=== PATIENT | male | born 1950 | race Caucasian/White ===

== ENCOUNTER 2022-11-10 12:48 | Emergency (ER) | payer MEDICARE, BC, SELFPAY ==
[2022-11-10 13:14] VITALS: BP 131/78; PULSE 68; RESP 18; TEMP 37.1; O2SAT 96; BMI 23.7
--- NOTE | 2022-11-10 13:33 | CRLHL7_ITS ---
For Patients: As a result of the Cures Act, medical imaging exams and procedure reports are released immediately into your electronic medical record. You may view this report before your referring provider. If you have questions, please contact your health care provider. INDICATION: Right knee pain and swelling. TECHNIQUE: Ultrasound venous duplex lower right extremity. Compression venous exam was performed using matos-scale, color Doppler, and spectral Doppler imaging. COMPARISON: Radiographs 11/10/2022. FINDINGS: Sonographic imaging demonstrates the right common femoral, deep femoral, superficial femoral, popliteal, posterior tibial and greater saphenous and the contralateral left common femoral veins to be fully compressible with normal color Doppler blood flow. 7.6 x 2.7 x 4.0 centimeter popliteal fossa region fluid collection is likely a popliteal cyst. IMPRESSION: No DVT within the right lower extremity. 7.6 x 2.7 x 4.0 centimeter popliteal fossa region fluid collection is likely a popliteal cyst. Dictated by Thom Farris MD @ 11/10/2022 2:41:57 PM Dictated by: Thom Farris MD @ 11/10/2022 14:42:08 (Electronically Signed)
--- NOTE | 2022-11-10 13:33 | CRLHL7_ITS ---
For Patients: As a result of the Century Cures Act, medical imaging exams and procedure reports are released immediately into your electronic medical record. You may view this report before your referring provider. If you have questions, please contact your health care provider. HISTORY: Pain and swelling. TECHNIQUE: Right knee 2 views. COMPARISON: None. FINDINGS: Flattening and mild irregularity of the medial femoral condyle articular cortex with suggestion of an approximately 14 mm wide underlying osteochondral lesion. Moderate medial compartment joint space narrowing marginal osteophytes. Small marginal osteophytes in the lateral and patellofemoral compartments. Atherosclerotic calcifications. Ossified joint bodies. IMPRESSION: 1. Osteochondral lesion the medial femoral condyle with flattening and mild irregularity of the overlying articular cortex. 2. 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 Dictated by Marco Garrido MD @ 11/10/2022 2:12:27 PM (Electronically Signed)
--- NOTE | 2022-11-11 00:12 | ED.GENADULT ---
HPI - General Adult General Chief complaint: Extremity Pain/Injury, Lower Stated complaint: R leg pain Time Seen by Provider: 11/10/22 13:22 History of Present Illness HPI narrative: RIGHT calf pain started overnight that woke him up from sleep. Seen at urgent care today who told him to come to ER for evaluation of possible blood clot. Pain goes from back of right calf up to lower thigh. Mild edema noted around right ankle. This is not baseline per pt 72-year-old man presenting to the emergency department complaint of right knee area pain. I was contacted initially by urgent care with description of discomfort from midthigh down to mid calf/lower leg and concern of foot blood clot?. He is not having cough or cold symptoms and no shortness of breath. No chest pain. On further questioning there has been some swelling behind the knee for some time. He also has been having some pain in the knee on off for a little while now. Does smoke. Was described to me as having had a long car ride about 6 hours. That was though 3 hours with breaks, ambulating around at cemetery to refresh a grave, and then returning home sounds like about a 3 hour day.. History of rheumatoid noted later. Related Data Home Medications Medication Instructions Recorded Confirmed blood pressure medication 20 mg PO 11/07/22 flomax PO 11/07/22 hydroxychloroquine 400 mg tablet 400 mg PO QDAY 11/07/22 11/10/22 methotrexate sodium 15 mg tablet 15 mg PO QWEEK 11/07/22 11/10/22 Previous Rx's Medication Instructions Recorded doxycycline hyclate 100 mg tablet 100 mg PO BID #14 tabs 11/07/22 Allergies Allergy/AdvReac Type Severity Reaction Status Date / Time Penicillins Allergy Verified 11/10/22 13:21 Review of Systems Status of ROS: Reports: 6 or more systems reviewed and unremarkable except as noted in History and below [facility] Medical History Finger infection ?L08.9 - Local infection of the skin and subcutaneous tissue, unspecified (ICD-10) Social History Smoking Status: Current every day smoker What tobacco products do you use: cigarettes Smoking packs per day: 0.25 Smoking cigarettes per day: 5.0 Years smoked: 55 Smoking pack-years: 13.75 Do you use any of these nicotine containing products: None Second hand tobacco smoke exposure: No How often do you have a drink containing alcohol: monthly or less How many standard drinks containing alcohol do you have on a typical day: 1 or 2 How often do you have six or more drinks on one occasion: Never AUDIT-C Alcohol total score: 1 Non-prescribed substance use: denies use service: Yes Exam Narrative: Exam Narrative: Pleasant. Initially accompanied by spouse she waits elsewhere later on the visit. Breathing easily. Heart with regular rate and rhythm. Banana room initially seated on the bed. Clearly tell that there is an effusion in the right knee. There is mild erythema. Not the degree of calor I would associate with cellulitis or joint infection itself. Number fluctuant marked fullness in the antigeniculate fossa. Some tenderness here as well. There is also what appears to be a moderate effusion about the knee. Negative Homans. Minimal edema about the ankle; seems relatively equivalent in the leg Const: Vital Signs, click to edit/add: Vital Signs - 24 hr 11/10/22 13:14 Temperature 98.7 F Pulse Rate [Pulse Oximeter] 68 Respiratory Rate 18 Blood Pressure [Ri ght Upper Arm] 131/78 Pulse Oximetry 96 Oxygen Delivery Me thod Room Air Documenting provider has reviewed patient's vital signs: yes Course Vital Signs Vital signs: Initial Vital Signs Temperature 98.7 F 11/10/22 13:14 Temperature Source Temporal Artery Scan 11/10/22 13:14 Pulse Rate 68 11/10/22 13:14 Pulse Rhythm Regular 11/10/22 13:14 Pulse Strength 3+ Normal 11/10/22 13:14 Respiratory Rate 18 11/10/22 13:14 Blood Pressure 131/78 11/10/22 13:14 Blood Pressure Mean 95 11/10/22 13:14 Blood Pressure Position Sitting 11/10/22 13:14 Pulse Oximetry 96 11/10/22 13:14 Oxygen Delivery Method Room Air 11/10/22 13:14 Vital Signs Temperature 98.7 F 11/10/22 13:14 Pulse Rate 68 11/10/22 13:14 Respiratory Rate 18 11/10/22 13:14 Blood Pressure 131/78 11/10/22 13:14 Pulse Oximetry 96 11/10/22 13:14 Oxygen Delivery Method Room Air 11/10/22 13:14 Temperature 98.7 F 11/10/22 13:14 Pulse Rate 68 11/10/22 13:14 Respiratory Rate 18 11/10/22 13:14 Blood Pressure 131/78 11/10/22 13:14 Pulse Oximetry 96 11/10/22 13:14 Oxygen Delivery Method Room Air 11/10/22 13:14 Medical Decision Making MDM Narrative Medical decision making narrative: Doubt very much that there is a deep venous thrombus present here. Seems more like Matt cyst along with otherwise knee effusion and osteoarthritic appearing knee. Furthermore there is a history of rheumatoid. This does not appear to be a flare of rheumatoid I requested ultrasound to evaluate for this suspect a Matt's cyst at the same time will check for DVT per concerns prior. Does not sound as though there has been a traumatic event to potentially injuries knees. COMPARISON: Radiographs 11/10/2022. FINDINGS: Sonographic imaging demonstrates the right common femoral, deep femoral, superficial femoral, popliteal, posterior tibial and greater saphenous and the contralateral left common femoral veins to be fully compressible with normal color Doppler blood flow. 7.6 x 2.7 x 4.0 centimeter popliteal fossa region fluid collection is likely a popliteal cyst. IMPRESSION: No DVT within the right lower extremity. 7.6 x 2.7 x 4.0 centimeter popliteal fossa region fluid collection is likely a popliteal cyst. I spoke to generation manager regarding ultrasound findings. Confirms suspicion of Matt cyst. Might benefit from therapeutic tap; I will not be doing this here in the emergency department today. I did review x-ray images confirming suspected osteoarthritic changes. Might benefit from steroid or other lubricant injection; will not be doing in emergency department today. Right knee 2 views. COMPARISON: None. FINDINGS: Flattening and mild irregularity of the medial femoral condyle articular cortex with suggestion of an approximately 14 mm wide underlying osteochondral lesion. Moderate medial compartment joint space narrowing marginal osteophytes. Small marginal osteophytes in the lateral and patellofemoral compartments. Atherosclerotic calcifications. Ossified joint bodies. IMPRESSION: 1. Osteochondral lesion the medial femoral condyle with flattening and mild irregularity of the overlying articular cortex. 2. 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 Discharge Plan Discharge Clinical Impression: Effusion of knee joint right, Matt's cyst, Knee joint pain, Arthritis Patient Disposition: Home, Self-Care Condition: Stable Additional Instructions: I think it would be good to follow up regarding this pain with your primary care provider particularly if they do orthopedic procedures or with Orthopedics themselves. Orthopedics phone number is [phone]. Can take up to 1000 mg of acetaminophen per dose. And for ibuprofen or maybe naproxen be better to take with a little bit of food. Can take up to 800 mg of ibuprofen per dose or alternatively up to 500 mg naproxen 2 times daily. Sometimes removing the fluid from a Matt's cyst or the effusion of the knee can be helpful in decreasing your pain. Prescriptions: No Action hydroxychloroquine 400 mg tablet 400 mg PO QDAY methotrexate sodium 15 mg tablet 15 mg PO QWEEK blood pressure medication 20 mg PO flomax PO doxycycline hyclate 100 mg tablet 100 mg PO BID Qty: 14 0RF Follow Up/Referrals: Marcela Mckenna DO [Primary Care Provider] - Stand Alone Forms: [employer] Info Instructions
== END 2022-11-10 14:48 | disposition home or self-care (01) ==
PROVIDERS: Emergency Provider Family Medicine; PCP Family Medicine
DX: M25.461 Effusion, right knee (principal); M71.21 Synovial cyst of popliteal space [Baker], right knee; M17.11 Unilateral primary osteoarthritis, right knee; R60.9 Edema, unspecified
CPT/HCPCS: 73560; 93971; 99284

== ENCOUNTER 2022-11-17 13:45 | Outpatient (RCR) | payer MEDICARE, BC, SELFPAY | END 2023-03-17 23:59 | disposition home or self-care (01) | PROVIDERS: PCP Family Medicine; Visit Provider Family Medicine | DX: R26.89 Other abnormalities of gait and mobility (principal); R26.81 Unsteadiness on feet; Z51.89 Encounter for other specified aftercare | CPT/HCPCS: 97110; 97112; 97162; 97164 ==

== ENCOUNTER 2023-12-31 13:06 | Outpatient (CLI) | payer MEDICARE, BC, SELFPAY ==
--- OUTSIDE RECORDS SUMMARY | 2023-12-31 13:08 | XMS_ITS | Continuity of Care Document ---
Author Organization [facility] Address [address] [place] [address] Phone Care Team Providers Care Rn Long Term Care Name Role Phone Jimbo Anna DO Unavailable Unavailable Allergies, Adverse Reactions, Alerts Substance Reaction Status Criticality Penicillins Active No Information Medications Medication Instructions Dosage Effective Dates (start - stop) Status Comments METHOTREXATE 2.5 MG TABLET TAKE 6 TABLETS BY MOUTH A SINGLE DOSE ONCE PER WEEK - Active HYDROXYCHLOROQUINE 200 MG TAB TAKE 2 TABLETS BY MOUTH EVERY DAY - Active epinephrine 0.3 mg/0.3 mL injection, auto-injector inject 0.3 milliliter by intramuscular route once as needed for anaphylaxis 0.3 MG - Active lisinopril 20 mg tablet take 1 tablet by oral route every day 20 MG - Active Aleve 220 mg capsule 2 qd - Active Flomax 0.4 mg capsule take 1 capsule by oral route every day 1/2 hour following the same meal each day 0.4 MG - Active donepezil 10 mg tablet take 1 tablet by oral route every day in the evening 10 MG - No Longer Active Procedures Procedure Date Office/Outpatient Visit, Est Drain/Inject, Joint/Bursa, Major 2023 Betamethasone Acet And Sod Phosp 2023 Office/Outpatient Visit, Est Office/Outpatient Visit, Est Routine Venipuncture Rbc Sed Rate, Automated Assay Of Serum Albumin Assay Of Creatinine Transferase (Ast) (Sgot) Alanine Amino (Alt) (Sgpt) Assay Of Blood/Uric Acid CReactive Protein Complete Cbc WAuto Diff Wbc Office/Outpatient Visit, Est Office/Outpatient Visit, Est Routine Venipuncture Assay Of Serum Albumin Assay Of Creatinine Transferase (Ast) (Sgot) Alanine Amino (Alt) (Sgpt) Complete Cbc WAuto Diff Wbc Office/Outpatient Visit, Est Office/Outpatient Visit, Est Routine Venipuncture Assay Of Serum Albumin Assay Of Creatinine Transferase (Ast) (Sgot) Alanine Amino (Alt) (Sgpt) Complete Cbc WAuto Diff Wbc Routine Venipuncture Assay Of Serum Albumin Assay Of Creatinine Transferase (Ast) (Sgot) Alanine Amino (Alt) (Sgpt) Complete Cbc WAuto Diff Wbc Office/Outpatient Visit, Est Office/Outpatient Visit, Est Office/Outpatient Visit, Est Office/Outpatient Visit, Est Office/Outpatient Visit, Est Office/Outpatient Visit, Est Office/Outpatient Visit, Est Office/Outpatient Visit, Est Routine Venipuncture Complete Cbc WAuto Diff Wbc Rbc Sed Rate, Nonautomated Assay Of Serum Albumin Assay Of Creatinine Transferase (Ast) (Sgot) Alanine Amino (Alt) (Sgpt) CReactive Protein Rheumatoid Factor, IGM Rheumatoid Factor, IGG, IGA Office/Outpatient Visit, Est Routine Venipuncture Complete Cbc WAuto Diff Wbc Rbc Sed Rate, Nonautomated CReactive Protein Assay Of Serum Albumin Assay Of Creatinine Transferase (Ast) (Sgot) Alanine Amino (Alt) (Sgpt) Office/Outpatient Visit, Est Routine Venipuncture Complete Cbc WAuto Diff Wbc Rbc Sed Rate, Nonautomated CReactive Protein Assay Of Serum Albumin Assay Of Creatinine Transferase (Ast) (Sgot) Alanine Amino (Alt) (Sgpt) Office/Outpatient Visit, Est Office/Outpatient Visit, Est Office/Outpatient Visit, Est Routine Venipuncture Complete Cbc WAuto Diff Wbc Rbc Sed Rate, Nonautomated CReactive Protein Assay Of Serum Albumin Assay Of Creatinine Transferase (Ast) (Sgot) Alanine Amino (Alt) (Sgpt) Office/Outpatient Visit, Est Routine Venipuncture Complete Cbc WAuto Diff Wbc Rbc Sed Rate, Nonautomated Specimen Handling Office/Outpatient Visit, Est Office/Outpatient Visit, Est Routine Venipuncture CReactive Protein Complete Cbc WAuto Diff Wbc Rbc Sed Rate, Nonautomated Assay Of Serum Albumin Assay Of Creatinine Transferase Ast Sgot Alanine Amino Alt Sgpt Office/Outpatient Visit, Est Routine Venipuncture CReactive Protein Complete Cbc WAuto Diff Wbc Rbc Sed Rate, Nonautomated Assay Of Serum Albumin Assay Of Creatinine Transferase Ast Sgot Alanine Amino Alt Sgpt Office/Outpatient Visit, Est Routine Venipuncture CReactive Protein Complete Cbc WAuto Diff Wbc Rbc Sed Rate, Nonautomated Assay Of Serum Albumin Assay Of Creatinine Transferase Ast Sgot Alanine Amino Alt Sgpt Advance Directives Directive Yes / No Effective Date File Name No Information Encounters Encounter Description Practice Location Reason(s) For Visit Diagnoses Date Provider Providers Copied on Encounter Office/Outpa tient Visit, Est [facility] , [address], [place], [address], [place] tel:[phone] [facility] , Rheumatoid arthritis (chief complaint) Pain in right kneeOther local company intermodal truck driver (current) drug therapyRA w/o rheumatoid factor of multiple sites 4 Wilfrido Choi. [facility] [address], [place], [address], [place]. tel:[phone] Referring Provider: Jimbo Russell, [facility] [address], [place], [address]. tel:[phone] [facility] , [address], [place], [address], [place] tel:[phone] [facility] , No Information 4 Wilfrido Choi. [facility] [address], [place], [address], [place]. tel:[phone] [facility] , [address], [place], [address], [place] tel:[phone] [facility] No Information 4 Wilfrido Choi. [facility] [address], [place], [address], [place]. tel:[phone] Office/Outpa tient Visit, Est [facility] , [address], [place], [address], [place] tel:[phone] [facility] , Rheumatoid arthritis (chief complaint) Pain in right kneeOther local company intermodal truck driver (current) drug therapyRA w/o rheumatoid factor of multiple sites 4 Wilfrido Choi. [facility] [address], [place], [address], [place]. tel:[phone] Referring Provider: Jimbo Russell, [facility] [address], [place], [address]. tel:[phone] Office/Outpa tient Visit, Est [facility] , [address], [place], [address], [place] tel:[phone] [facility] , Rheumatoid arthritis (chief complaint) Pain in right kneeOther custodial (current) drug therapyRA w/o rheumatoid factor of multiple sites 3 Wilfrido Choi. [facility] [address], [place], [address], [place]. tel:[phone] Referring Provider: Jimbo Russell, [facility] [address], [place], [address]. tel:[phone] Office/Outpa tient Visit, Est [facility] , [address], [place], [address], [place] tel:[phone] [facility] , Rheumatoid arthritis (chief complaint) RA w/o rheumatoid factor of multiple sitesPain in right kneeOther local company intermodal truck driver (current) drug therapy 2 Wilfrido Choi. [facility] [address], [place], [address], [place]. tel:[phone] Referring Provider: Jimbo Russell, [facility] [address], [place], [address]. tel:[phone] Office/Outpa tient Visit, Est [facility] , [address], [place], [address], [place] tel:[phone] [facility] , Rheumatoid arthritis (chief complaint) RA w/o rheumatoid factor of multiple sitesPain in right kneeOther local company intermodal truck driver (current) drug therapy 2 Wilfrido Choi. [facility] [address], [place], [address], [place]. tel:[phone] Referring Provider: Jimbo Russell, [facility] [address], [place], [address]. tel:[phone] Office/Outpa tient Visit, Est [facility] , [address], [place], [address], [place] tel:[phone] [facility] , Rheumatoid arthritis (chief complaint) RA w/o rheumatoid factor of multiple sitesPain in unspecified footOther custodial (current) drug therapyPain in right knee 1 Wilfrido Choi. [facility] [address], [place], [address], [place]. tel:[phone] Referring Provider: Jimbo Russell, [facility] [address], [place], [address]. tel:[phone] Office/Outpa tient Visit, Est [facility] , [address], [place], [address], [place] tel:[phone] [facility] , RA w/o rheumatoid factor of multiple sitesPain in unspecified footOther custodial (current) drug therapy 1 Wilfrido Choi. [facility] [address], [place], [address], [place]. tel:[phone] Referring Provider: Jimbo Russell, [facility] [address], [place], [address]. tel:[phone] [facility] , [address], [place], [address], [place] tel:[phone] [facility] , No Information 1 Wilfrido Choi. [facility] [address], [place], [address], [place]. tel:[phone] Referring Provider: Jimbo Russell, [facility] [address], [place], [address]. tel:[phone] Office/Outpa tient Visit, Est [facility] , [address], [place], [address], [place] tel:[phone] [facility] , RA w/o rheumatoid factor of multiple sitesPain in unspecified footOther local company intermodal truck driver (current) drug therapy 0 Wilfrido Choi. [facility] [address], [place], [address], [place]. tel:[phone] Referring Provider: Jimbo Russell, [facility] [address], [place], [address]. tel:[phone] Office/Outpa tient Visit, Est [facility] , [address], [place], [address], [place] tel:[phone] [facility] , RA w/o rheumatoid factor of multiple sitesPain in unspecified footOther custodial (current) drug therapy 6-202 0 Wilfrido Choi. [facility] [address], [place], [address], [place]. [phone] Referring Provider: Jimbo Russell, [facility] [address], [place], [address]. tel:[phone] Office/Outpa tient Visit, Est [facility] , [address], [place], [address], [place] tel:[phone] [facility] , RA w/o rheumatoid factor of multiple sitesPain in unspecified footOther local company intermodal truck driver (current) drug therapy 201 9 Wilfrido Choi. [facility] [address], [place], [address], [place]. [phone] Referring Provider: Jimbo Russell, [facility] [address], [place], [address]. tel:[phone] Office/Outpa tient Visit, Est [facility] , [address], [place], [address], [place] tel:[phone] [facility] , Follow Up of Rheumatoid arthritis (chief complaint)Mo nitor Chronic High Risk Meds (chief complaint) RA w/o rheumatoid factor of multiple sitesOther custodial (current) drug therapyPain in unspecified foot Mar-0 9 Wilfrido Choi. [facility] [address], [place], [address], [place]. tel:[phone] Referring Provider: Jimbo Russell, [facility] [address], [place], [address]. tel:[phone] Office/Outpa tient Visit, Est [facility] , [address], [place], [address], [place] tel:[phone] [facility] , Follow Up of Rheumatoid arthritis (chief complaint)Mo nitor Chronic High Risk Meds (chief complaint) RA w/o rheumatoid factor of multiple sitesOther local company intermodal truck driver (current) drug therapy Sep- 8 Wilfrido Choi. [facility] [address], [place], [address], [place]. tel:[phone] Referring Provider: Jimbo Russell, [facility] [address], [place], [address]. tel:[phone] Office/Outpa tient Visit, Est [facility] , [address], [place], [address], [place] tel:[phone] [facility] , Follow Up of Rheumatoid arthritis (chief complaint)Mo nitor Chronic High Risk Meds (chief complaint) RA w/o rheumatoid factor of multiple sitesOther local company intermodal truck driver (current) drug therapy Apr-2 8 Wilfrido Choi. [facility] [address], [place], [address], [place]. tel:[phone] Referring Provider: Jimbo Russell, [facility] [address], [place], [address]. tel:[phone] Office/Outpa tient Visit, Est [facility] , [address], [place], [address], [place] tel:[phone] [facility] , Follow Up of Rheumatoid arthritis (chief complaint)Mo nitor Chronic High Risk Meds (chief complaint) RA w/o rheumatoid factor of multiple sitesPain in right footOther custodial (current) drug therapy Wilfrido Choi. [facility] [address], [place], [address], [place]. tel:[phone] Referring Provider: Jimbo Russell, [facility] [address], [place], [address]. tel:[phone] Office/Outpa tient Visit, Est [facility] , [address], [place], [address], [place] tel:[phone] [facility] , Follow Up of Rheumatoid arthritis (chief complaint)Mo nitor Chronic High Risk Meds (chief complaint) RA w/o rheumatoid factor of multiple sitesPain in right footOther local company intermodal truck driver (current) drug therapy Wilfrido Choi. [facility] [address], [place], [address], [place]. tel:[phone] Referring Provider: Jimbo Russell, [facility] [address], [place], [address]. tel:[phone] Office/Outpa tient Visit, Est [facility] , [address], [place], [address], [place] tel:[phone] [facility] , Follow Up of Rheumatoid arthritis (chief complaint)Mo nitor Chronic High Risk Meds (chief complaint) RA w/o rheumatoid factor of multiple sitesOther custodial (current) drug therapyPain in right foot Feb-0 6 Wilfrido Choi. [facility] [address], [place], [address], [place]. tel:[phone] Referring Provider: Jimbo Russell, [facility] [address], [place], [address]. tel:[phone] Office/Outpa tient Visit, Est [facility] , [address], [place], [address], [place] tel:[phone] [facility] , Follow Up of Rheumatoid arthritis (chief complaint)Mo nitor Chronic High Risk Meds (chief complaint) RA w/o rheumatoid factor of multiple sitesOther custodial (current) drug therapy Aug- 6 Wilfrido Choi. [facility] [address], [place], [address], [place]. tel:[phone] Referring Provider: Jimbo Russell, [facility] [address], [place], [address]. tel:[phone] Office/Outpa tient Visit, Est [facility] , [address], [place], [address], [place] tel:[phone] [facility] , Follow Up of Rheumatoid arthritis (chief complaint)Mo nitor Chronic High Risk Meds (chief complaint) Rheumatoid arthritisThe rapeutic Drug Monitoring Feb- 5 Wilfrido Choi. [facility] [address], [place], [address], [place]. tel:[phone] Referring Provider: Jimbo Russell, [facility] [address], [place], [address]. tel:[phone] Office/Outpa tient Visit, Est [facility] , [address], [place], [address], [place] tel:[phone] [facility] , Rheumatoid Arthritis (chief complaint)Mo nitor chronic high risk medications (chief complaint) Hypertension , UnspecifiedR heumatoid ArthritisThe rapeutic Drug Monitoring 4 Wilfrido Choi. [facility] [address], [place], [address], [place]. tel:[phone] Referring Provider: Jimbo Russell, [facility] [address], [place], [address]. tel:[phone] Office/Outpa tient Visit, Est [facility] , [address], [place], [address], [place] tel:[phone] [facility] , Rheumatoid Arthritis (chief complaint)Mo nitor chronic high risk medications (chief complaint) Rheumatoid ArthritisThe rape[facility] Drug MonitoringPa in in joint involving multiple sites 4 Wilfrido Choi. [facility] [address], [place], [address], [place]. tel:[phone] Referring Provider: Jimbo Russell, [facility] [address], [place], [address]. tel:[phone] Office/Outpa tient Visit, Est [facility] , [address], [place], [address], [place] tel:[phone] [facility] , Rheumatoid Arthritis (chief complaint)Mo nitor chronic high risk medications (chief complaint) Rheumatoid ArthritisThe [facility] Drug Monitoring 0 4 Wilfrido Choi. [facility] [address], [place], [address], [place]. tel:[phone] Referring Provider: Jimbo Russell, [facility] [address], [place], [address]. tel:[phone] Office/Outpa tient Visit, Est [facility] , [address], [place], [address], [place] tel:[phone] [facility] , Rheumatoid Arthritis (chief complaint) Rheumatoid ArthritisThe [facility] Drug Monitoring 3 Wilfrido Choi. [facility] [address], [place], [address], [place]. tel:[phone] Referring Provider: Jimbo Russell, [facility] [address], [place], [address]. tel:[phone] Office/Outpa tient Visit, Est [facility] , [address], [place], [address], [place] tel:[phone] [facility] , Rheumatoid Arthritis (chief complaint)Mo nitor chronic high risk medications (chief complaint) Rheumatoid ArthritisThe [facility] Drug Monitoring 3 Wilfrido Choi. [facility] [address], [place], [address], [place]. tel:[phone] Referring Provider: Jimbo Russell, [facility] [address], [place], [address]. tel:[phone] Office/Outpa tient Visit, Est [facility] , [address], [place], [address], [place] tel:[phone] [facility] , Rheumatoid Arthritis (chief complaint) Rheumatoid ArthritisThe rape[facility] Drug MonitoringPa in in joint involving hand 2 Wilfrido Choi. [facility] [address], [place], [address], [place]. tel:[phone] Referring Provider: Jimbo Russell, [facility] [address], [place], [address]. tel:[phone] Office/Outpa tient Visit, Est [facility] , [address], [place], [address], [place] tel:[phone] [facility] , Rheumatoid Arthritis (chief complaint) Rheumatoid ArthritisThe [facility] Drug Monitoring 2 Wilfrido Choi. [facility] [address], [place], [address], [place]. tel:[phone] Referring Provider: Jimbo Russell, [facility] [address], [place], [address]. tel:[phone] Family History Family Member Type Diagnosis Age At Onset Mother Problem (finding) Arthritis Immunizations Vaccine Date Status Comments COVID-19 Pfizer administered Source: Sour ce Unspecified COVID-19 Pfizer administered Source: Sour ce Unspecified COVID-19 Pfizer administered Source: Sour ce Unspecified Payers Payer name Insurance type Covered democrat ID Authorlidaa tibrock(s) Medicare MB [id number] [facility] [id number] Social History Type Description Quantity Date Captured Comments Alcohol Use Details No Caffeine Use Details soda 2 cans daily per day Tobacco Use Status Ex-cigarette smoker 024 Smoking Status Former smoker Smoking Tobacco Use Details Cigarette: Age Stopped: 73 Cigarette: No Details Available Sex Male Vital Signs Date / Time: Height Weight BMI Pulse Rate Blood Pressure Temperature Respiratory Rate Body Surface Area Head Circumference Head Circ. Percentile Wt./Jorge. Percentile BMI percentile Pulse Ox Inhaled Ox 11:03 AM 71.00 in 84.368 kg (186.00 lbs) 25.9 4 kg/m eter (2) 124/80 mm[Hg] 97.60 F Chief Complaint And Reason For Visit From encounter dated '11/25/2023 11:00'. Rheumatoid arthritis (chief complaint) Reason For Referral Reason For Referral No Information Plan Of Treatment Date Type Action Status Goal Tobacco cessation counseling completed Goal Tobacco cessation counseling completed Goal Tobacco cessation counseling completed Goal Tobacco cessation counseling completed Goal Tobacco cessation counseling completed Goal Tobacco cessation counseling completed Goal Tobacco cessation counseling completed Goal Tobacco cessation counseling completed Referral Ordered: [facility] (related to Pain in right foot) ordered Referral Referred To: [facility] [address] [place] [address] [id number] Ordered: Referrals: [facility]. Evaluate and treat ordered Appointment David Tapia BOOKED History Of Present Illness Encounter Date Complaint History Of Prese nt Illness Rheumatoid arthritis Rheumatoid arthritis Rheumatoid arthritis Rheumatoid arthritis Rheumatoid arthritis Rheumatoid arthritis Follow Up of Rheumat oid arthritis (comments) Seropositive rheumatoid arthritis. He continues to do well with the lower dose of methotrexate. He currently is at 6 tablets weekly along with Plaquenil 2 tablets daily.No newly inflamed or swollen joints to report. No ocular complaints. No intestinal complaints.His morning stiffness duration is less than 30 minutes.He has had some activity induced joint pain in the feet with prolonged walking. He has been golfing regularly over the summer.Otherwise, minimal complaints to report today. Monitor Chronic High Risk Meds (comments) His surveillance labs were done on January 11, 2015. They were acceptable for continuation of medication.This patient continues to tolerate the methotrexate without difficulty. Normal surveillance labs. Their surveillance labs are up-to-date and have been acceptable for continuation of medication. No recent infections or medication complications. Functional Status Date Functional Assessmen t Pain Score 2/10 Instructions Date Instruction Additional Infor zully The patient will con tact our office if they develop any unusual symptoms or a potential flare. The plan has been explained in detail to the patient and written instructions were provided when applicable. The patient left with a good understanding of the plan. Related to Rheumatoid arthritis Assessments Type Assessment Date assessment Pain in right knee assessment Other custodial (current) drug t herapy assessment RA w/o rheumatoid factor of [facility] [place] Mental Status Date Cognitive Assessment Orientation - [place] ed to time, place, person, situation. Patient Care Teams Name Effective Dates (start - stop) Status Members No Information
--- OUTSIDE RECORDS SUMMARY | 2023-12-31 13:08 | XMS_ITS | Clinical Summary ---
Author Organization [employer] [facility] Address [place], [place] [address] Care Team Providers Care Veterinary Livestock Inspector Name Role Phone Marcela Mckenna Verito JAQUEZ Primary Care Provider [phone] Allergies Active Allergy Reactions Criticality Noted Date Comments Venom-Honey Bee Rash High 06/23/2011 Mirtazapine *Unknown 04/16/2021 Had wild dreams Penicillins Medications Medication Sig Dispensed Refills Start Date End Date Status hydroxychloroquine (PLAQUENIL) 200 mg tablet Take 2 tablets by mouth once daily. 0 10/01/2010 Active methotrexate (RHEUMATREX) 2.5 mg tabletIndications: Rheumatoid arthritis(714.0) Take 6 tablets by mouth once weekly. Managed by Dr Anna 15 tablet 0 03/14/2015 Active medication order composerIndication s:Obstructive sleep apnea 12/31/2016 AHI-16; supine is 22; diagnosis obstructive sleep apnea MRD #1 1 unit 04/16/2021 Active EPINEPHrine (EpiPen) 0.3 mg/0.3 mL auto-injectorIndic ations:Bee sting allergy Inject 0.3 mg intramuscular one time if needed for Allergic Reaction. 2 Each 1 03/05/2022 Active naproxen (Aleve) 220 mg tabletIndications: Rheumatoid arthritis, involving unspecified site, unspecified whether rheumatoid factor present (HC) Take one daily 0 03/05/2022 Active lisinopriL (PRINIVIL; ZESTRIL) 20 mg tabletIndications: Essential hypertension Take 1 Tablet (20 mg) by mouth once daily. 90 Tablet 2 04/18/2023 Active tamsulosin (FLOMAX) 0.4 mg capsuleIndications :Benign prostatic hyperplasia with urinary retention Take 2 Capsules (0.8 mg) by mouth once daily after a meal. 180 Capsule 2 04/27/2023 Active aspirin chewable 81 mg chewable tabletIndications: Coronary artery disease involving coyote valley coronary artery of coyote valley heart without angina pectoris Chew 1 Tablet (81 mg) by mouth once daily with a meal. 12/08/2023 Active Active Problems Problem Noted Date Diagnosed Date Coronary artery disease invo lving coyote valley coronary artery of coyote valley heart without angina pectoris 12/08/2023 Left bundle branch block 09/09/2023 Depression, recurrent 03/09/2023 Bee sting allergy 03/05/2022 Sensorineural hearing loss (SNHL) of both ears 0 11/23/2018 AGUSTÍN, 12/31/2016, 15.8 01/13/2017 Hypersomnolence 12/23/2016 Benign prostatic hyperplasia with lower urinary tract symptoms 11/22/2014 DJD (degenerative joint disease) of hip 12/02/19 13 Dyslipidemia 08/20/2011 Elevated prostate specific antigen (PSA) 011 History of rheumatoid arthritis 11/06/2009 DJD (degenerative joint disease) of knee 010 Personal history of colonic polyps 06/29/2009 Overview: Last colonoscopy 09/2010 Colonoscopy 06/2019 polyps, repeat in 5 years Essential hypertension 08/06/2007 Tobacco use disorder 08/06/2007 Resolved Problems Problem Noted Date Diagnosed Date Resolved Date Poor sleep hygiene 05/12/2017 05 8 History of bee sting allergy 06/23/2011 03/05/2022 Encounters Date Type Department Care Team Description 12/10/2023 7:00 AM CDT Orders Only [facility] Onesimo Mccallum [facility] [address] [place] [place] [address] Lab 12/08/2023 1:45 PM CDT Office Visit [facility] [address] [place] [address] Marcela Mckenna, DO Toe Pain/problem (L 2nd toe wound) 12/08/2023 Travel 12/08/[address] [place] [address] Tai Cash MD Results 11/26/2023 8:20 AM CDT Office Visit [facility] [address] [place] [address] Smiley Guerra, Toe Pain/problem (Had toenail removed in April by Dr. Lopez. L 3rd toe. Now is painful again. ) 11/26/2023 Travel 11/23/2023 8:30 AM CDT Ancillary Procedure [place] [id number] [place] [address] 11/23/2023 Travel 11/18/2023 10:00 AM CDT Office Visit [facility] [address] [place] [address] Tai Cash MD Consult (Abnormal Stress Echo; Left bundle branch blcok) 11/18/2023 Travel 11/15/2023 Travel 11/11/2023 11:30 AM CDT Orders Only [facility] [address] [place] [address] Lab, [facility] (Mari and Push[facility]); Outside Order ... 11/11/2023 11:00 AM CDT Office Visit [facility] [address] [place] [address] Jarvis Barrow MD Follow Up (FOLLOW UP FROM 06-02-23) 11/11/2023 Travel 11/10/2023 Telephone [facility] [address] [address] Jarvis Barrow MD Refill Request 11/07/2023 Refill [facility] [address] [place] [address] Jarvis Barrow MD Refill Request (Donepezil) from Last 3 Months Immunizations Name Administration Dates Next Due COVID-19 vaccine (Essential Viewing 30mcg/0.3mL) AMIE Cervantes 08/28/2020,08/07/2020 Influenza Virus, Unspecified 03/05/2022,04/16/20 20 Influenza, Inactivated AIIV4 (Age 65+ Years) Preserv Free 03/05/2022,04/16/2020 Pneumococcal Poly,23-Valent (Pneumovax) 12/20/19 21 Pneumococcal conj 13-Valent (Prevnar 13) 020 Td (Age >=7 Years) 08/14/2003 Tdap 12/04/2010 Zoster (Shingrix-RZV, recombinant) 05/22/2020, Zoster (Zostavax-ZVL, live) 05/14/2012 Family History Medical History Relation Name Comments Cancer-prostate Brother 1 Stroke Brother 1 No Known Problems Brother 2 Cancer-prostate Father Seizures Father Sleep apnea Father Arthritis Mother Heart failure Mother Hypertension Mother Relation Name Status Comments Brother 1 Brother 2 Father Mother Social History Tobacco Use Types Packs/Day Years Used Date Smoking Tobacco: Former Cigarettes 0.5 53.5 S tarted: 1971 Smokeless Tobacco: Never Tobacco Cessation:Counseling Given: Not Answered Comments:Quit smoking 09/2023 Alcohol Use Standard Drinks/Week Comments Yes 0 (1 standard drink = 0.6 oz pur e alcohol) occ PHQ-2 Answer Date Recorded PHQ-2 TOTAL SCORE 1 07/16/2022 Social Connections Answer Date Recorded Frequency of Communication with Friends and Fami ly 0 09/09/2023 Financial Resource Strain Answer Date R ecorded Difficulty of Paying Living Expenses 3 09/09/2023 Difficulty of Paying Living Expenses Not on file 09/09/2023 Food Insecurity Answer Date Recorded Worried About Running Out of Food in the Last Ye ar 1 09/09/2023 Transportation Needs Answer Date Record ed Lack of Transportation (Medical) 1 09/09/2023 Housing Stability Answer Date Recorded Unable to Pay for Housing in the Last Year 1 09/09/2023 Sex and Gender Information Value Date Recorded Sex Assigned at Not on file Gender Identity Not on file Sexual Orientation Not on file Obstetrics History Last Filed Vital Signs Vital Sign Reading Time Taken Comments Blood Pressure 110/83 12/08/2023 1:58 PM CDT Pulse 71 12/08/2023 1:58 PM CDT Temperature 36.7 ??C (98 ??F) 07/02/2021 12:23 PM TRANSPORT PILOT Respiratory Rate 18 11/18/2023 9:59 AM CDT Oxygen Saturation 96% 12/08/2023 1:58 PM CDT Inhaled Oxygen Concentration - - Weight 83.5 kg (184 lb 1.6 oz) 12/08/2023 1:58 P M CDT Height 178.8 cm (5' 10.39) 09/09/2023 7:33 AM C DT Body Mass Index 26.12 09/09/2023 7:33 AM CDT Plan of Treatment Upcoming Encounters Date Type Department Care Team (Late st Contact Info) Description 02/10/2024 9:40 AM CDT Office Visit [facility] [address] [place] [address] Jarvis Barrow MD [address] [place] [address] Health Maintenance Due Date Last Done Comments Low Dose CT (for lung CA) ag e 50-80 1999 AAA screening age 65-74 2014 Tetanus booster 12/04/2020 12/04/2010, 08/14/2003 Medicare Wellness for age 65+ 12/20/2021 12/19/2020 COVID-19 vaccine series (2022- season) 2023 03/06/2022, 10/09/2021, 03/17/2021, Additional history exists Depression screening for age 12+ 07/16/2023 07/16/2022, 09/12/2020, 06/13/2019, Additional history exists Influenza for age 65+ 02/14/2024 03/05/2022 , 03/05/2022, 04/16/2020, Additional history exists Colonoscopy through age 75 07/12/202407/12, 07/12/2019, 07/12/2019, Additional history exists BMI (ht and wt on same day) for age 18+ 09/08/2024 09/09/2023, 03/05/2022, 07/09/2021, Additional history exists Lipids for age 45-75 12/07/2028 12/08/2023, 03/05/2022, 03/21/2021, Additional history exists Tdap Completed 12/04/2010 Hepatitis C screening for ag e 18-79 Completed 06/13/2019 Zoster (shingles) series for age 50+ Completed 05/22/2020, 03/07/2020, 05/14/2012 Pneumococcal series for age 65+ Completed 1, 01/16/2020 Procedures Procedure Name Priority Date/Time Associated Diagnosis Comments OCCULT BLOOD IFOBT STOOL Routine 12/10/2023 7:46 AM CDT Black stool HEMOGLOBIN Routine 12/08/2023 2:56 PM CDT Pre-op evaluation POTASSIUM Routine 12/08/2023 2:56 PM CDT Pre-op evaluation LIPID PANEL W REFLEX MEASURED LDL Routine 12/08/2023 2:56 PM CDT Coronary artery disease involving coyote valley coronary artery of coyote valley heart without angina pectoris CT CARDIAC CORONARY ARTERIES DUAL READ Routine 11/23/2023 8:37 AM CDT Abnormal result of other cardiovascular function study Preop cardiovascular exam RED CELL MORPHOLOGY Routine 11/11/2023 1 1:56 AM CDT Rheumatoid arthritis of multiple sites without rheumatoid factor (HC) PLATELET ESTIMATE Routine 11/11/2023 11: 56 AM CDT Rheumatoid arthritis of multiple sites without rheumatoid factor (HC) MANUAL DIFFERENTIAL Routine 11/11/2023 1 1:56 AM CDT Rheumatoid arthritis of multiple sites without rheumatoid factor (HC) CBC WITH AUTO DIFFERENTIAL Routine 11/11/2023 11:56 AM CDT Rheumatoid arthritis of multiple sites without rheumatoid factor (HC) VITAMIN B12 Routine 11/11/2023 11:56 AM CDT Lewy body dementia with behavioral disturbance (HC) POTASSIUM Routine 11/11/2023 11:56 AM CDT Pre-op exam CREATININE Routine 11/11/2023 11:56 AM CDT Rheumatoid arthritis of multiple sites without rheumatoid factor (HC) ALT (SGPT) Routine 11/11/2023 11:56 AM CDT Rheumatoid arthritis of multiple sites without rheumatoid factor (HC) AST (SGOT) Routine 11/11/2023 11:56 AM CDT Rheumatoid arthritis of multiple sites without rheumatoid factor (HC) ALBUMIN Routine 11/11/2023 11:56 AM CDT Rheumatoid arthritis of multiple sites without rheumatoid factor (HC) CBC WITH AUTO DIFFERENTIAL Routine 11/11/2023 11:56 AM CDT Rheumatoid arthritis of multiple sites without rheumatoid factor (HC) COLONOSCOPY SCREENING Routine 07/12/2019 9:44 AM TRANSPORT PILOT Personal history of colonic polyps ANTI HCV Routine 06/13/2019 3:06 PM TRANSPORT PILOT Need for hepatitis C screening test from Last 3 Months or Most Recently Relevant to Health Maintenance Results * OCCULT BLOOD IFOBT STOOL (12/10/2023 7:46 AM CDT) STOOL BLOOD ,IFOBT Negative Negative 12/16/2023 8:42 AM CDT [facility] Stool STOOL SPECIMEN / Unknown Non-Blood / Unknown 12/10/2023 7:46 AM CDT 12/15/2023 7:47 AM CDT Marcela Mckenna DO LABORATORY [facility] [address] [place] [address], * LIPID PANEL W REFLEX MEASURED LDL (12/08/2023 2:56 PM CDT) CHOLESTEROL,TOTAL 147 100 - 199 mg/dL 12/09/2023 1:42 AM CDT [facility] Comment: Cholesterol, Total Reference Ranges Desirable <200 mg/dL Borderline 200-239 mg/dL High >=240 mg/dL TRIGLYCERIDES 111 <150 mg/dL 12/09/2023 1:42 AM CDT [facility] HDL CHOLESTEROL 41 >40 mg/dL 1:42 AM CDT [facility] NON-HDL CHOLESTEROL 106 <145 mg/dl 12/09/2023 1:42 AM CDT [facility] CHOL/HDL RATIO 3.59 <4.50 12/09/2023 1:42 AM CDT [facility] LDL CHOLESTEROL 84 <=130 mg/dL 12/09/2023 1:42 AM CDT [facility] VLDL CHOLESTEROL 22 <=30 mg/dL 12/09/2023 1:42 AM CDT [facility] PROVIDER ORDERED STATUS RANDOM 12/09/2023 1:42 AM CDT [facility] Blood BLOOD SPECIMEN / Unknown Venipuncture / Unknown 12/08/2023 2:56 PM CDT 12/08/2023 2:59 PM CDT Marcela [employer] CHEMISTRY [facility] [address] [address], [place] * (ABNORMAL) HEMOGLOBIN (12/08/2023 2:56 PM CDT) HEMOGLOBIN 13.7 13.5 - 17.5 g/dL 12/08/2023 3:05 PM CDT [facility] MCV 101(H) 80 - 100 fL 12/08/2023 3:05 PM CDT [facility] Blood BLOOD SPECIMEN / Unknown Venipuncture / Unknown 12/08/2023 2:56 PM CDT 12/08/2023 2:59 PM CDT [employer] JAQUEZ HEMATOLOGY [facility] [address] [place] [address], * POTASSIUM (12/08/2023 2:56 PM CDT) Only the most recent of2 resultswithin the time period is included. POTASSIUM 4.3 3.5 - 5.1 mmol/L 12/09/2023 1:42 AM CDT [facility] Blood BLOOD SPECIMEN / Unknown Venipuncture / Unknown 12/08/2023 2:56 PM CDT 12/08/2023 2:59 PM CDT Marcela Mckenna DO CHEMISTRY [facility] [address] [place] [address], * CT CARDIAC CORONARY ARTERIES [14496.0] (11/23/2023 8:37 AM CDT) Anatomical Region Laterality Modality HEART Computed Tomogra phy 11/23/2023 8:22 AM CDT Impressions 11/24/2023 7:16 AM CDT 1. Please see dedicated cardiac imaging report. 2. No (additional) acute or suspicious extra cardiac imaging abnormality. Please note that all CT scans at this facility use dose modulation, iterative reconstruction, and/or weight-based dosing when appropriate to reduce radiation dose to as low as reasonably achievable. Dictated by Humberto Paulino MD @ 11/23/2023 10:02:49 AM (Electronic Signature) Narrative 11/24/2023 7:16 AM CDT ?[facility] ? Cardiac CT Report ??MRN: ?[id number] ?Name: ? KEISHA ROMO ?: ?Scan Date: ?Accession Number: ?[id number] ?Status: ?Final ? Electronically signed by Chet Galindo 09:44:09 VITALS HEIGHT: 70 in ?(178 cm) WEIGHT: 186 lbs ?(84 kgs) BSA: 2.02 m^2 BMI: 27 kg/m^2 BP: 144 / 87 mmHg BASELINE HR: 61 BPM HEART RHYTHM: Normal Sinus Rhythm FINAL IMPRESSION 1. Prominent nonobstructive coronary artery atherosclerosis. 2. Total coronary artery calcium score 446. ELLIOTT percentile based on age, gender, and race is 64. 3. No evidence of obstructive epicardial coronary artery disease to explain patient's symptoms. 4. Ascending aorta measures 44 x 44 mm (area index 8.3 cm2/m). 5. Mildly dilated aortic root, maximum cusp-cusp 41 mm. Please see radiology section at end of report for noncardiac findings. RECOMMENDATIONS: Recommend aggressive risk factor modification. STUDY QUALITY: Study quality is good. CAD-RADS: CAD-RADS Classification 2 (25-49% stenosis). CALCIUM SCORING: Total coronary artery calcium score 446. ELLIOTT percentile based on age, gender, and race is 64. DOMINANCE: Right dominant coronary artery system. LM: The LM is normal. LAD: The proximal LAD has calcified atherosclerosis. There is a 25-49% proximal LAD stenosis. The mid LAD has calcified atherosclerosis. There is a <25% mid LAD stenosis. There is no plaque in the distal LAD. There is a <25% distal LAD stenosis. D1: The first diagonal is normal. D2: The second diagonal is normal. D3: The third diagonal is normal. RAMUS: The ramus has calcified atherosclerosis. There is a <25% ramus stenosis. LCX: The LCx is normal. OM1: The first obtuse marginal has partially calcified atherosclerosis. There is a <25% first obtuse marginal stenosis. RCA: The proximal RCA has calcified atherosclerosis. There is a <25% proximal RCA stenosis. There is no plaque in the mid RCA. There is no mid RCA stenosis. There is no plaque in the distal RCA. There is no distal RCA stenosis. RIGHT PDA: The right PDA is normal. RIGHT PLB: The right posterolateral branch is normal. OTHER FINDINGS: Thoracic aorta: ??Aortic sinus maximum cusp-cusp: ??41 mm ??Ascending aorta maximum diameters: 44 x 44 mm (area index 8.3 cm2/m). ??Descending thoracic aorta maximum diameters: 30x30 mm. Pericardium: No effusion. Left atrium: Normal contrast opacification. Atrial septum: No evidence of shunt. Pulmonary veins: Normal anatomy. Pulmonary trunk: ??27x26 mm. CALCIUM SCORING TABLE . . ? Number of Lesions Pattern of Calcium Volume Total Score +-------+ + +--------+ + LM ? 0 LAD ? 292 LCx ?31 RCA ? 123 Ramus ? '-------+ + +--------+ ' SCAN INFO TEST TYPE: ??Calcium score, Coronary CT Angiography SCANNER PARA PROFESSIONAL: ??SIEMENS SCANNER MODEL: ??ScoreStream Force DOSE REDUCTION ALGORITHM: ??Helical with dose modulation PHASE UNITS: ??% START PHASE: ??67 % END PHASE: ??72 % EKG GATED: ??Yes PRE-CONTRAST: ??Yes POST-CONTRAST: ??Yes 3D RECONSTRUCTION: ??Yes GENERAL ?CONTRAST AGENT ?CONTRAST AGENT USED?: ??Yes ?TYPE: ??Omnipaque 350 ?DOSE: ??100 ml ?RATE: ??6.5 ml/s ?ROUTE: ??IV ?ARM: ??Right ?BOLUS TECHNIQUE: ??Biphasic ?SERUM CREATININE: ??1.33 mg/dL ?GFR: ??55.86 ml/min/1.73m^2 ?CREATININE DATE: ??2023- ?CT CONTRAST REACTION: ??None ?MEDICATION ADMINISTERED DURING SCAN ?TYPE: ??Nitroglycerin, sublingual ?NITROGLYCERIN, TOTAL DOSE: ??0.8 mg ?SETUP ?PATIENT TYPE: ??Outpatient ?REASON(S) FOR SCAN: ??Other... ?OTHER, SPECIFY:: ??pre op , ??LBBB ?REFERRING PHYSICIAN: ??TAI CASH ?TECHNOLOGIST: ??Claudia Pascual BILLING Patient Account ?[id number] ICD10 Codes ?R94.39, Z01.810 Report generated by [employer], a product of [employer] For Patients: As a result of the Century Cures Act, medical imaging exams and procedure reports are released immediately into your electronic medical record. ??You may view this report before your referring provider. ?? If you have questions, please contact your health care provider. OVER-READ ??OVER-READ ??OVER-READ OVER-READ: DETAILED RADIOLOGY EXTRACARDIAC OVER-READ OF CARDIAC CT 11/23/2023 TECHNIQUE: ??Please see cardiology report for technical information. ??100 cc Omnipaque 350 intravenous contrast. This exam is being performed in conjunction with the services provided by the [facility] ([facility]). CLINICAL HISTORY: ??Cardiac CTA over-read. ? FINDINGS: Aorta: Normal caliber with no signs of dissection. Pulmonary arteries: No filling defects, bolus timing may somewhat limit evaluation. Mediastinum: No suspicious adenopathy. Lungs and pleural structures: Clear, no effusions. Minimal pulmonary scarring. Tai Cash MD CT * (ABNORMAL) CBC WITH AUTO DIFFERENTIAL (11/11/2023 11:56 AM CDT) WHITE BLOOD COUNT 5.4 4.5 - 11.0 thou/cu mm 11/11/2023 12:35 PM CDT [facility] RED BLOOD COUNT 4.10(L) 4.30 - 5.90 mil/cu mm 11/11/2023 12:35 PM CDT [facility] HEMOGLOBIN 13.8 13.5 - 17.5 g/dL 11/11/2023 12:35 PM CDT [facility] HEMATOCRIT 41.9 37.0 - 53.0 % 11/11/2023 12:35 PM CDT [facility] MCV 102(H) 80 - 100 fL 11/11/2023 12:35 PM CDT [facility] MCH 33.7 26.0 - 34.0 pg 11/11/2023 12:35 PM CDT [facility] MCHC 32.9 32.0 - 36.0 g/dL 11/11/2023 12:35 PM CDT [facility] RDW 14.5 11.5 - 15.5 % 11/11/2023 12:35 PM CDT [facility] PLATELET COUNT 148 140 - 440 thou/cu mm 11/11/2023 12:35 PM CDT [facility] MPV 10.1 6.5 - 11.0 fL 11/11/2023 12:35 PM CDT [facility] Blood BLOOD SPECIMEN / Unknown Venipuncture / Unknown 11/11/2023 11:56 AM CDT 11/11/2023 11:56 AM CDT [facility] - 11/11/2023 12:35 PM CDT Notice: This testing was ordered by an outside provider. The provider who placed this order has reviewed and approved it for completion by the lab, but is not involved in this patient's care related to the ordering of this lab. The lab will provide the testing results for CBC and Diff, Albumin, Creatinine, AST, and ALT, to the outside provider, ??Dr. Jimbo Anna at fax number [phone], for that provider to inform and arrange appropriate follow up with the patient. Marcela Mckenna DO HEMATOLOGY [facility] [address] [place] [address], * RED CELL MORPHOLOGY (11/11/2023 11:56 AM CDT) RBC COMMENT RBC morphology appears normal RBC morphology appears normal, RBC morphology within normal limits for newborns. 11/11/2023 12:35 PM CDT [facility] Blood BLOOD SPECIMEN / Unknown Venipuncture / Unknown 11/11/2023 11:56 AM CDT 11/11/2023 11:56 AM CDT [facility] - 11/11/2023 12:35 PM CDT Notice: This testing was ordered by an outside provider. The provider who placed this order has reviewed and approved it for completion by the lab, but is not involved in this patient's care related to the ordering of this lab. The lab will provide the testing results for CBC and Diff, Albumin, Creatinine, AST, and ALT, to the outside provider, ??Dr. Jimbo Anna at fax number [phone], for that provider to inform and arrange appropriate follow up with the patient. Marcela Mckenna DO HEMATOLOGY Performing Organization Address [facility] Co de Phone Number [facility] [address] [place] [address], * PLATELET ESTIMATE (11/11/2023 11:56 AM CDT) PLATELET ESTIMATE Adequate Adequate, No estimate 11/11/2023 12:35 PM CDT [facility] Blood BLOOD SPECIMEN / Unknown Venipuncture / Unknown 11/11/2023 11:56 AM CDT 11/11/2023 11:56 AM CDT [facility] - 11/11/2023 12:35 PM CDT Notice: This testing was ordered by an outside provider. The provider who placed this order has reviewed and approved it for completion by the lab, but is not involved in this patient's care related to the ordering of this lab. The lab will provide the testing results for CBC and Diff, Albumin, Creatinine, AST, and ALT, to the outside provider, ??Dr. Jimbo Anna at fax number [phone], for that provider to inform and arrange appropriate follow up with the patient. Marcela Mckenna DO HEMATOLOGY Performing Organization Address [facility] Co de Phone Number [facility] [address] [place] [address], [place] [phone] * MANUAL DIFFERENTIAL (11/11/2023 11:56 AM CDT) % NEUTROPHILS 67.0 % 11/11/2023 12:35 PM CDT [facility] % LYMPHOCYTES 23.0 % 11/11/2023 12:35 PM CDT [facility] % MONOCYTES 10.0 % 11/11/2023 12:35 PM CDT [facility] % EOSINOPHILS 0.0 % 11/11/2023 12:35 PM CDT [facility] % BASOPHILS 0.0 % 11/11/2023 12:35 PM CDT [facility] NEUTROPHILS ABSOLUTE 3.6 1.7 - 7.0 thou/cu mm 11/11/2023 12:35 PM CDT [facility] LYMPHOCYTES ABSOLUTE 1.2 0.9 - 2.9 thou/cu mm 11/11/2023 12:35 PM CDT [facility] MONOCYTES ABSOLUTE 0.5 <0.9 thou/cu mm 11/11/2023 12:35 PM CDT [facility] EOSINOPHILS ABSOLUTE 0.0 <0.5 thou/cu mm 11/11/2023 12:35 PM CDT [facility] BASOPHILS ABSOLUTE 0.0 <0.3 thou/cu mm 11/11/2023 12:35 PM CDT [facility] Blood BLOOD SPECIMEN / Unknown Venipuncture / Unknown 11/11/2023 11:56 AM CDT 11/11/2023 11:56 AM CDT Narrative [facility] - 11/11/2023 12:35 PM CDT Notice: This testing was ordered by an outside provider. The provider who placed this order has reviewed and approved it for completion by the lab, but is not involved in this patient's care related to the ordering of this lab. The lab will provide the testing results for CBC and Diff, Albumin, Creatinine, AST, and ALT, to the outside provider, ??Dr. Jimbo Anna at fax number [phone], for that provider to inform and arrange appropriate follow up with the patient. Marcela Mckenna DO HEMATOLOGY [facility] [address] [place] [address], * (ABNORMAL) CREATININE (11/11/2023 11:56 AM CDT) eGFR 56(L) >90 mL/min/1.7 3m2 11/11/2023 10:51 PM CDT [facility] Comment:As of 2021, eG FR is calculated by the CKD-EPI creatinine equation without race adjustment. ??eGFR can be influenced by muscle mass, exercise, and diet. ??The reported eGFR is an estimation only and is only applicable if the renal function is stable. CREATININE 1.33(H) 0.70 - 1.20 mg/dL 11/11/2023 10:51 PM CDT [facility] Blood BLOOD SPECIMEN / Unknown Venipuncture / Unknown 11/11/2023 11:56 AM CDT 11/11/2023 11:56 AM CDT [employer] CHEMISTRY [facility] [address] [place] [address], [place] * ALT (SGPT) (11/11/2023 11:56 AM CDT) Pathologist [facility] ALT (SGPT) 25 10 - 50 IU/L 11/11/2023 10:51 PM CDT [facility] Blood BLOOD SPECIMEN / Unknown Venipuncture / Unknown 11/11/2023 11:56 AM CDT 11/11/2023 11:56 AM CDT [employer] CHEMISTRY [facility] [address] [place] [address], [place] * AST (SGOT) (11/11/2023 11:56 AM CDT) AST (SGOT) 34 10 - 50 IU/L 11/11/2023 10:51 PM CDT [facility] Blood BLOOD SPECIMEN / Unknown Venipuncture / Unknown 11/11/2023 11:56 AM CDT 11/11/2023 11:56 AM CDT Marcela De La Rosachadwick JAQUEZ CHEMISTRY Performing Organization Address [facility] Co de Phone Number [facility] [address] [place] [address], [place] * VITAMIN B12 (11/11/2023 11:56 AM CDT) VITAMIN B12 324 232 - 1,245 pg/mL 11/11/2023 10:51 PM CDT [facility] Blood BLOOD SPECIMEN / Unknown Venipuncture / Unknown 11/11/2023 11:56 AM CDT 11/11/2023 11:56 AM CDT Narrative [facility] - 11/11/2023 10:51 PM CDT Biotin supplements may cause clinically significant interference for this test assay. ??If interference is suspected, it is strongly recommended that biotin is discontinued for at least one week prior to retesting. Jarvis Barrow MD CHEMISTRY Performing Organization Address [facility] Co de Phone Number [facility] [address] [place] [address], * ALBUMIN (11/11/2023 11:56 AM CDT) ALBUMIN 4.1 4.0 - 4.9 g/dL 11/11/2023 10:51 PM CDT [facility] Blood BLOOD SPECIMEN / Unknown Venipuncture / Unknown 11/11/2023 11:56 AM CDT 11/11/2023 11:56 AM CDT Marcela Verito Mckenna DO CHEMISTRY Performing Organization Address City/[facility]/ZIP Co de Phone Number [facility] [address] [place] [address], * COLONOSCOPY SCREENING (07/12/2019 9:44 AM TRANSPORT PILOT) Juanpablo Pettit MD GI PROCEDURE ORD * ANTI HCV (06/13/2019 3:06 PM TRANSPORT PILOT) HEPATITIS C ANTIBODY Non-React irma Non-React irma 06/13/2019 7:47 PM TRANSPORT PILOT [employer] [facility] Comment:Antibodies to HCV no t detected; does not exclude the possibility of exposure to HCV. Blood BLOOD SPECIMEN / Unknown Venipuncture / Unknown 06/13/2019 3:06 PM TRANSPORT PILOT 06/13/2019 3:07 PM TRANSPORT PILOT Juanpablo Pettit MD SEND OUTS [employer] [facility] [address] [place] [address], from Last 3 Months or Most Recently Relevant to Health Maintenance Advance Directives Documents on File Type Date Recorded Patient Center Director Expl anation Healthcare Directive 11/05/2022 023 Care Teams Veterinary Livestock Inspector Relationship Specialty Start Date End Date Marcela Mckenna DO Honey Jacobsen [place], [place] [phone] PCP - General Family Practice 08/11/22
--- OUTSIDE RECORDS SUMMARY | 2023-12-31 13:09 | XMS_ITS | Data Portability ---
Author Organization [facility] Joelo gy, [facility] Address [address] [place] [address] Care Team Providers Care Director Appointment Name Role Phone SILVA TEIXEIRA Primary Care Provider [phone] Assessment No assessment recorded. Plan of Treatment Reminders Order Date Submit Date Provider Last Modified By Organization Details Last Modified Time Details Appointments LAB BLOOD DRAW 2023 10:20A M [facility] Not available Not available Not available ESTABLISH ED 10 2023 10:40A M Yasir Elkins MD Not available Not available Not available Lab PSA, serum or plasma 2022 023 [facility], [address], [place], [address], 06/24/2022 12:13:06 PSA, total, serum or plasma 2022 023 [email or web address] [facility], [address], [place], [address], 06/24/2022 13:54:25 PSA, serum or plasma 2022 023 [facility], [address], [place], [address], 03/04/2023 15:00:18 PSA, total, serum or plasma 2022 023 [email or web address] [facility], [address], [place], [address], 03/19/2023 10:57:08 PSA, serum or plasma 2023 024 [email or web address] 0 [facility], [address], [place], [address], 07/08/2023 14:09:05 PSA, serum or plasma 2023 024 [facility], [address], [place], [address], 09/30/2023 16:44:06 PSA, total, serum or plasma 2023 024 [email or web address] [facility], [address], [place], [address], 10/30/2023 11:27:56 Referral None recorded. Procedures None recorded. Surgeries None recorded. Imaging MRI, prostate, w/wo contrast 2023 024 [email or web address] 0 [facility], [address], [facility] [address], [place], [address], 07/15/2023 13:13:45 Medication Orders None recorded. Patient TargetsNo targets recorded. Patient InstructionsNo instructions recorded. Reason for Referral None Reported. Results Created Date Observation Date Name Description Value Unit Range Abnormal Flag LastModifiedBy Organization Detail LastModifiedTime 06/24/1906/24/2022 PSA, serum or plasm a PSA 3.5 ng/mL 0-4.0 Not Available [facility] [address], [place], [address], 06/24/2022 12:12:56 03/04/2003/04/2023 PSA, serum or plasm a PSA 5.7 ng/mL 0-4.0 Not Available [facility] [address], [place], [address], 03/04/2023 14:59:55 07/08/19 24 07/08/2023 PSA, serum or plasm a PSA 6.4ng/ mL 0-4.0 Not Available [facility] [address], [place], [address], 07/08/2023 14:03:08 09/30/19 24 09/30/2023 PSA, serum or plasm a PSA 5.2 ng/mL 0-4.0 NG/mL Not Available [facility] [address], [place], [address], 09/30/2023 16:43:44 06/26/19 23 06/24/2022 bladd er scan (PROC ) No observ ation record ed. BARCODE Not Available 06/26/2022 13:54:32 07/22/19 24 07/22/2023 MRI, prost ate, w/wo contr ast No observ ation record ed. [facility] [address], [place], [address], 08/06/2023 20:39:23 Result Notes None recorded. Procedures Surgical History Date Name Laterality Status Provider Name and Address Organization Details Recorded Time 4 CEMETERY KEEPER/blood draw completed Yasir Elkins MD [address] [place] [address],[address], [place], [address], [facility] 09/30/2023 16:43:38 4 Bladder Scan completed Yasir Elkins MD [address] [place] [address],[address], [place], [address], [facility] 09/30/2023 16:43:32 4 CEMETERY KEEPER/blood draw completed Yasir Elkins MD [address] [place] [address],[address], [place], [address], [facility] 07/08/2023 14:03:03 4 Bladder Scan completed Yasir Elkins MD [address] [place] [address],[address], [place], [address], [facility] 07/08/2023 14:02:57 3 Bladder Scan completed Yasir Elkins MD [address] [facility],[address], [place], [address], [facility] 03/04/2023 14:59:43 3 Blood Draw/CEMETERY KEEPER/PSA RESULTS completed Yasir Elkins MD [address] [facility],[address], [place], [address], [facility] 03/04/2023 14:59:51 3 Bladder Scan completed Yasir Elkins MD [address] [facility],[address], [place], [address], [facility] 06/24/2022 12:12:52 Hernia Repair completed Yasir Elkins MD [address] [facility],[address], [place], [address], [facility] 06/24/2022 12:12:02 Imaging Results Imaging Date Name Status LastModified by Organiz ation Details LastModified Time 06/24/2022 bladder scan (PROC) completed BARCODE Information not available 06/26/2022 13:54:32 07/22/2023 MRI, prostate, w/wo contrast completed [facility]le [address], [place], [address], 08/06/2023 20:39:23 Procedure Notes None recorded. Medical Equipment None Reported. Allergies Allergen ID Allergen Name Allergen Category Reaction Reaction Severity Criticality Documentation Date Start Date Code Code System Note Provider Name and Address Organization Details Recorded Time 725716 Medicinal product containin g penicilli n and acting as antibacte rial agent (product) medicatio n Not available Not available Not available 03/25/20202019 17958 05 SNOMED Not Available [facility] 0 13:32:55 Medications Name Sig Start Date Stop Date Status Note LastModified by Organization Details LastModified Time donepezil 5 mg tablet TAKE 1 TABLET BY MOUTH AT BEDTIME 07/08 completed Not Available Not Available Not Available donepezil 10 mg tablet TAKE 1 TABLET BY MOUTH EVERYDAY AT BEDTIME active Not Available Not Available No t Available lisinopril 20 mg tablet TAKE 1 TABLET BY MOUTH EVERY DAY active Not Available Not Available No t Available fluorouraci l 5 % topical cream WAIT ABOUT ONE MONTH UNTIL FREEZINGS HEAL. APPLY TWICE A DAY FOR ONE WEEK, TAKE BREAK FOR 2 TO 3 WEEKS. RESUME TWICE A DAY FOR TWO WEEKS THE 03/04 completed Not Available Not Available Not Available methotrexat e sodium 2.5 mg tablet TAKE 6 TABLETS BY MOUTH A SINGLE DOSE ONCE PER WEEK active Not Available Not Available No t Available tamsulosin 0.4 mg capsule TAKE 2 CAPSULES BY MOUTH ONCE DAILY AFTER A MEAL active Not Available Not Available No t Available cephalexin 500 mg capsule TAKE 1 CAPSULE BY MOUTH 4 TIMES DAILY FOR 7 DAYS. 06/24 completed Not Available Not Available Not Available metronidazo le 0.75 % topical cream APPLY A THIN LAYER TO THE FACE TWICE A DAY , ONGOING 03/04 completed Not Available Not Available Not Available hydroxychlo roquine 200 mg tablet TAKE 2 TABLETS BY MOUTH EVERY DAY active Not Available Not Available No t Available doxycycline hyclate 100 mg tablet 100 MG ORALLY TWICE A DAY 03/04 completed Not Available Not Available Not Available Vitals Date Recorded Body height Body mass index (BMI) Body weight Provider Name and Address Organization Details Last Updated DateTime 06/24/2022 180.34 cm 25.1 kg/m2 91218.63 g Yasir Elkins MD [address] [place] [address], [address], [facility] 06/24/2022 12:11:09 Date Recorded Body height Body mass index (BMI) Body weight Provider Name and Address Organization Details Last Updated DateTime 03/04/2023 180.34 cm 24.4 kg/m2 17372.66 g Yasir Elkins MD [address] [place] [address], [address], [facility] 03/04/2023 14:58:06 Date Recorded Body height Body mass index (BMI) Body weight Provider Name and Address Organization Details Last Updated DateTime 07/08/2023 180.34 cm 25.1 kg/m2 43900.63 g Yasir Elkins MD [address] [place] [address],[address], [address], [facility] 07/08/2023 14:02:18 Date Recorded Body height Body mass index (BMI) Body weight Provider Name and Address Organization Details Last Updated DateTime 09/30/2023 180.34 cm 25.1 kg/m2 28141.63 g Yasir Elkins MD [address] [place] [address],[address], [address] [place] [address] 09/30/2023 16:42:29 Social History Question Answer Notes LastModified by Organizat ion Details LastModified Time Tobacco Smoking Status Former Smoker Yasir Elkins MD [address] [place] [address],[address], [address] [place] [address], [facility] 09/30/2023 16:43:00 What Is Your Level Of Alcohol Consumption? None Information not available 06/24/2022 What Is Your Level Of Caffeine Consumption? Moderate Information not available 06/24/2022 What Was The Date Of Your Most Recent Tobacco Screening? 09/30/2023 Information not available 09/30/2023 How Much Tobacco Do You Smoke? 0.5 PPD Information not available 06/24/2022 Do You Use Any Illicit Or Recreational Drugs? No Information not available 06/24/2022 Sex: Unknown Functional Status None recorded. Mental Status None recorded. Family History Nothing Reported. Medical History Condition Response Other Y High Blood Pressure Y Immunizations Vaccine Type Date Status Provider Name and Address Organization Details Recorded Time pneumococcal polysaccharide PPV23 12/19/2020 completed Yasir Elkins MD [address] [place] [address],[address], [address] [place] [address], [facility] 06/24/2022 12:11:17 Pneumococcal conjugate PCV 13 01/16/2020 completed Yasir Elkins MD [address] [place] [address],[address], [address] [place] [address], [facility] 06/24/2022 12:11:17 zoster recombinant 03/07/2020 completed Yasir lucas MD [address] [place] [address],[address], [address], [facility] 03/04/2023 14:58:11 zoster recombinant 05/22/2020 ronal lucas MD [address] [place] [address],[address], [address], [facility] 03/04/2023 14:58:11 Influenza, adjuvanted, quadrivalent, PF 03/05/2022 ronal Elkins, MD [address] [place] [address],[address], [place], [address], [facility] 03/04/2023 14:58:11 Influenza, adjuvanted, quadrivalent, PF 04/16/2020 completed Yasir Elkins MD [address] [place] [address],[address], [place], [address], [facility] 03/04/2023 14:58:11 COVID-19, mRNA, LNP-S, PF, 30 mcg/0.3 mL dose 08/07/2020 completed Yasir Elkins MD [address] [place] [address],[address], [place], [address], [facility] 03/04/2023 14:58:11 COVID-19, mRNA, LNP-S, PF, 30 mcg/0.3 mL dose 08/28/2020 completed Yasir Elkins MD [address] [place] [address],[address], [place], [address], [facility] 03/04/2023 14:58:11 COVID-19, mRNA, LNP-S, PF, 30 mcg/0.3 mL dose 03/17/2021 completed Yasir Elkins MD [address] [place] [address],[address], [place], [address], [facility] 03/04/2023 14:58:11 COVID-19, mRNA, LNP-S, PF, 30 mcg/0.3 mL dose, alban-sucrose 10/09/2021 completed Yasir Elkins MD [address] [place] [address],[address], [place], [address], [facility] 03/04/2023 14:58:11 COVID-19, mRNA, LNP-S, bivalent, PF, 30 mcg/0.3 mL dose 03/06/2022 completed Yasir Elkins MD [address] [place] [address],[address], [place], [address], [facility] 03/04/2023 14:58:11 Tdap 12/04/2010 completed Yasir Elkins MD [address] [place] [address],[address], [place], [address], [facility] 03/04/2023 14:58:11 zoster live 05/14/2012 completed Yasir Elkins MD [address] [facility] [address], [place], [address], [facility] 03/04/2023 14:58:11 Td (adult), 2 Lf tetanus toxoid, preservative free, adsorbed 08/14/2003 completed Yasir Elkins MD [address] [facility] [address], [place], [address], [facility] 03/04/2023 14:58:11 Past Encounters Encounter ID Performer Location Encounter Start Date Encounter Closed Date Diagnosis/Indication Diagnosis SNOMED-CT Code [id number] Yasir Elkins MD [facility] [address] [place] [address] 06/24/2022 11:44:24 06/27/2022 16:42:13 Prostate specific antigen above reference range 139902313 Lower urin brandi tract symptoms due to benign prostatic hypertrophy 41746120122059 Phimosis [id number] Yasir Elkins MD [facility] [address] [place] [address] 03/04/2023 14:44:14 03/14/2023 15:26:03 Prostate specific antigen above reference range 315709003 Lower urin brandi tract symptoms due to benign prostatic hypertrophy 90176792447982 Phimosis 516403217 [id number] Yasir Elkins MD [facility] [address] [place] [address] 07/08/2023 13:42:33 07/08/2023 15:14:01 Prostate specific antigen above reference range 363471027 Lower urin brandi tract symptoms due to benign prostatic hypertrophy 41989204991400 Phimosis 762098613 [id number] Yasir Elkins MD [facility] [address] [place] [address] 09/30/2023 15:43:56 10/05/2023 14:18:04 Prostate specific antigen above reference range 766434602 Lower urin brandi tract symptoms due to benign prostatic hypertrophy 95798620643080 Phimosis 631475184 Health Concerns Section Related Observation LastModified by Organization Detai ls LastModified Time None Recorded Concern Status LastModified by Organization Details LastModified Time None Recorded Advance Directives Directive None Recorded Payers Encounter Date Sequence Insurance Name Policy Number Policy Burns Covered Member ID Burns Member ID Guarantor Name 06/24/2022 1 [place] [employer] [place] [id number] [place] 06/24/2022 2 [place] [id number] E [place] [id number] E [place] 03/04/2023 1 [place] [employer] [place] [id number] [place] 03/04/2023 2 [place] [id number] E [place] [id number] [place] 07/08/2023 1 [place] [employer] [place] [id number] [place] 07/08/2023 2 [place] [id number] E [place] [id number] E [place] 09/30/2023 1 [place] [employer] [place] [id number] [place] 09/30/2023 2 [place] [id number] [place] [id number] David Roche [place] Notes Date Note Type Note Provider Name and Address Organization Details Recorded Time 06/24/2022 text/html HPI Notes: 72 yo male with H/O BPH and elevate PSA - s/p TRUS bx (12/05/13) - 42.8 mg - benign (Dr. Alejo) and Prostate MRI (02/07/15) - 48 gm - no suspicious lesions. + Family H/O of prostate cancer - (brother). He is on Flomax 0.8 mg daily. 01/07/21 - He presents for follow-up on elevated PSA. He has hesitancy and slow stream - denies urgency and dysuria. He voids every 1-3 hours during the day and 1x/night. 1/10/23 - He presents for follow-up on elevate PSA. He voids every 1-3 hours during the day and 1x/night. He still hesitancy and slow stream - denies urgency and dysuria. - PVR - 158mL - PSA - 3.5 __ PSA - 3.73 (05/07/11) - 5.07 (06/13/19) - 4.05 (12/05/11) - 4.71 (10/05/19) - 4.47 (04/08/12) - 3.39 (05/04/20) - 4.25 (10/14/12) - 8.18 (11/28/20) - 4.06 (04/15/13) - 3.68 (02/05/21) - 4.67 (10/12/13) - 4.53 (03/05/22) - 4.89 (03/27/14) - 3.5 (06/24/22) - 5.10 (11/22/14) - 5.62 (04/25/15) - 3.89 (06/18/16) - 5.27 (10/14/17) - 5.32 (09/28/18) Prostate MRI (02/07/15) - 48 gm - no suspicious lesions Yasir Elkins MD [address] [place] [address],[facility] [address], [place], [address], [facility] [place] [facility] 06/24/2022 13:22:14 03/04/2023 text/html HPI Notes: 72 yo male with H/O BPH and elevate PSA - s/p TRUS bx (12/05/13) - 42.8 mg - benign (Dr. Alejo) and Prostate MRI (02/07/15) - 48 gm - no suspicious lesions. + Family H/O of prostate cancer - (brother). He is on Flomax 0.8 mg daily. 01/07/21 - He presents for follow-up on elevated PSA. He has hesitancy and slow stream - denies urgency and dysuria. He voids every 1-3 hours during the day and 1x/night. 06/24/22 - He presents for follow-up on elevate PSA. He voids every 1-3 hours during the day and 1x/night. He still hesitancy and slow stream - denies urgency and dysuria. 03/04/23 - He presents for follow-up on Elevated PSA. He voids every 1-3 hours during the day and 1x/night. He reports slow stream - no dysuria - PVR - 74mL - PSA - 5.7 __ PSA - 4.67 (10/12/13) - 4.89 (03/27/14) - 5.10 (11/22/14) - 5.62 (04/25/15) - 3.89 (06/18/16) - 5.27 (10/14/17) - 5.32 (09/28/18) - 5.07 (06/13/19) - 4.71 (10/05/19) - 3.39 (05/04/20) - 8.18 (11/28/20) - 3.68 (02/05/21) - 4.53 (03/05/22) - 3.5 (06/24/22) - 5.7 (03/04/23) Prostate MRI (02/07/15) - 48 gm - no suspicious lesions Yasir Elkins MD [address] [facility],[address], [place], [address], [facility] [place] [facility] 03/04/2023 18:49:57 07/08/2023 text/html HPI Notes: 73 yo male with H/O BPH and elevate PSA - s/p TRUS bx (12/05/13) - 42.8 mg - benign (Dr. Alejo) and Prostate MRI (02/07/15) - 48 gm - no suspicious lesions. + Family H/O of prostate cancer - (brother). He is on Flomax 0.8 mg daily. 01/07/21 - He presents for follow-up on elevated PSA. He has hesitancy and slow stream - denies urgency and dysuria. He voids every 1-3 hours during the day and 1x/night. 06/24/22 - He presents for follow-up on elevate PSA. He voids every 1-3 hours during the day and 1x/night. He still hesitancy and slow stream - denies urgency and dysuria. 03/04/23 - He presents for follow-up on Elevated PSA. He voids every 1-3 hours during the day and 1x/night. He reports slow stream - no dysuria 07/08/23 - He presents for follow-up on Elevated PSA. He voids every 2-3 hours during the day and 1x/night. No dysuria. - PVR - 0mL - PSA - 6.4 __ PSA - 4.67 (10/12/13) - 4.89 (03/27/14) - 5.10 (11/22/14) - 5.62 (04/25/15) - 3.89 (06/18/16) - 5.27 (10/14/17) - 5.32 (09/28/18) - 5.07 (06/13/19) - 4.71 (10/05/19) - 3.39 (05/04/20) - 8.18 (11/28/20) - 3.68 (02/05/21) - 4.53 (03/05/22) - 3.5 (06/24/22) - 5.7 (03/04/23) - 6.4 (07/08/23) Prostate MRI (02/07/15) - 48 gm - no suspicious lesions Yasir Elkins MD [address] [facility],[address], [place], [address], [facility] [place] [facility] 07/08/2023 14:53:40 09/30/2023 text/html HPI Notes: 73 yo male with H/O BPH and elevate PSA - s/p TRUS bx (12/05/13) - 42.8 mg - benign (Dr. Alejo) and Prostate MRI (02/07/15) - 48 gm - no suspicious lesions. + Family H/O of prostate cancer - (brother). He is on Flomax 0.8 mg daily. 03/04/23 - He presents for follow-up on Elevated PSA. He voids every 1-3 hours during the day and 1x/night. He reports slow stream - no dysuria 07/08/23 - He presents for follow-up on Elevated PSA. He voids every 2-3 hours during the day and 1x/night. No dysuria. 09/30/23 - He presents for follow-up on Elevated PSA. He voids every 2-3 hours during the day and 1x/night. - PVR - 0mL - PSA - 5.2 __ PSA - 4.67 (10/12/13) - 4.89 (03/27/14) - 5.10 (11/22/14) - 5.62 (04/25/15) - 3.89 (06/18/16) - 5.27 (10/14/17) - 5.32 (09/28/18) - 5.07 (06/13/19) - 4.71 (10/05/19) - 3.39 (05/04/20) - 8.18 (11/28/20) - 3.68 (02/05/21) - 4.53 (03/05/22) - 3.5 (06/24/22) - 5.7 (03/04/23) - 6.4 (07/08/23) - 5.2 (09/30/23) Prostate MRI (02/07/15) - 48 gm - no suspicious lesions Prostate MRI (07/22/23) - 52 mL - no suspicious lesions - no enlarged lymph nodes Yasir Elkins MD [address] [facility],[address], [place], [address], [place] [facility] 10/04/2023 11:42:34
== END 2023-12-31 13:07 | disposition home or self-care (01) ==
LOC: WOUND 13:07
PROVIDERS: PCP Family Medicine; Visit Provider Nurse Practitioner Family
DX: M06.9 Rheumatoid arthritis, unspecified (principal); L97.521 Non-pressure chronic ulcer of other part of left foot limited to breakdown of skin; I25.10 Atherosclerotic heart disease of native coronary artery without angina pectoris; I10 Essential (primary) hypertension
CPT/HCPCS: 97597; G0463

== ENCOUNTER 2024-01-04 09:34 | Day surgery (SDC) | payer MEDICARE, BC, SELFPAY ==
[2024-01-04] VITALS (21 sets, daily range): BP systolic 90–127; BP diastolic 60–94; PULSE 57–97; RESP 16–20; TEMP 36–36.8; O2SAT 91–97
--- OUTSIDE RECORDS SUMMARY | 2024-01-04 09:37 | XMS_ITS | Clinical Summary ---
Author Organization [facility] Address [place], [place] [address] Care Team Providers Care Media Supervisor Name Role Phone Marcela Mckenna Verito JAQUEZ Primary Care Provider Allergies Active Allergy Reactions Criticality Noted Date [...] mg chewable tabletIndications: Coronary artery disease involving [place] coronary artery of [place] heart without angina pectoris Chew 1 Tablet (81 mg) by mouth once daily with a meal. 12/08/2023 Active Active Problems Problem Noted Date Diagnosed Date Coronary artery disease invo lving [place] coronary artery of [place] heart without angina pectoris 12/08/2023 Left bundle [...] Description 12/10/2023 7:00 AM CDT Orders Only [facility] [address] [place] [address] Lab 12/08/2023 1:45 PM CDT Office Visit [facility] [address] [place] [address] Marcela Mckenna, DO Toe Pain/problem (L 2nd toe wound) 12/08/2023 Travel 12/08/[address] [place] [address] Tai Cash MD Results 11/26/2023 8:20 AM CDT Office Visit [facility] [address] [place] [address] Smiley Guerra, Toe Pain/problem (Had toenail removed in April by Dr. Lopez. L 3rd toe. Now is painful again. ) 11/26/2023 Travel 11/23/2023 8:30 AM CDT Ancillary Procedure [place] [id number] [place] [address] 11/23/2023 Travel 11/18/2023 10:00 AM CDT Office Visit [facility] [address] [place] [address] Tai Cash MD Consult (Abnormal Stress Echo; Left bundle branch blcok) 11/18/2023 Travel 11/15/2023 Travel 11/11/2023 11:30 AM CDT Orders Only [facility] [address] [place] [address] Lab, [place] [facility] (Mari and Pushpa); Outside Order ... 11/11/2023 11:00 AM CDT Office Visit [facility] [address] [place] [address] Jarvis Barrow MD Follow Up (FOLLOW UP FROM 06-02-23) 11/11/2023 Travel 11/10/[address] [facility] [address] [address] Jarvis Barrow MD Refill Request 11/07/2023 Refill [facility] [address] [place] [address] Jarvis Barrow MD Refill Request (Donepezil) from Last 3 Months Immunizations Name Administration Dates Next Due COVID-19 vaccine (VaporWire 30mcg/0.3mL) AMIE Cervantes 08/28/2020,08/07/2020 Influenza Virus, Unspecified [...] Used Date Smoking Tobacco: Former Cigarettes 0.5 53.6 S tarted: 1971 Smokeless Tobacco: Never Tobacco [...] 36.7 ??C (98 ??F) 07/02/2021 12:23 PM HYDRAMATIC SPECIALIST Respiratory Rate 18 11/18/2023 9:59 AM CDT [...] Description 02/10/2024 9:40 AM CDT Office Visit [facility] [address] [place] [address] Jarvis Barrow MD [address] [place] [address] Health Maintenance Due Date Last Done Comments [...] 2:56 PM CDT Coronary artery disease involving [place] coronary artery of [place] heart without angina pectoris CT CARDIAC CORONARY [...] (HC) COLONOSCOPY SCREENING Routine 07/12/2019 9:44 AM HYDRAMATIC SPECIALIST Personal history of colonic polyps ANTI HCV Routine 06/13/2019 3:06 PM HYDRAMATIC SPECIALIST Need for hepatitis C screening test from Last 3 Months or Most Recently Relevant to Health Maintenance Results * OCCULT BLOOD IFOBT STOOL (12/10/2023 7:46 AM CDT) STOOL BLOOD ,IFOBT Negative Negative 12/16/2023 8:42 AM CDT [facility] Stool STOOL SPECIMEN / Unknown Non-Blood / Unknown 12/10/2023 7:46 AM CDT 12/15/2023 7:47 AM CDT Marcela Mckenna DO LABORATORY [facility] [address] [place] [address], * LIPID PANEL W REFLEX MEASURED LDL (12/08/2023 2:56 PM CDT) CHOLESTEROL,TOTAL 147 100 - 199 mg/dL 12/09/2023 1:42 AM CDT [facility] Comment: Cholesterol, Total Reference Ranges Desirable <200 mg/dL Borderline 200-239 mg/dL High >=240 mg/dL TRIGLYCERIDES 111 <150 mg/dL 12/09/2023 1:42 AM CDT [facility] LAB[facility]AT[facility] HDL CHOLESTEROL 41 >40 mg/dL 1:42 AM CDT [facility] NON-HDL CHOLESTEROL 106 <145 mg/dl 12/09/2023 1:42 AM CDT [facility] CHOL/HDL RATIO 3.59 <4.50 12/09/2023 1:42 AM CDT [facility] LDL CHOLESTEROL 84 <=130 mg/dL 12/09/2023 1:42 AM CDT [facility] VLDL CHOLESTEROL 22 <=30 mg/dL 12/09/2023 1:42 AM CDT [facility] PROVIDER ORDERED STATUS RANDOM 12/09/2023 1:42 AM CDT [facility] Blood BLOOD SPECIMEN / Unknown Venipuncture / Unknown 12/08/2023 2:56 PM CDT 12/08/2023 2:59 PM CDT Marcela Vertive ([email or web address]) [place] CHEMISTRY [facility] [address] [address], [place] * (ABNORMAL) HEMOGLOBIN (12/08/2023 2:56 PM CDT) HEMOGLOBIN 13.7 13.5 - 17.5 g/dL 12/08/2023 3:05 PM CDT [facility] MCV 101(H) 80 - 100 fL 12/08/2023 3:05 PM CDT [facility] Blood BLOOD SPECIMEN / Unknown Venipuncture / Unknown 12/08/2023 2:56 PM CDT 12/08/2023 2:59 PM CDT Enablonra JAQUEZ HEMATOLOGY [facility] [address] [place] [address], * POTASSIUM (12/08/2023 2:56 PM CDT) Only the most recent of2 resultswithin the time period is included. POTASSIUM 4.3 3.5 - 5.1 mmol/L 12/09/2023 1:42 AM CDT [facility] Blood BLOOD SPECIMEN / Unknown Venipuncture / Unknown 12/08/2023 2:56 PM CDT 12/08/2023 2:59 PM CDT Marcela Mckenna DO CHEMISTRY [facility] LAB[facility]ATORY-[facility] LABORATORY [address] [place] [address], * CT CARDIAC CORONARY ARTERIES [11263.0] (11/23/2023 8:37 AM CDT) Anatomical Region Laterality [...] (Electronic Signature) Narrative 11/24/2023 7:16 AM CDT ?[facility] ? Cardiac CT Report ??MRN: ?[id number] ?Name: ? KEISHA ROMO ?: ?Scan Date: ?Accession Number: ?[id number] ?Status: ?Final ? Electronically signed by Chet [...] TYPE: ??Calcium score, Coronary CT Angiography SCANNER DOVETAIL MACHINE OPERATOR: ??SIEMENS SCANNER MODEL: ??Secret Escapes Force DOSE REDUCTION ALGORITHM: ??Helical with dose [...] CASH ?TECHNOLOGIST: ??Claudia Pascual BILLING Patient Account ?[id number] ICD10 Codes ?R94.39, Z01.810 Report generated by [employer], a product of [employer] For [...] conjunction with the services provided by the [facility] ([facility]). CLINICAL HISTORY: ??Cardiac CTA over-read. ? FINDINGS: [...] 11.0 thou/cu mm 11/11/2023 12:35 PM CDT [facility] RED BLOOD COUNT 4.10(L) 4.30 - 5.90 mil/cu mm 11/11/2023 12:35 PM CDT [facility] HEMOGLOBIN 13.8 13.5 - 17.5 g/dL 11/11/2023 12:35 PM CDT [facility] HEMATOCRIT 41.9 37.0 - 53.0 % 11/11/2023 12:35 PM CDT [facility] MCV 102(H) 80 - 100 fL 11/11/2023 12:35 PM CDT [facility] MCH 33.7 26.0 - 34.0 pg 11/11/2023 12:35 PM CDT [facility] MCHC 32.9 32.0 - 36.0 g/dL 11/11/2023 12:35 PM CDT [facility] RDW 14.5 11.5 - 15.5 % 11/11/2023 12:35 PM CDT [facility] PLATELET COUNT 148 140 - 440 thou/cu mm 11/11/2023 12:35 PM CDT [facility] MPV 10.1 6.5 - 11.0 fL 11/11/2023 12:35 PM CDT [facility] Blood BLOOD SPECIMEN / Unknown Venipuncture / Unknown 11/11/2023 11:56 AM CDT 11/11/2023 11:56 AM CDT [facility] - 11/11/2023 12:35 PM CDT Notice: This [...] provider, ??Dr. Jimbo Anna at fax number [phone], for that provider to inform and arrange appropriate follow up with the patient. Marcela Mckenna DO HEMATOLOGY [facility] [address] [place] [address], * RED CELL MORPHOLOGY (11/11/2023 11:56 AM CDT) RBC COMMENT RBC morphology appears normal RBC morphology appears normal, RBC morphology within normal limits for newborns. 11/11/2023 12:35 PM CDT [facility] Blood BLOOD SPECIMEN / Unknown Venipuncture / Unknown 11/11/2023 11:56 AM CDT 11/11/2023 11:56 AM CDT [facility] - 11/11/2023 12:35 PM CDT Notice: This [...] provider, ??Dr. Jimbo Anna at fax number [phone], for that provider to inform and arrange appropriate follow up with the patient. Marcela Mckenna DO HEMATOLOGY Performing Organization Address [facility] Co de Phone Number [facility] [address] [place] [address], * PLATELET ESTIMATE (11/11/2023 11:56 AM CDT) PLATELET ESTIMATE Adequate Adequate, No estimate 11/11/2023 12:35 PM CDT [facility] Blood BLOOD SPECIMEN / Unknown Venipuncture / Unknown 11/11/2023 11:56 AM CDT 11/11/2023 11:56 AM CDT [facility] - 11/11/2023 12:35 PM CDT Notice: This [...] provider, ??Dr. Jimbo Anna at fax number [phone], for that provider to inform and arrange appropriate follow up with the patient. Marcela Mckenna DO HEMATOLOGY Performing Organization Address [facility] Co de Phone Number [facility] [address] [place] [address], [place] [phone] * MANUAL DIFFERENTIAL (11/11/2023 11:56 AM CDT) % NEUTROPHILS 67.0 % 11/11/2023 12:35 PM CDT [facility] % LYMPHOCYTES 23.0 % 11/11/2023 12:35 PM CDT [facility] % MONOCYTES 10.0 % 11/11/2023 12:35 PM CDT [facility] % EOSINOPHILS 0.0 % 11/11/2023 12:35 PM CDT [facility] % BASOPHILS 0.0 % 11/11/2023 12:35 PM CDT [facility] NEUTROPHILS ABSOLUTE 3.6 1.7 - 7.0 thou/cu mm 11/11/2023 12:35 PM CDT [facility] LYMPHOCYTES ABSOLUTE 1.2 0.9 - 2.9 thou/cu mm 11/11/2023 12:35 PM CDT [facility] MONOCYTES ABSOLUTE 0.5 <0.9 thou/cu mm 11/11/2023 12:35 PM CDT [facility] EOSINOPHILS ABSOLUTE 0.0 <0.5 thou/cu mm 11/11/2023 12:35 PM CDT [facility] BASOPHILS ABSOLUTE 0.0 <0.3 thou/cu mm 11/11/2023 12:35 PM CDT [facility] Blood BLOOD SPECIMEN / Unknown Venipuncture / Unknown 11/11/2023 11:56 AM CDT 11/11/2023 11:56 AM CDT Narrative [facility] - 11/11/2023 12:35 PM CDT Notice: This [...] provider, ??Dr. Jimbo Anna at fax number [phone], for that provider to inform and arrange appropriate follow up with the patient. Marcela Mckenna DO HEMATOLOGY [facility] [address] [place] [address], * (ABNORMAL) CREATININE (11/11/2023 11:56 AM CDT) eGFR 56(L) >90 mL/min/1.7 3m2 11/11/2023 10:51 PM CDT [facility] Comment:As of 2021, eG FR is calculated by the CKD-EPI creatinine equation without race adjustment. ??eGFR can be influenced by muscle mass, exercise, and diet. ??The reported eGFR is an estimation only and is only applicable if the renal function is stable. CREATININE 1.33(H) 0.70 - 1.20 mg/dL 11/11/2023 10:51 PM CDT [facility] Blood BLOOD SPECIMEN / Unknown Venipuncture / Unknown 11/11/2023 11:56 AM CDT 11/11/2023 11:56 AM CDT [facility] [place] CHEMISTRY [facility] [address] [place] [address], [place] * ALT (SGPT) (11/11/2023 11:56 AM CDT) Pathologist [facility] ALT (SGPT) 25 10 - 50 IU/L 11/11/2023 10:51 PM CDT [facility] Blood BLOOD SPECIMEN / Unknown Venipuncture / Unknown 11/11/2023 11:56 AM CDT 11/11/2023 11:56 AM CDT [employer] [place] CHEMISTRY [facility] [address] [place] [address], [place] * AST (SGOT) (11/11/2023 11:56 AM CDT) AST (SGOT) 34 10 - 50 IU/L 11/11/2023 10:51 PM CDT [facility] Blood BLOOD SPECIMEN / Unknown Venipuncture / Unknown 11/11/2023 11:56 AM CDT 11/11/2023 11:56 AM CDT Marcela De La Rosachadwick JAQUEZ CHEMISTRY Performing Organization Address [facility] Co de Phone Number [facility] [address] [place] [address], [place] * VITAMIN B12 (11/11/2023 11:56 AM CDT) VITAMIN B12 324 232 - 1,245 pg/mL 11/11/2023 10:51 PM CDT [facility] Blood BLOOD SPECIMEN / Unknown Venipuncture / Unknown 11/11/2023 11:56 AM CDT 11/11/2023 11:56 AM CDT Narrative [facility] - 11/11/2023 10:51 PM CDT Biotin supplements may cause clinically significant interference for this test assay. ??If interference is suspected, it is strongly recommended that biotin is discontinued for at least one week prior to retesting. Jarvis Barrow MD CHEMISTRY Performing Organization Address [facility] Co de Phone Number [facility] [address] [place] [address], * ALBUMIN (11/11/2023 11:56 AM CDT) ALBUMIN 4.1 4.0 - 4.9 g/dL 11/11/2023 10:51 PM CDT [facility] Blood BLOOD SPECIMEN / Unknown Venipuncture / Unknown 11/11/2023 11:56 AM CDT 11/11/2023 11:56 AM CDT Marcela Verito Mckenna DO CHEMISTRY Performing Organization Address City/[facility]/ZIP Co de Phone Number [facility] [address] [place] [address], * COLONOSCOPY SCREENING (07/12/2019 9:44 AM HYDRAMATIC SPECIALIST) Junapablo Pettit MD GI PROCEDURE ORD * ANTI HCV (06/13/2019 3:06 PM HYDRAMATIC SPECIALIST) HEPATITIS C ANTIBODY Non-React irma Non-React irma 06/13/2019 7:47 PM HYDRAMATIC SPECIALIST [employer] LAB[facility]ATORY[facility] Comment:Antibodies to HCV no t detected; does not exclude the possibility of exposure to HCV. Blood BLOOD SPECIMEN / Unknown Venipuncture / Unknown 06/13/2019 3:06 PM HYDRAMATIC SPECIALIST 06/13/2019 3:07 PM HYDRAMATIC SPECIALIST Juanpablo Pettit MD SEND OUTS [employer] LABORATORY-[facility] [address] [place] [address], from Last 3 Months or Most Recently Relevant to Health Maintenance Advance Directives Documents on File Type Date Recorded Patient Nurse Intern Expl anation Healthcare Directive 11/05/2022 023 Care Teams Media Supervisor Relationship Specialty Start Date End Date Marcela Mckenna DO Honey Jacobsen [place], [place] [id number] PCP - General Family Practice 08/11/22
--- OUTSIDE RECORDS SUMMARY | 2024-01-04 09:37 | XMS_ITS | Data Portability ---
Author Organization [facility] Joelo gy, [facility] Address [address] [place] [address] Care Team Providers Care Boiler Operators Supervisor Name Role Phone SILVA TEIXEIRA Primary Care Provider Assessment No assessment recorded. Plan of Treatment Reminders Order Date Submit Date Provider Last Modified By Organization Details Last Modified Time Details Appointments LAB BLOOD DRAW 2023 10:20A M [facility] Not available Not available Not available ESTABLISH ED 10 2023 10:40A M Yasir Elkins MD Not available Not available Not available Lab PSA, serum or plasma 2022 023 [facility], [address], [place], [address], 06/24/2022 12:13:06 PSA, total, serum or plasma 2022 023 [email or web address] [facility], [address], [place], [address], 06/24/2022 13:54:25 PSA, serum or plasma 2022 023 [facility], [address], [place], [address], 03/04/2023 15:00:18 PSA, total, serum or plasma 2022 023 [email or web address] [facility], [address], [place], [address], 03/19/2023 10:57:08 PSA, serum or plasma 2023 024 [email or web address] 0 [facility], [address], [place], [address], 07/08/2023 14:09:05 PSA, serum or plasma 2023 024 [facility], [address], [place], [address], 09/30/2023 16:44:06 PSA, total, serum or plasma 2023 024 [email or web address] [facility], [address], [place], [address], 10/30/2023 11:27:56 Referral None recorded. Procedures None recorded. Surgeries None recorded. Imaging MRI, prostate, w/wo contrast 2023 024 [email or web address] 0 [facility], [address], [facility] [address], [place], [address], 07/15/2023 13:13:45 Medication Orders None recorded. Patient TargetsNo targets recorded. Patient InstructionsNo instructions recorded. Reason for Referral None Reported. Results Created Date Observation Date Name Description Value Unit Range Abnormal Flag LastModifiedBy Organization Detail LastModifiedTime 06/24/1906/24/2022 PSA, serum or plasm a PSA 3.5 ng/mL 0-4.0 Not Available [facility] [address], [place], [address], 06/24/2022 12:12:56 03/04/2003/04/2023 PSA, serum or plasm a PSA 5.7 ng/mL 0-4.0 Not Available [facility] [address], [place], [address], 03/04/2023 14:59:55 07/08/19 24 07/08/2023 PSA, serum or plasm a PSA 6.4ng/ mL 0-4.0 Not Available [facility] [address], [place], [address], 07/08/2023 14:03:08 09/30/19 24 09/30/2023 PSA, serum or plasm a PSA 5.2 ng/mL 0-4.0 NG/mL Not Available [facility] [address], [place], [address], 09/30/2023 16:43:44 06/26/19 23 06/24/2022 bladd er scan (PROC ) No observ ation record ed. BARCODE Not Available 06/26/2022 13:54:32 07/22/19 24 07/22/2023 MRI, prost ate, w/wo contr ast No observ ation record ed. [facility] [address], [place], [address], 08/06/2023 20:39:23 Result Notes None recorded. Procedures Surgical History Date Name Laterality Status Provider Name and Address Organization Details Recorded Time 4 SPORTS TEACHER/blood draw completed Yasir Elkins MD [address] [place] [address],[address], [place], [address], [facility] 09/30/2023 16:43:38 4 Bladder Scan completed Yasir Elkins MD [address] [place] [address],[address], [place], [address], [facility] 09/30/2023 16:43:32 4 SPORTS TEACHER/blood draw completed Yasir Elkins MD [address] [place] [address],[address], [place], [address], [facility] 07/08/2023 14:03:03 4 Bladder Scan completed Yasir Elkins MD [address] [place] [address],[address], [place], [address], [facility] 07/08/2023 14:02:57 3 Bladder Scan completed Yasir Elkins MD [address], [place], [address], [facility] 03/04/2023 14:59:43 3 Blood Draw/SPORTS TEACHER/PSA RESULTS completed Yasir Elkins MD [address], [place], [address], [facility] 03/04/2023 14:59:51 3 Bladder Scan completed Yasir Elkins MD [address], [place], [address], [facility] 06/24/2022 12:12:52 Hernia Repair completed Yasir Elkins MD [address], [place], [address], [facility] 06/24/2022 12:12:02 Imaging Results Imaging Date Name Status LastModified by Organiz ation Details LastModified Time 06/24/2022 bladder scan (PROC) completed BARCODE Information not available 06/26/2022 13:54:32 07/22/2023 MRI, prostate, w/wo contrast completed [facility], [place], [address], 08/06/2023 20:39:23 Procedure Notes None recorded. Medical Equipment None Reported. Allergies Allergen ID Allergen Name Allergen Category Reaction Reaction Severity Criticality Documentation Date Start Date Code Code System Note Provider Name and Address Organization Details Recorded Time 569682 Medicinal product containin g penicilli n and acting as antibacte rial agent (product) medicatio n Not available Not available Not available 03/25/20202019 13334 05 SNOMED Not Available [facility] 0 13:32:55 Medications Name Sig Start Date [...] Updated DateTime 06/24/2022 180.34 cm 25.1 kg/m2 52721.63 g Yasir Elkins MD [address] [place] [address], [address], [facility] 06/24/2022 12:11:09 Date Recorded Body height Body mass index (BMI) Body weight Provider Name and Address Organization Details Last Updated DateTime 03/04/2023 180.34 cm 24.4 kg/m2 49351.66 g Yasir Elkins MD [address] [place] [address], [address], [facility] 03/04/2023 14:58:06 Date Recorded Body height Body mass index (BMI) Body weight Provider Name and Address Organization Details Last Updated DateTime 07/08/2023 180.34 cm 25.1 kg/m2 17193.63 g Yasir Elkins MD [address] [place] [address],[address], [address], [facility] 07/08/2023 14:02:18 Date Recorded Body height Body mass index (BMI) Body weight Provider Name and Address Organization Details Last Updated DateTime 09/30/2023 180.34 cm 25.1 kg/m2 82667.63 g Yasir Elkins MD [address] [place] [address],[address], [address] [place] [address] 09/30/2023 16:42:29 Social History Question Answer Notes LastModified by Organizat ion Details LastModified Time Tobacco Smoking Status Former Smoker Yasir Elkins MD [address] [place] [address],[address], [address] [place] [address], [facility] 09/30/2023 16:43:00 What Is Your Level [...] polysaccharide PPV23 12/19/2020 completed Yasir Elkins MD [address] [place] [address],[address], [address] [place] [address], [facility] 06/24/2022 12:11:17 Pneumococcal conjugate PCV 13 01/16/2020 completed Yasir Elkins MD [address] [place] [address],[address], [address] [place] [address], [facility] 06/24/2022 12:11:17 zoster recombinant 03/07/2020 completed Yasir lucas MD [address] [place] [address],[address], [address], [facility] 03/04/2023 14:58:11 zoster recombinant 05/22/2020 ronal lucas MD [address] [place] [address],[address], [address], [facility] 03/04/2023 14:58:11 Influenza, adjuvanted, quadrivalent, PF 03/05/2022 ronal Elkins, MD [address] [place] [address],[address], [place], [address], [facility] 03/04/2023 14:58:11 Influenza, adjuvanted, quadrivalent, PF 04/16/2020 completed Yasir Elkins MD [address] [place] [address],[address], [place], [address], [facility] 03/04/2023 14:58:11 COVID-19, mRNA, LNP-S, PF, 30 mcg/0.3 mL dose 08/07/2020 completed Yasir Elkins MD [address] [place] [address],[address], [place], [address], [facility] 03/04/2023 14:58:11 COVID-19, mRNA, LNP-S, PF, 30 mcg/0.3 mL dose 08/28/2020 completed Yasir Elkins MD [address] [place] [address],[address], [place], [address], [facility] 03/04/2023 14:58:11 COVID-19, mRNA, LNP-S, PF, 30 mcg/0.3 mL dose 03/17/2021 completed Yasir Elkins MD [address] [place] [address],[address], [place], [address], [facility] 03/04/2023 14:58:11 COVID-19, mRNA, LNP-S, PF, 30 mcg/0.3 mL dose, alban-sucrose 10/09/2021 completed Yasir Elkins MD [address] [place] [address],[address], [place], [address], [facility] 03/04/2023 14:58:11 COVID-19, mRNA, LNP-S, bivalent, PF, 30 mcg/0.3 mL dose 03/06/2022 completed Yasir Elkins MD [address] [place] [address],[address], [place], [address], [facility] 03/04/2023 14:58:11 Tdap 12/04/2010 completed Yasir Elkins MD [address] [place] [address],[address], [place], [address], [facility] 03/04/2023 14:58:11 zoster live 05/14/2012 completed Yasir Elkins MD [address] [facility] [address],[facility] [address], [place], [address], [facility] 03/04/2023 14:58:11 Td (adult), 2 Lf tetanus toxoid, preservative free, adsorbed 08/14/2003 completed Yasir Elkins MD [address] [facility] [address],[facility] [address], [place], [address], [facility] 03/04/2023 14:58:11 Past Encounters Encounter ID Performer Location Encounter Start Date Encounter Closed Date Diagnosis/Indication Diagnosis SNOMED-CT Code [id number] Yasir Elkins MD [facility] [address] [place] [address] 06/24/2022 11:44:24 06/27/2022 16:42:13 Prostate specific antigen above reference range 944948706 Lower urin brandi tract symptoms due to benign prostatic hypertrophy 70855203804744 Phimosis 998041266 [id number] Yasir Elkins MD [facility] [address] [place] [address] 03/04/2023 14:44:14 03/14/2023 15:26:03 Prostate specific antigen above reference range 152684514 Lower urin brandi tract symptoms due to benign prostatic hypertrophy 55281440767062 Phimosis 781499907 [id number] Yasir Elkins MD [facility] [address] [place] [address] 07/08/2023 13:42:33 07/08/2023 15:14:01 Prostate specific antigen above reference range 263359612 Lower urin brandi tract symptoms due to benign prostatic hypertrophy 82753433987536 Phimosis 030371107 [id number] Yasir Elkins MD [facility] [address] [place] [address] 09/30/2023 15:43:56 10/05/2023 14:18:04 Prostate specific antigen above reference range 772682282 Lower urin brandi tract symptoms due to benign prostatic hypertrophy 46033701935653 Phimosis 596567364 Health Concerns Section Related Observation LastModified by Organization Detai ls LastModified Time None Recorded Concern Status LastModified by Organization Details LastModified Time None Recorded Advance Directives Directive None Recorded Payers Encounter Date Sequence Insurance Name Policy Number Policy Burns Covered Member ID Burns Member ID Guarantor Name 06/24/2022 1 [place] [employer] [place] [id number] [place] 06/24/2022 2 [place] [id number] E [place] [id number] E [place] 03/04/2023 1 [place] [employer] [place] [id number] [place] 03/04/2023 2 [place] [id number] [place] [id number] [place] 07/08/2023 1 [place] [employer] [place] [id number] [place] 07/08/2023 2 [place] [id number] E [place] [id number] [place] 09/30/2023 1 [place] [employer] [place] [id number] [place] 09/30/2023 2 [place] [id number] Melchor [place] [id number] David Roche [place] Notes Date Note Type Note Provider Name [...] - no suspicious lesions Yasir Elkins MD [address] [place] [address],[facility] [address], [place], [address], [facility] 06/24/2022 13:22:14 03/04/2023 text/html HPI Notes: [...] no suspicious lesions Yasir Elkins MD [address], [place], [address], [facility] 03/04/2023 18:49:57 07/08/2023 text/html HPI Notes: [...] - no suspicious lesions Yasir Elkins MD [address], [place], [address], [facility] 07/08/2023 14:53:40 09/30/2023 text/html HPI Notes: [...] no enlarged lymph nodes Yasir Elkins MD [address], [place], [address], [place] [facility] 10/04/2023 11:42:34
--- OUTSIDE RECORDS SUMMARY | 2024-01-04 09:37 | XMS_ITS | Continuity of Care Document ---
Author Organization [facility] Address [address] [place] [address] Phone Care Team Providers Care Wharfinger Chief Name Role Phone Jimbo Anna DO Unavailable [...] [facility] , [address], [place], [address], [place] tel:[phone] [facility] , Rheumatoid arthritis (chief complaint) Pain in right kneeOther terminal make up operator (current) drug therapyRA w/o rheumatoid factor of multiple sites 4 Wilfrido Choi. [facility] [address], [place], [address], [place]. tel:[phone] Referring Provider: Jimbo Russell, [facility] [address], [place], [address]. tel:[phone] [facility] , [address], [place], [address], [place] tel:[phone] [facility] , No Information 4 Wilfrido Choi. [facility] [address], [place], [address], [place]. tel:[phone] [facility] , [address], [place], [address], [place] tel:[phone] [facility] [place] No Information 4 Wilfrido Choi. [facility] [address], [place], [address], [place]. tel:[phone] Office/Outpa tient Visit, Est [facility] , [address], [place], [address], [place] tel:[phone] [facility] , Rheumatoid arthritis (chief complaint) Pain in right kneeOther terminal make up operator (current) drug therapyRA w/o rheumatoid factor of multiple sites 4 Wilfrido Choi. [facility] [address], [place], [address], [place]. tel:[phone] Referring Provider: Jimbo Russell, [facility] [address], [place], [address]. tel:[phone] Office/Outpa tient Visit, Est [facility] , [address], [place], [address], [place] tel:[phone] [facility] , Rheumatoid arthritis (chief complaint) Pain in right kneeOther senior living (current) drug therapyRA w/o rheumatoid factor of multiple sites 3 Wilfrido Choi. [facility] [address], [place], [address], [place]. tel:[phone] Referring Provider: Jimbo Russell, [facility] [address], [place], [address]. tel:[phone] Office/Outpa tient Visit, Est [facility] , [address], [place], [address], [place] tel:[phone] [facility] , Rheumatoid arthritis (chief complaint) RA w/o rheumatoid factor of multiple sitesPain in right kneeOther terminal make up operator (current) drug therapy 2 Wilfrido Choi. [facility] [address], [place], [address], [place]. tel:[phone] Referring Provider: Jimbo Russell, [facility] [address], [place], [address]. tel:[phone] Office/Outpa tient Visit, Est [facility] , [address], [place], [address], [place] tel:[phone] [facility] , Rheumatoid arthritis (chief complaint) RA w/o rheumatoid factor of multiple sitesPain in right kneeOther terminal make up operator (current) drug therapy 2 Wilfrido Choi. [facility] [address], [place], [address], [place]. tel:[phone] Referring Provider: Jimbo Russell, [facility] [address], [place], [address]. tel:[phone] Office/Outpa tient Visit, Est [facility] , [address], [place], [address], [place] tel:[phone] [facility] , Rheumatoid arthritis (chief complaint) RA w/o rheumatoid factor of multiple sitesPain in unspecified footOther senior living (current) drug therapyPain in right knee 1 Wilfrido Choi. [facility] [address], [place], [address], [place]. tel:[phone] Referring Provider: Jimbo Russell, [facility] [address], [place], [address]. tel:[phone] Office/Outpa tient Visit, Est [facility] , [address], [place], [address], [place] tel:[phone] [facility] , RA w/o rheumatoid factor of multiple sitesPain in unspecified footOther senior living (current) drug therapy 1 Wilfrido Choi. [facility] [address], [place], [address], [place]. tel:[phone] Referring Provider: Jimbo Russell, [facility] [address], [place], [address]. tel:[phone] [facility] , [address], [place], [address], [place] tel:[phone] [facility] , No Information 1 Wilfrido Choi. [facility] [address], [place], [address], [place]. tel:[phone] Referring Provider: Jimbo Russell, [facility] [address], [place], [address]. tel:[phone] Office/Outpa tient Visit, Est [facility] , [address], [place], [address], [place] tel:[phone] [facility] , RA w/o rheumatoid factor of multiple sitesPain in unspecified footOther terminal make up operator (current) drug therapy 0 Wilfrido Choi. [facility] [address], [place], [address], [place]. tel:[phone] Referring Provider: Jimbo Russell, [facility] [address], [place], [address]. tel:[phone] Office/Outpa tient Visit, Est [facility] , [address], [place], [address], [place] tel:[phone] [facility] , RA w/o rheumatoid factor of multiple sitesPain in unspecified footOther senior living (current) drug therapy 6-202 0 Wilfrido Choi. [facility] [address], [place], [address], [place]. [phone] Referring Provider: Jimbo Russell, [facility] [address], [place], [address]. tel:[phone] Office/Outpa tient Visit, Est [facility] , [address], [place], [address], [place] tel:[phone] [facility] , RA w/o rheumatoid factor of multiple sitesPain in unspecified footOther terminal make up operator (current) drug therapy 201 9 Wiflrido Choi. [facility] [address], [place], [address], [place]. [phone] Referring Provider: Jimbo Russell, [facility] [address], [place], [address]. tel:[phone] Office/Outpa tient Visit, Est [facility] , [address], [place], [address], [place] tel:[phone] [facility] , Follow Up of Rheumatoid arthritis (chief complaint)Mo nitor Chronic High Risk Meds (chief complaint) RA w/o rheumatoid factor of multiple sitesOther senior living (current) drug therapyPain in unspecified foot Mar-0 9 Wilfrido Choi. [facility] [address], [place], [address], [place]. tel:[phone] Referring Provider: Jimbo Russell, [facility] [address], [place], [address]. tel:[phone] Office/Outpa tient Visit, Est [facility] , [address], [place], [address], [place] tel:[phone] [facility] , Follow Up of Rheumatoid arthritis (chief complaint)Mo nitor Chronic High Risk Meds (chief complaint) RA w/o rheumatoid factor of multiple sitesOther terminal make up operator (current) drug therapy Sep- 8 Wilfrido Choi. [facility] [address], [place], [address], [place]. tel:[phone] Referring Provider: Jimbo Russell, [facility] [address], [place], [address]. tel:[phone] Office/Outpa tient Visit, Est [facility] , [address], [place], [address], [place] tel:[phone] [facility] , Follow Up of Rheumatoid arthritis (chief complaint)Mo nitor Chronic High Risk Meds (chief complaint) RA w/o rheumatoid factor of multiple sitesOther terminal make up operator (current) drug therapy Apr-2 8 Wilfrido Choi. [facility] [address], [place], [address], [place]. tel:[phone] Referring Provider: Jimbo Russell, [facility] [address], [place], [address]. tel:[phone] Office/Outpa tient Visit, Est [facility] , [address], [place], [address], [place] tel:[phone] [facility] , Follow Up of Rheumatoid arthritis (chief complaint)Mo nitor Chronic High Risk Meds (chief complaint) RA w/o rheumatoid factor of multiple sitesPain in right footOther senior living (current) drug therapy Wilfrido Choi. [facility] [address], [place], [address], [place]. tel:[phone] Referring Provider: Jimbo Russell, [facility] [address], [place], [address]. tel:[phone] Office/Outpa tient Visit, Est [facility] , [address], [place], [address], [place] tel:[phone] [facility] , Follow Up of Rheumatoid arthritis (chief complaint)Mo nitor Chronic High Risk Meds (chief complaint) RA w/o rheumatoid factor of multiple sitesPain in right footOther terminal make up operator (current) drug therapy Wilfrido Choi. [facility] [address], [place], [address], [place]. tel:[phone] Referring Provider: Jimbo Russell, [facility] [address], [place], [address]. tel:[phone] Office/Outpa tient Visit, Est [facility] , [address], [place], [address], [place] tel:[phone] [facility] , Follow Up of Rheumatoid arthritis (chief complaint)Mo nitor Chronic High Risk Meds (chief complaint) RA w/o rheumatoid factor of multiple sitesOther senior living (current) drug therapyPain in right foot Feb-0 6 Wilfrido Choi. [facility] [address], [place], [address], [place]. tel:[phone] Referring Provider: Jimbo Russell, [facility] [address], [place], [address]. tel:[phone] Office/Outpa tient Visit, Est [facility] , [address], [place], [address], [place] tel:[phone] [facility] , Follow Up of Rheumatoid arthritis (chief complaint)Mo nitor Chronic High Risk Meds (chief complaint) RA w/o rheumatoid factor of multiple sitesOther senior living (current) drug therapy Aug- 6 Wilfrido Choi. [facility] [address], [place], [address], [place]. tel:[phone] Referring Provider: Jimbo Russell, [facility] [address], [place], [address]. tel:[phone] Office/Outpa tient Visit, Est [facility] , [address], [place], [address], [place] tel:[phone] [facility] , Follow Up of Rheumatoid arthritis (chief complaint)Mo nitor Chronic High Risk Meds (chief complaint) Rheumatoid arthritisThe rapeutic Drug Monitoring Feb- 5 Wilfrido Choi. [facility] [address], [place], [address], [place]. tel:[phone] Referring Provider: Jimbo Russell, [facility] [address], [place], [address]. tel:[phone] Office/Outpa tient Visit, Est [facility] , [address], [place], [address], [place] tel:[phone] [facility] , Rheumatoid Arthritis (chief complaint)Mo nitor chronic high risk medications (chief complaint) Hypertension , UnspecifiedR heumatoid ArthritisThe [facility]utic Drug Monitoring 4 Wilfrido Choi. [facility] [address], [place], [address], [place]. tel:[phone] Referring Provider: Jimbo Russell, [facility] [address], [place], [address]. tel:[phone] Office/Outpa tient Visit, Est [facility] , [address], [place], [address], [place] tel:[phone] [facility] , Rheumatoid Arthritis (chief complaint)Mo nitor chronic high risk medications (chief complaint) Rheumatoid ArthritisThe rapeutic Drug MonitoringPa in in joint involving multiple sites 4 Wilfrido Choi. [facility] [address], [place], [address], [place]. tel:[phone] Referring Provider: Jimbo Russell, [facility] [address], [place], [address]. tel:[phone] Office/Outpa tient Visit, Est [facility] , [address], [place], [address], [place] tel:[phone] [facility] , Rheumatoid Arthritis (chief complaint)Mo nitor chronic high risk medications (chief complaint) Rheumatoid ArthritisThe [facility] Drug Monitoring 0 4 Wilfrido Choi. [facility] [address], [place], [address], [place]. tel:[phone] Referring Provider: Jimbo Russell, [facility] [address], [place], [address]. tel:[phone] Office/Outpa tient Visit, Est [facility] , [address], [place], [address], [place] tel:[phone] [facility] , Rheumatoid Arthritis (chief complaint) Rheumatoid ArthritisThe rapeutic Drug Monitoring 3 Wilfrido Choi. [facility] [address], [place], [address], [place]. tel:[phone] Referring Provider: Jimbo Russell, [facility] [address], [place], [address]. tel:[phone] Office/Outpa tient Visit, Est [facility] , [address], [place], [address], [place] tel:[phone] [facility] , Rheumatoid Arthritis (chief complaint)Mo nitor chronic high risk medications (chief complaint) Rheumatoid ArthritisThe [facility] Drug Monitoring 3 Wilfrido Choi. [facility] [address], [place], [address], [place]. tel:[phone] Referring Provider: Jimbo Russell, [facility] [address], [place], [address]. tel:[phone] Office/Outpa tient Visit, Est [facility] , [address], [place], [address], [place] tel:[phone] [facility] , Rheumatoid Arthritis (chief complaint) Rheumatoid ArthritisThe rapeutic Drug MonitoringPa in in joint involving hand 2 Wilfrido Choi. [facility] [address], [place], [address], [place]. tel:[phone] Referring Provider: Jimbo Russell, [facility] [address], [place], [address]. tel:[phone] Office/Outpa tient Visit, Est [facility] , [address], [place], [address], [place] tel:[phone] [facility] , Rheumatoid Arthritis (chief complaint) Rheumatoid ArthritisThe [facility] Drug Monitoring 2 Wilfrido Choi. [facility] [address], [place], [address], [place]. tel:[phone] Referring Provider: Jimbo Russell, [facility] [address], [place], [address]. tel:[phone] Family History Family Member Type Diagnosis Age At Onset Mother Problem (finding) Arthritis Immunizations Vaccine Date Status Comments COVID-19 Pfizer administered Source: Sour ce Unspecified COVID-19 Pfizer administered Source: [facility]our [facility] Unspecified COVID-19 Pfizer administered Source: Sour ce Unspecified Payers Payer name Insurance type Covered green party ID Authorlidaa tibrock(s) Medicare MB [id number] [facility] [id number] Social History Type Description Quantity Date Captured [...] Goal Tobacco cessation counseling completed Referral Ordered: [facility] (related to Pain in right foot) ordered Referral Referred To: [facility] [address] [place] [address] [phone] Ordered: Referrals: [facility]. Evaluate and treat ordered Appointment [...] assessment Pain in right knee assessment Other senior living (current) drug t herapy assessment RA w/o rheumatoid factor of [facility] Mental Status Date Cognitive Assessment Orientation - [place] ed to time, place, person, situation. Patient Care Teams Name Effective Dates (start - stop) Status Members No Information
--- NOTE | 2024-01-04 09:49 | W.PM.H&PU ---
History & Physical Update History & Physical Update H&P Reviewed and patient assessed: No changes noted
--- NOTE | 2024-01-04 09:59 | CRLHL7_ITS ---
For Patients: As a result of the Cures Act, medical imaging exams and procedure reports are released immediately into your electronic medical record. You may view this report before your referring provider. If you have questions, please contact your health care provider. Indication: Postop Technique: Two views right knee Findings/Impression: Hardware from a right total knee arthroplasty is in satisfactory position. Bone alignment is normal. No sign of acute fracture. Postop changes are within normal limits. Dictated by David Brantley MD @ 01/04/2024 1:54:01 PM (Electronically Signed)
[2024-01-04] MEDS: LACTATED RINGERS 1000 ML 1,000 ML 100 ML IV ×2 (10:20→13:49)
[2024-01-04] MEDS: ACETAMINOPHEN 500 MG TABLET 1000 MG PO ×2 (10:36→22:53)
[2024-01-04] MEDS: OXYCODONE (CR) 10 MG TAB.ER.12H PO (10:36)
--- NOTE | 2024-01-04 10:37 | SUR.PREOP ---
TIME?OUT:? PT/RN/MDA?VERIFICATION?OF?SURGICAL?SITE,?PROCEDURE,?AND?CONSENT OBTAINED?PRIOR?TO?INVASIVE?PROCEDURE.
[2024-01-04] MEDS: fentaNYL 100 MCG/2 ML inj IVP (10:38)
[2024-01-04] MEDS: MIDAZOLAM HCL 1 MG/ML inj IVP (10:38)
[2024-01-04] MEDS: TRANEXAMIC ACID 100 MG/ML INJ 1000 MG IV (10:55)
--- NOTE | 2024-01-04 11:04 | W.ANESCHARGE ---
Anesthesia Charges Start Date/Time Anesthesia Start Date: 01/04/24 Anesthesia Start Time: 10:46 Stop Date/Time Anesthesia Stop Date: 01/04/24 Anesthesia Stop Time: 13:19 Summary Extremes of Age - Over 70 or under 1: MDA
--- NOTE | 2024-01-04 11:04 | W.PM.NB ---
Nerve Block Nerve Block Time Seen by Provider: 10:40 Date Seen: 01/04/24 Type of block requested by surgeon for post-operative analgesia: adductor canal Side: right Time out performed: Yes Verification of patient name: Yes Verification of date of : Yes Site marking: site marked Name of person performing procedure: Gary Continuous monitoring Was continuous monitoring of O2 sat, B/P, monitoring engineer, recorded every 15 minutes?: Yes Procedure Checklist: sterile prep, needles and gloves Ultrasound guided. Images saved: Yes Medications given in 5ml increments after negative aspiration: Ropivicaine %: 0.5 mL: 20 Needle gauge: 20 Decadron (mg): 10 Precedex (mcg): 25 Patient tolerated procedure well: Yes Additional comments: Needle noted adjacent to nerve Block Charges Block Charge (with Pro Fee): Femoral Nerve Use of Ultrasound Machine for Block: Yes- US Guidance/pain block
--- NOTE | 2024-01-04 11:05 | P.NB_ITS ---
Nerve Block Nerve Block Time Seen by Provider: 10:40 Date Seen: 01/04/24 Type of block requested by surgeon for post-operative analgesia: geniculars Side: right Time out performed: Yes Verification of patient name: Yes Verification of date of : Yes Site marking: site marked Name of person performing procedure: Gary Continuous monitoring Was continuous monitoring of O2 sat, B/P, traffic monitor specialist, recorded every 15 minutes?: Yes Procedure Checklist: sterile prep, needles and gloves Medications given in 5ml increments after negative aspiration: Ropivicaine %: 0.5 mL: 9 Needle gauge: 25 Patient tolerated procedure well: Yes Block Charges Block Charge (with Pro Fee): Genicular Nerve Block Use of Ultrasound Machine for Block: No
--- NOTE | 2024-01-04 11:25 | W.ANESCHARGE ---
Anesthesia Charges Start Date/Time Anesthesia Start Date: 01/04/24 Anesthesia Start Time: 10:46 Stop Date/Time Anesthesia Stop Date: 01/04/24 Anesthesia Stop Time: 13:19 Summary Extremes of Age - Over 70 or under 1: [facility] OPERATOR
--- NOTE | 2024-01-04 12:24 | P.ORPRC_ITS ---
Procedure Note Date of procedure: 01/04/24 Procedure: PREOPERATIVE DIAGNOSIS: 1. Right knee osteoarthritis, primary, severe POSTOPERATIVE DIAGNOSIS: 1. Right knee osteoarthritis, primary, severe PROCEDURE: 1. Right total knee arthroplasty - subvastus SURGEON: Joseph Amezquita MD. ENVIRONMENTAL PROTECTION GEOLOGIST: Sina Ramos PA-C - Of note, a skilled patient services assistant was critical for this case to aid in patient positioning, tissue retraction, limb manipulation/positioning, and closure. ANESTHESIA: Spinal anesthetic IMPLANTS: DePuy J&J all cemented TKA - Attune PS femur size 8, size 7 tibia, 8 mm poly spacer, 41mm patella TOURNIQUET: 90 min at 300 torr EBL: 50 ml COMPLICATIONS: None evident INDICATIONS: The patient is a pleasant 73-year-old male who has experienced severe right knee pain and difficulty bearing weight. Workup included x-rays w [facility] revealed severe osteoarthrosis in the knee. Given the deformity, the dysfunction, and the pain, as well as the failure of nonoperative management, recommendation was made for surgery. FINDINGS: Somewhat soft, less than ideal bone quality. Full-thickness chondral loss diffusely throughout the medial and patellofemoral compartments and to a lesser degree lateral compartment. Degenerative meniscus pathology both compartments. Moderate effusion upon entering the joint. DESCRIPTION OF PROCEDURE: Following a thorough discussion of risks, benefits, and alternatives consent was obtained and the right knee was marked. The patient was brought to the operating room and placed supine on the operating table. Induction of anesthesia was undertaken. 2 g IV Ancef and 1 g tranexamic acid was administered within 1 hr of incision preoperatively. Proper time-out was performed identifying proper patient, site, procedure. The operative extremity was prepped and draped in the appropriate sterile fashion using ChloraPrep after the patient was positioned supine with all bony prominences well padded. A longitudinal, anterior, midline skin incision was made starting approximately 3cm proximal to the superior pole of the patella and advanced distal to the tibial tubercle. A subvastus approach was utilized. A medial subperiosteal sleeve was created with knife, carmen elevator and curved osteotome. The retropatellar fatpad was resected and the synovium in the suprapatellar pouch excised to visualize the anterior femoral cortex. Femoral preparation was performed via an intramedullary guide. Step drill allowed access into the femoral canal. The distal cutting guide was placed with 5? of valgus and 11 mm cut on the distal femur due to mild flexion contracture. Femur was sized using a anterior referencing guide in 3? of external rotation. This found have a best fit with the sizing noted above. The 4 in 1 cutting block was then placed, and the distal femur shaped accordingly. The box cut was then created and the trial implant inserted to confirm appropriate fit. We turned our attention to the proximal tibia. Extramedullary guide was utilized for cutting with the goal of being 90 degree cut from the mechanical axis of the tibia in the varus/valgus plane utilizing tibial crest as the primary alignment. Initially a 0 mm resection was performed from the medial tibial plateau. Ultimately, balancing was achieved in both flexion and extension in both varus and valgus. The knee was able to achieve full extension as well comfortably. The patella was initially measured and found have a thickness of 24 mm. It was resected back to approximately 14 mm. It was sized to be a best fit with as noted above. This was drilled, trial placed. All trials were placed and found to have an excellent stability and balance. At this stage, trial implants were removed, the knee was thoroughly irrigated with normal saline, and the cement was mixed. After irrigation, the knee was thoroughly dried, and cement placed, with the real tibial and femoral implants placed along with the patella. Trial poly spacer was placed and confirmed to have excellent range of motion and full extension, and the real poly spacer opened and inserted. All extra cement was removed, and a 3 min Betadine soak performed. Finally, a final irrigation round with normal saline was performed. Closure performed with 0 Vicryl and #0 Stratafix for the quad tendon/retinaculum. 2-0 Vicryl for the subcutaneous and 4-0 Stratafix for subcuticular closure. Dressings were applied and the patient was awoken from anesthesia after the tourniquet deflated and transferred the PACU in stable condition. A skilled patient services assistant was critical for this case to aid in patient positioning, tissue retraction, bone exposure, limb manipulation/positioning, patient safety, and closure. PLAN: 1. Weight bear as tolerated operative extremity. 2. 23 hr perioperative antibiotics. 3. Ice. 4. PT/OT consults for ambulation assistance/mobility education. 5. Social work consult for discharge planning. 6. DVT prophylaxis with at SCDs and aspirin twice daily.
--- NOTE | 2024-01-04 15:17 | PC.NURSE ---
End of shift Note: Patient arrived from PACU around 1400. He was a little confused when he first arrived. But since then has cleared and he did tolerate clears and now is advancing to regular. is at bedside. PT is now working with him and getting him up to the chair. Denies pain. Has ice pack in place. Will continue to monitor until next shift arrives.
--- NOTE | 2024-01-04 16:44 | PM.IMCN1 ---
Date of Consult Patient: Joan Patient Consult date: 01/04/24 Requesting Physician: Orthopedics Primary Care Provider: Marcela Mckenna, DO Consult Narrative Reason for consult: Cognitive impairement, CAD Narrative: David Tapia is a 73 year old male with cognitive impairment, coronary artery disease, a bundle-branch block, rheumatoid arthritis, hypertension, obstructive sleep apnea, and dyslipidemia who underwent an elective right total knee arthroplasty today by Dr. Amezquita. He is doing well postoperatively. He denies any chest pain or shortness of breath. He denies any pain in his knee. He has an ulcer on the 3rd toe of his left foot for which he has been following [facility]. He recently started Medihoney and has been changing the bandage in Medihoney daily after shower. He has noticed quite a bit of improvement. Has another appointment with wound care either this or next. Review of Systems Status of ROS: Reports: 6 or more systems reviewed and unremarkable except as noted in History and below [facility] Medical History (Updated 01/04/24 @ 17:03 by Maddi Shankar MD) Cognitive impairment ?R41.89 - Other symptoms and signs involving cognitive functions and awareness (ICD-10) Bee sting allergy ?Z91.030 - Bee allergy status (ICD-10) Personal history of colonic polyps ?Z86.010 - Personal history of colonic polyps (ICD-10) Depression ?F32.A - Depression, unspecified (ICD-10) Bilateral sensorineural hearing loss ?H90.3 - Sensorineural hearing loss, bilateral (ICD-10) Hypersomnolence ?G47.10 - Hypersomnia, unspecified (ICD-10) Benign localized prostatic hyperplasia with lower urinary tract symptoms (LUTS) ?N40.1 - Benign prostatic hyperplasia with lower urinary tract symptoms (ICD-10) Dyslipidemia ?E78.5 - Hyperlipidemia, unspecified (ICD-10) DJD (degenerative joint disease) ?M19.90 - Unspecified osteoarthritis, unspecified site (ICD-10) AGUSTÍN (obstructive sleep apnea) ?G47.33 - Obstructive sleep apnea (adult) (pediatric) (ICD-10) Benign prostatic hyperplasia ?N40.0 - Benign prostatic hyperplasia without lower urinary tract symptoms (ICD-10) Coronary artery disease involving [place] coronary artery without angina pectoris ?I25.10 - Atherosclerotic heart disease of [place] coronary artery without angina pectoris (ICD-10) Left bundle branch block ?I44.7 - Left bundle-branch block, unspecified (ICD-10) Essential hypertension ?I10 - Essential (primary) hypertension (ICD-10) Rheumatoid arthritis ?M06.9 - Rheumatoid arthritis, unspecified (ICD-10) Finger infection ?L08.9 - Local infection of the skin and subcutaneous tissue, unspecified (ICD-10) Surgical History (Updated 01/04/24 @ 16:59 by Maddi Shankar MD) Status post total knee replacement, right ?Z96.651 - Presence of right artificial knee joint (ICD-10) Hx of colonoscopy ?Z98.890 - Other specified postprocedural states (ICD-10) H/O inguinal hernia repair (05/04/15) ?Z98.890 - Other specified postprocedural states (ICD-10) ?Z87.19 - Personal history of other diseases of the digestive system (ICD-10) Social History (Updated 01/04/24 @ 16:56 by Maddi Shankar MD) Narrative: . Living independently with his . He is managing his own medications. Quit smoking in September of this year. Denies any other tobacco use. He drinks once a month, 2 beers at that setting. No other alcohol use. Denies recreational drug use. What is your current living situation?: I presently have a place to live Problems where you live: no known problems In the past 12 months, utilities in danger of being shut off: no In past 12 months, lack of transportation kept you from medical appts, meetings, work, or getting things needed for daily living: no In the past 12 mos, have been you worried that your food would run out before you had money to buy more?: never true In the past 12 mos, the food you bought just didn't last and you didn't have money to buy more?: never true Highest level of school completed/degree received: some college, no degree Smoking Status: Former smoker What tobacco products do you use: cigarettes Smoking packs per day: 0.25 Smoking cigarettes per day: 5.0 Years smoked: 50 Smoking pack-years: 12.50 Smoking quit date/years: <= 15 years ago Do you use any of these nicotine containing products: None Nicotine containing products detail: Quit smoking September 21, 2023 Second hand tobacco smoke exposure: No How often do you have a drink containing alcohol: monthly or less Alcohol type: beer How many standard drinks containing alcohol do you have on a typical day: 1 or 2 How often do you have six or more drinks on one occasion: Never AUDIT-C Alcohol total score: 1 Non-prescribed substance use: denies use Caffeine: Yes How often does anyone, including family, friends and others, physically hurt you: never How often does anyone, including family, friends and others, insult or talk down to you: never How often does anyone, including family, friends and others, threaten you with harm: never How often does anyone, including family, friends and others, scream or curse at you: never service: Yes Meds Home Medications and Allergies Home Medications ?Medication ?Instructions ?Recorded ?Confirmed ?Type hydroxychloroquine 200 mg tablet 400 mg PO DAILY 09/01/23 01/04/24 History lisinopril 20 mg tablet 20 mg PO DAILY 09/01/23 01/04/24 History naproxen sodium 220 mg tablet 220 mg PO DAILY 09/01/23 01/04/24 History (Aleve) tamsulosin 0.4 mg capsule 0.8 mg PO DAILY 09/01/23 01/04/24 History aspirin 81 mg tablet,delayed 81 mg PO DAILY 12/22/23 01/04/24 History release (Adult Aspirin Regimen) epinephrine 0.3 mg/0.3 mL 0.3 mg IM ONCE PRN 01/04/24 01/04/24 History injection, auto-injector (EpiPen) methotrexate sodium 2.5 mg tablet 15 mg PO Q7D 01/04/24 01/04/24 History Allergies Allergy/AdvReac Type Severity Reaction Status Date / Time Penicillins Allergy Verified 12/22/23 09:03 venom-honey bee Allergy Verified 12/22/23 09:03 mirtazapine AdvReac Nightmare Verified 01/01/24 09:00 Exam Narrative: Exam Narrative: General: No acute distress. Awake alert oriented x3. HEENT: Normocephalic atraumatic, pupils equally round and reactive to light and accommodation. Oropharynx clear. Mucous membranes are moist. No cervical lymphadenopathy, thyromegaly or carotid bruits. No JVD. Cardiovascular: Regular rate and rhythm. No murmurs, gallops, or rubs. Chest: No increased work of breathing. Clear to auscultation bilaterally. No crackles or wheezes. Abdomen: Bowel sounds present. Soft, nondistended, nontender. No hepatosplenomegaly or masses. Extremities: Right knee bandage is clean, dry, and intact. No edema, no cyanosis or clubbing. Left 3rd toe has several clean Band-Aids wrapped around it. I moved these aside and saw that this toe does have calluses, but appears less [facility]mat[facility]. There is no drainage or weeping, no induration or tenderness. Const: Vital Signs, click to edit/add: Vital Signs - 24 hr 01/04/24 09:50 01/04/24 13:16 01/04/24 13:20 Temperature 98.2 F 98.2 F Pulse Rate 77 69 74 Respiratory Rate 16 16 16 Blood Pressure 111/94 H 103/63 98/64 Pulse Oximetry 97 92 94 Oxygen Delivery Me thod Room Air Room Air Room Air 01/04/24 13:25 01/04/24 13:30 01/04/24 13:35 Temperature Pulse Rate 73 60 70 Respiratory Rate 16 16 16 Blood Pressure 95/60 90/60 90/60 Pulse Oximetry 94 92 92 Oxygen Delivery Me thod Room Air Room Air Room Air 01/04/24 13:40 01/04/24 13:45 01/04/24 13:50 Temperature 97.4 F L Pulse Rate 58 L 57 L 64 Respiratory Rate 16 16 16 Blood Pressure 98/64 93/74 98/66 Pulse Oximetry 94 91 92 Oxygen Delivery Id thod Room Air Room Air Room Air 01/04/24 14:00 01/04/24 14:30 01/04/24 14:45 Temperature 96.8 F L 96.8 F L 96.8 F L Pulse Rate 59 L 62 60 Respiratory Rate 18 18 20 Blood Pressure 108/68 122/80 114/79 Pulse Oximetry 96 96 97 Oxygen Delivery Id thod Room Air Room Air Room Air 01/04/24 15:00 01/04/24 15:00 Temperature Pulse Rate Respiratory Rate Blood Pressure Pulse Oximetry 94 94 Oxygen Delivery Me thod Room Air Assessment and Plan Assessment and plan (1) Status post total knee replacement, right: Problem comment: - 01/04/24 Dr. Amezquita - routine postop cares. VTE prophylaxis with twice a day baby aspirin. Status: Acute (2) Osteoarthritis of right knee: Problem comment: Severe, [id number] Status: Chronic (3) Cognitive impairment: Problem comment: - Atypical, slow onset with some parkinsonian features. Sees Dr. Barrow from [facility] - at risk for sundowning. I spoke with his nurse about monitoring for this, frequent orientation and allowing for good sleep tonight. Status: Chronic (4) Essential hypertension: Problem comment: Blood pressure borderline normal low. Hold lisinopril, suspect he will be able to resume this upon discharge. Status: Chronic (5) Rheumatoid arthritis: Problem comment: Chronically on methotrexate. Was due for a dose today. Will hold for now and he can take it when he gets home Status: Chronic (6) Coronary artery disease involving [place] coronary artery without angina pectoris: Problem comment: - Asymptomatic. Continue daily aspirin. Holding lisinopril due to low normal blood pressure, likely secondary to medications used during anesthesia and surgery. Monitor on telemetry overnight. Status: Chronic (7) Open wound of lesser toe of left foot: Problem comment: Follows and wound care clinic. Using Medihoney several times a week. No change in current regimen. Status: Chronic
[2024-01-04] MEDS: CEFAZOLIN 2 GM in 0.9 % SODIUM CHLORIDE Mini-bag 100 ML IVPB (16:45)
[2024-01-04] MEDS: TAMSULOSIN HCL 0.4 MG CAPSULE 0.8 MG PO (21:02)
[2024-01-04] MEDS: HYDROXYCHLOROQUINE 200 MG TABLET 400 MG PO (21:02)
[2024-01-04] MEDS: SENNOSIDES 1 TAB TABLET 2 TAB PO (21:03)
[2024-01-04] MEDS: ASPIRIN 81 MG TABLET EC PO (21:03)
--- NOTE | 2024-01-05 00:39 | PC.NURSE ---
End of Shift: Patient pleasant and cooperative. Afebrile. Dressing to right knee C/D/I. CMS intact. Rating pain in right knee 0-3/10 and declined need for PRN pain medication. Up to chair and bathroom with 1 assist, walker and gait belt. Tolerating regular diet with no nausea. Tele showing NSR with BBB, updated MD. Denies and chest pain or SOB.
[2024-01-05] MEDS: CEFAZOLIN 2 GM in 0.9 % SODIUM CHLORIDE Mini-bag 100 ML IVPB (00:42)
[2024-01-05] MEDS: OXYCODONE 5 MG TABLET PO ×3 (02:52→11:00)
[2024-01-05 03:00] VITALS: BP 136/81; PULSE 84; RESP 16; TEMP 36.2; O2SAT 95
[2024-01-05] MEDS: ACETAMINOPHEN 500 MG TABLET 1000 MG PO ×2 (04:09→10:15)
[2024-01-05 06:30] LABS: Hematocrit 36.8 % (37.0-53.0); Hemoglobin* 11.8 gm/dL (13.5-17.5); Immature Granulocytes Abs Auto 0.06 K/uL (0.00-0.30); Immature Granulocytes Pct Auto 0.6 %; Lymphocytes Percent Auto 4.9 % (20-44); Mean Corpuscular HGB Conc 32 gm/dL (32-36); Mean Corpuscular Hemoglobin 32 pg (26-34); Mean Corpuscular Volume 101 fL (80-100); Monocytes Percent Auto 10.4 % (0.0-11.0); Neutrophils Percent Auto 84.1 % (42.0-72.0); Platelet Count* 147 K/uL (140-440); RDW Coefficient of Variation % 14.2 % (11.5-15.5); Red Blood Count 3.64 m/uL (4.30-5.90); White Blood Count* 10.82 K/uL (4.50-11.00)
[2024-01-05 06:34] LABS: Slide Review Reflex No
[2024-01-05 06:41] LABS: Sodium* 137 mmol/L (135-149)
[2024-01-05 06:43] LABS: Creatinine* 1.1 mg/dL (0.5-1.5); Estimated Glomerular Filt Rate 70 ml/min
--- NOTE | 2024-01-05 06:43 | PC.NURSE ---
End of shift note [id number]: Pt alert & oriented x 4 and able to make needs known. Pt has been denying nausea with no vomiting noted. IV to L hand patent and SL. Pt has been denying pain when asked with scheduled Tylenol given and ice provided. He transfers with SBA using FWW and gait belt. Pt does have baseline tremor noted. CMS to R leg intact and dressing to R anterior knee noted to be C/D/I. PRN Oxycodone given for report of 5/10 R knee/leg pain. Pt did wear plexi pulses for approximately half of shift then refused to wear stating pumps were uncomfortable. Pt noted to have poor sleep though requests [employer] to drink. Pt urinates frequently due to report of prostate issues. He has been using call light appropriately and transfers/ambulates with assist of 1 using FWW and gait belt.
[2024-01-05 06:44] LABS: Blood Urea Nitrogen* 23 mg/dL (7-30)
[2024-01-05 07:00] VITALS: PULSE 75; RESP 16; O2SAT 95
[2024-01-05 07:46] VITALS: PULSE 73
[2024-01-05] MEDS: SENNOSIDES 1 TAB TABLET 2 TAB PO (08:03)
[2024-01-05] MEDS: ASPIRIN 81 MG TABLET EC PO (08:04)
[2024-01-05 08:07] VITALS: BP 118/70; PULSE 75; TEMP 36.5; O2SAT 95
--- NOTE | 2024-01-05 09:55 | PM.ORPN ---
Subjective Subjective Date Seen: 01/05/24 Principal diagnosis: Status postop day 1 right total knee arthroplasty Interval history: Patient reports doing well. No acute events over night. Pain slightly increased this morning with some swelling. He has not yet started physical therapy. Pain managed with scheduled and PRN medications, ice. DVT prophylaxis: 81 mg aspirin by mouth twice daily, SCDs, walking. Denies fevers, chills, aches, N/V, CP, SOB/SMITH, or lightheadedness. Ortho Exam Narrative Exam Narrative: -Patient appears comfortable; no apparent acute distress -Alert and oriented times 3 -Moderate discomfort posterior knee -Operative knee mildly swollen; soft tissues supple; no ecchymosis; no erythematous streaking Warmth appropriate -Surgical dressing clean, dry, intact; no drainage -Bilateral calfs soft; no significant swelling, edema, tenderness, erythema, discoloration, warmth, or palpable cords -2+ DP/PT pulses, intact dermatomes and myotomes distally (5/5 strength) Const Vital Signs, click to edit/add: Vital Signs - 24 hr 01/04/24 13:16 01/04/24 13:20 01/04/24 13:25 Temperature 98.2 F Pulse Rate 69 74 73 Pulse Rate [Right Pulse Oximeter] Respiratory Rate 16 16 16 Blood Pressure 103/63 98/64 95/60 Blood Pressure [Left Arm] Pulse Oximetry 92 94 94 Oxygen Delivery Method Room Air Room Air Room Air 01/04/24 13:30 01/04/24 13:35 01/04/24 13:40 Temperature Pulse Rate 60 70 58 L Pulse Rate [Right Pulse Oximeter] Respiratory Rate 16 16 16 Blood Pressure 90/60 90/60 98/64 Blood Pressure [Left Arm] Pulse Oximetry 92 92 94 Oxygen Delivery Method Room Air Room Air Room Air 01/04/24 13:45 01/04/24 13:50 01/04/24 14:00 Temperature 97.4 F L 96.8 F L Pulse Rate 57 L 64 59 L Pulse Rate [Right Pulse Oximeter] Respiratory Rate 16 16 18 Blood Pressure 93/74 98/66 108/68 Blood Pressure [Left Arm] Pulse Oximetry 91 92 96 Oxygen Delivery Method Room Air Room Air Room Air 01/04/24 14:30 01/04/24 14:45 01/04/24 15:00 Temperature 96.8 F L 96.8 F L Pulse Rate 62 60 Pulse Rate [Right Pulse Oximeter] Respiratory Rate 18 20 Blood Pressure 122/80 114/79 Blood Pressure [Left Arm] Pulse Oximetry 96 97 94 Oxygen Delivery Method Room Air Room Air 01/04/24 15:00 01/04/24 15:00 01/04/24 15:30 Temperature 97.0 F L Pulse Rate 70 82 Pulse Rate [Right Pulse Oximeter] Respiratory Rate 18 18 Blood Pressure 126/85 127/68 Blood Pressure [Left Arm] Pulse Oximetry 94 95 94 Oxygen Delivery Method Room Air Room Air Room Air 01/04/24 16:00 01/04/24 17:00 01/04/24 18:00 Temperature Pulse Rate 78 82 86 Pulse Rate [Right Pulse Oximeter] Respiratory Rate 18 18 18 Blood Pressure 123/87 117/74 113/78 Blood Pressure [Left Arm] Pulse Oximetry 92 93 93 Oxygen Delivery Method Room Air Room Air Room Air 01/04/24 19:00 01/04/24 19:00 01/04/24 20:00 Temperature 97.1 F L 97.7 F Pulse Rate 88 82 82 Pulse Rate [Right Pulse Oximeter] Respiratory Rate 18 16 Blood Pressure 114/71 126/85 Blood Pressure [Left Arm] Pulse Oximetry 92 96 Oxygen Delivery Method Room Air Room Air 01/04/24 23:00 01/04/24 23:00 01/04/24 23:00 Temperature 97.4 F L Pulse Rate Pulse Rate [Right Pulse Oximeter] 82 Respiratory Rate 18 18 Blood Pressure Blood Pressure [Left Arm] 122/77 Pulse Oximetry 94 94 94 Oxygen Delivery Method Room Air Room Air 01/04/24 23:00 01/04/24 23:13 01/05/24 03:00 Temperature 97.1 F L Pulse Rate 97 Pulse Rate [Right Pulse Oximeter] 82 84 Respiratory Rate 18 16 Blood Pressure Blood Pressure [Left Arm] 136/81 Pulse Oximetry 95 Oxygen Delivery Method Room Air 01/05/24 07:00 01/05/24 07:00 01/05/24 07:00 Temperature Pulse Rate Pulse Rate [Right Pulse Oximeter] 75 Respiratory Rate 16 16 Blood Pressure Blood Pressure [Left Arm] Pulse Oximetry 95 95 Oxygen Delivery Method Room Air 01/05/24 07:46 01/05/24 08:07 Temperature 97.7 F Pulse Rate 73 Pulse Rate [Right Pulse Oximeter] 75 Respiratory Rate Blood Pressure Blood Pressure [Left Arm] 118/70 Pulse Oximetry 95 Oxygen Delivery Method Room Air Assessment and Plan Assessment and plan (1) Status post total knee replacement, right: Problem details: - 01/04/24 Dr. Amezquita - routine postop cares. VTE prophylaxis with twice a day baby aspirin. Status: Acute (2) Osteoarthritis of right knee: Problem details: Severe, [id number] Status: Chronic (3) Cognitive impairment: Problem details: - Atypical, slow onset with some parkinsonian features. Sees Dr. Barrow from [facility] - at risk for sundowning. I spoke with his nurse about monitoring for this, frequent orientation and allowing for good sleep tonight. Status: Chronic (4) Essential hypertension: Problem details: Blood pressure borderline normal low. Hold lisinopril, suspect he will be able to resume this upon discharge. Status: Chronic (5) Rheumatoid arthritis: Problem details: Chronically on methotrexate. Was due for a dose today. Will hold for now and he can take it when he gets home Status: Chronic (6) Coronary artery disease involving [place] coronary artery without angina pectoris: Problem details: - Asymptomatic. Continue daily aspirin. Holding lisinopril due to low normal blood pressure, likely secondary to medications used during anesthesia and surgery. Monitor on telemetry overnight. Status: Chronic (7) Open wound of lesser toe of left foot: Problem details: Follows and wound care clinic. Using Medihoney several times a week. No change in current regimen. Status: Chronic Plan - Complete 23 hour perioperative antibiotics. - PT/OT consult for education and assistance. - Social work consult for discharge planning - Prescribed analgesics as needed - DVT prophylaxis: 81 mg aspirin by mouth twice daily and SCDs - Anticipation is for discharge to home with spouse 01/05/2024 if the patient remains medically stable, pain is controlled, and they are safe with mobilization. - We discussed holding methotrexate for 1 week; but after further discussion with Dr. Amezquita, he may continue his methotrexate as prescribed. - Continue to monitor the left foot wound as monitored by wound care, report to us sooner if there are issues with this
--- NOTE | 2024-01-05 11:30 | PC.NURSE ---
Discharge-- Very pleasant and cooperative, alert and oriented patient was discharged to home via wheelchair with at approximately 11:00. VSS and pt is afebrile. SPO2 maintained >90% on RA. Pain appears well managed with scheduled Tylenol and Oxycodone. Dressing to right knee is C/D/I and CMS is WNL. Right leg does appear edematous and skin surrounding dressing appears tight. LS CTA. Telemetry showed NSR with 1st degree AV block and BBB. He denied nausea and tolerated a regular diet without difficulty. He was up to the chair and BR with assist of 1, belt and walker and tolerated it well. Discharge education was provided including diagnosis info, symptoms to report, medications and follow up plan. No further questions asked and SL was removed with tip intact.
== END 2024-01-05 11:02 | disposition home or self-care (01) ==
LOC: OR 09:35 → MEDSURG 09:37
PROVIDERS: PCP Family Medicine; Visit Provider Orthopaedic Surgery Sports Medicine
PROC: (CPT 27447; principal; 2024-01-04 11:00)
DX: M17.11 Unilateral primary osteoarthritis, right knee (principal); G89.18 Other acute postprocedural pain; G31.84 Mild cognitive impairment of uncertain or unknown etiology; G47.33 Obstructive sleep apnea (adult) (pediatric); L97.529 Non-pressure chronic ulcer of other part of left foot with unspecified severity; I25.10 Atherosclerotic heart disease of native coronary artery without angina pectoris; I10 Essential (primary) hypertension; M06.9 Rheumatoid arthritis, unspecified; Z79.631 Long term (current) use of antimetabolite agent
CPT/HCPCS: 27447; 01402; 36415; 64447; 64454; 73560; 76942; 82565; 84132; 84295; 84520; 85025; 97110; 97116; 97161; 97166; 97530; 99100; A9270; C1776; J0690; J1100; J2250; J2405; J2704; J2795; J3010; J7120

== ENCOUNTER 2024-01-07 12:38 | Outpatient (CLI) | payer MEDICARE, BC, SELFPAY ==
--- OUTSIDE RECORDS SUMMARY | 2024-01-07 12:41 | XMS_ITS | Continuity of Care Document ---
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 [facility] [address], [place], [address], [place]. tel:[phone] Referring Provider: Jimbo Russell, [facility] [address], [place], [address]. tel:[phone] [facility] , [address], [place], [address], [place] tel:[phone] [facility] , No Information 4 Wilfrido Choi. [facility] [address], [place], [address], [place]. tel:[phone] [facility] , [address], [place], [address], [place] tel:[phone] [facility] [place] No Information 4 Wilfrido Choi. [facility] [address], [place], [address], [place]. tel:[phone] Office/Outpa tient Visit, Est [facility] , [address], [place], [address], [place] tel:[phone] [facility] , Rheumatoid arthritis (chief complaint) Pain in right kneeOther director of corporate sponsorships (current) drug therapyRA w/o rheumatoid factor of multiple sites 4 Wilfrido Choi. [facility] [address], [place], [address], [place]. tel:[phone] Referring Provider: Jimbo Russell, [facility] [address], [place], [address]. tel:[phone] Office/Outpa tient Visit, Est [facility] , [address], [place], [address], [place] tel:[phone] [facility] , Rheumatoid arthritis (chief complaint) Pain in right kneeOther care home (current) drug therapyRA w/o rheumatoid factor of multiple sites 3 Wilfrido Choi. [facility] [address], [place], [address], [place]. tel:[phone] Referring Provider: Jimbo Russell, [facility] [address], [place], [address]. tel:[phone] Office/Outpa tient Visit, Est [facility] , [address], [place], [address], [place] tel:[phone] [facility] , Rheumatoid arthritis (chief complaint) RA w/o rheumatoid factor of multiple sitesPain in right kneeOther director of corporate sponsorships (current) drug therapy 2 Wilfrido Choi. [facility] [address], [place], [address], [place]. tel:[phone] Referring Provider: Jimbo Russell, [facility] [address], [place], [address]. tel:[phone] Office/Outpa tient Visit, Est [facility] , [address], [place], [address], [place] tel:[phone] [facility] , Rheumatoid arthritis (chief complaint) RA w/o rheumatoid factor of multiple sitesPain in right kneeOther director of corporate sponsorships (current) drug therapy 2 Wilfrido Choi. [facility] [address], [place], [address], [place]. tel:[phone] Referring Provider: Jimbo Russell, [facility] [address], [place], [address]. tel:[phone] Office/Outpa tient Visit, Est [facility] , [address], [place], [address], [place] tel:[phone] [facility] , Rheumatoid arthritis (chief complaint) RA w/o rheumatoid factor of multiple sitesPain in unspecified footOther care home (current) drug therapyPain in right knee 1 Wilfrido Choi. [facility] [address], [place], [address], [place]. tel:[phone] Referring Provider: Jimbo Russell, [facility] [address], [place], [address]. tel:[phone] Office/Outpa tient Visit, Est [facility] , [address], [place], [address], [place] tel:[phone] [facility] , RA w/o rheumatoid factor of multiple sitesPain in unspecified footOther care home (current) drug therapy 1 Wilfrido Choi. [facility] [address], [place], [address], [place]. tel:[phone] Referring Provider: Jimbo Russell, [facility] [address], [place], [address]. tel:[phone] [facility] , [address], [place], [address], [place] tel:[phone] [facility] , No Information 1 Wilfrido Choi. [facility] [address], [place], [address], [place]. tel:[phone] Referring Provider: Jimbo Russell, [facility] [address], [place], [address]. tel:[phone] Office/Outpa tient Visit, Est [facility] , [address], [place], [address], [place] tel:[phone] [facility] , RA w/o rheumatoid factor of multiple sitesPain in unspecified footOther director of corporate sponsorships (current) drug therapy 0 Wilfrido Choi. [facility] [address], [place], [address], [place]. tel:[phone] Referring Provider: Jimbo Russell, [facility] [address], [place], [address]. tel:[phone] Office/Outpa tient Visit, Est [facility] , [address], [place], [address], [place] tel:[phone] [facility] , RA w/o rheumatoid factor of multiple sitesPain in unspecified footOther care home (current) drug therapy 6-202 0 Wilfrido Choi. [facility] [address], [place], [address], [place]. [phone] Referring Provider: Jimbo Russell, [facility] [address], [place], [address]. tel:[phone] Office/Outpa tient Visit, Est [facility] , [address], [place], [address], [place] tel:[phone] [facility] , RA w/o rheumatoid factor of multiple sitesPain in unspecified footOther director of corporate sponsorships (current) drug therapy 201 9 Wilfrido Choi. [facility] [address], [place], [address], [place]. [phone] Referring Provider: Jimbo Russell, [facility] [address], [place], [address]. tel:[phone] Office/Outpa tient Visit, Est [facility] , [address], [place], [address], [place] tel:[phone] [facility] , Follow Up of Rheumatoid arthritis (chief complaint)Mo nitor Chronic High Risk Meds (chief complaint) RA w/o rheumatoid factor of multiple sitesOther care home (current) drug therapyPain in unspecified foot Mar-0 9 Wilfrido Choi. [facility] [address], [place], [address], [place]. tel:[phone] Referring Provider: Jimbo Russell, [facility] [address], [place], [address]. tel:[phone] Office/Outpa tient Visit, Est [facility] , [address], [place], [address], [place] tel:[phone] [facility] , Follow Up of Rheumatoid arthritis (chief complaint)Mo nitor Chronic High Risk Meds (chief complaint) RA w/o rheumatoid factor of multiple sitesOther director of corporate sponsorships (current) drug therapy Sep- 8 Wilfrido Choi. [facility] [address], [place], [address], [place]. tel:[phone] Referring Provider: Jimbo Russell, [facility] [address], [place], [address]. tel:[phone] Office/Outpa tient Visit, Est [facility] , [address], [place], [address], [place] tel:[phone] [facility] , Follow Up of Rheumatoid arthritis (chief complaint)Mo nitor Chronic High Risk Meds (chief complaint) RA w/o rheumatoid factor of multiple sitesOther director of corporate sponsorships (current) drug therapy Apr-2 8 Wilfrido Choi. [facility] [address], [place], [address], [place]. tel:[phone] Referring Provider: Jimbo Russell, [facility] [address], [place], [address]. tel:[phone] Office/Outpa tient Visit, Est [facility] , [address], [place], [address], [place] tel:[phone] [facility] , Follow Up of Rheumatoid arthritis (chief complaint)Mo nitor Chronic High Risk Meds (chief complaint) RA w/o rheumatoid factor of multiple sitesPain in right footOther care home (current) drug therapy Wilfrido Choi. [facility] [address], [place], [address], [place]. tel:[phone] Referring Provider: Jimbo Russell, [facility] [address], [place], [address]. tel:[phone] Office/Outpa tient Visit, Est [facility] , [address], [place], [address], [place] tel:[phone] [facility] , Follow Up of Rheumatoid arthritis (chief complaint)Mo nitor Chronic High Risk Meds (chief complaint) RA w/o rheumatoid factor of multiple sitesPain in right footOther director of corporate sponsorships (current) drug therapy Wilfrido Choi. [facility] [address], [place], [address], [place]. tel:[phone] Referring Provider: Jimbo Russell, [facility] [address], [place], [address]. tel:[phone] Office/Outpa tient Visit, Est [facility] , [address], [place], [address], [place] tel:[phone] [facility] , Follow Up of Rheumatoid arthritis (chief complaint)Mo nitor Chronic High Risk Meds (chief complaint) RA w/o rheumatoid factor of multiple sitesOther care home (current) drug therapyPain in right foot Feb-0 6 Wilfrido Choi. [facility] [address], [place], [address], [place]. tel:[phone] Referring Provider: Jimbo Russell, [facility] [address], [place], [address]. tel:[phone] Office/Outpa tient Visit, Est [facility] , [address], [place], [address], [place] tel:[phone] [facility] , Follow Up of Rheumatoid arthritis (chief complaint)Mo nitor Chronic High Risk Meds (chief complaint) RA w/o rheumatoid factor of multiple sitesOther care home (current) drug therapy Aug- 6 Wilfrido Choi. [facility] [address], [place], [address], [place]. tel:[phone] Referring Provider: Jimbo Russell, [facility] [address], [place], [address]. tel:[phone] Office/Outpa tient Visit, Est [facility] , [address], [place], [address], [place] tel:[phone] [facility] , Follow Up of Rheumatoid arthritis (chief complaint)Mo nitor Chronic High Risk Meds (chief complaint) Rheumatoid arthritisThe rapeutic Drug Monitoring Feb- 5 Wilfrido Choi. [facility] [address], [place], [address], [place]. tel:[phone] Referring Provider: Jimbo Russell, [facility] [address], [place], [address]. tel:[phone] Office/Outpa tient Visit, Est [facility] , [address], [place], [address], [place] tel:[phone] [facility] , Rheumatoid Arthritis (chief complaint)Mo nitor chronic high risk medications (chief complaint) Hypertension , UnspecifiedR heumatoid ArthritisThe [facility]ut[facility] Drug Monitoring 4 Wilfrido Choi. [facility] [address], [place], [address], [place]. tel:[phone] Referring Provider: Jimbo Russell, [facility] [address], [place], [address]. tel:[phone] Office/Outpa tient Visit, Est [facility] , [address], [place], [address], [place] tel:[phone] [facility] , Rheumatoid Arthritis (chief complaint)Mo nitor chronic high risk medications (chief complaint) Rheumatoid ArthritisThe rapeutic Drug MonitoringPa in in joint involving multiple sites 4 Wilfrido Choi. [facility] [address], [place], [address], [place]. tel:[phone] Referring Provider: Jimbo Russell, [facility] [address], [place], [address]. tel:[phone] Office/Outpa tient Visit, Est [facility] , [address], [place], [address], [place] tel:[phone] [facility] , Rheumatoid Arthritis (chief complaint)Mo nitor chronic high risk medications (chief complaint) Rheumatoid ArthritisThe [facility] Drug Monitoring 0 4 Wilfrido Choi. [facility] [address], [place], [address], [place]. tel:[phone] Referring Provider: Jimbo Russell, [facility] [address], [place], [address]. tel:[phone] Office/Outpa tient Visit, Est [facility] , [address], [place], [address], [place] tel:[phone] [facility] , Rheumatoid Arthritis (chief complaint) Rheumatoid ArthritisThe rapeutic Drug Monitoring 3 Wilfrido Choi. [facility] [address], [place], [address], [place]. tel:[phone] Referring Provider: Jimbo Russell, [facility] [address], [place], [address]. tel:[phone] Office/Outpa tient Visit, Est [facility] , [address], [place], [address], [place] tel:[phone] [facility] , Rheumatoid Arthritis (chief complaint)Mo nitor chronic high risk medications (chief complaint) Rheumatoid ArthritisThe [facility] Drug Monitoring 3 Wilfrido Choi. [facility] [address], [place], [address], [place]. tel:[phone] Referring Provider: Jimbo Russell, [facility] [address], [place], [address]. tel:[phone] Office/Outpa tient Visit, Est [facility] , [address], [place], [address], [place] tel:[phone] [facility] , Rheumatoid Arthritis (chief complaint) Rheumatoid ArthritisThe rapeutic Drug MonitoringPa in in joint involving hand 2 Wilfrido Choi. [facility] [address], [place], [address], [place]. tel:[phone] Referring Provider: Jimbo Russell, [facility] [address], [place], [address]. tel:[phone] Office/Outpa tient Visit, Est [facility] , [address], [place], [address], [place] tel:[phone] [facility] , Rheumatoid Arthritis (chief complaint) Rheumatoid ArthritisThe [facility]ic Drug Monitoring 2 Wilfrido Choi. [facility] [address], [place], [address], [place]. tel:[phone] Referring Provider: Jimbo Russell, [facility] [address], [place], [address]. tel:[phone] Family History Family Member Type Diagnosis Age At Onset Mother Problem (finding) Arthritis Immunizations Vaccine Date Status Comments COVID-19 Pfizer administered Source: [facility]our [facility] Unspecified COVID-19 Pfizer administered Source: [facility] Unspecified COVID-19 Pfizer administered Source: [facility]our [facility] Unspecified Payers Payer name Insurance type Covered constitution party ID Authorlidaa tibrock(s) Medicare MB [id number] [facility] [id number] Social History Type Description Quantity Date Captured [...] Goal Tobacco cessation counseling completed Referral Ordered: [facility] (related to Pain in right foot) ordered Referral Referred To: [facility] [address] [place] [address] [phone] Ordered: Referrals: [facility]. Evaluate and treat ordered Appointment [...] assessment Pain in right knee assessment Other care home (current) drug t herapy assessment RA w/o [facility] factor [facility] Mental Status Date Cognitive Assessment Orientation - [place] ed to time, place, person, situation. Patient Care Teams Name Effective Dates (start - stop) Status Members No Information
--- OUTSIDE RECORDS SUMMARY | 2024-01-07 12:41 | XMS_ITS | Clinical Summary ---
Author Organization [facility] Address [place], [place] [address] Care Team Providers Care Planograph Operator Name Role Phone Marcela Mckenna Verito JAQUEZ Primary Care Provider [phone] Allergies Active Allergy Reactions Criticality Noted Date [...] mg chewable tabletIndications: Coronary artery disease involving kootenai coronary artery of kootenai heart without angina pectoris Chew 1 Tablet (81 mg) by mouth once daily with a meal. 12/08/2023 Active Active Problems Problem Noted Date Diagnosed Date Coronary artery disease invo lving kootenai coronary artery of [place] heart without angina pectoris 12/08/2023 Left bundle [...] Description 12/10/2023 7:00 AM CDT Orders Only [facility] Onesimo Mccallum [facility] [address] [place] [place] [address] Lab 12/08/2023 1:45 PM CDT Office Visit [facility] [address] [facility] [address] Marcela Mckenna, DO Toe Pain/problem (L 2nd toe wound) 12/08/2023 Travel 12/08/[address] [place] [address] Tai Cash MD Results 11/26/2023 8:20 AM CDT Office Visit [facility] [address] [place] [address] Smiley Guerra, Toe Pain/problem (Had toenail removed in April by Dr. Lopez. L 3rd toe. Now is painful again. ) 11/26/2023 Travel 11/23/2023 8:30 AM CDT Ancillary Procedure [place] [id number] [place] [address] 11/23/2023 Travel 11/18/2023 10:00 AM CDT Office Visit [facility] [address] [place] [address] Tai Cash MD Consult (Abnormal Stress Echo; Left bundle branch blcok) 11/18/2023 Travel 11/15/2023 Travel 11/11/2023 11:30 AM CDT Orders Only [facility] [address] [place] [address] Lab, [place] [facility] (Mari and Pushpa); Outside Order ... 11/11/2023 11:00 AM CDT Office Visit [facility] [address] [place] [address] Jarvis Barrow MD Follow Up (FOLLOW UP FROM 06-02-23) 11/11/2023 Travel 11/10/2023 Telephone [facility] [place] [address] [address] Jarvis Barrow MD Refill Request 11/07/2023 Refill [facility] [address] [place] [address] Jarvis Barrow MD Refill Request (Donepezil) from Last 3 Months Immunizations Name Administration Dates Next Due COVID-19 vaccine (Lancope 30mcg/0.3mL) AMIE Cervantes 08/28/2020,08/07/2020 Influenza Virus, Unspecified [...] 36.7 ??C (98 ??F) 07/02/2021 12:23 PM GENERAL EDUCATION PROFESSOR Respiratory Rate 18 11/18/2023 9:59 AM CDT [...] Description 02/10/2024 9:40 AM CDT Office Visit [facility] [place] [facility] [address] [place] [address] Jarvis Barrow MD [address] [place] [address] Health Maintenance Due Date Last Done Comments [...] 2:56 PM CDT Coronary artery disease involving k[place]ai coronary artery of [place] heart without angina pectoris CT CARDIAC CORONARY [...] (HC) COLONOSCOPY SCREENING Routine 07/12/2019 9:44 AM GENERAL EDUCATION PROFESSOR Personal history of colonic polyps ANTI HCV Routine 06/13/2019 3:06 PM GENERAL EDUCATION PROFESSOR Need for hepatitis C screening test from Last 3 Months or Most Recently Relevant to Health Maintenance Results * OCCULT BLOOD IFOBT STOOL (12/10/2023 7:46 AM CDT) STOOL BLOOD ,IFOBT Negative Negative 12/16/2023 8:42 AM CDT [facility] Stool STOOL SPECIMEN / Unknown Non-Blood / Unknown 12/10/2023 7:46 AM CDT 12/15/2023 7:47 AM CDT Marcela Mckenna DO LABORATORY [facility] [address] [place] [address], * LIPID PANEL W REFLEX MEASURED LDL (12/08/2023 2:56 PM CDT) CHOLESTEROL,TOTAL 147 100 - 199 mg/dL 12/09/2023 1:42 AM CDT [facility] Comment: Cholesterol, Total Reference Ranges Desirable <200 mg/dL Borderline 200-239 mg/dL High >=240 mg/dL TRIGLYCERIDES 111 <150 mg/dL 12/09/2023 1:42 AM CDT [facility] HDL CHOLESTEROL 41 >40 mg/dL 1:42 AM CDT [facility] NON-HDL CHOLESTEROL 106 <145 mg/dl 12/09/2023 1:42 AM CDT [facility] CHOL/HDL RATIO 3.59 <4.50 12/09/2023 1:42 AM CDT [facility] LDL CHOLESTEROL 84 <=130 mg/dL 12/09/2023 1:42 AM CDT [facility] VLDL CHOLESTEROL 22 <=30 mg/dL 12/09/2023 1:42 AM CDT [facility] PROVIDER ORDERED STATUS RANDOM 12/09/2023 1:42 AM CDT [facility] Blood BLOOD SPECIMEN / Unknown Venipuncture / Unknown 12/08/2023 2:56 PM CDT 12/08/2023 2:59 PM CDT Marcela Yapert [employer] CHEMISTRY [facility] LABORATORY [address] [address], [place] * (ABNORMAL) HEMOGLOBIN (12/08/2023 2:56 PM CDT) HEMOGLOBIN 13.7 13.5 - 17.5 g/dL 12/08/2023 3:05 PM CDT [facility] MCV 101(H) 80 - 100 fL 12/08/2023 3:05 PM CDT [facility] Blood BLOOD SPECIMEN / Unknown Venipuncture / Unknown 12/08/2023 2:56 PM CDT 12/08/2023 2:59 PM CDT [employer] JAQUEZ HEMATOLOGY [facility] [address] [place] [address], * POTASSIUM (12/08/2023 2:56 PM CDT) Only the most recent of2 resultswithin the time period is included. POTASSIUM 4.3 3.5 - 5.1 mmol/L 12/09/2023 1:42 AM CDT [facility] Blood BLOOD SPECIMEN / Unknown Venipuncture / Unknown 12/08/2023 2:56 PM CDT 12/08/2023 2:59 PM CDT Marcela Mckenna DO CHEMISTRY [facility] LABORATORY-CEN[facility]AL LABORATORY [address] [place] [address], * CT CARDIAC CORONARY ARTERIES [08614.0] (11/23/2023 8:37 AM CDT) Anatomical Region Laterality [...] (Electronic Signature) Narrative 11/24/2023 7:16 AM CDT ?[facility] ? Cardiac CT Report ??MRN: ?[id number] ?Name: ? KEISHA ROMO ?: ?Scan Date: ?Accession Number: ?[id number] ?Status: ?Final ? Electronically signed by Chet [...] TYPE: ??Calcium score, Coronary CT Angiography SCANNER METALLOGRAPHY TEACHER: ??SIEMENS SCANNER MODEL: ??Qriket Force DOSE REDUCTION ALGORITHM: ??Helical with dose [...] CASH ?TECHNOLOGIST: ??Claudia Pascual BILLING Patient Account ?[id number] ICD10 Codes ?R94.39, Z01.810 Report generated by [employer], a product of [employer] For [...] conjunction with the services provided by the [facility] ([facility]). CLINICAL HISTORY: ??Cardiac CTA over-read. ? FINDINGS: [...] 11:56 AM CDT 11/11/2023 11:56 AM CDT [facility] - 11/11/2023 12:35 PM CDT Notice: [...] provider, ??Dr. Jimbo Anna at fax number [phone], for that provider to inform and arrange appropriate follow up with the patient. Marcela Mckenna DO HEMATOLOGY [facility] [address] [place] [address], * RED CELL MORPHOLOGY (11/11/2023 11:56 AM CDT) RBC COMMENT RBC morphology appears normal RBC morphology appears normal, RBC morphology within normal limits for newborns. 11/11/2023 12:35 PM CDT [facility] Blood BLOOD SPECIMEN / Unknown Venipuncture / Unknown 11/11/2023 11:56 AM CDT 11/11/2023 11:56 AM CDT [facility] - 11/11/2023 12:35 PM CDT Notice: [...] provider, ??Dr. Jimbo Anna at fax number [phone], for that provider to inform and arrange appropriate follow up with the patient. Marcela Mckenna DO HEMATOLOGY Performing Organization Address [facility] Co de Phone Number [facility] [address] [place] [address], * PLATELET ESTIMATE (11/11/2023 11:56 AM CDT) PLATELET ESTIMATE Adequate Adequate, No estimate 11/11/2023 12:35 PM CDT [facility] Blood BLOOD SPECIMEN / Unknown Venipuncture / Unknown 11/11/2023 11:56 AM CDT 11/11/2023 11:56 AM CDT [facility] - 11/11/2023 12:35 PM CDT Notice: [...] provider, ??Dr. Jimbo Anna at fax number [phone], for that provider to inform and arrange appropriate follow up with the patient. Marcela Mckenna DO HEMATOLOGY Performing Organization Address [facility] Co de Phone Number [facility] [address] [place] [address], [place] [phone] * MANUAL DIFFERENTIAL (11/11/2023 11:56 AM CDT) [...] provider, ??Dr. Jimbo Anna at fax number [phone], for that provider to inform and arrange appropriate follow up with the patient. Marcela Mckenna DO HEMATOLOGY [facility] [address] [place] [address], * (ABNORMAL) CREATININE (11/11/2023 11:56 AM CDT) eGFR 56(L) >90 mL/min/1.7 3m2 11/11/2023 10:51 PM CDT [facility] Comment:As of 2021, eG FR is calculated by the CKD-EPI creatinine equation without race adjustment. ??eGFR can be influenced by muscle mass, exercise, and diet. ??The reported eGFR is an estimation only and is only applicable if the renal function is stable. CREATININE 1.33(H) 0.70 - 1.20 mg/dL 11/11/2023 10:51 PM CDT [facility] Blood BLOOD SPECIMEN / Unknown Venipuncture / Unknown 11/11/2023 11:56 AM CDT 11/11/2023 11:56 AM CDT [employer] CHEMISTRY [facility] [address] [place] [address], [place] * ALT (SGPT) (11/11/2023 11:56 AM CDT) Pathologist [facility] ALT (SGPT) 25 10 - 50 IU/L 11/11/2023 10:51 PM CDT [facility] Blood BLOOD SPECIMEN / Unknown Venipuncture / Unknown 11/11/2023 11:56 AM CDT 11/11/2023 11:56 AM CDT [employer] CHEMISTRY [facility] [address] [place] [address], [place] * AST (SGOT) (11/11/2023 11:56 AM CDT) AST (SGOT) 34 10 - 50 IU/L 11/11/2023 10:51 PM CDT [facility] Blood BLOOD SPECIMEN / Unknown Venipuncture / Unknown 11/11/2023 11:56 AM CDT 11/11/2023 11:56 AM CDT Marcela De La [employer]ach[employer]wick JAQUEZ CHEMISTRY Performing Organization Address [facility] Co de Phone Number [facility] [address] [place] [address], [place] * VITAMIN B12 (11/11/2023 11:56 AM CDT) VITAMIN B12 324 232 - 1,245 pg/mL 11/11/2023 10:51 PM CDT [facility] Blood BLOOD SPECIMEN / Unknown Venipuncture / Unknown 11/11/2023 11:56 AM CDT 11/11/2023 11:56 AM CDT Narrative [facility] - 11/11/2023 10:51 PM CDT Biotin supplements may cause clinically significant interference for this test assay. ??If interference is suspected, it is strongly recommended that biotin is discontinued for at least one week prior to retesting. Jarvis Barrow MD CHEMISTRY Performing Organization Address [facility] Co de Phone Number [facility] [address] [place] [address], * ALBUMIN (11/11/2023 11:56 AM CDT) ALBUMIN 4.1 4.0 - 4.9 g/dL 11/11/2023 10:51 PM CDT [facility] Blood BLOOD SPECIMEN / Unknown Venipuncture / Unknown 11/11/2023 11:56 AM CDT 11/11/2023 11:56 AM CDT Marcela Verito Mckenna DO CHEMISTRY Performing Organization Address City/[facility]/ZIP Co de Phone Number [facility] [address] [place] [address], * COLONOSCOPY SCREENING (07/12/2019 9:44 AM GENERAL EDUCATION PROFESSOR) Juanpablo Pettit MD GI PROCEDURE ORD * ANTI HCV (06/13/2019 3:06 PM GENERAL EDUCATION PROFESSOR) HEPATITIS C ANTIBODY Non-React irma Non-React irma 06/13/2019 7:47 PM GENERAL EDUCATION PROFESSOR [employer] LABORATORY[facility] Comment:Antibodies to HCV no t detected; does not exclude the possibility of exposure to HCV. Blood BLOOD SPECIMEN / Unknown Venipuncture / Unknown 06/13/2019 3:06 PM GENERAL EDUCATION PROFESSOR 06/13/2019 3:07 PM GENERAL EDUCATION PROFESSOR Juanpablo Pettit MD SEND OUTS [employer] [facility] LAB[facility]ATORY-[facility] 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
== END 2024-01-07 12:39 | disposition home or self-care (01) ==
LOC: WOUND 12:38
PROVIDERS: PCP Family Medicine; Visit Provider Nurse Practitioner Family
DX: M06.9 Rheumatoid arthritis, unspecified (principal); L97.528 Non-pressure chronic ulcer of other part of left foot with other specified severity; I25.10 Atherosclerotic heart disease of native coronary artery without angina pectoris; I10 Essential (primary) hypertension
CPT/HCPCS: G0463

== ENCOUNTER 2024-03-21 11:15 | Outpatient (RCR) | payer MEDICARE, BC, SELFPAY ==
--- NOTE | 2023-12-23 11:29 | PT.OPEX ---
[facility] Eval PT [facility] Outpatient Eval Start: 12/23/23 07:37 Freq: Status: Active Protocol: Document 12/23/23 07:39 LEOPOLDO (Rec: 12/23/23 11:27 LEOPOLDO [id number]) E-signed By Blake Dawson DPT Physical Therapy Outpatient Evaluation Insurance Information Recert Due Date 03/22/24 Insurance Name Medicare B Medical Diagnosis R TKA DOS 01/04/24 Treating Diagnosis R knee pain muscle weakness Referring MD nicholas Dumont Subjective Subjective comes into clinic today for his pre op visit prior to R TKA , DOS 01/04/24. States he has more pain of late with walking and golfing, states he has also had recent fall due to the knee giving out on him. Was originally suppose to have his R TKA done in September but was not approved by his day care worker at the time. Feels like he has pushed off the surgery for several years but does not feel like he can any longer. Also mentions R sided mid thoracic pain. Pain Comments 01/22 Date of Last Physician Visit 12/22/23 Current Work Status Retired Precautions Treatment Precautions/Contraindications wound on the left ( contralateral) 3rd toe Objective Other/Pertinent Objective GAIT/FUNCTIONAL MOBILITY increased knee varus , decreased pace , decreased stride length KNEE ROM R 0-110 LLE MMT: Hip flexion: R 4+/5 Hip abduction: R 4/5 knee extension: R 4/5 Knee Flexion: R 4+/5 Assessment Assessment/Impression Pt is a 73 yr old male who presents with concerns of R knee OA. Patient also has notable objective findings including limited ROM, impaired balance, decreased strength also likely contributing to the problem. Patient is a good candidate for skilled therapy to target deficits described above. Skilled PT intervention is necessary for use of therapeutic exercise manual therapy, neuromuscular re- education, gait training, and therapeutic activity. Functional impairments include difficulty with: walking, standing, golfing. See appropriate sections of PT eval for complete list of goals and POC. D/C plan and criteria is for pt to achieve the goals as listed below or until max rehab potential is met. Pt was agreeable with plan of care and goals established. Plan of Care Rehabilitation Potential Good Physical Therapy Goals TKA GOALS STG (within 6-8 weeks ) 1) Pt will improve knee AROM at least 0 to 100 for improved sit to stand transfers 2) Pt will demonstrate negative extensor lag during straight leg raise exercise with ability to complete at least 15 reps with 5 sec hold to improve strength for ambulation 3) Patient will demonstrate/ report ability to walk for 30 minutes w/SPC with pain level <1/10, to allow for community and household ambulation. 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 Coordination/Communication With Referral Source Treatment Plan/Direct Interventions Gait Training,Joint Mobilization,Manual Therapy, Neuromuscular Re-ed,Orthotics/ Braces,Self-Care/Home Management,Therapeutic Activities,Therapeutic Exercises Frequency/Duration 1-2 visits a week for 12-16 weeks Patient Will Be Discharged From Therapy Completion of LTG(s), Independent w/HEP, Independently Progressing Evaluation Billing Untimed Code Treatment Minutes 25 Complexity Low Certification Information Initial Certification Date 12/23/23 Ending Certification Date 03/22/24 Provider Signature Required Yes Provider Signature Shows Agreement With POC & Medical Necessity Physician NPI Number Write NPI# Here Physician Comment/Change : Physician Signature & Date Requested Please Sign/Date Here
== END 2024-05-31 13:00 | disposition home or self-care (01) ==
PROVIDERS: PCP Family Medicine; Visit Provider Orthopaedic Surgery Sports Medicine
DX: M17.11 Unilateral primary osteoarthritis, right knee (principal); Z51.89 Encounter for other specified aftercare
CPT/HCPCS: 97110; 97161; 97164; G0463

== ENCOUNTER 2024-06-02 13:59 | Outpatient (CLI) | payer MEDICARE, BC, SELFPAY | END 2024-06-02 14:00 | disposition home or self-care (01) | LOC: AMB 06-03 12:10 | PROVIDERS: PCP Family Medicine; Visit Provider Family Medicine | DX: S79.911A Unspecified injury of right hip, initial encounter (principal); W01.0XXA Fall on same level from slipping, tripping and stumbling without subsequent striking against object, initial encounter; Y92.480 Sidewalk as the place of occurrence of the external cause | CPT/HCPCS: A0425; A0427 ==

== ENCOUNTER 2024-06-02 14:26 | Inpatient (IN) | payer MEDICARE, BC, SELFPAY ==
[2024-06-02] VITALS (10 sets, daily range): BP systolic 127–147; BP diastolic 83–93; PULSE 66–78; RESP 16–20; TEMP 36.3–36.8; O2SAT 92–97; BMI 25.8
--- OUTSIDE RECORDS SUMMARY | 2024-06-02 14:30 | XMS_ITS | Continuity of Care Document ---
Author Organization [facility] Joelo gy, [facility] Address [address] [place] [address] Care Team Providers Care Disc Inspector Name Role Phone SILVA TEIXEIRA Primary Care Provider [phone] Assessment No assessment recorded. Plan of Treatment Reminders Order Date Submit Date Provider Last Modified By Organization Details Last Modified Time Details Appointments LAB BLOOD DRAW 2024 10:30A M [facility] Not available Not available Not available ESTABL ISHED 10 2024 10:50A M Yasir Elkins MD Not available Not available Not available Lab PSA, serum or plasma 2023 024 [email or web address] ro [facility], [address], [place], [address], 04/06/2024 11:34:49 PSA, total, serum or plasma 2023 024 [facility], [address], [place], [address], 04/07/2024 13:05:40 Referral None record ed. Procedures None record ed. Surgeries None record ed. Imaging None record ed. Medication Orders None record ed. Patient TargetsNo targets recorded. Patient InstructionsNo instructions recorded. Reason for Referral None Reported. Results Created Date Observation Date Name Description Value Unit Range Abnormal Flag Note LastModifiedBy Organization Detail LastModifiedTime 04/06/2004/06/2024 PSA, serum or plasm a PSA 6.0 ng/mL 0-4.0 NG/mL Not Available [facility] [address], [place], [address], 04/04/2024 15:36:49 Result Notes None recorded. Procedures Surgical History Date Name Laterality Status Provider Name and Address Organization Details Recorded Time 4 Bladder Scan completed Ana Maria armenta [facility] 04/06/2024 11:34:38 4 Blood Draw/BRAKE REPAIRER BUS/PSA RESULTS completed Ana Maria armenta [facility] 04/06/2024 11:12:20 4 BRAKE REPAIRER BUS/blood draw completed Yasir Elkins MD [address] [place] [address],[address], [place], [address], [facility] 09/30/2023 16:43:38 4 Bladder Scan completed Yasir Elkins MD [address] [place] [address],[address], [place], [address], [facility] 09/30/2023 16:43:32 4 BRAKE REPAIRER BUS/blood draw completed Yasir Elkins MD [address] [place] [address],[address], [place], [address], [facility] 07/08/2023 14:03:03 4 Bladder Scan completed Yasir Elkins MD [address] [place] [address],[address], [place], [address], [facility] 07/08/2023 14:02:57 3 Bladder Scan completed Yasir Elkins MD [address] [place] [address],[address], [place], [address], [facility] 03/04/2023 14:59:43 3 Blood Draw/BRAKE REPAIRER BUS/PSA RESULTS completed Yasir Elkins MD [address] [place] [address],[address], [place], [address], [facility] 03/04/2023 14:59:51 3 Bladder Scan completed Yasir Elkins MD [address] [place] [address],[address], [place], [address], [facility] 06/24/2022 12:12:52 Hernia Repair completed Yasir Elkins MD [address] [place] [address],[address], [place], [address], [facility] 06/24/2022 12:12:02 Imaging Results None recorded. Procedure Notes None recorded. Medical Equipment None Reported. Allergies Allergen ID Allergen Name Allergen Category Reaction Reaction Severity Criticality Documentation Date Start Date Code Code System Note Provider Name and Address Organization Details Recorded Time [id number] Medicinal product containin g penicilli n and acting as antibacte rial agent (product) medicatio n Not available Not available Not available 03/25/20202019 31741 05 SNOMED Not Available Not Available Not Available Medications Name Sig Start Date Stop Date Status Note LastModified by Organization Details LastModified Time quetiapine 25 mg tablet TAKE 0.5 TABLETS (12.5 MG) BY MOUTH AT BEDTIME. active Not Available Not Available No t Available donepezil 5 mg tablet TAKE 1 TABLET BY MOUTH AT BEDTIME 07/08 completed Not Available Not Available Not Available donepezil 10 mg tablet TAKE 1 TABLET BY MOUTH EVERYDAY AT BEDTIME 04/06 completed Not Available Not Available Not Available lisinopril 20 mg tablet TAKE 1 TABLET BY MOUTH EVERY DAY active Not Available Not Available No t Available fluorouraci l 5 % topical cream WAIT ABOUT ONE MONTH UNTIL FREEZINGS HEAL. APPLY TWICE A DAY FOR ONE WEEK, TAKE BREAK FOR 2 TO 3 WEEKS. RESUME TWICE A DAY FOR TWO WEEKS THE 03/04 completed Not Available Not Available Not Available aspirin 81 mg tablet,skyla yed release TAKE 1 TABLET BY MOUTH TWICE DAILY, HELPS PREVENT BLOOD CLOTS POST OP active Not Available Not Available No t Available acetaminoph en 500 mg tablet TAKE 1-2 TABLETS BY MOUTH EVERY 6 HRS NEEDED, MAX DAILY DOSE IS 4000MG active Not Available Not Available No t Available methotrexat e sodium 2.5 mg tablet [...] completed Not Available Not Available Not Available oxycodone 5 mg tablet PLEASE SEE ATTACHED FOR DETAILED DIRECTION S 04/06 completed Not Available Not Available Not Available Senexon-S 8.6 mg-50 mg tablet TAKE 1-4 TABLETS BY MOUTH TWICE DAILY NEEDED FOR CONSIPATI ON, HOLD IF EXPERIENC ING LOOSE STOOLS 04/06 completed Not Available Not Available Not Available Vitals Date Recorded Body height Provider Name an d Address Organization Details Last Updated DateTime 04/06/2024 180.34 cm Ana Maria Barnhart [facility] 04/06/2024 11:11:37 Date Recorded Body mass index (BMI) Body weight Provider Name and Address Organization Details Last Updated DateTime 04/06/2024 23.7 kg/m2 72688.7 g Yasir Elkins MD [address] [place], [place] [id number] [place] [address] [facility] 04/06/2024 11:17:05 Social History Question Answer Notes LastModified by Organizat ion Details LastModified Time Tobacco Smoking Status Former Smoker Yasir Elkins MD [address] [place] [address] [facility] 09/30/2023 16:43:00 What Is Your Level Of Alcohol Consumption? None Information not available 06/24/2022 What Is Your Level Of Caffeine Consumption? Moderate Information not available 06/24/2022 What Was The Date Of Your Most Recent Tobacco Screening? 04/06/2024 [email or web address] Information not available 04/06/2024 How Much Tobacco Do You Smoke? 0.5 PPD Information not available 06/24/2022 Do You Use Any Illicit Or Recreational Drugs? No Information not available 06/24/2022 Sex: Unknown Functional Status None recorded. Mental Status None recorded. Family History Nothing Reported. Medical History Condition Response Other Y High Blood Pressure Y Kidney Stones N Immunizations Vaccine Type Date Status Note Provider Nam e and Address Organization Details Recorded Time pneumococcal polysaccharide PPV23 07/07/202 1 completed Yasir Elkins MD [address] [place] [address],[address], [place], [address], [facility] 06/24/2022 12:11:17 Pneumococcal conjugate PCV 13 0 completed Yasir Elkins MD [address] [place] [address],[address], [place], [address], [facility] 06/24/2022 12:11:17 zoster recombinant 0 completed Yasir Elkins MD [address] [place] [address],[address], [place], [address], [facility] 03/04/2023 14:58:11 zoster recombinant 0 completed Yasir Elkins MD [address] [place] [address],[address], [place], [address], [facility] 03/04/2023 14:58:11 Influenza, adjuvanted, quadrivalent, PF 2 completed Yasir Elkins MD [address] [place] [address],[address] [place] [address], [address], [facility] 03/04/2023 14:58:11 Influenza, adjuvanted, quadrivalent, PF 0 completed Yasir Elkins MD [address] [place] [address],[address] [place] [address], [address], [facility] 03/04/2023 14:58:11 COVID-19, mRNA, LNP-S, PF, 30 mcg/0.3 mL dose 1 completed Yasir Elkins MD [address] [place] [address],[address], [place], [address], [facility] 03/04/2023 14:58:11 COVID-19, mRNA, LNP-S, PF, 30 mcg/0.3 mL dose 1 completed Yasir Elkins MD [address] [place] [address],[address], [place], [address], [facility] 03/04/2023 14:58:11 COVID-19, mRNA, LNP-S, PF, 30 mcg/0.3 mL dose 1 completed Yasir Elkins MD [address] [place] [address],[address], [place], [address], [facility] 03/04/2023 14:58:11 COVID-19, mRNA, LNP-S, PF, 30 mcg/0.3 mL dose, alban-sucrose 2 completed Yasir Elkins MD [address] [place] [address],[address], [place], [place], [address] [place] [address], [facility] 03/04/2023 14:58:11 COVID-19, mRNA, LNP-S, bivalent, PF, 30 mcg/0.3 mL dose 2 completed Yasir Elkins MD [address] [place] [address],[address] [place] [address], [address] [place] [address], [facility] 03/04/2023 14:58:11 Tdap 1 completed Yasir Elkins MD [address] [place] [address],[address], [address] [place] [address], [facility] 03/04/2023 14:58:11 zoster live 2 completed Yasir Elkins MD [address] [place] [address],[address], [address] [place] [address], [facility] 03/04/2023 14:58:11 Td (adult), 2 Lf tetanus toxoid, preservative free, adsorbed 4 completed Yasir Elkins MD [address] [place] [address],[address], [address] [place] [address], [facility] 03/04/2023 14:58:11 Past Encounters Encounter ID Performer Location Encounter Start Date Encounter Closed Date Diagnosis/Indication Diagnosis SNOMED-CT Code Diagnosis ICD10 Code [id number] Yasir Elkins MD [facility] [address] [place] [address] 04/06/2024 11:04:36 04/12/2024 12:00:49 Prostate specific antigen above reference range 165007298 R97.20 Lower urin brandi tract symptoms due to benign prostatic hypertrophy 9689108755 9101 N40.1 Phimosis 603881600 N47.1 Health Concerns Section Related Observation LastModified by Organization Detai ls LastModified Time None Recorded Concern Status LastModified by Organization Details LastModified Time None Recorded Payers Encounter Date Sequence Insurance Name Policy Number Policy Burns Covered Member ID Burns Member ID Guarantor Name 04/06/2024 1 [place] [employer] David Tapia [id number] David Roche [place] 04/06/2024 2 [place] [id number] David Roche Regina [id number] David Tapia Notes Date Note Type Note Provider Name and Address Organization Details Recorded Time 04/06/2024 text/html 73 yo male with H/O BPH and [...] 2-3 hours during the day and 1x/night. 04/06/24 - He presents for follow-up on Elevated PSA. He voids every 2-3 hours during the day and 1x/night. He denies dysuria. + constipation- PVR - 19 mL- PSA - 6.0 PSA - 4.67 (10/12/13)- 4.89 (03/27/14)- 5.10 (11/22/14)- 5.62 (04/25/15)- 3.89 (06/18/16)- 5.27 (10/14/17)- 5.32 (09/28/18)- 5.07 (06/13/19)- 4.71 (10/05/19)- 3.39 (05/04/20)- 8.18 (11/28/20)- 3.68 (02/05/21)- 4.53 (03/05/22)- 3.5 (06/24/22)- 5.7 (03/04/23)- 6.4 (07/08/23)- 5.2 (09/30/23)- 6.0 (04/06/24) Prostate MRI (02/07/15) - 48 gm - no suspicious lesionsProstate MRI (07/22/23) - 52 mL - no suspicious lesions - no enlarged lymph nodes Yasir Elkins MD [address] [facility],[address], [place], [address], [facility] 04/06/2024 11:56:02
--- NOTE | 2024-06-02 14:50 | ED.FALL ---
HPI - Fall General Time Seen by Provider: 14:50 Date Seen: 06/02/24 Chief Complaint: Fall/Minor Trauma Stated Complaint: fall Time Seen by Provider: 06/02/24 14:50 Source: patient, EMS and RN notes reviewed Mode of arrival: EMS Limitations: no limitations History of Present Illness HPI Narrative: This 74-year-old male is brought in by EMS after a fall. He was reportedly outside around 1:20 p.m. walking, he slipped and fell in the snow. He was laying in the snow on the ground with right hip pain, unable to get up, took about 30-45 minutes for EMS to arrive. Complaining of severe right hip pain. He did get 50 mcg of intranasal fentanyl. His clothes were wet, EMS did provide chemical heat blankets once they were there. Nursing staff on arrival here removed his wet clothing, applied the Paula Hugger. He states he is actually warm now, actually feels hot, asked staff to turn down the heat on the [place] Hugger. He denies hitting his head, no loss of consciousness, no neck pain, no back pain. No difficulty breathing, no chest pain, no abdominal pain. Denies any numbness or tingling in any of his extremities. His right hip hurts to move at all. He is up on his left side on the bed with the Paula Hugger on. Related Data Home Medications ?Medication ?Instructions ?Recorded ?Confirmed hydroxychloroquine 200 mg tablet 400 mg PO HS 09/01/23 06/02/24 lisinopril 20 mg tablet 20 mg PO DAILY 09/01/23 06/02/24 naproxen sodium 220 mg tablet 220 mg PO DAILY 09/01/23 06/02/24 (Aleve) tamsulosin 0.4 mg capsule 0.8 mg PO HS 09/01/23 06/02/24 aspirin 81 mg tablet,delayed 81 mg PO DAILY 12/22/23 06/02/24 release (Adult Aspirin Regimen) epinephrine 0.3 mg/0.3 mL 0.3 mg IM ONCE PRN 01/04/24 06/02/24 injection, auto-injector (EpiPen) methotrexate sodium 2.5 mg tablet 15 mg PO Q7D 01/04/24 06/02/24 quetiapine 25 mg tablet 12.5 mg PO HS 02/16/24 06/02/24 Allergies Allergy/AdvReac Type Severity Reaction Status Date / Time Penicillins Allergy Verified 02/16/24 08:23 venom-honey bee Allergy Verified 02/16/24 08:23 mirtazapine AdvReac Nightmare Verified 02/16/24 08:23 Review of Systems Status of ROS: Reports: 6 or more systems reviewed and unremarkable except as noted in History and below [facility] Medical History (Updated 06/02/24 @ 18:50 by Maxine Escobar MD) Cognitive impairment ?R41.89 - Other symptoms and signs involving cognitive functions and awareness (ICD-10) Bee sting allergy ?Z91.030 - Bee allergy status (ICD-10) Personal history of colonic polyps ?Z86.010 - Personal history of colonic polyps (ICD-10) Depression ?F32.A - Depression, unspecified (ICD-10) Bilateral sensorineural hearing loss ?H90.3 - Sensorineural hearing loss, bilateral (ICD-10) Hypersomnolence ?G47.10 - Hypersomnia, unspecified (ICD-10) Benign localized prostatic hyperplasia with lower urinary tract symptoms (LUTS) ?N40.1 - Benign prostatic hyperplasia with lower urinary tract symptoms (ICD-10) Dyslipidemia ?E78.5 - Hyperlipidemia, unspecified (ICD-10) DJD (degenerative joint disease) ?M19.90 - Unspecified osteoarthritis, unspecified site (ICD-10) AGUSTÍN (obstructive sleep apnea) ?G47.33 - Obstructive sleep apnea (adult) (pediatric) (ICD-10) Benign prostatic hyperplasia ?N40.0 - Benign prostatic hyperplasia without lower urinary tract symptoms (ICD-10) Coronary artery disease involving [place] coronary artery without angina pectoris ?I25.10 - Atherosclerotic heart disease of [place] coronary artery without angina pectoris (ICD-10) Left bundle branch block ?I44.7 - Left bundle-branch block, unspecified (ICD-10) Essential hypertension ?I10 - Essential (primary) hypertension (ICD-10) Rheumatoid arthritis ?M06.9 - Rheumatoid arthritis, unspecified (ICD-10) Finger infection ?L08.9 - Local infection of the skin and subcutaneous tissue, unspecified (ICD-10) Surgical History Status post total knee replacement, right (01/04/24) ?Z96.651 - Presence of right artificial knee joint (ICD-10) Hx of colonoscopy ?Z98.890 - Other specified postprocedural states (ICD-10) H/O inguinal hernia repair (05/04/15) ?Z98.890 - Other specified postprocedural states (ICD-10) ?Z87.19 - Personal history of other diseases of the digestive system (ICD-10) Social History (Updated 06/02/24 @ 18:51 by Maxine Escobar MD) Narrative: -Nan. Living independently with his . He is managing his own medications. Quit smoking in September 2023. Denies any other tobacco use. He drinks once a month, 2 beers at that setting. No other alcohol use. Denies recreational drug use. What is your current living situation?: I presently have a place to live Problems where you live: no known problems In the past 12 months, utilities in danger of being shut off: no In past 12 months, lack of transportation kept you from medical appts, meetings, work, or getting things needed for daily living: no In the past 12 mos, have been you worried that your food would run out before you had money to buy more?: never true In the past 12 mos, the food you bought just didn't last and you didn't have money to buy more?: never true Highest level of school completed/degree received: some college, no degree Smoking Status: Former smoker What tobacco products do you use: cigarettes Smoking packs per day: 0.25 Smoking cigarettes per day: 5.0 Years smoked: 50 Smoking pack-years: 12.50 Smoking quit date/years: <= 15 years ago Do you use any of these nicotine containing products: None Nicotine containing products detail: Quit smoking September 21, 2023 Second hand tobacco smoke exposure: No How often do you have a drink containing alcohol: monthly or less Alcohol type: beer How many standard drinks containing alcohol do you have on a typical day: 1 or 2 How often do you have six or more drinks on one occasion: Never AUDIT-C Alcohol total score: 1 Non-prescribed substance use: denies use Caffeine: Yes How often does anyone, including family, friends and others, physically hurt you: never How often does anyone, including family, friends and others, insult or talk down to you: never How often does anyone, including family, friends and others, threaten you with harm: never How often does anyone, including family, friends and others, scream or curse at you: never service: Yes Exam Const: Vital Signs, click to edit/add: Vital Signs - 24 hr 06/02/24 14:40 06/02/24 14:56 06/02/24 15:21 Temperature 98.2 F Pulse Rate 68 Pulse Rate [Pulse Oximeter] 66 Respiratory Rate 16 Blood Pressure [Ri ght Upper Arm] 127/86 Pulse Oximetry 96 93 92 Oxygen Delivery Me thod Room Air 06/02/24 15:30 06/02/24 15:45 06/02/24 16:00 Temperature Pulse Rate 70 77 67 Pulse Rate [Pulse Oximeter] Respiratory Rate 18 Blood Pressure [Ri ght Upper Arm] Pulse Oximetry 92 94 94 Oxygen Delivery Me thod 06/02/24 16:15 Temperature Pulse Rate 67 Pulse Rate [Pulse Oximeter] Respiratory Rate Blood Pressure [Ri ght Upper Arm] Pulse Oximetry 93 Oxygen Delivery Me thod This 74-year-old male is alert, interactive, cheeks are flushed, sclera clear, speech normal. No midline tenderness of his neck or back. Back inspected, no traumatic change. Lungs are clear, good air entry, no wheezing crackles, no tachypnea. CV regular rate and rhythm, no murmur, normal S1-S2, no S3-S4. Abdomen is soft, nontender, does not have any palpable masses. Can move his upper extremities, neuro grossly intact. He has pain when I palpate over the external right hip area, pain localizes to his hip if I a mobilize his right lower extremity. Cannot really move his leg much without any pain. I was able to assist him to roll back onto his back from his left side. Neurovascular is intact in his lower extremities, sensation preserved. There are no open wounds on his skin visualized. Normal male genitalia, see no or urethral bleeding. Documenting provider has reviewed patient's vital signs: yes Course Course ED Course: This patient is complaining of right hip pain, will get images of his hip and pelvis to rule out fracture of his hip or pelvis. Given his pain complaints, do suspect some type of underlying fracture. He denies any blood thinners. He is not hypothermic by temperature but was outside in the snow with wet clothing, will continue to follow him closely. EKG does show left bundle branch block which she is known to have. Will get baseline labs. Reevaluation(s) Time of Reevaluation #1: 15:32 Reevaluation #1: Nursing reports increased pain with patient. Will order fentanyl. Did just review his imaging, he has a hip fracture. Time of Reevaluation #2: 15:40 Reevaluation #2: Have reviewed with patient and his that he has a hip fracture. The hospitalist has accepted, waiting to talk to Orthopedics. He is receive fentanyl, is feeling better. Consultations Consultation #1: Spoke with Berenice COOPER from Orthopedics. Patient will be admitted to the hospitalist, NPO after midnight, she will speak with Dr. Israel for plans on surgical repair of this hip fracture tomorrow. Time: 15:49 Vital Signs Vital signs: Initial Vital Signs Temperature 98.2 F 06/02/24 14:40 Temperature Source Temporal Artery Scan 06/02/24 14:40 Pulse Rate 66 06/02/24 14:40 Respiratory Rate 16 06/02/24 14:40 Blood Pressure 127/86 06/02/24 14:40 Blood Pressure Mean 99 06/02/24 14:40 Blood Pressure Position Left Lateral 06/02/24 14:40 Pulse Oximetry 96 06/02/24 14:40 Oxygen Delivery Method Room Air 06/02/24 14:40 Vital Signs Temperature 98.2 F 06/02/24 14:40 Pulse Rate 66 06/02/24 14:40 Respiratory Rate 16 06/02/24 14:40 Blood Pressure 127/86 06/02/24 14:40 Pulse Oximetry 96 06/02/24 14:40 Oxygen Delivery Method Room Air 06/02/24 14:40 Temperature 98.2 F 06/02/24 14:40 Pulse Rate 67 06/02/24 16:15 Respiratory Rate 18 06/02/24 15:45 Blood Pressure 127/86 06/02/24 14:40 Pulse Oximetry 93 06/02/24 16:15 Oxygen Delivery Method Room Air 06/02/24 14:40 Medications Administered Medications: Discontinued Medications Generic Name Dose Route Start Last Admin Trade Name Freq PRN Reason Stop Dose Admin Fentanyl 50 mcg 06/02/24 15:34 06/02/24 15:48 Fentanyl 100 Mcg/2 Ml Inj IVP 06/02/24 15:35 50 mcg ONCE ONE Administration - Fall Lab Data Attestation: I reviewed the patient's lab results. Labs: Lab Results 06/02/24 Range/Units 15:40 WBC 8.05 (4.50-11.00) K/uL RBC 3.87 L (4.30-5.90) m/uL Hgb 12.6 L (13.5-17.5) gm/dL Hct 38.8 (37.0-53.0) % MCV 100 (80-100) fL MCH 33 (26-34) pg MCHC 33 (32-36) gm/dL RDW Coeff of Raj 14.2 (11.5-15.5) % Plt Count 151 (140-440) K/uL Neut % (Auto) 83.6 H (42.0-72.0) % Lymph % (Auto) 7.6 L (20-44) % [place] % (Auto) 7.1 (0.0-11.0) % Eos % (Auto) 0.9 (0.0-7.0) % Baso % (Auto) 0.2 (0.0-3.0) % Neut # (Auto) 6.70 (1.7-7.0) K/uL Lymph # (Auto) 0.60 L (0.90-2.90) K/uL [place] # (Auto) 0.60 (0.00-0.90) K/UL Eos # (Auto) 0.07 (0.00-0.50) K/uL Baso # (Auto) 0.02 (0.00-0.30) K/uL Abs Immat Gran (auto) 0.05 (0.00-0.30) K/uL Imm/Tot Granulo (auto) 0.6 % INR 1.08 (0.91-1.10) APTT 28 (23-33) Seconds Sodium 138 (135-149) mmol/L Potassium 3.7 (3.6-5.1) mmol/L Chloride 109 (96-114) mmol/L Carbon Dioxide 23 (20-32) mmol/L Anion Gap 6 L (7-15) mEq/L BUN 29 (7-30) mg/dL Creatinine 1.1 (0.5-1.5) mg/dL Estimated GFR 70 ml/min Glucose 126 H (60-115) mg/dL Calcium 8.8 (8.4-10.6) mg/dL Total Bilirubin 1.6 H (0.1-1.5) mg/dL AST 34 (12-35) U/L ALT 36 (4-50) U/L Alkaline Phosphatase 106 (40-150) U/L Troponin I < 0.01 L (0.01-0.04) ng/mL Total Protein 5.8 L (6.0-8.3) g/dL Albumin 3.6 (3.3-5.0) g/dL Imaging Data XR hip right: Attestation: I have reviewed the pertinent imaging results. My impression: Did visualize hip fracture on my review films. Radiologist's impression: Patient: [facility] Facility:?[facility] Patient ID:?[id number] Site Patient [id number]:?[id number]. Site :?[id number] Study:?XRay-Hip Right -06/02/2024 3:18:41 PM Ordering Physician:Lulú Egan Final Report: INDICATION: Fall. TECHNIQUE: Pelvis one view. Right hip two views. COMPARISON: None. FINDINGS: Impacted obliquely oriented intertrochanteric right femur fracture with ventral apex angulation of fracture fragments and associated varus deformity. No additional evidence of fracture. Bone demineralization. Degenerative changes of the bilateral hips and visualized lumbar spine. Postoperative changes in the midline pelvis. Vascular calcifications. IMPRESSION: Intertrochanteric right femur fracture. Dictated by Christopher Rocha MD @ 06/02/2024 3:44:44 PM (Electronic Signature) Chest x-ray: Attestation: I have reviewed the pertinent imaging results. Radiologist's impression: Patient: [facility] Facility:?[facility] Patient ID:?[id number] Site Patient ID:?[id number]. Site :?[id number] Study:?XRay-Chest Portable-06/02/2024 4:26:54 PM Ordering Physician:Lulú Egan Final Report: INDICATION: Chest injury from Fall TECHNIQUE: Chest radiograph 1 view COMPARISON: None FINDINGS: The sensitivity and specificity of the exam are moderately limited by the patient`s body habitus. Mediastinum: The mediastinum is normal in appearance. The heart silhouette is normal in size and morphology. Lung: Both lungs are unremarkable in appearance. Both lateral costophrenic sulci are excluded. No sign of pleural effusion seen. No pneumothorax is identified. Bone and Soft tissue: Unremarkable for age. IMPRESSION: 1. No acute cardiopulmonary disease is seen. Dictated by: Willis Collier MD @ 06/02/2024 16:45:40 (Electronic Signature) ECG Data Attestation: I personally reviewed and interpreted this ECG as follows: (Normal sinus rhythm, 63 beats per minute, left bundle branch block.) ECG interpretation date: 06/02/24 ECG interpretation time: 15:05 Prior ECG tracings: not available for review (But prior history documents known left bundle branch block.) Discharge Plan Discharge Clinical Impression: Fall Qualifiers: Encounter type: initial encounter Qualified Code(s): W19.XXXA - Unspecified fall, initial encounter Closed fracture of right hip Qualifiers: Encounter type: initial encounter Qualified Code(s): S72.001A - Fracture of unspecified part of neck of right femur, initial encounter for closed fracture Patient Disposition: Admitted As Inpatient
--- NOTE | 2024-06-02 14:55 | CRLHL7_ITS ---
For Patients: As a result of the Cures Act, medical imaging exams and procedure reports are released immediately into your electronic medical record. You may view this report before your referring provider. If you have questions, please contact your health care provider. INDICATION: Fall. TECHNIQUE: Pelvis one view. Right hip two views. COMPARISON: None. FINDINGS: Impacted obliquely oriented intertrochanteric right femur fracture with ventral apex angulation of fracture fragments and associated varus deformity. No additional evidence of fracture. Bone demineralization. Degenerative changes of the bilateral hips and visualized lumbar spine. Postoperative changes in the midline pelvis. Vascular calcifications. IMPRESSION: Intertrochanteric right femur fracture. Dictated by Christopher Rocha MD @ 06/02/2024 3:44:44 PM (Electronically Signed)
--- NOTE | 2024-06-02 15:35 | CRLHL7_ITS ---
For Patients: As a result of the Cures Act, medical imaging exams and procedure reports are released immediately into your electronic medical record. You may view this report before your referring provider. If you have questions, please contact your health care provider. INDICATION: Chest injury from Fall TECHNIQUE: Chest radiograph 1 view COMPARISON: None FINDINGS: The sensitivity and specificity of the exam are moderately limited by the patient`s body habitus. Mediastinum: The mediastinum is normal in appearance. The heart silhouette is normal in size and morphology. Lung: Both lungs are unremarkable in appearance. Both lateral costophrenic sulci are excluded. No sign of pleural effusion seen. No pneumothorax is identified. Bone and Soft tissue: Unremarkable for age. IMPRESSION: 1. No acute cardiopulmonary disease is seen. Dictated by: Willis Collier MD @ 06/02/2024 16:45:40 (Electronically Signed)
--- OUTSIDE RECORDS SUMMARY | 2024-06-02 15:39 | XMS_ITS | Data Portability ---
Author Organization [facility] Joelo gy, [facility] Address [address] [place] [address] Care Team Providers Care Quencher Operator Name Role Phone SILVA TEIXEIRA Primary Care Provider [phone] Assessment No assessment recorded. Plan of Treatment Reminders Order Date Submit Date Provider Last Modified By Organization Details Last Modified Time Details Appointments LAB BLOOD DRAW 2024 10:30A M [facility] Not available Not available Not available ESTABL ISHED 10 2024 10:50A M Yasir Elkins MD Not available Not available Not available Lab PSA, serum or plasma 2022 023 [facility], [address], [place], [address], 06/24/2022 12:13:06 PSA, total, serum or plasma 2022 023 [email or web address] [facility], [address], [place], [address], 06/24/2022 13:54:25 PSA, serum or plasma 2022 023 [facility], [address], [place], [address], 03/04/2023 15:00:18 PSA, total, serum or plasma 2022 023 [email or web address] [facility], [address], [place], [address], 03/19/2023 10:57:08 PSA, serum or plasma 2023 024 [facility], [address], [place], [address], 07/08/2023 14:09:05 PSA, serum or plasma 2023 024 [facility], [address], [place], [address], 09/30/2023 16:44:06 PSA, total, serum or plasma 2023 024 [email or web address] [facility], [address], [place], [address], 10/30/2023 11:27:56 PSA, serum or plasma 2023 024 [email or web address] [facility], [address], [place], [address], 04/06/2024 11:34:49 PSA, total, serum or plasma 2023 024 [email or web address] [facility], [address], [place], [address], 04/07/2024 13:05:40 Referral None record ed. Procedures None record ed. Surgeries None record ed. Imaging MRI, prosta te, w/wo contra st 2023 024 [email or web address] [facility], [address], [facility] [address], [place], [address], 07/15/2023 13:13:45 Medication Orders None record ed. Patient TargetsNo targets recorded. Patient InstructionsNo instructions recorded. Reason for Referral None Reported. Results Created Date Observation Date Name Description Value Unit Range Abnormal Flag Note LastModifiedBy Organization Detail LastModifiedTime 06/24/1906/24/2022 PSA, serum or plasm a PSA 3.5 ng/mL 0-4.0 Not Available [facility] [address], [place], [address], 06/24/2022 12:12:56 03/04/20 23 03/04/2023 PSA, serum or plasm a PSA 5.7 ng/mL 0-4.0 Not Available [facility] [address], [place], [address], 03/04/2023 14:59:55 07/08/19 24 07/08/2023 PSA, serum or plasm a PSA 6.4ng/ mL 0-4.0 Not Available [facility] [address], [place], [address], 07/08/2023 14:03:08 09/30/19 24 09/30/2023 PSA, serum or plasm a PSA 5.2 ng/mL 0-4.0 NG/mL Not Available [facility] [address], [place], [address], 09/30/2023 16:43:44 04/06/20 24 04/06/2024 PSA, serum or plasm a PSA 6.0 ng/mL 0-4.0 NG/mL Not Available [facility] [address], [place], [address], 04/04/2024 15:36:49 06/26/19 23 06/24/2022 bladd er scan (PROC ) No observ ation record ed. BARCODE Not Available 2022 13:54:32 07/22/19 24 07/22/2023 MRI, prost ate, w/wo contr ast No observ ation record ed. [facility] [address], [place], [address], 08/06/2023 20:39:23 Result Notes None recorded. Procedures Surgical History Date Name Laterality Status Provider Name and Address Organization Details Recorded Time 4 Bladder Scan completed Ana Maria armenta [facility] 04/06/2024 11:34:38 4 Blood Draw/STARS COORDINATOR/PSA RESULTS completed Ana Maria armenta [facility] 04/06/2024 11:12:20 4 STARS COORDINATOR/blood draw completed Yasir Elkins MD [address] [place] [address],[address], [place], [address], [facility] 09/30/2023 16:43:38 4 Bladder Scan completed Yasir Elkins MD [address] [place] [address],[address], [place], [address], [facility] 09/30/2023 16:43:32 4 STARS COORDINATOR/blood draw completed Yasir Elkins MD [address] [place] [address],[address], [place], [address], [facility] 07/08/2023 14:03:03 4 Bladder Scan completed Yasir Elkins MD [address] [place] [address],[address], [place], [address], [facility] 07/08/2023 14:02:57 3 Bladder Scan completed Yasir Elkins MD [address] [place] [address],[address], [place], [address], [facility] 03/04/2023 14:59:43 3 Blood Draw/STARS COORDINATOR/PSA RESULTS completed Yasir Elkins MD [address] [place] [address],[address], [place], [address], [facility] 03/04/2023 14:59:51 3 Bladder Scan completed Yasir Elkins MD [address] [place] [address],[address], [place], [address], [facility] 06/24/2022 12:12:52 Hernia Repair completed Yasir Elkins MD [address] [place] [address],[address], [place], [address], [facility] 06/24/2022 12:12:02 Imaging Results Imaging Date Name Status LastModified by Organiz ation Details LastModified Time 06/24/2022 bladder scan (PROC) completed BARCODE Information not available 06/26/2022 13:54:32 07/22/2023 MRI, prostate, w/wo contrast completed [facility] [address], [place], [address], 08/06/2023 20:39:23 Procedure Notes None recorded. Medical Equipment None Reported. Allergies Allergen ID Allergen Name Allergen Category Reaction Reaction Severity Criticality Documentation Date Start Date Code Code System Note Provider Name and Address Organization Details Recorded Time [id number] 2824e Medicinal product containin g penicilli n and acting as antibacte rial agent (product) medicatio n Not available Not available Not available 03/25/20202019 68233 05 SNOMED Not Available Not Available Not [...] Updated DateTime 06/24/2022 180.34 cm 25.1 kg/m2 83525.63 g Yasir Elkins MD [address] [place] [address], [address], [facility] 06/24/2022 12:11:09 Date Recorded Body height Body mass index (BMI) Body weight Provider Name and Address Organization Details Last Updated DateTime 03/04/2023 180.34 cm 24.4 kg/m2 55858.66 g Yasir Elkins MD [address] [place] [address], [address], [facility] 03/04/2023 14:58:06 Date Recorded Body height Body mass index (BMI) Body weight Provider Name and Address Organization Details Last Updated DateTime 07/08/2023 180.34 cm 25.1 kg/m2 42206.63 g Yasir Elkins MD [address] [place] [address], [address], [facility] 07/08/2023 14:02:18 Date Recorded Body height Body mass index (BMI) Body weight Provider Name and Address Organization Details Last Updated DateTime 09/30/2023 180.34 cm 25.1 kg/m2 56338.63 maude Elkins MD [address] [place] [address],[address] 09/30/2023 16:42:29 Date Recorded Body height Provider Name an d Address Organization Details Last Updated DateTime 04/06/2024 180.34 cm Ana Maria Barnhart [facility] 04/06/2024 11:11:37 Date Recorded Body mass index (BMI) Body weight Provider Name and Address Organization Details Last Updated DateTime 04/06/2024 23.7 kg/m2 56575.7 g Yasir Elkins MD [address] [place] [address],[address] 04/06/2024 11:17:05 Social History Question Answer Notes LastModified by Organizat ion Details LastModified Time Tobacco Smoking Status Former Smoker Yasir Elkins MD [address] [place] [address],[address] 09/30/2023 16:43:00 What Is Your Level Of [...] Organization Details Recorded Time pneumococcal polysaccharide PPV23 1 completed Yasir Elkins MD [address] [place] [address],[place] [address], [facility] 06/24/2022 12:11:17 Pneumococcal conjugate PCV 13 0 completed Yasir Elkins MD [address] [place] [address],[place] [phone] [place] [address] 06/24/2022 12:11:17 zoster recombinant 0 completed Yasir Elkins MD [address] [place] [address],[address], [place], [address], [facility] 03/04/2023 14:58:11 zoster recombinant 0 completed Yasir Elkins MD [address] [place] [address],[address], [place], [address], [facility] 03/04/2023 14:58:11 Influenza, adjuvanted, quadrivalent, PF 2 completed Yasir Elkins MD [address] [place] [address],[address], [place], [address], [facility] 03/04/2023 14:58:11 Influenza, adjuvanted, quadrivalent, PF 0 completed Yasir Elkins MD [address] [place] [address],[address], [place], [address], [facility] 03/04/2023 14:58:11 COVID-19, mRNA, LNP-S, PF, 30 mcg/0.3 mL dose 1 completed Yasir Elkins MD [address] [place] [address],[address], [place], [address], [facility] 03/04/2023 14:58:11 COVID-19, mRNA, LNP-S, PF, 30 mcg/0.3 mL dose 1 completed Yasir Elkins MD [address] [place] [address],[address], [place], [address], [facility] 03/04/2023 14:58:11 COVID-19, mRNA, LNP-S, PF, 30 mcg/0.3 mL dose 1 completed Yasir Elkins MD [address] [place] [address],[address], [place], [address], [facility] 03/04/2023 14:58:11 COVID-19, mRNA, LNP-S, PF, 30 mcg/0.3 mL dose, alban-sucrose 2 completed Yasir Elkins MD [address] [place] [address],[address], [place], [address], [facility] 03/04/2023 14:58:11 COVID-19, mRNA, LNP-S, bivalent, PF, 30 mcg/0.3 mL dose 2 completed Yasir Elkins MD [address] [place] [address],[address], [place], [address], [facility] 03/04/2023 14:58:11 Tdap 1 completed Yasir Elkins MD [address] [place] [address],[address], [place], [address], [facility] 03/04/2023 14:58:11 zoster live 2 completed Yasir Elkins MD [address] [place] [address],[address], [place], [address], [facility] 03/04/2023 14:58:11 Td (adult), 2 Lf tetanus toxoid, preservative free, adsorbed 4 completed Yasir Elkins MD [address] [place] [address],[facility] [address], [address], [facility] 03/04/2023 14:58:11 Past Encounters Encounter ID Performer Location Encounter Start Date Encounter Closed Date Diagnosis/Indication Diagnosis SNOMED-CT Code Diagnosis ICD10 Code [id number] MD AIDAN [facility] [address] [place] [address] 06/24/2022 11:44:24 06/27/2022 16:42:13 Prostate specific antigen above reference range 724260701 R97.20 Lower urin brandi tract symptoms due to benign prostatic hypertrophy 8919624508 9101 N40.1 Phimosis 014603230 N47.1 [id number] MD [facility] [address] [place] [address] 03/04/2023 14:44:14 03/14/2023 15:26:03 Prostate specific antigen above reference range 459765821 R97.20 Lower urin brandi tract symptoms due to benign prostatic hypertrophy 1556589695 9101 N40.1 Phimosis 356263539 N47.1 [id number] MD [facility] [address] [place] [address] 07/08/2023 13:42:33 07/08/2023 15:14:01 Prostate specific antigen above reference range 706541175 R97.20 Lower urin brandi tract symptoms due to benign prostatic hypertrophy 3486002254 9101 N40.1 Phimosis 821139616 N47.1 [id number] Yasir Elkins MD [facility] [address] [place] [address] 09/30/2023 15:43:56 10/05/2023 14:18:04 Prostate specific antigen above reference range 146280104 R97.20 Lower urin brandi tract symptoms due to benign prostatic hypertrophy 5544407923 9101 N40.1 Phimosis 506417808 N47.1 [id number] Yasir Elkins MD [facility] [address] [place] [address] 04/06/2024 11:04:36 04/12/2024 12:00:49 Prostate specific antigen above reference range 430636171 R97.20 Lower urin brandi tract symptoms due to benign prostatic hypertrophy 2916469802 9101 N40.1 Phimosis 524553634 N47.1 Health Concerns Section Related Observation LastModified by Organization Detai ls LastModified Time None Recorded Concern Status LastModified by Organization Details LastModified Time None Recorded Advance Directives Directive None Recorded Payers Encounter Date Sequence Insurance Name Policy Number Policy Burns Covered Member ID Burns Member ID Guarantor Name 06/24/2022 1 [place] [employer] David Cavazosway [id number] David Roche [place] 06/24/2022 2 [place] [id number] David Cavazosway [id number] David Roche [place] 03/04/2023 1 [place] [employer] David Roche Linch [id number] David Roche [place] 03/04/2023 2 [place] [id number] David Hazelumway [id number] David Roche [place] 07/08/2023 1 [place] [employer] David Hazelumway [id number] David Roche Linch 07/08/2023 2 [place] [id number] David Hazelumway [id number] David Hazelumway 09/30/2023 1 [place] [employer] David Roche Linch [id number] David Roche Linch 09/30/2023 2 [place] [id number] David Hazelumway [id number] David Roche Linch 04/06/2024 1 [place] [employer] [facility] David Roche [place] [id number] David Roche [place] 04/06/2024 2 [place] [id number] David Hazelumway [id number] David Tapia Notes Date Note Type Note Provider Name and Address Organization Details Recorded Time 06/24/2022 text/html 72 yo male with H/O BPH and [...] denies urgency and dysuria. - PVR - 158mL- PSA - 3.5 PSA - 3.73 (05/07/11) - 5.07 (06/13/19)- 4.05 (12/05/11) - 4.71 (10/05/19)- 4.47 (04/08/12) - 3.39 (05/04/20)- 4.25 (10/14/12) - 8.18 (11/28/20)- 4.06 (04/15/13) - 3.68 (02/05/21)- 4.67 (10/12/13) - 4.53 (03/05/22)- 4.89 (03/27/14) - 3.5 (06/24/22)- 5.10 (11/22/14)- 5.62 (04/25/15)- 3.89 (06/18/16)- 5.27 (10/14/17)- 5.32 (09/28/18) Prostate MRI (02/07/15) - 48 gm - no suspicious lesions Yasir Elkins MD [address], [place], [address], [facility] 06/24/2022 13:22:14 03/04/2023 text/html 72 yo male with H/O BPH and [...] 1x/night. He reports slow stream - no dysuria- PVR - 74mL- PSA - 5.7 PSA - 4.67 (10/12/13)- 4.89 (03/27/14)- 5.10 (11/22/14)- 5.62 (04/25/15)- 3.89 (06/18/16)- 5.27 (10/14/17)- 5.32 (09/28/18)- 5.07 (06/13/19)- 4.71 (10/05/19)- 3.39 (05/04/20)- 8.18 (11/28/20)- 3.68 (02/05/21)- 4.53 (03/05/22)- 3.5 (06/24/22)- 5.7 (03/04/23) Prostate MRI (02/07/15) - 48 gm - no suspicious lesions Yasir Elkins MD [address] [place] [address],[address], [place], [address], [facility] 03/04/2023 18:49:57 07/08/2023 text/html 73 yo male with H/O BPH [...] hours during the day and 1x/night. No dysuria.- PVR - 0mL- PSA - 6.4 PSA - 4.67 (10/12/13)- 4.89 (03/27/14)- 5.10 (11/22/14)- 5.62 (04/25/15)- 3.89 (06/18/16)- 5.27 (10/14/17)- 5.32 (09/28/18)- 5.07 (06/13/19)- 4.71 (10/05/19)- 3.39 (05/04/20)- 8.18 (11/28/20)- 3.68 (02/05/21)- 4.53 (03/05/22)- 3.5 (06/24/22)- 5.7 (03/04/23)- 6.4 (07/08/23) Prostate MRI (02/07/15) - 48 gm - no suspicious lesions Yasir Elkins MD [address] [facility], [place], [address], [facility] 07/08/2023 14:53:40 09/30/2023 text/html 73 yo male with H/O BPH [...] every 2-3 hours during the day and 1x/night.- PVR - 0mL- PSA - 5.2 PSA - 4.67 (10/12/13)- 4.89 (03/27/14)- 5.10 (11/22/14)- 5.62 (04/25/15)- 3.89 (06/18/16)- 5.27 (10/14/17)- 5.32 (09/28/18)- 5.07 (06/13/19)- 4.71 (10/05/19)- 3.39 (05/04/20)- 8.18 (11/28/20)- 3.68 (02/05/21)- 4.53 (03/05/22)- 3.5 (06/24/22)- 5.7 (03/04/23)- 6.4 (07/08/23)- 5.2 (09/30/23) Prostate MRI (02/07/15) - 48 gm - no suspicious lesionsProstate MRI (07/22/23) - 52 mL - no suspicious lesions - no enlarged lymph nodes Yasir Elkins MD [address] [place] [address],[address], [place], [address], [facility] 10/04/2023 11:42:34 04/06/2024 text/html 73 yo male with H/O [...] lesions - no enlarged lymph nodes Yasir Elkisn MD [address] [facility],[address], [place], [address], [place] [facility] 04/06/2024 11:56:02
[2024-06-02] MEDS: fentaNYL 100 MCG/2 ML inj 50 MCG IVP (15:48)
[2024-06-02 15:58] LABS: Basophils Absolute Auto 0.02 K/uL (0.00-0.30); Basophils Percent Auto 0.2 % (0.0-3.0); Eosinophils Absolute Auto 0.07 K/uL (0.00-0.50); Eosinophils Percent Auto 0.9 % (0.0-7.0); Hematocrit 38.8 % (37.0-53.0); Hemoglobin* 12.6 gm/dL (13.5-17.5); Immature Granulocytes Abs Auto 0.05 K/uL (0.00-0.30); Immature Granulocytes Pct Auto 0.6 %; Lymphocytes Percent Auto 7.6 % (20-44); Mean Corpuscular HGB Conc 33 gm/dL (32-36); Mean Corpuscular Hemoglobin 33 pg (26-34); Mean Corpuscular Volume 100 fL (80-100); Monocytes Percent Auto 7.1 % (0.0-11.0); Neutrophils Percent Auto 83.6 % (42.0-72.0); Platelet Count* 151 K/uL (140-440); RDW Coefficient of Variation % 14.2 % (11.5-15.5); Red Blood Count 3.87 m/uL (4.30-5.90); White Blood Count* 8.05 K/uL (4.50-11.00)
[2024-06-02 16:06] LABS: Slide Review Reflex No
[2024-06-02 16:09] LABS: Albumin* 3.6 g/dL (3.3-5.0); Chloride* 109 mmol/L (96-114); Sodium* 138 mmol/L (135-149)
[2024-06-02 16:10] LABS: Potassium* 3.7 mmol/L (3.6-5.1)
[2024-06-02 16:12] LABS: Alanine Aminotransferase* 36 U/L (4-50); Alkaline Phosphatase* 106 U/L (40-150); Anion Gap 6 mEq/L (7-15); Aspartate Amino Transferase* 34 U/L (12-35); Bilirubin Total* 1.6 mg/dL (0.1-1.5); Blood Urea Nitrogen* 29 mg/dL (7-30); Carbon Dioxide* 23 mmol/L (20-32); Creatinine* 1.1 mg/dL (0.5-1.5); Estimated Glomerular Filt Rate 70 ml/min; Total Protein* 5.8 g/dL (6.0-8.3)
[2024-06-02 16:13] LABS: Calcium* 8.8 mg/dL (8.4-10.6); Glucose* 126 mg/dL (60-115)
[2024-06-02 16:27] LABS: Troponin I* < 0.01 ng/mL (0.01-0.04)
[2024-06-02 16:29] LABS: INR 1.08 (0.91-1.10); Prothrombin Time 14.7 Seconds
[2024-06-02 17:17] LABS: Partial Thromboplastin Time* 28 Seconds (23-33)
--- NOTE | 2024-06-02 17:55 | PM.IMHP1 ---
Hospitalist- H&P: HPI History of Present Illness Date Seen: 06/02/24 Chief complaint: fall Narrative: David Tapia is a 74 year old male who presented to the emergency room by EMS this afternoon after a mechanical fall while walking outside with his . No preceding dizziness or lightheadedness, did not hit head. Per is acting normally. In the emergency room, imaging revealed an intertrochanteric right femur fracture. CBC wnl, bilirubin 1.6 (was 1.5 in 2021, no abdominal pain). EKG revealed known LBBB without acute abnormalities. Reassuring CXR. Orthopedic Surgery consulted, plans surgical intervention tomorrow. Had a knee replacement here in December without operative or anesthetic complications. Just saw PCP (Marcela Mckenna MD) 2 days ago for AWV, no concerns noted at that time. Review of Systems Status of ROS: Reports: 10 or more systems reviewed and unremarkable except as noted in History and below [facility] Medical History (Updated 06/02/24 @ 18:50 by Maxine Escobar MD) Cognitive impairment ?R41.89 - Other symptoms and signs involving cognitive functions and awareness (ICD-10) Bee sting allergy ?Z91.030 - Bee allergy status (ICD-10) Personal history of colonic polyps ?Z86.010 - Personal history of colonic polyps (ICD-10) Depression ?F32.A - Depression, unspecified (ICD-10) Bilateral sensorineural hearing loss ?H90.3 - Sensorineural hearing loss, bilateral (ICD-10) Hypersomnolence ?G47.10 - Hypersomnia, unspecified (ICD-10) Benign localized prostatic hyperplasia with lower urinary tract symptoms (LUTS) ?N40.1 - Benign prostatic hyperplasia with lower urinary tract symptoms (ICD-10) Dyslipidemia ?E78.5 - Hyperlipidemia, unspecified (ICD-10) DJD (degenerative joint disease) ?M19.90 - Unspecified osteoarthritis, unspecified site (ICD-10) AGUSTÍN (obstructive sleep apnea) ?G47.33 - Obstructive sleep apnea (adult) (pediatric) (ICD-10) Benign prostatic hyperplasia ?N40.0 - Benign prostatic hyperplasia without lower urinary tract symptoms (ICD-10) Coronary artery disease involving [place] coronary artery without angina pectoris ?I25.10 - Atherosclerotic heart disease of [place] coronary artery without angina pectoris (ICD-10) Left bundle branch block ?I44.7 - Left bundle-branch block, unspecified (ICD-10) Essential hypertension ?I10 - Essential (primary) hypertension (ICD-10) Rheumatoid arthritis ?M06.9 - Rheumatoid arthritis, unspecified (ICD-10) Finger infection ?L08.9 - Local infection of the skin and subcutaneous tissue, unspecified (ICD-10) Surgical History Status post total knee replacement, right (01/04/24) ?Z96.651 - Presence of right artificial knee joint (ICD-10) Hx of colonoscopy ?Z98.890 - Other specified postprocedural states (ICD-10) H/O inguinal hernia repair (05/04/15) ?Z98.890 - Other specified postprocedural states (ICD-10) ?Z87.19 - Personal history of other diseases of the digestive system (ICD-10) Social History (Updated 06/02/24 @ 18:51 by Maxine Escobar MD) Narrative: -Nan. Living independently with his . He is managing his own medications. Quit smoking in September 2023. Denies any other tobacco use. He drinks once a month, 2 beers at that setting. No other alcohol use. Denies recreational drug use. What is your current living situation?: I presently have a place to live Problems where you live: no known problems In the past 12 months, utilities in danger of being shut off: no In past 12 months, lack of transportation kept you from medical appts, meetings, work, or getting things needed for daily living: no In the past 12 mos, have been you worried that your food would run out before you had money to buy more?: never true In the past 12 mos, the food you bought just didn't last and you didn't have money to buy more?: never true Highest level of school completed/degree received: some college, no degree Smoking Status: Former smoker What tobacco products do you use: cigarettes Smoking packs per day: 0.25 Smoking cigarettes per day: 5.0 Years smoked: 50 Smoking pack-years: 12.50 Smoking quit date/years: <= 15 years ago Do you use any of these nicotine containing products: None Nicotine containing products detail: Quit smoking September 21, 2023 Second hand tobacco smoke exposure: No How often do you have a drink containing alcohol: monthly or less Alcohol type: beer How many standard drinks containing alcohol do you have on a typical day: 1 or 2 How often do you have six or more drinks on one occasion: Never AUDIT-C Alcohol total score: 1 Non-prescribed substance use: denies use Caffeine: Yes How often does anyone, including family, friends and others, physically hurt you: never How often does anyone, including family, friends and others, insult or talk down to you: never How often does anyone, including family, friends and others, threaten you with harm: never How often does anyone, including family, friends and others, scream or curse at you: never service: Yes Meds Home Medications and Allergies Home Medications ?Medication ?Instructions ?Recorded ?Confirmed ?Type hydroxychloroquine 200 mg tablet 400 mg PO HS 09/01/23 06/02/24 History lisinopril 20 mg tablet 20 mg PO DAILY 09/01/23 06/02/24 History naproxen sodium 220 mg tablet 220 mg PO DAILY 09/01/23 06/02/24 History (Aleve) tamsulosin 0.4 mg capsule 0.8 mg PO HS 09/01/23 06/02/24 History aspirin 81 mg tablet,delayed 81 mg PO DAILY 12/22/23 06/02/24 History release (Adult Aspirin Regimen) epinephrine 0.3 mg/0.3 mL 0.3 mg IM ONCE PRN 01/04/24 06/02/24 History injection, auto-injector (EpiPen) methotrexate sodium 2.5 mg tablet 15 mg PO Q7D 01/04/24 06/02/24 History quetiapine 25 mg tablet 12.5 mg PO HS 02/16/24 06/02/24 History Allergies Allergy/AdvReac Type Severity Reaction Status Date / Time Penicillins Allergy Verified 02/16/24 08:23 venom-honey bee Allergy Verified 02/16/24 08:23 mirtazapine AdvReac Nightmare Verified 02/16/24 08:23 Exam Narrative: Exam Narrative: GEN: Alert and answering questions appropriately HEENT: Normal external ears, EOMIs bilaterally, no scleral icterus CV: RRR, No concerning murmurs, rubs, or gallops R: LCTA bilaterally without concerning wheezing Ext: No concerning edema Skin: No concerning skin lesions or rashes on exposed skin Neuro: + resting tremor, baseline. Palpable pulses at bilateral dorsalis pedis sites, normal range of motion and sensation of bilateral feet/toes Psych: Appropriate, no evidence of agitation or significant cognitive impairment during my interview Const: Vital Signs, click to edit/add: Vital Signs - 24 hr 06/02/24 14:40 06/02/24 14:56 06/02/24 15:21 Temperature 98.2 F Pulse Rate 68 Pulse Rate [Pulse Oximeter] 66 Respiratory Rate 16 Blood Pressure [Ri ght Upper Arm] 127/86 Pulse Oximetry 96 93 92 [facility] 06/02/24 15:30 06/02/24 15:45 06/02/24 16:00 Temperature Pulse Rate 70 77 67 Pulse Rate [Pulse Oximeter] Respiratory Rate 18 Blood Pressure [Ri ght Upper Arm] Pulse Oximetry 92 94 94 Oxygen Delivery Me thod 06/02/24 16:15 Temperature Pulse Rate 67 Pulse Rate [Pulse Oximeter] Respiratory Rate Blood Pressure [Ri ght Upper Arm] Pulse Oximetry 93 [facility] - H&P: Result Labs Labs: Short CBC 06/02/24 Range/Units 15:40 WBC 8.05 (4.50-11.00) K/uL Hgb 12.6 L (13.5-17.5) gm/dL Hct 38.8 (37.0-53.0) % Plt Count 151 (140-440) K/uL BMP 06/02/24 15:40 Sodium 138 Potassium 3.7 Chloride 109 Carbon Dioxide 23 BUN 29 Creatinine 1.1 Glucose 126 H Calcium 8.8 Cardiac Enzymes 06/02/24 Range/Units 15:40 Troponin I < 0.01 L (0.01-0.04) ng/mL Liver Function 06/02/24 Range/Units 15:40 Total Bilirubin 1.6 H (0.1-1.5) mg/dL AST 34 (12-35) U/L ALT 36 (4-50) U/L Alkaline Phosphatase 106 (40-150) U/L Albumin 3.6 (3.3-5.0) g/dL Assessment and Plan Assessment and plan (1) Closed fracture of right hip: Problem comment: - plan for surgical repair with Orthopedic surgery team on 06/03/2024 - reassuring EKG and chest x-ray, recently had knee replacement without difficulty - chronic conditions appear optimized at this time for urgent intervention Status: Acute (2) Cognitive impairment: Problem comment: - Atypical, slow onset with some parkinsonian features, able to make own decisions at this time - follows with Dr. Barrow from [facility] - history of visual hallucinations, improved on HS Seroquel - monitor closely for Status: Chronic (3) Rheumatoid arthritis: Problem comment: - On methotrexate (takes Mondays) and hydroxychloroquine - will hold both at this time Status: Chronic (4) Essential hypertension: Problem comment: - current blood pressure 120s/80s - hold home medications, restart postoperatively when blood pressure is appropriate Status: Chronic Plan - per above - updated at bedside, questions answered
[2024-06-02] MEDS: OXYCODONE 5 MG TABLET PO (19:51)
--- NOTE | 2024-06-02 20:00 | PC.NURSE ---
End of shift - Pt arrived from ED at approximately 1635. Pt alert, oriented, cooperative. Reported pain with movement in R hip, no pain at rest. Tolerating RA and regular diet/fluids. Doe inserted, noted to be patent and draining. Pedal pulse present on R foot. Family at bedside, pt appears to be resting comfortably at end of shift.
[2024-06-02] MEDS: QUETIAPINE 25 MG TABLET 12.5 MG PO (20:36)
[2024-06-02] MEDS: TAMSULOSIN HCL 0.4 MG CAPSULE 0.8 MG PO (20:37)
[2024-06-02] MEDS: SODIUM CHLORIDE 0.9 % (FLUSH) 10 ML SYRINGE 5 ML IVF (20:37)
[2024-06-03] VITALS (22 sets, daily range): BP systolic 91–157; BP diastolic 61–123; PULSE 56–153; RESP 13–22; TEMP 35.8–37.5; O2SAT 93–97
[2024-06-03] MEDS: OXYCODONE 5 MG TABLET PO ×3 (04:51→21:39)
--- NOTE | 2024-06-03 06:48 | PC.NURSE ---
Pt alert, oriented and vitally stable. Tele read first degree AV block. Pain rated 6-8/10 with movement, prn oxy given, pt stated improvement. Doe cath patent and draining appropriately. Pt NPO at midnight, tolerating well. Pt bed fast, appears to be resting, call light within reach.
[2024-06-03 07:00] LABS: Basophils Absolute Auto 0.01 K/uL (0.00-0.30); Basophils Percent Auto 0.1 % (0.0-3.0); Eosinophils Absolute Auto 0.02 K/uL (0.00-0.50); Eosinophils Percent Auto 0.2 % (0.0-7.0); Hematocrit 37.3 % (37.0-53.0); Hemoglobin* 12.2 gm/dL (13.5-17.5); Immature Granulocytes Abs Auto 0.04 K/uL (0.00-0.30); Immature Granulocytes Pct Auto 0.5 %; Lymphocytes Percent Auto 8.1 % (20-44); Mean Corpuscular HGB Conc 33 gm/dL (32-36); Mean Corpuscular Hemoglobin 33 pg (26-34); Mean Corpuscular Volume 100 fL (80-100); Monocytes Percent Auto 10.4 % (0.0-11.0); Neutrophils Percent Auto 80.7 % (42.0-72.0); Platelet Count* 145 K/uL (140-440); RDW Coefficient of Variation % 14.4 % (11.5-15.5); Red Blood Count 3.74 m/uL (4.30-5.90); White Blood Count* 8.72 K/uL (4.50-11.00)
[2024-06-03 07:02] LABS: Slide Review Reflex No
[2024-06-03 07:18] LABS: Albumin* 3.6 g/dL (3.3-5.0); Chloride* 108 mmol/L (96-114)
[2024-06-03 07:19] LABS: Potassium* 3.9 mmol/L (3.6-5.1); Sodium* 135 mmol/L (135-149)
[2024-06-03 07:21] LABS: Anion Gap 5 mEq/L (7-15); Aspartate Amino Transferase* 30 U/L (12-35); Bilirubin Total* 2.8 mg/dL (0.1-1.5); Carbon Dioxide* 22 mmol/L (20-32); Creatinine* 1.1 mg/dL (0.5-1.5); Est. Creatinine Clearance* 59.91; Estimated Glomerular Filt Rate 70 ml/min; Total Protein* 5.9 g/dL (6.0-8.3)
[2024-06-03 07:22] LABS: Alanine Aminotransferase* 32 U/L (4-50); Alkaline Phosphatase* 88 U/L (40-150); Blood Urea Nitrogen* 25 mg/dL (7-30); Calcium* 8.6 mg/dL (8.4-10.6); Glucose* 116 mg/dL (60-115)
[2024-06-03] MEDS: SODIUM CHLORIDE 0.9 % (FLUSH) 10 ML SYRINGE 5 ML IVF ×2 (10:27→19:40)
--- NOTE | 2024-06-03 10:31 | P.IMPN_ITS ---
Progress Note: A&P Assessment and plan (1) Closed fracture of right hip: Problem details: - plan for surgical repair with Orthopedic surgery team on 06/03/2024 around 1pm - reassuring EKG and chest x-ray, recently had knee replacement without difficulty, asymptomatic CAD, METs > 4, h/o AGUSTÍN noted - chronic conditions appear optimized at this time for urgent intervention - Start IVF for hypovolemia secondary to probable blood loss from traumatic hip fracture and NPO in anticipation of surgery - Start bowel regimen in setting of narcotic pain medications Status: Acute (2) Fall: Problem details: - PT/OT to assess after ORIF right hip Status: Acute (3) Cognitive impairment: Problem details: - Atypical, slow onset with some parkinsonian features, able to make own decisions at this time - follows with Dr. Barrow from [facility] - history of visual hallucinations, improved on HS Seroquel - monitor closely for Status: Chronic (4) Rheumatoid arthritis: Problem details: - On methotrexate (takes Mondays) and hydroxychloroquine - will hold both at this time Status: Chronic (5) Essential hypertension: Problem details: - current blood pressure 120s/80s - hold home medications, restart postoperatively when blood pressure is appropriate Status: Chronic (6) AGUSTÍN (obstructive sleep apnea): Problem details: 12/31/2016, 15.8 Status: Chronic (7) Coronary artery disease involving [place] coronary artery without angina pectoris: Problem details: - Asymptomatic. Hold daily aspirin today, restart after surgery. Holding lisinopril for today and restart after surgery as BP allows. Monitor on telemetry overnight. Status: Chronic Time Spent With Patient Total time spent: Today I spent 35 minutes seeing the patient, reviewing [facility] notes/diagnostics, discussing the care plan with social work, PT/OT, pharmacy, [facility], and documenting my impressions and plan in the medical record. Subjective Time Seen by Provider: 09:00 Date Seen: 06/03/24 Interval history: notes some pain in his right hip, but is otherwise doing well. Denies chest pain or shortness of breath. He notes that he has not eaten since last night and he is concerned about that. He understands that he is NPO for surgery and is anticipated to happen around 1 or 130 p.m. today. He endorses lower urinary tract symptoms at baseline. He currently has a Doe catheter in place. His , Licha, was in the room with him. Their questions were answered. Exam Narrative: Exam Narrative: General: No acute distress. Awake, alert, oriented x3. No pallor. No jaundice. Oropharynx: Clear. Mucous membranes dry. Cardiovascular: Regular rate and rhythm. No murmurs, gallops, or rubs. Respiratory: Clear to auscultation bilaterally. No wheezes or crackles. Abdomen: Bowel sounds present. Soft, nondistended, nontender. Extremities: Right lower extremity is shortened and externally rotated. No ecchymosis noted on the thighs, hips or buttocks. 1+ edema of the right upper thigh. No erythema. Const: Vital Signs, click to edit/add: Vital Signs - 24 hr 06/02/24 14:40 06/02/24 14:56 06/02/24 15:21 Temperature 98.2 F Pulse Rate 68 Pulse Rate [Pulse Oximeter] 66 Respiratory Rate 16 Blood Pressure [Ri ght Arm] Blood Pressure [Ri ght Upper Arm] 127/86 Pulse Oximetry 96 93 92 Oxygen Delivery Me thod Room Air 06/02/24 15:30 06/02/24 15:45 06/02/24 16:00 Temperature Pulse Rate 70 77 67 Pulse Rate [Pulse Oximeter] Respiratory Rate 18 Blood Pressure [Ri ght Arm] Blood Pressure [Ri ght Upper Arm] Pulse Oximetry 92 94 94 Oxygen Delivery Me thod 06/02/24 16:15 06/02/24 17:54 06/02/24 17:54 Temperature 97.8 F Pulse Rate 67 Pulse Rate [Pulse Oximeter] 68 Respiratory Rate 20 20 Blood Pressure [Ri ght Arm] 147/93 H Blood Pressure [Ri ght Upper Arm] Pulse Oximetry 93 94 94 Oxygen Delivery Me thod Room Air Room Air 06/02/24 19:00 06/02/24 23:00 06/02/24 23:00 Temperature 97.4 F L 98.3 F Pulse Rate Pulse Rate [Pulse Oximeter] 75 75 73 Respiratory Rate 18 18 16 Blood Pressure [Ri ght Arm] 146/90 H 140/83 H Blood Pressure [Ri ght Upper Arm] Pulse Oximetry 97 92 Oxygen Delivery Me thod Room Air Room Air 06/02/24 23:00 06/03/24 03:00 06/03/24 07:49 Temperature 98.3 F 97.9 F Pulse Rate 78 Pulse Rate [Pulse Oximeter] 79 75 Respiratory Rate 18 18 Blood Pressure [Ri ght Arm] 153/89 H 141/85 H Blood Pressure [Ri ght Upper Arm] Pulse Oximetry 95 96 Oxygen Delivery Me thod Room Air Room Air Labs Labs: Laboratory Results - last 24 hr 06/02/24 06/03/24 15:40 06:12 WBC 8.05 8.72 RBC 3.87 L 3.74 L Hgb 12.6 L 12.2 L Hct 38.8 37.3 MCV 100 100 MCH 33 33 MCHC 33 33 RDW Coeff of Raj 14.2 14.4 Plt Count 151 145 Neut % (Auto) 83.6 H 80.7 H Lymph % (Auto) 7.6 L 8.1 L [place] % (Auto) 7.1 10.4 Eos % (Auto) 0.9 0.2 Baso % (Auto) 0.2 0.1 Neut # (Auto) 6.70 7.00 Lymph # (Auto) 0.60 L 0.70 L [place] # (Auto) 0.60 0.90 Eos # (Auto) 0.07 0.02 Baso # (Auto) 0.02 0.01 Abs Immat Gran (auto) 0.05 0.04 Imm/Tot Granulo (auto) 0.6 0.5 INR 1.08 APTT 28 Sodium 138 135 Potassium 3.7 3.9 Chloride 109 108 Carbon Dioxide 23 22 Anion Gap 6 L 5 L BUN 29 25 Creatinine 1.1 1.1 Estimated Creat Clear 59.91 Estimated GFR 70 70 Glucose 126 H 116 H Calcium 8.8 8.6 Total Bilirubin 1.6 H 2.8 H AST 34 30 ALT 36 32 Alkaline Phosphatase 106 88 Troponin I < 0.01 L Total Protein 5.8 L 5.9 L Albumin 3.6 3.6
[2024-06-03] MEDS: LACTATED RINGERS 1000 ML 1,000 ML 75 ML IV (11:33)
--- NOTE | 2024-06-03 13:27 | P.ORCN_ITS ---
History of Present Illness HPI Date Seen: 06/03/24 Chief complaint: fall Narrative: Jamal is a 74-year-old gentleman who sustained a ground level fall while walking outside with his yesterday, landing on his right hip. He developed severe right hip pain and was unable to bear weight after the injury. He was subsequent brought to the emergency department by EMS where x-rays revealed a displaced intertrochanteric hip fracture. He subsequent to the hospitalist service for pain control and further management. Patient states that prior to the injury, he was experiencing no hip or groin pain. He was a community ambulator who walked without the use of any assistive devices. This morning, he states that pain is adequately controlled. He denies any other injuries with sites his hip. [facility] Medical History (Updated 06/03/24 @ 10:46 by Maddi Shankar MD) Cognitive impairment ?R41.89 - Other symptoms and signs involving cognitive functions and awareness (ICD-10) Bee sting allergy ?Z91.030 - Bee allergy status (ICD-10) Personal history of colonic polyps ?Z86.010 - Personal history of colonic polyps (ICD-10) Depression ?F32.A - Depression, unspecified (ICD-10) Bilateral sensorineural hearing loss ?H90.3 - Sensorineural hearing loss, bilateral (ICD-10) Hypersomnolence ?G47.10 - Hypersomnia, unspecified (ICD-10) Benign localized prostatic hyperplasia with lower urinary tract symptoms (LUTS) ?N40.1 - Benign prostatic hyperplasia with lower urinary tract symptoms (ICD- 10) Dyslipidemia ?E78.5 - Hyperlipidemia, unspecified (ICD-10) DJD (degenerative joint disease) ?M19.90 - Unspecified osteoarthritis, unspecified site (ICD-10) AGUSTÍN (obstructive sleep apnea) ?G47.33 - Obstructive sleep apnea (adult) (pediatric) (ICD-10) Benign prostatic hyperplasia ?N40.0 - Benign prostatic hyperplasia without lower urinary tract symptoms (ICD-10) Coronary artery disease involving [place] coronary artery without angina pectoris ?I25.10 - Atherosclerotic heart disease of [place] coronary artery without angina pectoris (ICD-10) Left bundle branch block ?I44.7 - Left bundle-branch block, unspecified (ICD-10) Essential hypertension ?I10 - Essential (primary) hypertension (ICD-10) Rheumatoid arthritis ?M06.9 - Rheumatoid arthritis, unspecified (ICD-10) Finger infection ?L08.9 - Local infection of the skin and subcutaneous tissue, unspecified (ICD-10) Surgical History (Updated 06/03/24 @ 10:42 by Maddi Shankar MD) Status post total knee replacement, right (01/04/24) ?Z96.651 - Presence of right artificial knee joint (ICD-10) Hx of colonoscopy ?Z98.890 - Other specified postprocedural states (ICD-10) H/O inguinal hernia repair (05/04/15) ?Z98.890 - Other specified postprocedural states (ICD-10) ?Z87.19 - Personal history of other diseases of the digestive system (ICD-10) Social History (Updated 06/02/24 @ 18:51 by Maxine Escobar MD) Narrative: -Nan. Living independently with his . He is managing his own medications. Quit smoking in September 2023. Denies any other tobacco use. He drinks once a month, 2 beers at that setting. No other alcohol use. Denies recreational drug use. What is your current living situation?: I presently have a place to live Problems where you live: no known problems Problems where you live details: n/a In the past 12 months, utilities in danger of being shut off: no In past 12 months, lack of transportation kept you from medical appts, meetings, work, or getting things needed for daily living: no In the past 12 mos, have been you worried that your food would run out before you had money to buy more?: never true In the past 12 mos, the food you bought just didn't last and you didn't have money to buy more?: never true Highest level of school completed/degree received: some college, no degree Smoking Status: Former smoker What tobacco products do you use: cigarettes Smoking packs per day: 0.25 Smoking cigarettes per day: 5.0 Years smoked: 50 Smoking pack-years: 12.50 Smoking quit date/years: <= 15 years ago Do you use any of these nicotine containing products: None Nicotine containing products detail: Quit smoking September 21, 2023 Second hand tobacco smoke exposure: No How often do you have a drink containing alcohol: monthly or less Alcohol type: beer How many standard drinks containing alcohol do you have on a typical day: 1 or 2 How often do you have six or more drinks on one occasion: Never AUDIT-C Alcohol total score: 1 Non-prescribed substance use: denies use Caffeine: Yes How often does anyone, including family, friends and others, physically hurt you : never How often does anyone, including family, friends and others, insult or talk down to you: never How often does anyone, including family, friends and others, threaten you with harm: never How often does anyone, including family, friends and others, scream or curse at you: never service: Yes Meds Home Medications and Allergies Home Medications ?Medication ?Instructions ?Recorded ?Confirmed ?Type hydroxychloroquine 200 mg tablet 400 mg PO HS 09/01/23 06/02/24 History lisinopril 20 mg tablet 20 mg PO DAILY 09/01/23 06/02/24 History naproxen sodium 220 mg tablet 220 mg PO DAILY 09/01/23 06/02/24 History (Aleve) tamsulosin 0.4 mg capsule 0.8 mg PO HS 09/01/23 06/02/24 History aspirin 81 mg tablet,delayed 81 mg PO DAILY 12/22/23 06/02/24 History release (Adult Aspirin Regimen) epinephrine 0.3 mg/0.3 mL 0.3 mg IM ONCE PRN 01/04/24 06/02/24 History injection, auto-injector (EpiPen) methotrexate sodium 2.5 mg tablet 15 mg PO Q7D 01/04/24 06/02/24 History quetiapine 25 mg tablet 12.5 mg PO HS 02/16/24 06/02/24 History Allergies Allergy/AdvReac Type Severity Reaction Status Date / Time Penicillins Allergy Verified 02/16/24 08:23 venom-honey bee Allergy Verified 02/16/24 08:23 mirtazapine AdvReac Nightmare Verified 02/16/24 08:23 Ortho Exam Narrative Exam Narrative: General: Alert and oriented no apparent distress. Musculoskeletal: Lower extremity was examined. Extremity was resting and externally rotated position. Skin overlying the right hip was intact. Sensation was intact to light touch all dermatomes distally. EHL, tibialis anterior, gastrocnemius/soleus are intact. Foot was warm and well perfused with 2+ DP and PT pulses. Const Vital Signs, click to edit/add: Vital Signs - 24 hr 06/02/24 14:40 06/02/24 14:56 06/02/24 15:21 Temperature 98.2 F Pulse Rate 68 Pulse Rate [Pulse Oximeter] 66 Respiratory Rate 16 Blood Pressure [Left Arm] Blood Pressure [Right Arm] Blood Pressure [Right Upper Arm] 127/86 Pulse Oximetry 96 93 92 Oxygen Delivery Method Room Air 06/02/24 15:30 06/02/24 15:45 06/02/24 16:00 Temperature Pulse Rate 70 77 67 Pulse Rate [Pulse Oximeter] Respiratory Rate 18 Blood Pressure [Left Arm] Blood Pressure [Right Arm] Blood Pressure [Right Upper Arm] Pulse Oximetry 92 94 94 Oxygen Delivery Method 06/02/24 16:15 06/02/24 17:54 06/02/24 17:54 Temperature 97.8 F Pulse Rate 67 Pulse Rate [Pulse Oximeter] 68 Respiratory Rate 20 20 Blood Pressure [Left Arm] Blood Pressure [Right Arm] 147/93 H Blood Pressure [Right Upper Arm] Pulse Oximetry 93 94 94 Oxygen Delivery Method Room Air Room Air 06/02/24 19:00 06/02/24 23:00 06/02/24 23:00 Temperature 97.4 F L 98.3 F Pulse Rate Pulse Rate [Pulse Oximeter] 75 75 73 Respiratory Rate 18 18 16 Blood Pressure [Left Arm] Blood Pressure [Right Arm] 146/90 H 140/83 H Blood Pressure [Right Upper Arm] Pulse Oximetry 97 92 Oxygen Delivery Method Room Air Room Air 06/02/24 23:00 06/03/24 03:00 06/03/24 07:49 Temperature 98.3 F 97.9 F Pulse Rate 78 Pulse Rate [Pulse Oximeter] 79 75 Respiratory Rate 18 18 Blood Pressure [Left Arm] Blood Pressure [Right Arm] 153/89 H 141/85 H Blood Pressure [Right Upper Arm] Pulse Oximetry 95 96 Oxygen Delivery Method Room Air Room Air 06/03/24 11:35 Temperature 98.2 F Pulse Rate Pulse Rate [Pulse Oximeter] 76 Respiratory Rate 18 Blood Pressure [Left Arm] 136/99 H Blood Pressure [Right Arm] Blood Pressure [Right Upper Arm] Pulse Oximetry 96 Oxygen Delivery Method Room Air Results Labs Labs: Laboratory Results - last 48 hr 06/02/24 06/03/24 15:40 06:12 WBC 8.05 8.72 RBC 3.87 L 3.74 L Hgb 12.6 L 12.2 L Hct 38.8 37.3 MCV 100 100 MCH 33 33 MCHC 33 33 RDW Coeff of Raj 14.2 14.4 Plt Count 151 145 Neut % (Auto) 83.6 H 80.7 H Lymph % (Auto) 7.6 L 8.1 L [place] % (Auto) 7.1 10.4 Eos % (Auto) 0.9 0.2 Baso % (Auto) 0.2 0.1 Neut # (Auto) 6.70 7.00 Lymph # (Auto) 0.60 L 0.70 L [place] # (Auto) 0.60 0.90 Eos # (Auto) 0.07 0.02 Baso # (Auto) 0.02 0.01 Abs Immat Gran (auto) 0.05 0.04 Imm/Tot Granulo (auto) 0.6 0.5 INR 1.08 APTT 28 Sodium 138 135 Potassium 3.7 3.9 Chloride 109 108 Carbon Dioxide 23 22 Anion Gap 6 L 5 L BUN 29 25 Creatinine 1.1 1.1 Estimated Creat Clear 59.91 Estimated GFR 70 70 Glucose 126 H 116 H Calcium 8.8 8.6 Total Bilirubin 1.6 H 2.8 H AST 34 30 ALT 36 32 Alkaline Phosphatase 106 88 Troponin I < 0.01 L Total Protein 5.8 L 5.9 L Albumin 3.6 3.6 Assessment and Plan Assessment and plan (1) Closed fracture of right hip: Problem comment: - plan for surgical repair with Orthopedic surgery team on 06/03/2024 around 1pm - reassuring EKG and chest x-ray, recently had knee replacement without difficulty, asymptomatic CAD, METs > 4, h/o AGUSTÍN noted - chronic conditions appear optimized at this time for urgent intervention - Start IVF for hypovolemia secondary to probable blood loss from traumatic hip fracture and NPO in anticipation of surgery - Start bowel regimen in setting of narcotic pain medications Status: Acute Assessment and Plan: Patient has a displaced intratrochanteric fracture of the right hip. Risks and benefits of operative treatment and alternatives to surgery were discussed with the patient. Recommendation was subsequently made for surgical intervention consisting of right hip closed reduction internal fixation with a cephalomedullary hip screw to allow for early mobilization and advancement of weight-bearing, decreased pain, and healing of the fracture. Risks of surgery to include, but not limited to, infection, neurovascular injury, malunion, nonunion, hip avascular necrosis, deep vein thrombosis, pulmonary embolism, heart attack, stroke, and even were discussed with the patient. All of their questions were answered. After discussion, they were in agreement with plan to proceed with surgery. Patient has been admitted to the hospitalist service for perioperative medical management. He has been medically optimized and cleared for the planned surgical procedure . He is to remain on bedrest with plan for surgery later today. He has been NPO since midnight for anticipated surgery. Total time spent: Total time spent is greater than 50% in coordination of care (as documented) at patient's floor/unit and/or counseling patient: (2) Fall: Problem comment: - PT/OT to assess after ORIF right hip Status: Acute Total time spent: Total time spent is greater than 50% in coordination of care (as documented) at patient's floor/unit and/or counseling patient: (3) Cognitive impairment: Problem comment: - Atypical, slow onset with some parkinsonian features, able to make own decisions at this time - follows with Dr. Barrow from [facility] - history of visual hallucinations, improved on HS Seroquel - monitor closely for Status: Chronic Total time spent: Total time spent is greater than 50% in coordination of care (as documented) at patient's floor/unit and/or counseling patient: (4) Rheumatoid arthritis: Problem comment: - On methotrexate (takes Mondays) and hydroxychloroquine - will hold both at this time Status: Chronic Total time spent: Total time spent is greater than 50% in coordination of care (as documented) at patient's floor/unit and/or counseling patient: (5) Essential hypertension: Problem comment: - current blood pressure 120s/80s - hold home medications, restart postoperatively when blood pressure is appropriate Status: Chronic Total time spent: Total time spent is greater than 50% in coordination of care (as documented) at patient's floor/unit and/or counseling patient: (6) AGUSTÍN (obstructive sleep apnea): Problem comment: 12/31/2016, 15.8 Status: Chronic Total time spent: Total time spent is greater than 50% in coordination of care (as documented) at patient's floor/unit and/or counseling patient: (7) Coronary artery disease involving [place] coronary artery without angina pectoris: Problem comment: - Asymptomatic. Hold daily aspirin today, restart after surgery. Holding lisinopril for today and restart after surgery as BP allows. Monitor on telemetry overnight. Status: Chronic Total time spent: Total time spent is greater than 50% in coordination of care (as documented) at patient's floor/unit and/or counseling patient:
--- NOTE | 2024-06-03 13:30 | CRLHL7_ITS ---
For Patients: As a result of the Cures Act, medical imaging exams and procedure reports are released immediately into your electronic medical record. You may view this report before your referring provider. If you have questions, please contact your health care provider. Indication: FEMUR RODDING Technique: Four fluoroscopic images of the right hip. Fluoroscopic time 132.1 seconds. IMPRESSION: Fluoroscopic guidance for open reduction internal fixation right proximal femoral fracture. Dictated by David Brantley MD @ 06/06/2024 8:30:48 AM (Electronically Signed)
--- NOTE | 2024-06-03 13:32 | PM.ORPRC ---
Procedure Note Date of procedure: 06/03/24 Procedure: PREOPERATIVE DIAGNOSIS: 1. Right intertrochanteric hip fracture, closed, displaced POSTOPERATIVE DIAGNOSES: 1. Right femur intertrochanteric femur fracture, closed PROCEDURE: 1. Right intertrochanteric hip fracture fixation with cephalomedullary hip screw 2. 62364 - Intraoperative fluoroscopy up to 1 hour SURGEON: Jonathan Israel MD CNC MILLING MACHINE OPERATOR: Sina Ramos P.A.-C. An assistant front office manager was critical for this case to aide in patient positioning, suture manipulation, arm positioning, instrument positioning, and closure. ANESTHESIA: Spinal anesthetic IMPLANTS: Synthes short TFNA nail: 12 mm X 170 mm x 130 degrees. One hundred five mm leg screw. Single 5.0 mm distal interlocking screw EBL: 150 ml COMPLICATIONS: None evident INDICATIONS: Jamal is a 74-year-old male who sustained a ground level fall yesterday, which resulted in development of right hip pain and inability to bear weight. He was subsequently brought to the emergency department, where radiographic imaging revealed a displaced right intertrochanteric hip fracture. Surgical stabilization of this fracture was recommended to allow for early mobilization and advancement of weight-bearing, decreased pain, and healing of the fracture. Prior to procedure, risks and benefits of the operative and non operative treatment were discussed with the patient. After discussion of risks, benefits, and alternatives of surgery, informed consent was obtained and the operative hip was marked. FINDINGS: Displaced right intertrochanteric hip fracture. PROCEDURE: After obtaining proper medical evaluation determining the patient was medically optimized for surgery, he was brought to the operating room and placed supine on the operating table. Induction of spinal anesthesia undertaken. 2 g IV Ancef was administered within 1 hr incision preoperatively. The patient was then positioned on the [place] table, and all bony prominences were well padded. Closed reduction was performed. Fluoroscopic imaging was utilized to obtain AP and lateral views of the hip and to confirm reduction of the fracture. The operative extremity was then prepped and draped in usual sterile fashion using ChloraPrep. A surgical time-out was performed confirming patient identity, surgical site, and surgical procedure. A longitudinal incision was made in line with the femur proximal to the greater trochanter. Incision was carried through subcutaneous tissues. Gluteal fascia was split in line with surgical incision. The tip of the greater trochanter was palpated and the guide pin was then placed into the medial tip of the greater trochanter and advanced into the proximal femur. Correct position of the guide pin was confirmed with fluoroscopy in both the AP and lateral planes. This was then overdrilled with the starting Reamer. The guide pin was then removed. A short TFNA nail was then placed into the intramedullary canal of the femur and seated to the correct depth using fluoroscopic guidance. The triple trocar was then applied to the lateral femur, 10 blade incision through the skin and ITB band along the trocars to be opposed against the lateral cortex. This was confirmed fluoroscopically to be in appropriate position. The 3.2 mm guide pin was then placed and position confirmed on AP and lateral views with the goal of center center position. The initial guide pin measured for a 105 mm lag screw. Guide pin was then overdrilled and a 105 mm screw was secured into position. Screw was then compressed further reducing the fracture. The proximal nail locking screw was tightened down to lock the nail in a static position.. We then turned our attention to placement of the the distal interlocking screw. The guide for the distal interlock screw was placed on the lateral cortex of the femur after making a small stab incision. The distal interlock hole was drilled with the 4.2 mm drill bit and filled with a distal interlock screw, which measured 40 mm. Final fluoroscopic images of the proximal femur were obtained in AP and lateral planes confirming near anatomic reduction of the fracture and satisfactory placement of the nail and screws. At this stage, the wounds were thoroughly irrigated normal saline. Wound closure was performed with 0 Vicryl for the deep gluteal fascia, and IT band. 2-0 Vicryl, 2-0 Stratafix, and 4-0 Monocryl was utilized for subcutaneous and subcuticular closure, respectively. Sterile dressings were applied. The patient was awoken from anesthesia and transferred to the PACU in stable condition. POSTOPERATIVE PLAN: 1. Patient will be readmitted to the hospitalist service for perioperative medical management. 2. Mobilize with physical therapy and occupational therapy. - Weight bear as tolerated right lower extremity. 3. Pain control: - Acetaminophen and Oxycodone for pain as needed. -IV pain medications for breakthrough pain -Ice for pain and swelling 4. Postoperative prophylactic antibiotics x2 doses 5. DVT prophylaxis: - aspirin 81 mg b.i.d.. for 35 days - SCDs bilateral lower extremities 6. Follow-up in Orthopedic Clinic in 2 weeks.
[2024-06-03] MEDS: fentaNYL 100 MCG/2 ML inj IVP (13:33)
[2024-06-03] MEDS: MIDAZOLAM HCL 1 MG/ML inj IVP (13:33)
--- NOTE | 2024-06-03 13:45 | P.NB_ITS ---
Nerve Block Nerve Block Time Seen by Provider: :34 Date Seen: 06/03/24 Type of block requested by surgeon for post-operative analgesia: ERIBERTO/LFCN Side: right Time out performed: Yes Verification of patient name: Yes Verification of date of : Yes Site marking: site marked Name of person performing procedure: Gary Continuous monitoring Was continuous monitoring of O2 sat, B/P, cancer genetics assistant, recorded every 15 minutes?: Yes Procedure Checklist: sterile prep, needles and gloves Ultrasound guided. Images saved: Yes Medications given in 5ml increments after negative aspiration: Ropivicaine %: 0.5 mL: 30 Needle gauge: 20 Precedex (mcg): 25 Patient tolerated procedure well: Yes Additional comments: Needle noted below psoas tendon needle noted adjacent to LFCN Block Charges Block Charge (with Pro Fee): Other Periph Nerve Block Use of Ultrasound Machine for Block: Yes- US Guidance/pain block
--- NOTE | 2024-06-03 13:50 | SUR.PREOP ---
TIME?OUT:?1333 PT/RN/MDA?VERIFICATION?OF?SURGICAL?SITE,?PROCEDURE,?AND?CONSENT OBTAINED?PRIOR?TO?INVASIVE?PROCEDURE.
[2024-06-03] MEDS: CEFAZOLIN 2 GM INJ IVP (14:31)
--- NOTE | 2024-06-03 16:24 | P.ANES_ITS ---
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
--- NOTE | 2024-06-03 16:24 | W.ANESCHARGE ---
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
[2024-06-03] MEDS: OLANZapine 5 MG/ML inj IVP (16:55)
--- NOTE | 2024-06-03 16:59 | SUR.PHASEI ---
patient got agitated upon wakeup and was pulling at IV and renee and was attempting to get out of bed, patient confused and not oriented to person, place, or situation. RN called DIRECTOR EXECUTIVE COMMUNICATIONS to assist with patient but patient continued with agitation. Called [facility] to update that patient was stable with vital signs but needed more staff assist upon arrival. Patient met pacu d/c criteria
[2024-06-03] MEDS: MORPHINE 4 MG/ML INJ IVP ×2 (17:45→19:43)
--- NOTE | 2024-06-03 18:59 | PC.NURSE ---
shift note: pt returned from PACU @ 1700 via bed and was disoriented/agitated pulling at IV and renee. Dr. Jin and charge nurse at bedside reorienting pt and assisting with safety. Pt states I'm going home Let me go Don't poke me with needles. Pt's at bedside. Pt received Zyprexa IV and became slightly less restless but continued to be disoriented. Pt received 4 mg Morphine IV and within 1 hour after admin he was sleeping. Security at bedside 1:1 for pt safety. IV patent x2. renee patent. Rt thigh drsg c/d/i with +PP and warm digits.
--- NOTE | 2024-06-03 19:38 | W.PM.CROSSCO ---
Subjective Subjective Date Seen: 06/03/24 Principal diagnosis: Delirium Interval history: 74-year-old male admitted to the hospital with right hip fracture. Taken to the OR today for he underwent ORIF of an inter trochanteric femur fracture by Dr. Israel. No operative complications. Following the surgery he became agitated in the recovery area. He was brought to the floor where he continued to be confused and agitated. He was attempting to remove his Doe catheter, IV catheters and to get out of bed. Verbalizing paranoid thoughts. Requiring restraint by staff holding him to prevent self-harm. Preop evaluation did not show any other acute illness. Vital sign monitoring was unremarkable. Reviewing his past history I note that he has been followed by Dr. Barrow of Neurology for dementia. Because the patient has some parkinsonian symptoms he is suspected to have Lewy body dementia. He was started on Seroquel 12.5 mg at bedtime which according to his seemed to help somewhat. Prior to that he was treated with Aricept which caused worsening hallucinations. He continues to have some hallucinations at home. His reports he has never been severely delirious and agitated at home like he is in the hospital today. Objective Objective Data Details: He is agitated. He is not oriented to his circumstances and refuses to engage in conversation. He is telling staff that he wants to get up out of bed and go home. Not responding to any verbal interventions by staff including re orientation and reassurance. He is accusing staff of trying to hurt him. His is also present for much of this agitation and he is not responding well to her requests and reassurance. He moves all 4 extremities well. Breathing is unlabored. Vital signs are normal. Assessment and Plan Assessment and plan (1) Delirium: Problem comment: Patient appears to have hospital-acquired delirium in the context of hip fracture and surgery today. Underlying susceptibility delirium from dementia, possibly Lewy body dementia. Status: Acute (2) Closed fracture of right hip: Problem comment: - plan for surgical repair with Orthopedic surgery team on 06/03/2024 around 1pm - reassuring EKG and chest x-ray, recently had knee replacement without difficulty, asymptomatic CAD, METs > 4, h/o AGUSTÍN noted - chronic conditions appear optimized at this time for urgent intervention - Start IVF for hypovolemia secondary to probable blood loss from traumatic hip fracture and NPO in anticipation of surgery - Start bowel regimen in setting of narcotic pain medications Status: Acute (3) Dementia: Problem comment: Possibly Lewy body dementia Status: Acute Plan For safety patient is initially given Zyprexa. With this he much improves and staff for known longer needing to restrain him from pulling out catheters and getting out of bed. Eventually falls asleep and is resting comfortably. Continue in hospital until delirium clears and he is able to cooperate with cares, participate in therapy and deemed safe to go home with his . Total Time Spent Total Time Spent: Total time spent today is 50 minutes in evaluation, assisting staff with restraining the patient for safety, evaluation, discussing with past history and current delirium.
[2024-06-03] MEDS: CEFAZOLIN 2 GM in 0.9 % SODIUM CHLORIDE Mini-bag 100 ML IVPB (21:13)
[2024-06-03] MEDS: ASPIRIN 81 MG TABLET EC PO (21:16)
[2024-06-03] MEDS: QUETIAPINE 25 MG TABLET PO (21:17)
[2024-06-03] MEDS: SENNOSIDES/DOCUSATE TABLET 2 TAB PO (21:17)
[2024-06-03] MEDS: ACETAMINOPHEN 325 MG TABLET 975 MG PO (21:38)
[2024-06-04] VITALS (11 sets, daily range): BP systolic 115–146; BP diastolic 69–91; PULSE 73–95; RESP 18–20; TEMP 37.5–38.6; O2SAT 92–94
[2024-06-04] MEDS: MORPHINE 4 MG/ML INJ IVP (00:43)
[2024-06-04] MEDS: CEFAZOLIN 2 GM in 0.9 % SODIUM CHLORIDE Mini-bag 100 ML IVPB ×2 (04:43→12:59)
[2024-06-04 05:55] LABS: Hematocrit 33.6 % (37.0-53.0); Hemoglobin* 10.9 gm/dL (13.5-17.5); Mean Corpuscular HGB Conc 32 gm/dL (32-36); Mean Corpuscular Hemoglobin 33 pg (26-34); Mean Corpuscular Volume 100 fL (80-100); Platelet Count* 116 K/uL (140-440); Red Blood Count 3.35 m/uL (4.30-5.90); White Blood Count* 10.92 K/uL (4.50-11.00)
[2024-06-04 06:01] LABS: Slide Review Reflex No
--- NOTE | 2024-06-04 06:41 | PC.NURSE ---
Shift note: Patient has been confused when awake. He will respond my leg hurt when asked about pain. PRN Morphine and oxycodone were effective. No aggression noted. However, pt had restless arm movement and pick on everything including the Doe and the tele wires. Bp was high at the start of the shift but gradually returned to normal. He has been most of the shift. Pt has been in bed throughout the shift. BRAN 1 on 1 from 1930 to 0. Pt was able to swallow pills whole with water.
[2024-06-04 07:56] LABS: Chloride* 108 mmol/L (96-114); Potassium* 3.8 mmol/L (3.6-5.1); Sodium* 137 mmol/L (135-149)
[2024-06-04 07:59] LABS: Anion Gap 5 mEq/L (7-15); Blood Urea Nitrogen* 29 mg/dL (7-30); Calcium* 8.1 mg/dL (8.4-10.6); Carbon Dioxide* 24 mmol/L (20-32); Creatinine* 1.3 mg/dL (0.5-1.5); Est. Creatinine Clearance* 50.69; Estimated Glomerular Filt Rate 57 ml/min; Glucose* 104 mg/dL (60-115)
[2024-06-04] MEDS: ASPIRIN 81 MG TABLET EC PO ×2 (09:02→20:49)
[2024-06-04] MEDS: SODIUM CHLORIDE 0.9 % (FLUSH) 10 ML SYRINGE 5 ML IVF ×3 (09:02→20:50)
[2024-06-04 09:17] LABS: Bilirubin Direct* 0.6 mg/dL (0.0-0.5); Total Protein* 5.3 g/dL (6.0-8.3)
[2024-06-04 09:18] LABS: Alanine Aminotransferase* 23 U/L (4-50); Alkaline Phosphatase* 71 U/L (40-150); Aspartate Amino Transferase* 32 U/L (12-35)
[2024-06-04 09:23] LABS: Bilirubin Total* 3.2 mg/dL (0.1-1.5)
--- NOTE | 2024-06-04 09:30 | PM.ORPN ---
Subjective Subjective Time Seen by Provider: 09:30 Date Seen: 06/04/24 Principal diagnosis: Day 1 s/p right intertrochanteric hip fracture fixation Interval history: Jamal is resting comfortably in his bed. , Licha, is present during our visit. Jamal's pain is well managed with rest, ice, acetaminophen and morphine. Most recent narcotic dose was 9 hours ago and he is doing well. C/o moderate right hip pain, 4 out of 10, that worsens with shifting in bed. He has not yet ambulated since his surgery. Patient is alert to place and somewhat to time as well. When asked what day it is, Jamal responded with Thursday the which was yesterday. Jamal denies postop chest pain, SOB and numbness distally. Admits to intermittent tingling and decreased sensation in his right foot, but explains this is not new and improves with position changes. Denies postop bowel movement, but admits to gas. Overnight, patient was delirious and required 2 person restraints. This morning, he is doing better. Ortho Exam Narrative Exam Narrative: Incision/Dressing: Dressings x 2 appear clean and dry. No drainage present. Mepilex intact. Right hip appears moderately swollen but supple with no obvious erythema, fluctuance or excessive warmth. No ecchymosis or erythematous streaking. Warmth around the wound is appropriate. Ice is being utilized as needed. CMS: Intact distally with 2+ Dorsalis pedis and Posterior Tibial pulses. Confirmed sensation distally. Calf: Bilateral calves are supple, with no swelling, pain, tenderness, erythema, discoloration or coolness to the touch. Constitutional: Patient is alert and oriented to person and place. Not oriented to time. Patient is in no acute distress and converses without labored breathing. Patient is pleasant and cooperative. Affect is full range and appropriate for the circumstances. Const Vital Signs, click to edit/add: Vital Signs - 24 hr 06/03/24 11:35 06/03/24 13:33 06/03/24 16:06 Temperature 98.2 F 98.4 F Pulse Rate 79 66 Pulse Rate [Pulse Oximeter] 76 Respiratory Rate 18 18 13 Blood Pressure 157/100 H 91/61 Blood Pressure [Left Arm] 136/99 H Blood Pressure [Right Arm] Pulse Oximetry 96 96 93 Oxygen Delivery Method Room Air Nasal Cannula Room Air 06/03/24 16:10 06/03/24 16:15 06/03/24 16:20 Temperature Pulse Rate 62 61 56 L Pulse Rate [Pulse Oximeter] Respiratory Rate 14 16 17 Blood Pressure 91/65 95/64 110/72 Blood Pressure [Left Arm] Blood Pressure [Right Arm] Pulse Oximetry 93 94 94 Oxygen Delivery Method 06/03/24 16:25 06/03/24 16:30 06/03/24 17:00 Temperature 96.4 F L Pulse Rate 70 71 Pulse Rate [Pulse Oximeter] Respiratory Rate 16 16 22 Blood Pressure 119/85 126/116 H Blood Pressure [Left Arm] 144/123 H Blood Pressure [Right Arm] Pulse Oximetry 95 96 Oxygen Delivery Method 06/03/24 17:00 06/03/24 17:00 06/03/24 17:15 Temperature 96.4 F L 96.4 F L 96.4 F L Pulse Rate 153 H 153 H 97 Pulse Rate [Pulse Oximeter] Respiratory Rate 22 22 20 Blood Pressure 126/116 H 144/123 H Blood Pressure [Left Arm] Blood Pressure [Right Arm] Pulse Oximetry 96 Oxygen Delivery Method Room Air Room Air Room Air 06/03/24 17:30 06/03/24 17:45 06/03/24 19:00 Temperature 96.4 F L 96.4 F L 99.5 F Pulse Rate 73 71 86 Pulse Rate [Pulse Oximeter] Respiratory Rate 22 20 20 Blood Pressure 140/97 H 142/88 H 155/89 H Blood Pressure [Left Arm] Blood Pressure [Right Arm] Pulse Oximetry 97 94 Oxygen Delivery Method Room Air Room Air Room Air 06/03/24 19:00 06/03/24 19:30 06/03/24 20:00 Temperature 99.5 F 99 F 99 F Pulse Rate 86 86 Pulse Rate [Pulse Oximeter] 84 Respiratory Rate 20 20 20 Blood Pressure 152/91 H 146/89 H Blood Pressure [Left Arm] Blood Pressure [Right Arm] 155/91 H Pulse Oximetry 94 95 95 Oxygen Delivery Method Room Air Room Air Room Air 06/03/24 21:00 06/03/24 22:00 06/03/24 22:31 Temperature 98.9 F 99 F Pulse Rate 83 97 Pulse Rate [Pulse Oximeter] Respiratory Rate 20 20 20 Blood Pressure 137/88 149/85 H Blood Pressure [Left Arm] Blood Pressure [Right Arm] Pulse Oximetry 95 95 Oxygen Delivery Method Room Air Room Air 06/03/24 22:31 06/03/24 22:31 06/03/24 23:00 Temperature 99 F 98.4 F Pulse Rate 102 H Pulse Rate [Pulse Oximeter] 97 Respiratory Rate 20 20 20 Blood Pressure 130/84 Blood Pressure [Left Arm] Blood Pressure [Right Arm] 149/85 H Pulse Oximetry 95 95 94 Oxygen Delivery Method Room Air Room Air Room Air 06/03/24 23:00 06/04/24 03:00 06/04/24 07:52 Temperature 99.7 F H 99.5 F Pulse Rate 101 H Pulse Rate [Pulse Oximeter] 87 74 Respiratory Rate 20 20 Blood Pressure Blood Pressure [Left Arm] 122/74 Blood Pressure [Right Arm] 115/69 Pulse Oximetry 94 93 Oxygen Delivery Method Room Air Room Air Assessment and Plan Assessment and plan (1) Closed fracture of right hip: Problem details: Day 1 s/p right intertrochanteric hip fracture fixation. DOS: 06/03/24; Dr. Israel. Status: Acute Assessment and Plan: - I anticipate Jamal will require SNF placement upon discharge. Jamal's also explains she is leaving the [facility] for 1 week and will be returning early June. - Mepilex dressings will remain in place x 1 week and will be removed by nursing staff at SNF. Dressing is waterproof. May shower. Surgical glue covers the wound. - Weight bear as tolerated with walker for assistance. - For pain management, recommend ice, elevation, Tylenol and Oxycodone PRN. ? - For DVT prophylaxis: aspirin 81 mg BID x 35 days. Also recommend ankle pumps when sedentary and frequent ambulation. - Notify Orthopedics with any questions or concerns. ([phone])
[2024-06-04] MEDS: OXYCODONE 5 MG TABLET PO (10:00)
[2024-06-04 11:47] LABS: Lactate* 1.7 mmol/L (0.5-1.9)
[2024-06-04 13:24] LABS: Appearance Urine Cloudy (Clear); Bilirubin Urine Negative (Negative); Blood Urine 3+ (Negative); Color Urine Orange (Yellow); Glucose Urine Negative (Negative); Ketones Urine Negative (Negative); Leukocyte Esterase Urine 3+ (Negative); Nitrite Urine Negative (Negative); Protein Urine 2+ (Negative); Specific Gravity Urine 1.025 (1.000-1.030); Urobilinogen Urine 0.2 (0.2-1.0); pH Urine 5.5 (5.0-8.5)
[2024-06-04 13:57] LABS: Bacteria Urine Many; RBC Urine >100 (0-2); Squamous Epithelial Cell Urine Few (None-Few); WBC Urine >100 (0-5)
--- NOTE | 2024-06-04 14:33 | PM.IMPN1 ---
Progress Note: A&P Assessment and plan (1) Delirium: Problem details: Patient appears to have hospital-acquired delirium in the context of hip fracture and surgery today. Underlying susceptibility delirium from dementia, possibly Lewy body dementia. Status: Acute (2) Closed fracture of right hip: Problem details: Day 1 s/p right intertrochanteric hip fracture fixation. DOS: 06/03/24; Dr. Israel. Status: Acute (3) Dementia: Problem details: Possibly Lewy body dementia Status: Acute (4) Rheumatoid arthritis: Problem details: - On methotrexate (takes Mondays) and hydroxychloroquine - will hold both at this time Status: Chronic (5) Indirect hyperbilirubinemia: Problem details: Continue to follow. Suspect hemolysis? Status: Acute (6) Fever: Problem details: Postop hip fracture. Culture urine and blood and monitor. Initiate antibiotics for evidence of infection. Status: Acute Plan 74-year-old male admitted to the hospital with hip fracture now status post hip fracture surgery. Tears complicated by delirium and underlying dementia, the development of fever and hyperbilirubinemia. Background medical problems of heart disease and sleep apnea inflammatory arthritis. Plan of care is discussed with patient his and other providers. Total time spent today is 55 minutes in evaluation and management, review of records and discussing with patient and . Subjective Date Seen: 06/04/24 Interval history: David Tapia is a 74 year old male who presented to the emergency room by EMS this afternoon after a mechanical fall while walking outside with his . No preceding dizziness or lightheadedness, did not hit head. Per is acting normally. 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 Has been on Seroquel 12.5 mg at bedtime which the thinks has been helpful for hallucinations. After surgery and recovery and on arrival to the floor he was having hyperactive delirium with a lot of agitation. Required 2 staff people to restrain his arm so that he did not hurt them or himself, pull lines or catheters or get out of bed to fall. This morning he is pleasant and cooperative, not delirious but still confused/forgetful about his current circumstances. He did poorly getting up to walk with therapy today. Today he had a fever. Also noted to have elevated bilirubin. He is not having abdominal pain. Suspect these are from hip fracture/hemolysis. Continue to monitor and evaluate. Exam Narrative: Exam Narrative: Is pleasant cooperative and confused. Respirations are clear to auscultation. Cardiovascular: S1, S2, regular rate and rhythm. Abdomen is soft without tenderness. Moderate swelling around his hip. No erythema. Moves all 4 extremities fairly well. No edema Const: Vital Signs, click to edit/add: Vital Signs - 24 hr 06/03/24 16:06 06/03/24 16:10 06/03/24 16:15 Temperature 98.4 F Pulse Rate 66 62 61 Pulse Rate [Pulse Oximeter] Respiratory Rate 13 14 16 Blood Pressure 91/61 91/65 95/64 Blood Pressure [Le ft Arm] Blood Pressure [Ri ght Arm] Pulse Oximetry 93 93 94 Oxygen Delivery Me thod Room Air 06/03/24 16:20 06/03/24 16:25 06/03/24 16:30 Temperature Pulse Rate 56 L 70 71 Pulse Rate [Pulse Oximeter] Respiratory Rate 17 16 16 Blood Pressure 110/72 119/85 126/116 H Blood Pressure [Le ft Arm] Blood Pressure [Ri ght Arm] Pulse Oximetry 94 95 96 Oxygen Delivery Me thod 06/03/24 17:00 06/03/24 17:00 06/03/24 17:00 Temperature 96.4 F L 96.4 F L 96.4 F L Pulse Rate 153 H 153 H Pulse Rate [Pulse Oximeter] Respiratory Rate 22 22 22 Blood Pressure 126/116 H Blood Pressure [Le ft Arm] 144/123 H Blood Pressure [Ri ght Arm] Pulse Oximetry 96 Oxygen Delivery Me thod Room Air Room Air 06/03/24 17:15 06/03/24 17:30 06/03/24 17:45 Temperature 96.4 F L 96.4 F L 96.4 F L Pulse Rate 97 73 71 Pulse Rate [Pulse Oximeter] Respiratory Rate 20 22 20 Blood Pressure 144/123 H 140/97 H 142/88 H Blood Pressure [Le ft Arm] Blood Pressure [Ri ght Arm] Pulse Oximetry 97 Oxygen Delivery Me thod Room Air Room Air Room Air 06/03/24 19:00 06/03/24 19:00 06/03/24 19:30 Temperature 99.5 F 99.5 F 99 F Pulse Rate 86 86 Pulse Rate [Pulse Oximeter] 84 Respiratory Rate 20 20 20 Blood Pressure 155/89 H 152/91 H Blood Pressure [Le ft Arm] Blood Pressure [Ri ght Arm] 155/91 H Pulse Oximetry 94 94 95 Oxygen Delivery Me thod Room Air Room Air Room Air 06/03/24 20:00 06/03/24 21:00 06/03/24 22:00 Temperature 99 F 98.9 F 99 F Pulse Rate 86 83 97 Pulse Rate [Pulse Oximeter] Respiratory Rate 20 20 20 Blood Pressure 146/89 H 137/88 149/85 H Blood Pressure [Le ft Arm] Blood Pressure [Ri ght Arm] Pulse Oximetry 95 95 95 Oxygen Delivery Me thod Room Air Room Air Room Air 06/03/24 22:31 06/03/24 22:31 06/03/24 22:31 Temperature 99 F Pulse Rate Pulse Rate [Pulse Oximeter] 97 Respiratory Rate 20 20 20 Blood Pressure Blood Pressure [Le ft Arm] Blood Pressure [Ri ght Arm] 149/85 H Pulse Oximetry 95 95 Oxygen Delivery Me thod Room Air Room Air 06/03/24 23:00 06/03/24 23:00 06/04/24 03:00 Temperature 98.4 F 99.7 F H Pulse Rate 102 H 101 H Pulse Rate [Pulse Oximeter] 87 Respiratory Rate 20 20 Blood Pressure 130/84 Blood Pressure [Le ft Arm] Blood Pressure [Ri ght Arm] 115/69 Pulse Oximetry 94 94 Oxygen Delivery Me thod Room Air Room Air 06/04/24 07:26 06/04/24 07:42 06/04/24 07:52 Temperature 99.5 F Pulse Rate 73 Pulse Rate [Pulse Oximeter] 74 Respiratory Rate 20 20 Blood Pressure Blood Pressure [Le ft Arm] 122/74 Blood Pressure [Ri ght Arm] Pulse Oximetry 92 93 Oxygen Delivery Me thod Room Air Room Air 06/04/24 11:00 Temperature 101.5 F H Pulse Rate Pulse Rate [Pulse Oximeter] 93 Respiratory Rate 20 Blood Pressure Blood Pressure [Le ft Arm] 142/85 H Blood Pressure [Ri ght Arm] Pulse Oximetry 92 Oxygen Delivery Me thod Room Air Documenting provider has reviewed patient's vital signs: yes Labs Labs: Laboratory Results - last 24 hr 06/04/24 06/04/24 06/04/24 05:30 07:42 09:05 WBC 10.92 RBC 3.35 L Hgb 10.9 L Hct 33.6 L MCV 100 MCH 33 MCHC 32 Plt Count 116 L Sodium 137 Potassium 3.8 Chloride 108 Carbon Dioxide 24 Anion Gap 5 L BUN 29 Creatinine 1.3 Estimated Creat Clear 50.69 Estimated GFR 57 Glucose 104 Lactate Calcium 8.1 L Total Bilirubin 3.2 H Direct Bilirubin 0.6 H AST 32 ALT 23 Alkaline Phosphatase 71 Total Protein 5.3 L Albumin 3.0 L Urine Color Urine Appearance Urine pH Ur Specific [place] Urine Protein Urine Glucose (UA) Urine Ketones Urine Blood Urine Nitrite Urine Bilirubin Urine Urobilinogen Ur Leukocyte Esterase Urine RBC Urine WBC Ur Squamous Epith Cells Urine Bacteria Lab Acknowledgement Test Added Test Added 06/04/24 06/04/24 11:10 13:18 WBC RBC Hgb Hct MCV MCH MCHC Plt Count Sodium Potassium Chloride Carbon Dioxide Anion Gap BUN Creatinine Estimated Creat Clear Estimated GFR Glucose Lactate 1.7 Calcium Total Bilirubin Direct Bilirubin AST ALT Alkaline Phosphatase Total Protein Albumin Urine Color [place] A Urine Appearance Cloudy A Urine pH 5.5 Ur Specific [place] 1.025 Urine Protein 2+ A Urine Glucose (UA) Negative Urine Ketones Negative Urine Blood 3+ A Urine Nitrite Negative Urine Bilirubin Negative Urine Urobilinogen 0.2 Ur Leukocyte Esterase 3+ A Urine RBC >100 A Urine WBC >100 A Ur Squamous Epith Cells Few Urine Bacteria Many A Lab Acknowledgement
--- NOTE | 2024-06-04 18:41 | PC.NURSE ---
Pt alert to self with confusion throughout the day. Pt had a fever during shift see VS. Pt had complaints of pain ranging 0-4, see EMAR for intervention. Pt unable to transfer during shift. Pt assist of two in bed with turning and bedpan. Pt?s at bedside on and off during shift. Pt bladder scanned at 1400 result was 318; MD notified. Per MD do not straight cath Pt until bladder is at 500, encourage Pt to use urinal. Pt bladder scanned at 1830 highest scan volume was 398. Pt needs set up with meals.?
[2024-06-04] MEDS: TAMSULOSIN HCL 0.4 MG CAPSULE 0.8 MG PO (20:49)
[2024-06-04] MEDS: SENNOSIDES/DOCUSATE TABLET 2 TAB PO (20:49)
[2024-06-04] MEDS: QUETIAPINE 25 MG TABLET PO (20:49)
--- NOTE | 2024-06-04 21:22 | PC.NURSE ---
Procedure note: Bladder scan done at 2100 was 601ml. Straight catheter done, drained 650ml. Scheduled Tamsulosin given.
[2024-06-04] MEDS: ACETAMINOPHEN 325 MG TABLET 975 MG PO (22:34)
[2024-06-05] VITALS (10 sets, daily range): BP systolic 106–126; BP diastolic 72–88; PULSE 79–100; RESP 18–22; TEMP 36.6–38.2; O2SAT 92–94
[2024-06-05] MEDS: ACETAMINOPHEN 325 MG TABLET 975 MG PO ×3 (04:04→17:36)
[2024-06-05] MEDS: OXYCODONE 5 MG TABLET PO ×3 (04:04→16:18)
--- NOTE | 2024-06-05 04:27 | PC.NURSE ---
Shift note: Patient has been stable cognitively. More alert and oriented than he was yesterday. He has been sleeping well. At 0400, he attempted to self transfer. Bed alarm went off and staff went to his room to help. Patient was re-oriented and made comfortable in bed. Bladder scan done at that time was 362ml and per the parameters by MD alvarado (Straight cath when bladder more/or equals to 500ml) cath was not done. Patient had fever yesterday before taking over. At 1930, temperature was 101.1. Tylenol 975mg was given. Rechecked at 2300 was 100.8. At 0, temperature dropped to 98.8 and repeated at 0 was 99.8. Oxycodone and Tylenol given per patient's complaints of hip pain. Other vital signs were stable. Patient has been in bed throughout the night. Attempt to ambulate him was unsuccessful.
[2024-06-05 06:21] LABS: Basophils Percent Auto 0.1 % (0.0-3.0); Eosinophils Percent Auto 0.4 % (0.0-7.0); Hematocrit 34.5 % (37.0-53.0); Hemoglobin* 11.2 gm/dL (13.5-17.5); Immature Granulocytes Pct Auto 0.6 %; Lymphocytes Percent Auto 5.2 % (20-44); Mean Corpuscular HGB Conc 33 gm/dL (32-36); Mean Corpuscular Hemoglobin 33 pg (26-34); Mean Corpuscular Volume 101 fL (80-100); Monocytes Percent Auto 10.9 % (0.0-11.0); Neutrophils Percent Auto 82.8 % (42.0-72.0); Platelet Count* 104 K/uL (140-440); RDW Coefficient of Variation % 14.4 % (11.5-15.5); Red Blood Count 3.42 m/uL (4.30-5.90); White Blood Count* 14.58 K/uL (4.50-11.00)
[2024-06-05 06:29] LABS: Slide Review Reflex No
[2024-06-05 06:44] LABS: Chloride* 107 mmol/L (96-114); Sodium* 137 mmol/L (135-149)
[2024-06-05 06:45] LABS: Potassium* 3.8 mmol/L (3.6-5.1)
[2024-06-05 06:47] LABS: Alanine Aminotransferase* 16 U/L (4-50); Alkaline Phosphatase* 73 U/L (40-150); Anion Gap 6 mEq/L (7-15); Aspartate Amino Transferase* 31 U/L (12-35); Blood Urea Nitrogen* 36 mg/dL (7-30); Carbon Dioxide* 24 mmol/L (20-32); Creatinine* 1.3 mg/dL (0.5-1.5); Est. Creatinine Clearance* 50.69; Estimated Glomerular Filt Rate 57 ml/min; Glucose* 93 mg/dL (60-115); Total Protein* 5.2 g/dL (6.0-8.3)
[2024-06-05 06:48] LABS: Calcium* 8.6 mg/dL (8.4-10.6)
[2024-06-05 07:05] LABS: Lactate* 0.9 mmol/L (0.5-1.9)
[2024-06-05] MEDS: ASPIRIN 81 MG TABLET EC PO ×2 (10:00→21:50)
[2024-06-05] MEDS: SODIUM CHLORIDE 0.9 % (FLUSH) 10 ML SYRINGE 5 ML IVF ×2 (10:01→22:06)
--- NOTE | 2024-06-05 14:49 | P.IMPN_ITS ---
Progress Note: A&P Assessment and plan (1) Delirium: Problem details: Patient appears to have hospital-acquired delirium in the context of hip fracture and surgery today. Underlying susceptibility to delirium from dementia, possibly Lewy body dementia. Status: Acute (2) Closed fracture of right hip: Problem details: Day 2 s/p right intertrochanteric hip fracture fixation. DOS: 06/03/24; Dr. Sofía fierro. Status: Acute (3) Dementia: Problem details: Possibly Lewy body dementia. Status: Acute (4) Rheumatoid arthritis: Problem details: - On methotrexate (takes Mondays) and hydroxychloroquine - will hold both at this time Status: Chronic (5) Indirect hyperbilirubinemia: Problem details: Continue to follow. Improving. Suspect hemolysis? Status: Acute (6) Fever: Problem details: Postop hip fracture. Culture urine and blood and monitor. Initiate antibiotics for evidence of infection. Currently not on antibiotics Status: Acute Plan Continue in hospital for management of delirium, disability from hip fracture, pain. May need detention facility placement for rehab prior to returning home with his . Total time spent today is 40 minutes discussing with patient, and other providers recovery from surgery, delirium, disability, pain management and disposition Subjective Date Seen: 06/05/24 Interval history: David Tapia is a 74 year old male who presented to the emergency room by EMS this afternoon after a mechanical fall while walking outside with his . No preceding dizziness or lightheadedness, did not hit head. Per is acting normally. 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 Has been on Seroquel 12.5 mg at bedtime which the thinks has been helpful for hallucinations. After surgery and recovery and on arrival to the floor he was having hyperactive delirium with a lot of agitation. Required 2 staff people to restrain his arm so that he did not hurt them or himself, pull lines or catheters or get out of bed to fall. This morning he is pleasant and cooperative, not delirious but still confused/forgetful about his current circumstances. He did poorly getting up to walk with therapy today. Today he had a fever. Also noted to have elevated bilirubin. He is not having abdominal pain. Suspect these are from hip fracture/hemolysis. Continue to monitor and evaluate. 06/05/2024: Still confused and forgetful today but improving. Fever appears of resolved. Therapy indicates he is modestly improved with mobility. Still having a lot of hip pain. Exam Narrative: Exam Narrative: He is alert and pleasant. Still confused but improving and able to carry on a conversation today. Respirations are clear to auscultation. Breathing is unlabored. Cardiovascular: S1, S2, regular rate and rhythm. Abdomen is soft without tenderness or mass. No significant edema. Minimal tremor is noted in his hands while he is eating and drinking. Const: Vital Signs, click to edit/add: Vital Signs - 24 hr 06/04/24 15:42 06/04/24 15:59 06/04/24 15:59 Temperature 100.8 F H Pulse Rate 90 Pulse Rate [Bilate ral Dorsalis Pedis ] Pulse Rate [Pulse Oximeter] 95 Respiratory Rate 18 18 Blood Pressure [Le ft Arm] Blood Pressure [Ri ght Arm] 133/85 Pulse Oximetry 93 93 Oxygen Delivery Me thod Room Air Room Air 06/04/24 19:00 06/04/24 22:30 06/04/24 22:30 Temperature 101.1 F H Pulse Rate Pulse Rate [Bilate ral Dorsalis Pedis ] 94 Pulse Rate [Pulse Oximeter] 95 Respiratory Rate 18 18 18 Blood Pressure [Le ft Arm] Blood Pressure [Ri ght Arm] 146/88 H Pulse Oximetry 93 93 Oxygen Delivery Mt thod Room Air Room Air 06/04/24 22:30 06/04/24 22:34 06/04/24 23:00 Temperature 100.9 F H 100.9 F H Pulse Rate 92 Pulse Rate [Bilate ral Dorsalis Pedis ] 95 Pulse Rate [Pulse Oximeter] 93 Respiratory Rate 18 Blood Pressure [Le ft Arm] Blood Pressure [Ri ght Arm] 130/91 H Pulse Oximetry 93 Oxygen Delivery Me thod Room Air 06/05/24 02:55 06/05/24 02:57 06/05/24 07:00 Temperature 98.9 F 98.9 F Pulse Rate 79 Pulse Rate [Bilate ral Dorsalis Pedis ] 92 Pulse Rate [Pulse Oximeter] 94 Respiratory Rate 18 Blood Pressure [Le ft Arm] Blood Pressure [Ri ght Arm] 106/77 Pulse Oximetry 93 Oxygen Delivery Me thod Room Air 06/05/24 07:00 06/05/24 09:00 06/05/24 11:00 Temperature 98.6 F 98 F Pulse Rate Pulse Rate [Bilate ral Dorsalis Pedis ] 82 85 Pulse Rate [Pulse Oximeter] Respiratory Rate 18 18 18 Blood Pressure [Le ft Arm] 108/72 108/78 Blood Pressure [Ri ght Arm] Pulse Oximetry 93 93 94 Oxygen Delivery Me thod Room Air Room Air Nasal Cannula Documenting provider has reviewed patient's vital signs: yes Labs Labs: Laboratory Results - last 24 hr 06/05/24 05:37 WBC 14.58 H RBC 3.42 L Hgb 11.2 L Hct 34.5 L MCV 101 H MCH 33 MCHC 33 RDW Coeff of Raj 14.4 Plt Count 104 L Neut % (Auto) 82.8 H Lymph % (Auto) 5.2 L [place] % (Auto) 10.9 Eos % (Auto) 0.4 Baso % (Auto) 0.1 Neut # (Auto) 12.10 H Lymph # (Auto) 0.80 L [place] # (Auto) 1.60 H Eos # (Auto) 0.10 Baso # (Auto) 0.00 Abs Immat Gran (auto) 0.10 Imm/Tot Granulo (auto) 0.6 Sodium 137 Potassium 3.8 Chloride 107 Carbon Dioxide 24 Anion Gap 6 L BUN 36 H Creatinine 1.3 Estimated Creat Clear 50.69 Estimated GFR 57 Glucose 93 Lactate 0.9 Calcium 8.6 Total Bilirubin 3.0 H AST 31 ALT 16 Alkaline Phosphatase 73 Total Protein 5.2 L Albumin 3.0 L
[2024-06-05] MEDS: 0.9 % SODIUM CHLORIDE 500 ML 500 ML IV (18:30)
--- NOTE | 2024-06-05 19:04 | PC.NURSE ---
shift note: reviewed with Dr. Escobar I & o of pt for 12 hrs. 500cc bolus ordered. New IV started in Lt Fa. Pt medicated with prn tylenol for 100.7 temp this evening. drsg x2 c/d/i to rt thigh. PP + bilat. feet warm
[2024-06-05] MEDS: QUETIAPINE 25 MG TABLET PO (21:50)
[2024-06-05] MEDS: TAMSULOSIN HCL 0.4 MG CAPSULE 0.8 MG PO (21:50)
[2024-06-06] VITALS (8 sets, daily range): BP systolic 80–141; BP diastolic 55–79; PULSE 77–105; RESP 16–22; TEMP 36.7–37.6; O2SAT 92–93
--- NOTE | 2024-06-06 | CRLHL7_ITS ---
For Patients: As a result of the Century Cures Act, medical imaging exams and procedure reports are released immediately into your electronic medical record. You may view this report before your referring provider. If you have questions, please contact your health care provider. INDICATION: Recent hip fracture operation, hypotension, fever. COMPARISON: Same day CT of the abdomen and pelvis, chest radiograph 06/02/2024, hip radiographs 06/02/2024 TECHNIQUE: CT angiogram chest with contrast, pulmonary embolism protocol. Multiplanar axial, coronal, and sagittal reformats are included. MIP images to improve detection of pulmonary emboli are included. Intravenous contrast: 95 mL Isovue 370. FINDINGS: PE: Well-timed contrast bolus. No pulmonary emboli. Normal caliber main pulmonary artery. Normal sized right heart chambers. No reflux of contrast below the diaphragm. Airway: Expiratory appearance of the airway. Lungs: Expiratory appearance in both lungs. Bandlike atelectasis in both lower lobes, more so on the right. Small nodules could be obscured but there are no worrisome appearing nodule seen today. No consolidations. No emphysema or edema. Pleura: No pleural effusion. No pneumothorax. Lymph nodes: No thoracic adenopathy. Mediastinum: No pneumomediastinum. No mass. Heart and great vessels: No pericardial effusion. Normal cardiac chamber size. Scattered atherosclerotic plaques. Ascending aorta is at the upper limits of normal in size, 4 centimeters. There is a small amount of contrast in the ascending aorta. Low suspicion for acute aortic syndrome. No mediastinal hematoma. Chest wall: Normal. No masses. Upper abdomen: Normal. Bones: Subacute healing nondisplaced right 7th and 8th rib fractures. No focal bone lesions. IMPRESSION: 1. No pulmonary embolus. 2. Expiratory appearance of the airway and lungs. Mild atelectasis. 3. Healing nondisplaced right 7th and 8th rib fractures. Please note that all CT scans at this facility use dose modulation, iterative reconstruction, and/or weight-based dosing when appropriate to reduce radiation dose to as low as reasonably achievable. Dictated by Shayy Liu MD @ 06/06/2024 1:08:48 PM (Electronically Signed)
[2024-06-06] MEDS: cefTRIAXone 1 GM in 0.9 % SODIUM CHLORIDE Mini-bag 100 ML IVPB (01:01)
[2024-06-06] MEDS: ACETAMINOPHEN 325 MG TABLET 975 MG PO ×2 (01:01→15:43)
[2024-06-06] MEDS: OXYCODONE 5 MG TABLET PO (01:03)
[2024-06-06] MEDS: lidocaine HCL 2 % JELLY (TOP) STERILE 6 ML TOPICAL (01:25)
--- NOTE | 2024-06-06 06:56 | PC.NURSE ---
Pt Turn/Repo during sleep hours. Pt agitated and unable to void more than 50-75cc at a time, Bladder scanned for 507, straight cath with Uro-jet and Coude cath for 525cc; PRN pain meds given & pt was able to settle into bed and sleep after that. Pt has moments of clarity and moment of confusion, unsure what baseline cognition is.
[2024-06-06] MEDS: LACTATED RINGERS 1000 ML 1,000 ML 500 ML IV (07:59)
[2024-06-06 08:52] LABS: Lactate* 1.3 mmol/L (0.5-1.9)
[2024-06-06 08:54] LABS: Basophils Percent Auto 0.1 % (0.0-3.0); Hematocrit 32.5 % (37.0-53.0); Hemoglobin* 10.5 gm/dL (13.5-17.5); Immature Granulocytes Pct Auto 0.8 %; Lymphocytes Percent Auto 1.5 % (20-44); Mean Corpuscular HGB Conc 32 gm/dL (32-36); Mean Corpuscular Hemoglobin 33 pg (26-34); Mean Corpuscular Volume 101 fL (80-100); Monocytes Percent Auto 9.8 % (0.0-11.0); Neutrophils Percent Auto 87.8 % (42.0-72.0); Platelet Count* 121 K/uL (140-440); RDW Coefficient of Variation % 14.5 % (11.5-15.5); Red Blood Count 3.23 m/uL (4.30-5.90); White Blood Count* 20.01 K/uL (4.50-11.00)
[2024-06-06 09:05] LABS: Slide Review Reflex No
[2024-06-06 09:14] LABS: Chloride* 105 mmol/L (96-114); Potassium* 3.3 mmol/L (3.6-5.1); Sodium* 136 mmol/L (135-149)
[2024-06-06 09:17] LABS: Alanine Aminotransferase* 21 U/L (4-50); Alkaline Phosphatase* 63 U/L (40-150); Anion Gap 8 mEq/L (7-15); Aspartate Amino Transferase* 35 U/L (12-35); Bilirubin Direct* 0.7 mg/dL (0.0-0.5); Bilirubin Total* 2.7 mg/dL (0.1-1.5); Blood Urea Nitrogen* 40 mg/dL (7-30); Carbon Dioxide* 23 mmol/L (20-32); Total Protein* 5.5 g/dL (6.0-8.3)
[2024-06-06 09:18] LABS: Glucose* 121 mg/dL (60-115)
--- NOTE | 2024-06-06 09:23 | PC.SOCIAL ---
Met with pt. and spouse Nan to discuss discharge plans. Pt. is in need of a short-term rehab bed and prefers placement in [place] at [facility] as first choice and [facility] as the next. A message was left with [facility] on bed availability.
[2024-06-06 09:33] LABS: Creatinine* 1.4 mg/dL (0.5-1.5); Est. Creatinine Clearance* 47.07; Estimated Glomerular Filt Rate 52 ml/min
--- NOTE | 2024-06-06 09:33 | NUTR.NU ---
RDN with nutrition screen related to positive skin risk score. Patient admitted with hip fracture status post Day 3 of right intertrochanteric hip fracture fixation. Of not, patient experienced hospital-acquired delirium after surgery. Hospitalist suspects dementia. Current weight 184lb 10.935oz; height 5ft 10in; BMI 26.5 kg/m2. Weight has been stable per records. Current diet is Regular. Meal intakes have mainly been 100% since admit. With stable weight and adequate intakes, no nutrition interventions at this time. RDN will continue to monitor and follow-up prn.
[2024-06-06] MEDS: SODIUM CHLORIDE 0.9 % (FLUSH) 10 ML SYRINGE 5 ML IVF ×2 (10:03→20:55)
[2024-06-06] MEDS: RIVAROXABAN 10 MG TABLET PO (10:03)
[2024-06-06] MEDS: POTASSIUM BICARB 25 MEQ EFFERVESCENT TAB PO (10:03)
--- NOTE | 2024-06-06 10:59 | CRLHL7_ITS ---
For Patients: As a result of the Century Cures Act, medical imaging exams and procedure reports are released immediately into your electronic medical record. You may view this report before your referring provider. If you have questions, please contact your health care provider. INDICATION: Fever, hypotension, recent right hip fracture fixation. COMPARISON: Same day CT chest. Pelvis radiograph 06/02/2024 TECHNIQUE: CT of the abdomen and pelvis with intravenous contrast. Multiplanar axial, coronal, and sagittal reformats were reconstructed. Contrast: 95 mL Isovue 370. FINDINGS: Lung bases: Expiratory appearance of the lungs. Right basilar atelectasis. Liver: Atrophic left lobe of the liver. Normal right lobe of the liver. Gallbladder and bile ducts: Irregularity and thickening at the fundus of the gallbladder may be a small fold. No bile duct dilation. Pancreas: Normal. Spleen: Normal. Adrenal glands: Normal. Kidneys: Normal parenchyma. There are several bilateral renal simple cysts. The largest is a left parapelvic cyst that measures 4.5 cm. No calculi. No urinary tract dilation. Urinary bladder: Asymmetric focal hyperdense versus hyperenhancing bladder wall thickening on the left lateral bladder wall. Protrudes into the lumen of the bladder but does not extend beyond the bladder wall. Measures 2.1 x 1.0 x 1.3 cm. Pelvis: Prostatomegaly. Vessels: Atherosclerotic vascular calcifications. No aortic aneurysm. Retroaortic left renal vein incidentally noted. Bowel: Dilated redundant sigmoid colon that is gas-filled with 2 immediately adjacent proximal and distal transition points in the right lower quadrant. See coronal image series 3, image 27 for the best view. The dilated and nondilated colon has normal wall thickness and normal wall enhancement. Mild upstream dilatation. Normal appendix. Mild stool burden. No dilated or inflamed small bowel. Lymph nodes: Mildly prominent left external iliac lymph node measures 0.7 x 1.2 cm on series 2, image 127. Peritoneum: No ascites. No free air. Abdominal wall: Prior inguinal hernia repair without recurrence seen. Bones: Right hip fracture transfixed with an intramedullary dilia and a dynamic hip screw. Expected adjacent soft tissue swelling and gas. No discrete adjacent collection. No new or unexpected fracture. Right 6th, 7th, and 8th anterior rib fractures. No focal worrisome bone lesions. IMPRESSION: 1. Dilated gas-filled sigmoid colon in a morphology concerning for very early or mild sigmoid volvulus. 2. No perforation or findings of bowel ischemia. 3. Possible urothelial malignancy in the bladder. Measures 2 centimeters. No lymph nodes are enlarged by size criteria. No urinary tract obstruction. 4. Expected postoperative appearance of the right hip. Discussed with Dr. Jin at 1:19 pm on 06/06/2024. Please note that all CT scans at this facility use dose modulation, iterative reconstruction, and/or weight-based dosing when appropriate to reduce radiation dose to as low as reasonably achievable. Dictated by Shayy Liu MD @ 06/06/2024 1:19:57 PM (Electronically Signed)
[2024-06-06] MEDS: VANCOMYCIN 1.5 GM/300 ML 1.5 GM/300 ML PIGGYBACK IVPB (13:23)
[2024-06-06 14:23] LABS: Troponin I* 0.04 ng/mL (0.01-0.04)
--- NOTE | 2024-06-06 14:34 | P.GSCN_ITS ---
History of Present Illness Consult details Date Seen: 06/06/24 Consult date: 06/06/24 Narrative: 74-year-old male on methotrexate and hydroxychloroquine for rheumatoid arthritis is admitted to the hospital after surgical repair of right hip fracture now developed hypotension, and I was asked by Dr. Jin to see him in consultation. Patient underwent right hip surgery on Thursday. Patient has been doing well and has been tolerating regular diet. He ate lunch today. Yesterday he felt like something did not go down well and spat it up but denied actual vomiting. He has been passing a lot of gas and had a bowel movement today in the morning. He denies abdominal pain. Patient all of a sudden developed hypotension today with systolic blood pressure in 80s. He denies chest pain. He was pompa scanned and on abdominal CT he was noted to have dilated colon with sigmoid colon being redundant located in the right side of the abdomen. There were thought to be 2 transition points in the sigmoid colon concerning for early sigmoid volvulus. Patient's WBC increased to 20 today. Review of Systems Narrative: General: no fevers HENT: no problems swallowing CV: no shortness of breath Resp: no cough GI: No nausea, vomiting, abdominal pain : no dysuria, no increased urinary frequency, no hematuria Skin: no new rashes Musculoskeletal: no back pain Neuro: no muscle weakness Psyche: no depression, no anxiety PFSH [facility] Medical History Fever ?R50.9 - Fever, unspecified (ICD-10) Indirect hyperbilirubinemia ?E80.6 - Other disorders of bilirubin metabolism (ICD-10) Dementia ?F03.90 - Unspecified dementia, unspecified severity, without behavioral disturbance, psychotic disturbance, mood disturbance, and anxiety (ICD-10) Delirium ?R41.0 - Disorientation, unspecified (ICD-10) Cognitive impairment ?R41.89 - Other symptoms and signs involving cognitive functions and awareness (ICD-10) Bee sting allergy ?Z91.030 - Bee allergy status (ICD-10) Personal history of colonic polyps ?Z86.010 - Personal history of colonic polyps (ICD-10) Depression ?F32.A - Depression, unspecified (ICD-10) Bilateral sensorineural hearing loss ?H90.3 - Sensorineural hearing loss, bilateral (ICD-10) Hypersomnolence ?G47.10 - Hypersomnia, unspecified (ICD-10) Benign localized prostatic hyperplasia with lower urinary tract symptoms (LUTS) ?N40.1 - Benign prostatic hyperplasia with lower urinary tract symptoms (ICD- 10) Dyslipidemia ?E78.5 - Hyperlipidemia, unspecified (ICD-10) DJD (degenerative joint disease) ?M19.90 - Unspecified osteoarthritis, unspecified site (ICD-10) AGUSTÍN (obstructive sleep apnea) ?G47.33 - Obstructive sleep apnea (adult) (pediatric) (ICD-10) Benign prostatic hyperplasia ?N40.0 - Benign prostatic hyperplasia without lower urinary tract symptoms (ICD-10) Coronary artery disease involving [place] coronary artery without angina pectoris ?I25.10 - Atherosclerotic heart disease of [place] coronary artery without angina pectoris (ICD-10) Left bundle branch block ?I44.7 - Left bundle-branch block, unspecified (ICD-10) Essential hypertension ?I10 - Essential (primary) hypertension (ICD-10) Rheumatoid arthritis ?M06.9 - Rheumatoid arthritis, unspecified (ICD-10) Finger infection ?L08.9 - Local infection of the skin and subcutaneous tissue, unspecified (ICD-10) Surgical History (Updated 06/03/24 @ 10:42 by Maddi Shankar MD) Status post total knee replacement, right (01/04/24) ?Z96.651 - Presence of right artificial knee joint (ICD-10) Hx of colonoscopy ?Z98.890 - Other specified postprocedural states (ICD-10) H/O inguinal hernia repair (05/04/15) ?Z98.890 - Other specified postprocedural states (ICD-10) ?Z87.19 - Personal history of other diseases of the digestive system (ICD-10) Social History (Updated 06/02/24 @ 18:51 by Maxine Escobar MD) Narrative: -Nan. Living independently with his . He is managing his own medications. Quit smoking in September 2023. Denies any other tobacco use. He drinks once a month, 2 beers at that setting. No other alcohol use. Denies recreational drug use. What is your current living situation?: I presently have a place to live Problems where you live: no known problems Problems where you live details: n/a In the past 12 months, utilities in danger of being shut off: no In past 12 months, lack of transportation kept you from medical appts, meetings, work, or getting things needed for daily living: no In the past 12 mos, have been you worried that your food would run out before you had money to buy more?: never true In the past 12 mos, the food you bought just didn't last and you didn't have money to buy more?: never true Highest level of school completed/degree received: some college, no degree Smoking Status: Former smoker What tobacco products do you use: cigarettes Smoking packs per day: 0.25 Smoking cigarettes per day: 5.0 Years smoked: 50 Smoking pack-years: 12.50 Smoking quit date/years: <= 15 years ago Do you use any of these nicotine containing products: None Nicotine containing products detail: Quit smoking September 21, 2023 Second hand tobacco smoke exposure: No How often do you have a drink containing alcohol: monthly or less Alcohol type: beer How many standard drinks containing alcohol do you have on a typical day: 1 or 2 How often do you have six or more drinks on one occasion: Never AUDIT-C Alcohol total score: 1 Non-prescribed substance use: denies use Caffeine: Yes How often does anyone, including family, friends and others, physically hurt you : never How often does anyone, including family, friends and others, insult or talk down to you: never How often does anyone, including family, friends and others, threaten you with harm: never How often does anyone, including family, friends and others, scream or curse at you: never service: Yes Meds Home Medications and Allergies Home Medications ?Medication ?Instructions ?Recorded ?Confirmed ?Type hydroxychloroquine 200 mg tablet 400 mg PO HS 09/01/23 06/02/24 History lisinopril 20 mg tablet 20 mg PO DAILY 09/01/23 06/02/24 History naproxen sodium 220 mg tablet 220 mg PO DAILY 09/01/23 06/02/24 History (Aleve) tamsulosin 0.4 mg capsule 0.8 mg PO HS 09/01/23 06/02/24 History aspirin 81 mg tablet,delayed 81 mg PO DAILY 12/22/23 06/02/24 History release (Adult Aspirin Regimen) epinephrine 0.3 mg/0.3 mL 0.3 mg IM ONCE PRN 01/04/24 06/02/24 History injection, auto-injector (EpiPen) methotrexate sodium 2.5 mg tablet 15 mg PO Q7D 01/04/24 06/02/24 History quetiapine 25 mg tablet 12.5 mg PO HS 02/16/24 06/02/24 History Allergies Allergy/AdvReac Type Severity Reaction Status Date / Time Penicillins Allergy Verified 06/06/24 13:03 venom-honey bee Allergy Verified 06/06/24 13:03 mirtazapine AdvReac Nightmare Verified 06/06/24 13:03 Exam Narrative: Exam Narrative: General appearance: Alert, cooperative, and in no distress Pulmonary: Chest symmetric, lungs clear bilaterally Cardiovascular Heart: Regular rate and rhythm, S1, S2, no murmurs/rubs/gallops Gastrointestinal Abdominal: soft, not distended, not tender to palpation or percussion anywhere in the abdomen. Skin: Normal skin color, texture, and turgor. No rashes or lesions. Psychiatric: Alert, cooperative, normal affect. Const: Vital Signs, click to edit/add: Vital Signs - 24 hr 06/05/24 15:00 06/05/24 15:00 06/05/24 15:00 Temperature 100.7 F H Pulse Rate 99 Pulse Rate [Bilate ral Dorsalis Pedis ] 99 Pulse Rate [Pulse Oximeter] Respiratory Rate 20 20 Blood Pressure [Le ft Arm] 126/88 Blood Pressure [Ri ght Arm] Pulse Oximetry 94 94 [facility] 06/05/24 17:36 06/05/24 19:45 06/05/24 23:00 Temperature 100.7 F H 100.7 F H Pulse Rate Pulse Rate [Bilate ral Dorsalis Pedis ] 96 Pulse Rate [Pulse Oximeter] Respiratory Rate 20 22 Blood Pressure [Le ft Arm] Blood Pressure [Ri ght Arm] 115/75 Pulse Oximetry 93 92 [facility] 06/05/24 23:20 06/06/24 00:53 06/06/24 01:01 Temperature 99.0 F 99.0 F Pulse Rate 100 Pulse Rate [Bilate ral Dorsalis Pedis ] Pulse Rate [Pulse Oximeter] 105 H Respiratory Rate 22 Blood Pressure [Le ft Arm] Blood Pressure [Ri ght Arm] 141/79 H Pulse Oximetry 92 Oxygen Delivery Me thod Room Air 06/06/24 03:00 06/06/24 07:00 06/06/24 07:00 Temperature 98.2 F Pulse Rate 99 Pulse Rate [Bilate ral Dorsalis Pedis ] Pulse Rate [Pulse Oximeter] 98 Respiratory Rate 20 16 Blood Pressure [Le ft Arm] Blood Pressure [Ri ght Arm] 97/63 Pulse Oximetry 93 92 Oxygen Delivery Me thod Room Air Room Air 06/06/24 07:00 06/06/24 07:00 06/06/24 11:00 Temperature 98.5 F 98.4 F Pulse Rate Pulse Rate [Bilate ral Dorsalis Pedis ] Pulse Rate [Pulse Oximeter] 93 93 89 Respiratory Rate 16 16 16 Blood Pressure [Le ft Arm] 80/55 L Blood Pressure [Ri ght Arm] 85/65 L Pulse Oximetry 92 92 Oxygen Delivery [facility] Room Air Room Air Results Labs Labs: Abnormal lab results 06/06/24 Range/Units 08:46 WBC 20.01 H (4.50-11.00) K/uL RBC 3.23 L (4.30-5.90) m/uL Hgb 10.5 L (13.5-17.5) gm/dL Hct 32.5 L (37.0-53.0) % MCV 101 H (80-100) fL Plt Count 121 L (140-440) K/uL Neut % (Auto) 87.8 H (42.0-72.0) % Lymph % (Auto) 1.5 L (20-44) % Neut # (Auto) 17.60 H (1.7-7.0) K/uL Lymph # (Auto) 0.30 L (0.90-2.90) K/uL [place] # (Auto) 2.00 H (0.00-0.90) K/UL Potassium 3.3 L (3.6-5.1) mmol/L BUN 40 H (7-30) mg/dL Glucose 121 H (60-115) mg/dL Calcium 8.0 L (8.4-10.6) mg/dL Total Bilirubin 2.7 H (0.1-1.5) mg/dL Direct Bilirubin 0.7 H (0.0-0.5) mg/dL Total Protein 5.5 L (6.0-8.3) g/dL Albumin 3.0 L (3.3-5.0) g/dL Diabetes panel 06/06/24 Range/Units 08:46 Sodium 136 (135-149) mmol/L Potassium 3.3 L (3.6-5.1) mmol/L Chloride 105 (96-114) mmol/L Carbon Dioxide 23 (20-32) mmol/L BUN 40 H (7-30) mg/dL Creatinine 1.4 (0.5-1.5) mg/dL Glucose 121 H (60-115) mg/dL Calcium 8.0 L (8.4-10.6) mg/dL AST 35 (12-35) U/L ALT 21 (4-50) U/L Alkaline Phosphatase 63 (40-150) U/L Total Protein 5.5 L (6.0-8.3) g/dL Albumin 3.0 L (3.3-5.0) g/dL Calcium panel 06/06/24 Range/Units 08:46 Calcium 8.0 L (8.4-10.6) mg/dL Albumin 3.0 L (3.3-5.0) g/dL Pituitary panel 06/06/24 Range/Units 08:46 Sodium 136 (135-149) mmol/L Potassium 3.3 L (3.6-5.1) mmol/L Chloride 105 (96-114) mmol/L Carbon Dioxide 23 (20-32) mmol/L BUN 40 H (7-30) mg/dL Creatinine 1.4 (0.5-1.5) mg/dL Glucose 121 H (60-115) mg/dL Calcium 8.0 L (8.4-10.6) mg/dL Adrenal panel 06/06/24 Range/Units 08:46 Sodium 136 (135-149) mmol/L Potassium 3.3 L (3.6-5.1) mmol/L Chloride 105 (96-114) mmol/L Carbon Dioxide 23 (20-32) mmol/L BUN 40 H (7-30) mg/dL Creatinine 1.4 (0.5-1.5) mg/dL Glucose 121 H (60-115) mg/dL Calcium 8.0 L (8.4-10.6) mg/dL Total Bilirubin 2.7 H (0.1-1.5) mg/dL AST 35 (12-35) U/L ALT 21 (4-50) U/L Alkaline Phosphatase 63 (40-150) U/L Total Protein 5.5 L (6.0-8.3) g/dL Albumin 3.0 L (3.3-5.0) g/dL All other labs normal. Progress Note:A&P Assessment and plan (1) Hypotension: Status: Acute Plan 74-year-old male on immunosuppressants postop day 3 after right hip fracture surgery developed new hypotension of unknown etiology. I discussed with the patient and his his abdominal CT findings. He does have somewhat dilated sigmoid colon that is redundant and is located on the right side however, patient has no abdominal pain and has been tolerating regular diet. He continues to have bowel function. I do not think his hypotension is caused by dilated sigmoid colon. Patient is in immunosuppressed status due to his rheumatoid arthritis treatment and infection would be high on my differential. Patient's white count is 20 today which is increased from yesterday. I would also recommend exploring cardiogenic shock as etiology of his hypotension.
--- NOTE | 2024-06-06 14:49 | PC.SOCIAL ---
Addendum entered by MAGO Acevedo 06/06/24 15:32: PAS Completed # [id number] Original Note: Pt. has been accepted to [facility] for . 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 at 11:30 am. Pt.'s Licha will have $40 umana or a check for the port [employer] a driver. If Licha decides to keep her flight to [place] she will have the money or check in patient's room.
[2024-06-06] MEDS: PIPERACILLIN/TAZOBACTAM 3.375 GM in 0.9 % SODIUM CHLORIDE Mini-bag 100 ML IVPB ×2 (15:18→20:48)
--- NOTE | 2024-06-06 16:17 | PM.IMPN1 ---
Progress Note: A&P Assessment and plan (1) Sepsis: Problem details: Patient with hypotension, abnormal urinalysis and positive urine culture in the postoperative period. Possibly urosepsis. Indeterminate findings on CT of the bowel. No evidence of obstructive shock or bleeding complications. Status: Acute (2) Hypotension: Problem details: Still suspected to be due to sepsis but monitoring for other causes of hypotension Status: Acute (3) Urinary tract infection: Problem details: Gram-negative rods in urine. Initially on ceftriaxone now piperacillin tazobactam pending cultures Status: Acute (4) Fever: Problem details: Postop hip fracture. Culture urine and blood and monitor. Fever still thought possibly due to hip fracture with postoperative fever now concern about infectious process with hypotension. On vancomycin and piperacillin tazobactam pending cultures and clinical course Status: Acute (5) Indirect hyperbilirubinemia: Problem details: Continue to follow. Improving. Suspect hemolysis? Status: Acute (6) Dementia: Problem details: Possibly Lewy body dementia. Status: Acute (7) Delirium: Problem details: Patient appears to have hospital-acquired delirium in the context of hip fracture and surgery today. Underlying susceptibility to delirium from dementia, possibly Lewy body dementia. Confusion has been fluctuating, Status: Acute (8) Closed fracture of right hip: Problem details: Day 2 s/p right intertrochanteric hip fracture fixation. DOS: 06/03/24; Dr. Israel. Status: Acute (9) Rheumatoid arthritis: Problem details: - On methotrexate (takes Mondays) and hydroxychloroquine - will hold both at this time Status: Chronic (10) Immunosuppression: Problem details: On methotrexate for rheumatoid arthritis. Status: Acute Plan Continue in hospital for ongoing evaluation management of sepsis, UTI, hop hypotension, delirium, ongoing therapy for hip fracture. Total time spent today is 60 minutes in evaluation and re-evaluation, discussion with patient, , nursing, surgery, social insurance adviser about ongoing care and disposition Subjective Date Seen: 06/06/24 Interval history: David Tapia is a 74 year old male who presented to the emergency room by EMS this afternoon after a mechanical fall while walking outside with his . No preceding dizziness or lightheadedness, did not hit head. Per is acting normally. 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 Has been on Seroquel 12.5 mg at bedtime which the thinks has been helpful for hallucinations. After surgery and recovery and on arrival to the floor he was having hyperactive delirium with a lot of agitation. Required 2 staff people to restrain his arm so that he did not hurt them or himself, pull lines or catheters or get out of bed to fall. This morning he is pleasant and cooperative, not delirious but still confused/forgetful about his current circumstances. He did poorly getting up to walk with therapy today. Today he had a fever. Also noted to have elevated bilirubin. He is not having abdominal pain. Suspect these are from hip fracture/hemolysis. Continue to monitor and evaluate. 06/05/2024: Still confused and forgetful today but improving. Fever appears of resolved. Therapy indicates he is modestly improved with mobility. Still having a lot of hip pain. 06/06/2024: Patient continues to have episodes of confusion . Urine culture came back showing Gram-positive dilia so ceftriaxone was started. Low-grade fever last night resolved. This morning he became hypotensive. Received fluid bolus with partial response. Repeat examination showed no obvious signs or symptoms of infection. CT chest abdomen pelvis showed no PE or pulmonary infiltrate. There was a question of an early sigmoid volvulus. Patient has been passing gas and having stools today and having no abdominal pain. Surgery was consulted about this. Exam Narrative: Exam Narrative: He is alert appears in no distress repeat examination done today. He is noted to be hypotensive but not symptomatic with lightheadedness tachycardia chest pain or dyspnea. Respirations are clear to auscultation. Cardiovascular: S1, S2, regular rate and rhythm. Abdomen with bowel sounds are present. Abdomen is soft without tenderness or mass. He has unchanged swelling around his right hip where his surgery was no marked erythema. Const: Vital Signs, click to edit/add: Vital Signs - 24 hr 06/05/24 17:36 06/05/24 19:45 06/05/24 23:00 Temperature 100.7 F H 100.7 F H Pulse Rate Pulse Rate [Bilate ral Dorsalis Pedis ] 96 Pulse Rate [Pulse Oximeter] Respiratory Rate 20 22 Blood Pressure [Le ft Arm] Blood Pressure [Ri ght Arm] 115/75 Pulse Oximetry 93 92 Oxygen Delivery Me thod Room Air Room Air 06/05/24 23:20 06/06/24 00:53 06/06/24 01:01 Temperature 99.0 F 99.0 F Pulse Rate 100 Pulse Rate [Bilate ral Dorsalis Pedis ] Pulse Rate [Pulse Oximeter] 105 H Respiratory Rate 22 Blood Pressure [Le ft Arm] Blood Pressure [Ri ght Arm] 141/79 H Pulse Oximetry 92 Oxygen Delivery Me thod Room Air 06/06/24 03:00 06/06/24 07:00 06/06/24 07:00 Temperature 98.2 F Pulse Rate 99 Pulse Rate [Bilate ral Dorsalis Pedis ] Pulse Rate [Pulse Oximeter] 98 Respiratory Rate 20 16 Blood Pressure [Le ft Arm] Blood Pressure [Ri ght Arm] 97/63 Pulse Oximetry 93 92 Oxygen Delivery Dc thod Room Air Room Air 06/06/24 07:00 06/06/24 07:00 06/06/24 11:00 Temperature 98.5 F 98.4 F Pulse Rate Pulse Rate [Bilate ral Dorsalis Pedis ] Pulse Rate [Pulse Oximeter] 93 93 89 Respiratory Rate 16 16 16 Blood Pressure [Le ft Arm] 80/55 L Blood Pressure [Ri ght Arm] 85/65 L Pulse Oximetry 92 92 Oxygen Delivery Dc thod Room Air Room Air 06/06/24 15:00 06/06/24 15:00 06/06/24 15:00 Temperature 98.0 F Pulse Rate Pulse Rate [Bilate ral Dorsalis Pedis ] Pulse Rate [Pulse Oximeter] 88 88 Respiratory Rate 18 18 18 Blood Pressure [Le ft Arm] Blood Pressure [Ri ght Arm] 99/66 Pulse Oximetry 93 93 Oxygen Delivery Me thod Room Air Room Air Documenting provider has reviewed patient's vital signs: yes Labs Labs: Laboratory Results - last 24 hr 06/06/24 06/06/24 08:46 13:38 WBC 20.01 H RBC 3.23 L Hgb 10.5 L Hct 32.5 L MCV 101 H MCH 33 MCHC 32 RDW Coeff of Raj 14.5 Plt Count 121 L Neut % (Auto) 87.8 H Lymph % (Auto) 1.5 L [place] % (Auto) 9.8 Eos % (Auto) 0.0 Baso % (Auto) 0.1 Neut # (Auto) 17.60 H Lymph # (Auto) 0.30 L [place] # (Auto) 2.00 H Eos # (Auto) 0.00 Baso # (Auto) 0.00 Abs Immat Gran (auto) 0.20 Imm/Tot Granulo (auto) 0.8 Sodium 136 Potassium 3.3 L Chloride 105 Carbon Dioxide 23 Anion Gap 8 BUN 40 H Creatinine 1.4 Estimated Creat Clear 47.07 Estimated GFR 52 Glucose 121 H Lactate 1.3 Calcium 8.0 L Total Bilirubin 2.7 H Direct Bilirubin 0.7 H AST 35 ALT 21 Alkaline Phosphatase 63 Troponin I 0.04 Total Protein 5.5 L Albumin 3.0 L Lab Acknowledgement Test Added Imaging CT Chest/Ab/Pelvis: Radiologist's impression: INDICATION: Fever, hypotension, recent right hip fracture fixation. COMPARISON: Same day CT chest. Pelvis radiograph 06/02/2024 TECHNIQUE: CT of the abdomen and pelvis with intravenous contrast. Multiplanar axial, coronal, and sagittal reformats were reconstructed. Contrast: 95 mL Isovue 370. FINDINGS: Lung bases: Expiratory appearance of the lungs. Right basilar atelectasis. Liver: Atrophic left lobe of the liver. Normal right lobe of the liver. Gallbladder and bile ducts: Irregularity and thickening at the fundus of the gallbladder may be a small fold. No bile duct dilation. Pancreas: Normal. Spleen: Normal. Adrenal glands: Normal. Kidneys: Normal parenchyma. There are several bilateral renal simple cysts. The largest is a left parapelvic cyst that measures 4.5 cm. No calculi. No urinary tract dilation. Urinary bladder: Asymmetric focal hyperdense versus hyperenhancing bladder wall thickening on the left lateral bladder wall. Protrudes into the lumen of the bladder but does not extend beyond the bladder wall. Measures 2.1 x 1.0 x 1.3 cm. Pelvis: Prostatomegaly. Vessels: Atherosclerotic vascular calcifications. No aortic aneurysm. Retroaortic left renal vein incidentally noted. Bowel: Dilated redundant sigmoid colon that is gas-filled with 2 immediately adjacent proximal and distal transition points in the right lower quadrant. See coronal image series 3, image 27 for the best view. The dilated and nondilated colon has normal wall thickness and normal wall enhancement. Mild upstream dilatation. Normal appendix. Mild stool burden. No dilated or inflamed small bowel. Lymph nodes: Mildly prominent left external iliac lymph node measures 0.7 x 1.2 cm on series 2, image 127. Peritoneum: No ascites. No free air. Abdominal wall: Prior inguinal hernia repair without recurrence seen. Bones: Right hip fracture transfixed with an intramedullary dilia and a dynamic hip screw. Expected adjacent soft tissue swelling and gas. No discrete adjacent collection. No new or unexpected fracture. Right 6th, 7th, and 8th anterior rib fractures. No focal worrisome bone lesions. IMPRESSION: 1. Dilated gas-filled sigmoid colon in a morphology concerning for very early or mild sigmoid volvulus. 2. No perforation or findings of bowel ischemia. 3. Possible urothelial malignancy in the bladder. Measures 2 centimeters. No lymph nodes are enlarged by size criteria. No urinary tract obstruction. 4. Expected postoperative appearance of the right hip. CHEST: INDICATION: Recent hip fracture operation, hypotension, fever. COMPARISON: Same day CT of the abdomen and pelvis, chest radiograph 06/02/2024, hip radiographs 06/02/2024 TECHNIQUE: CT angiogram chest with contrast, pulmonary embolism protocol. Multiplanar axial, coronal, and sagittal reformats are included. MIP images to improve detection of pulmonary emboli are included. Intravenous contrast: 95 mL Isovue 370. FINDINGS: PE: Well-timed contrast bolus. No pulmonary emboli. Normal caliber main pulmonary artery. Normal sized right heart chambers. No reflux of contrast below the diaphragm. Airway: Expiratory appearance of the airway. Lungs: Expiratory appearance in both lungs. Bandlike atelectasis in both lower lobes, more so on the right. Small nodules could be obscured but there are no worrisome appearing nodule seen today. No consolidations. No emphysema or edema. Pleura: No pleural effusion. No pneumothorax. Lymph nodes: No thoracic adenopathy. Mediastinum: No pneumomediastinum. No mass. Heart and great vessels: No pericardial effusion. Normal cardiac chamber size. Scattered atherosclerotic plaques. Ascending aorta is at the upper limits of normal in size, 4 centimeters. There is a small amount of contrast in the ascending aorta. Low suspicion for acute aortic syndrome. No mediastinal hematoma. Chest wall: Normal. No masses. Upper abdomen: Normal. Bones: Subacute healing nondisplaced right 7th and 8th rib fractures. No focal bone lesions. IMPRESSION: 1. No pulmonary embolus. 2. Expiratory appearance of the airway and lungs. Mild atelectasis. 3. Healing nondisplaced right 7th and 8th rib fractures.
[2024-06-06] MEDS: SENNOSIDES/DOCUSATE TABLET 2 TAB PO (20:54)
[2024-06-06] MEDS: TAMSULOSIN HCL 0.4 MG CAPSULE 0.8 MG PO (20:54)
[2024-06-06] MEDS: QUETIAPINE 25 MG TABLET PO (20:55)
--- NOTE | 2024-06-06 23:08 | CRLHL7_ITS ---
For Patients: As a result of the Century Cures Act, medical imaging exams and procedure reports are released immediately into your electronic medical record. You may view this report before your referring provider. If you have questions, please contact your health care provider. INDICATION: Trauma. TECHNIQUE: Bilateral hip and pelvis radiographs, 2 views. COMPARISON: Same day CT abdomen and pelvis. FINDINGS: Status post prior ORIF of the right proximal femur, with a periprosthetic intertrochanteric fracture of the proximal femur. The left proximal femur appears intact. No dislocation. No diastasis of the pubic symphysis. Moderate to severe degenerative joint space narrowing. No significant joint effusion. Unremarkable bowel gas pattern. The sacroiliac joints are unremarkable. IMPRESSION: 1. Status post ORIF of the right proximal femur, with an associated periprosthetic fracture of the intertrochanteric region. 2. The left proximal femur appears intact. Dictated by Skyler Franks MD @ 06/07/2024 12:45:01 AM (Electronically Signed)
[2024-06-07] VITALS (13 sets, daily range): BP systolic 104–144; BP diastolic 63–82; PULSE 80–93; RESP 18–24; TEMP 36.5–36.9; O2SAT 92–96
[2024-06-07] MEDS: PIPERACILLIN/TAZOBACTAM 3.375 GM in 0.9 % SODIUM CHLORIDE Mini-bag 100 ML IVPB ×4 (03:25→21:19)
[2024-06-07 07:02] LABS: Basophils Percent Auto 0.1 % (0.0-3.0); Eosinophils Percent Auto 0.8 % (0.0-7.0); Hematocrit 32.4 % (37.0-53.0); Hemoglobin* 10.5 gm/dL (13.5-17.5); Immature Granulocytes Pct Auto 0.8 %; Lymphocytes Percent Auto 3.8 % (20-44); Mean Corpuscular HGB Conc 32 gm/dL (32-36); Mean Corpuscular Hemoglobin 33 pg (26-34); Mean Corpuscular Volume 101 fL (80-100); Monocytes Percent Auto 6.9 % (0.0-11.0); Neutrophils Percent Auto 87.6 % (42.0-72.0); Platelet Count* 140 K/uL (140-440); RDW Coefficient of Variation % 14.5 % (11.5-15.5); Red Blood Count 3.22 m/uL (4.30-5.90); White Blood Count* 15.74 K/uL (4.50-11.00)
[2024-06-07 07:18] LABS: Chloride* 109 mmol/L (96-114)
[2024-06-07 07:19] LABS: Sodium* 138 mmol/L (135-149)
--- NOTE | 2024-06-07 07:19 | PM.GSPN ---
Subjective Subjective Date Seen: 06/07/24 Interval history: Staff reporting increased confusion and disorientation of patient this morning. He is answering my questions appropriately. He denies any belly pain. Not feeling hungry this morning, but denies any nausea. Has been tolerating clears. Continues to pass gas and feels like he might have a bowel movement this morning. Exam Narrative: Exam Narrative: General: No acute distress, alert to person and place Abdomen: Nondistended, soft and nontender to palpation. Const: Vital Signs, click to edit/add: Vital Signs - 24 hr 06/06/24 11:00 06/06/24 15:00 06/06/24 15:00 Temperature 98.4 F Pulse Rate Pulse Rate [Pulse Oximeter] 89 88 Respiratory Rate 16 18 18 Blood Pressure [Ri ght Arm] 85/65 L Pulse Oximetry 92 93 Oxygen Delivery Me thod Room Air Room Air 06/06/24 15:00 06/06/24 15:00 06/06/24 19:00 Temperature 98.0 F 99.7 F H Pulse Rate 88 Pulse Rate [Pulse Oximeter] 88 83 Respiratory Rate 18 22 Blood Pressure [Ri ght Arm] 99/66 104/66 Pulse Oximetry 93 92 Oxygen Delivery Me thod Room Air Room Air 06/06/24 23:00 06/06/24 23:00 06/06/24 23:00 Temperature 98.7 F Pulse Rate 77 Pulse Rate [Pulse Oximeter] 77 Respiratory Rate 22 22 Blood Pressure [Ri ght Arm] 100/57 L Pulse Oximetry 93 93 Oxygen Delivery Me thod Room Air Room Air 06/07/24 02:02 06/07/24 06:40 Temperature 97.9 F 98.3 F Pulse Rate Pulse Rate [Pulse Oximeter] 84 84 Respiratory Rate 18 18 Blood Pressure [Ri ght Arm] 106/75 134/78 Pulse Oximetry 92 96 Oxygen Delivery Me thod Room Air Room Air Labs/Imaging Labs Labs: WBC is trending down (20--15). CRP is elevated at 25. Progress Note:A&P Assessment and plan (1) Hypotension: Status: Acute Plan 74-year-old male on immunosuppressants postop day 4 after right hip fracture surgery. CT scan with noted dilated gas-filled sigmoid colon. Patient does have a leukocytosis and there was concern for sepsis the following day due to hypotension. Pressures have now been stable overnight. Leukocytosis is trending down (20--15). At this time the patient's abdomen remains benign and he continues to pass gas and have bowel movements. He is tolerating a clear liquid diet, okay to advance as tolerated. Low concern for an intra-abdominal source of infection. No clinical concern for volvulus or bowel compromise. All other cares per hospitalist. Please contact General surgery with any acute clinical changes
[2024-06-07 07:20] LABS: Slide Review Reflex No
[2024-06-07 07:21] LABS: Creatinine* 1.4 mg/dL (0.5-1.5); Est. Creatinine Clearance* 47.07; Estimated Glomerular Filt Rate 52 ml/min
[2024-06-07 07:22] LABS: Alanine Aminotransferase* 20 U/L (4-50); Alkaline Phosphatase* 69 U/L (40-150); Anion Gap 6 mEq/L (7-15); Aspartate Amino Transferase* 30 U/L (12-35); Bilirubin Direct* 0.5 mg/dL (0.0-0.5); Bilirubin Total* 1.9 mg/dL (0.1-1.5); Blood Urea Nitrogen* 42 mg/dL (7-30); Calcium* 8.1 mg/dL (8.4-10.6); Carbon Dioxide* 23 mmol/L (20-32); Glucose* 94 mg/dL (60-115); Magnesium* 2.3 mg/dL (1.5-2.6); Total Protein* 5.7 g/dL (6.0-8.3)
[2024-06-07 07:33] LABS: Troponin I* 0.02 ng/mL (0.01-0.04)
--- NOTE | 2024-06-07 08:26 | PC.NURSE ---
Shift note ([id number]): Patient Ambulates with walker, gait belt and assist of two. Denied pain in abdomen and right hip.?Dressing C,D&I. Pt was found on the floor, lying on his left side last evening. He denied hitting his head or pain to left side. He continued to deny discomfort during night. Neuros intact.?Confused and impulsive early this morning. Needed 1:1 with aide until arrived.? here and was updated regarding fall.?
[2024-06-07] MEDS: POTASSIUM BICARB 25 MEQ EFFERVESCENT TAB PO ×3 (09:33→13:39)
[2024-06-07] MEDS: RIVAROXABAN 10 MG TABLET PO (09:33)
[2024-06-07] MEDS: SODIUM CHLORIDE 0.9 % (FLUSH) 10 ML SYRINGE 5 ML IVF ×2 (09:34→21:45)
[2024-06-07] MEDS: VANCOMYCIN 1 GM/200 ML 1 GM/200 ML PIGGYBACK IVPB (13:43)
--- NOTE | 2024-06-07 15:06 | P.IMPN_ITS ---
Progress Note: A&P Assessment and plan (1) Sepsis: Problem details: Patient with hypotension, abnormal urinalysis and positive urine culture in the postoperative period. Likely urosepsis from Pseudomonas aeruginosa in the urine. On Zosyn.. Indeterminate findings on CT of the bowel. No evidence of obstructive shock or bleeding complications. Status: Acute (2) Closed fracture of right hip: Problem details: Day 2 s/p right intertrochanteric hip fracture fixation. DOS: 06/03/24; Dr. Israel. Status: Acute (3) Delirium: Problem details: Patient appears to have hospital-acquired delirium in the context of hip fracture and surgery. Underlying susceptibility to delirium from dementia, possibly Lewy body dementia. Confusion has been fluctuating. Supportive cares. Remove Doe. Status: Acute (4) Dementia: Problem details: Possibly Lewy body dementia. Seroquel at night. Supportive cares. Status: Acute (5) Indirect hyperbilirubinemia: Problem details: Continue to follow. Improving. Suspect hemolysis? Status: Acute (6) Fever: Problem details: Postop hip fracture. Culture urine and blood and monitor. Fever still thought possibly due to hip fracture with postoperative fever now concern about infectious process with hypotension. Postop fever could be from hip fracture or urine infection with sepsis or both. Improving Status: Acute (7) Urinary tract infection: Problem details: Gram-negative rods in urine. Pseudomonas sensitive to Zosyn and Cipro Status: Acute (8) Immunosuppression: Problem details: On methotrexate for rheumatoid arthritis. Hold for now Status: Acute (9) Abnormal CT of the abdomen: Problem details: CT the abdomen shows dilated redundant colon filled with gas. Concern for or early volvulus. Clinically this not appear to be the case so will continue conservative management and monitoring. Status: Acute Plan 74-year-old male status post ORIF right hip day for getting better. Postoperative complications have included delirium, sepsis from UTI, difficulties with therapy due to weakness pain and delirium, indirect hyperbilirubinemia, and concern over abnormal CT? Sigmoid volvulus. Continue in hospital for management of these problems. Plan of care discussed with patient, and other providers. Total time spent today is 55 minutes in these discussions and evaluation and management. Subjective Date Seen: 06/07/24 Interval history: David Tapia is a 74 year old male who presented to the emergency room by EMS this afternoon after a mechanical fall while walking outside with his . No preceding dizziness or lightheadedness, did not hit head. Per is acting normally. 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 Has been on Seroquel 12.5 mg at bedtime which the thinks has been helpful for hallucinations. After surgery and recovery and on arrival to the floor he was having hyperactive delirium with a lot of agitation. Required 2 staff people to restrain his arm so that he did not hurt them or himself, pull lines or catheters or get out of bed to fall. This morning he is pleasant and cooperative, not delirious but still confused/forgetful about his current circumstances. He did poorly getting up to walk with therapy today. Today he had a fever. Also noted to have elevated bilirubin. He is not having abdominal pain. Suspect these are from hip fracture/hemolysis. Continue to monitor and evaluate. 06/05/2024: Still confused and forgetful today but improving. Fever appears of resolved. Therapy indicates he is modestly improved with mobility. Still having a lot of hip pain. 06/06/2024: Patient continues to have episodes of confusion . Urine culture ca me back showing Gram-positive dilia so ceftriaxone was started. Low-grade fever last night resolved. This morning he became hypotensive. Received fluid bolus with partial response. Repeat examination showed no obvious signs or symptoms of infection. CT chest abdomen pelvis showed no PE or pulmonary infiltrate. There was a question of an early sigmoid volvulus. Patient has been passing gas and having stools today and having no abdominal pain. Surgery was consulted about this. 06/07/2024: Overnight patient was quite delirious according to nurses. Very agitated at times. Still confused but better this morning. Doe catheter put in yesterday because of concern about sepsis and urinary retention and UTI. Seen in consultation by surgery. Patient is passing gas and having bowel movem ents and has been able to eat. Continue to monitor but acute sigmoid volvulus appears to be unlikely in this clinical presentation. No respiratory problems. Slow progress with therapy. Exam Narrative: Exam Narrative: He is alert confused but pleasant. Cooperative with examination and not agitated. Respirations are clear to auscultation. Cardiovascular: S1, S2, regular rate and rhythm. Abdomen: Bowel sounds active. Abdomen is soft without tenderness or mass. Doe catheter in place. Right hip with moderate swelling and not marked bruising. Distally as intact pulses and sensation. Const: Vital Signs, click to edit/add: Vital Signs - 24 hr 06/06/24 19:00 06/06/24 23:00 06/06/24 23:00 Temperature 99.7 F H 98.7 F Pulse Rate Pulse Rate [Pulse Oximeter] 83 77 Respiratory Rate 22 22 22 Blood Pressure [Le ft Arm] Blood Pressure [Ri ght Arm] 104/66 100/57 L Pulse Oximetry 92 93 93 Oxygen Delivery Me thod Room Air Room Air Room Air 06/06/24 23:00 06/07/24 02:02 06/07/24 06:40 Temperature 97.9 F 98.3 F Pulse Rate 77 Pulse Rate [Pulse Oximeter] 84 84 Respiratory Rate 18 18 Blood Pressure [Le ft Arm] Blood Pressure [Ri ght Arm] 106/75 134/78 Pulse Oximetry 92 96 Oxygen Delivery Me thod Room Air Room Air 06/07/24 08:00 06/07/24 08:00 06/07/24 10:30 Temperature 97.9 F Pulse Rate Pulse Rate [Pulse Oximeter] 93 93 Respiratory Rate 18 18 18 Blood Pressure [Le ft Arm] 114/76 Blood Pressure [Ri ght Arm] Pulse Oximetry 93 93 Oxygen Delivery Me thod Room Air Room Air 06/07/24 11:26 06/07/24 12:56 Temperature 98.3 F Pulse Rate Pulse Rate [Pulse Oximeter] 90 90 Respiratory Rate 18 Blood Pressure [Le ft Arm] 104/63 Blood Pressure [Ri ght Arm] Pulse Oximetry 94 Oxygen Delivery Me thod Room Air Documenting provider has reviewed patient's vital signs: yes Labs Labs: Laboratory Results - last 24 hr 06/07/24 06:47 WBC 15.74 H RBC 3.22 L Hgb 10.5 L Hct 32.4 L MCV 101 H MCH 33 MCHC 32 RDW Coeff of Raj 14.5 Plt Count 140 Neut % (Auto) 87.6 H Lymph % (Auto) 3.8 L [place] % (Auto) 6.9 Eos % (Auto) 0.8 Baso % (Auto) 0.1 Neut # (Auto) 13.80 H Lymph # (Auto) 0.60 L [place] # (Auto) 1.10 H Eos # (Auto) 0.10 Baso # (Auto) 0.00 Abs Immat Gran (auto) 0.10 Imm/Tot Granulo (auto) 0.8 Sodium 138 Potassium 3.0 L Chloride 109 Carbon Dioxide 23 Anion Gap 6 L BUN 42 H Creatinine 1.4 Estimated Creat Clear 47.07 Estimated GFR 52 Glucose 94 Lactate 1.0 Calcium 8.1 L Magnesium 2.3 Total Bilirubin 1.9 H Direct Bilirubin 0.5 AST 30 ALT 20 Alkaline Phosphatase 69 Troponin I 0.02 C-Reactive Protein 25.0 H Total Protein 5.7 L Albumin 3.0 L
--- NOTE | 2024-06-07 18:58 | PC.NURSE ---
End of Shift ([id number]): Patient pleasant and cooperative, only oriented to person this shift, he occasionally would know the year, reoriented often. VSS, afebrile. SpO2 maintained above 90% on RA. Patient reports pain in his right hip this shift, declined PRN medication. Dressing to left hip C/D/I. Doe catheter removed this shift. Tolerating regular diet. 2A with walker and gait belt to the bathroom this shift. Call light within reach and bed alarm on.?
[2024-06-07] MEDS: 0.9 % SODIUM CHLORIDE 250 ml IV (21:41)
[2024-06-07] MEDS: TAMSULOSIN HCL 0.4 MG CAPSULE 0.8 MG PO (21:44)
[2024-06-07] MEDS: QUETIAPINE 25 MG TABLET PO (21:44)
[2024-06-07] MEDS: SENNOSIDES/DOCUSATE TABLET 2 TAB PO (21:44)
[2024-06-08] VITALS (14 sets, daily range): BP systolic 105–147; BP diastolic 83–94; PULSE 70–96; RESP 18–22; TEMP 36.6–36.7; O2SAT 94–98
[2024-06-08] MEDS: ACETAMINOPHEN 325 MG TABLET 975 MG PO ×2 (02:26→17:24)
[2024-06-08] MEDS: OXYCODONE 5 MG TABLET PO ×2 (02:27→18:18)
[2024-06-08] MEDS: PIPERACILLIN/TAZOBACTAM 3.375 GM in 0.9 % SODIUM CHLORIDE Mini-bag 100 ML IVPB (03:27)
[2024-06-08 07:24] LABS: Basophils Absolute Auto 0.02 K/uL (0.00-0.30); Basophils Percent Auto 0.2 % (0.0-3.0); Eosinophils Absolute Auto 0.08 K/uL (0.00-0.50); Eosinophils Percent Auto 0.8 % (0.0-7.0); Hematocrit 30.8 % (37.0-53.0); Hemoglobin* 9.9 gm/dL (13.5-17.5); Immature Granulocytes Abs Auto 0.22 K/uL (0.00-0.30); Immature Granulocytes Pct Auto 2.2 %; Lymphocytes Percent Auto 6.9 % (20-44); Mean Corpuscular HGB Conc 32 gm/dL (32-36); Mean Corpuscular Hemoglobin 32 pg (26-34); Mean Corpuscular Volume 100 fL (80-100); Monocytes Percent Auto 10.7 % (0.0-11.0); Neutrophils Percent Auto 79.2 % (42.0-72.0); Platelet Count* 156 K/uL (140-440); RDW Coefficient of Variation % 14.7 % (11.5-15.5); Red Blood Count 3.08 m/uL (4.30-5.90); White Blood Count* 9.91 K/uL (4.50-11.00)
--- NOTE | 2024-06-08 07:31 | PC.NURSE ---
Shift note ([id number]): Patient pleasant and alert. Ambulated with walker, gait belt and heavy assist of two. PRN Tylenol and Oxycodone given for reports of?discomfort/soreness to right hip but.?Dressing C,D&I. Neuros intact. 1:1 and redirection given as needed.?
[2024-06-08 07:42] LABS: Slide Review Reflex No
[2024-06-08 07:49] LABS: Chloride* 109 mmol/L (96-114); Sodium* 137 mmol/L (135-149)
[2024-06-08 07:52] LABS: Anion Gap 5 mEq/L (7-15); Blood Urea Nitrogen* 43 mg/dL (7-30); Carbon Dioxide* 23 mmol/L (20-32); Creatinine* 1.1 mg/dL (0.5-1.5); Est. Creatinine Clearance* 59.91; Estimated Glomerular Filt Rate 70 ml/min; Glucose* 93 mg/dL (60-115)
[2024-06-08 07:53] LABS: Calcium* 8.1 mg/dL (8.4-10.6)
[2024-06-08] MEDS: CIPROFLOXACIN 500 MG TABLET PO ×2 (08:27→20:47)
[2024-06-08] MEDS: RIVAROXABAN 10 MG TABLET PO (08:27)
[2024-06-08] MEDS: SODIUM CHLORIDE 0.9 % (FLUSH) 10 ML SYRINGE 5 ML IVF ×2 (08:28→20:48)
[2024-06-08 08:52] LABS: C Reactive Protein* 14.8 mg/dL (0.5-1.0)
--- NOTE | 2024-06-08 09:27 | PM.IMPN1 ---
Progress Note: A&P Assessment and plan (1) Sepsis: Problem details: Patient with hypotension, abnormal urinalysis and positive urine culture in the postoperative period. Likely urosepsis from Pseudomonas aeruginosa in the urine. On Zosyn.. Indeterminate findings on CT of the bowel. No evidence of obstructive shock or bleeding complications. Status: Acute (2) Closed fracture of right hip: Problem details: Day 2 s/p right intertrochanteric hip fracture fixation. DOS: 06/03/24; Dr. Israel. No operative complications Status: Acute (3) Delirium: Problem details: Patient appears to have hospital-acquired delirium in the context of hip fracture and surgery. Underlying susceptibility to delirium from dementia, possibly Lewy body dementia. Confusion has been fluctuating. Supportive cares. Remove Doe. Status: Acute (4) Dementia: Problem details: Possibly Lewy body dementia. Seroquel at night. Supportive cares. Status: Acute (5) Indirect hyperbilirubinemia: Problem details: Continue to follow. Improving. Suspect hemolysis? Status: Acute (6) Fever: Problem details: Postop hip fracture. Culture urine and blood and monitor. Fever still thought possibly due to hip fracture with postoperative fever now concern about infectious process with hypotension. Postop fever could be from hip fracture or urine infection with sepsis or both. Resolved. Status: Acute (7) Urinary tract infection: Problem details: Gram-negative rods in urine. Pseudomonas sensitive to Zosyn and Cipro. Status: Acute (8) Immunosuppression: Problem details: On methotrexate for rheumatoid arthritis. Resume after discharge Status: Acute (9) Abnormal CT of the abdomen: Problem details: CT the abdomen shows dilated redundant colon filled with gas. Concern for or early volvulus. Clinically this not appear to be the case so will continue conservative management and monitoring. Status: Acute (10) Urinary retention: Problem details: Has had moderate urinary retention. Required straight catheterization on 1 occasion after Doe was removed. Continue to monitor. Status: Acute Plan Continue in hospital for management of sepsis with urinary tract infection, management of delirium and postoperative care for hip fracture and therapy, Total time spent today is 35 minutes in coordination of care and discussing with patient and other providers management of delirium in hip fracture Subjective Date Seen: 06/08/24 Interval history: David Tapia is a 74 year old male who presented to the emergency room by EMS this afternoon after a mechanical fall while walking outside with his . No preceding dizziness or lightheadedness, did not hit head. Per is acting normally. 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 Has been on Seroquel 12.5 mg at bedtime which the thinks has been helpful for hallucinations. After surgery and recovery and on arrival to the floor he was having hyperactive delirium with a lot of agitation. Required 2 staff people to restrain his arm so that he did not hurt them or himself, pull lines or catheters or get out of bed to fall. This morning he is pleasant and cooperative, not delirious but still confused/forgetful about his current circumstances. He did poorly getting up to walk with therapy today. Today he had a fever. Also noted to have elevated bilirubin. He is not having abdominal pain. Suspect these are from hip fracture/hemolysis. Continue to monitor and evaluate. 06/05/2024: Still confused and forgetful today but improving. Fever appears of resolved. Therapy indicates he is modestly improved with mobility. Still having a lot of hip pain. 06/06/2024: Patient continues to have episodes of confusion . Urine culture came back showing Gram-positive dilia so ceftriaxone was started. Low-grade fever last night resolved. This morning he became hypotensive. Received fluid bolus with partial response. Repeat examination showed no obvious signs or symptoms of infection. CT chest abdomen pelvis showed no PE or pulmonary infiltrate. There was a question of an early sigmoid volvulus. Patient has been passing gas and having stools today and having no abdominal pain. Surgery was consulted about this. 06/07/2024: Overnight patient was quite delirious according to nurses. Very agitated at times. Still confused but better this morning. Doe catheter put in yesterday because of concern about sepsis and urinary retention and UTI. Seen in consultation by surgery. Patient is passing gas and having bowel movements and has been able to eat. Continue to monitor but acute sigmoid volvulus appears to be unlikely in this clinical presentation. No respiratory problems. Slow progress with therapy. 06/08/2024: Patient continues to have confusion and require re orientation. No significant agitation. Continue to have bowel movements. Eating well. Making progress with ambulation with therapy. No further fever. Exam Narrative: Exam Narrative: He is confused but pleasant. Eating breakfast. Respirations are clear to auscultation. Cardiovascular: S1, S2 regular rate and rhythm. Abdomen with active bowel sounds. Abdomen is soft without tenderness. Right Hip without significant erythema. No significant edema. Const: Vital Signs, click to edit/add: Vital Signs - 24 hr 06/07/24 10:30 06/07/24 11:26 06/07/24 12:56 Temperature 98.3 F Pulse Rate Pulse Rate [Pulse Oximeter] 90 90 Respiratory Rate 18 18 Blood Pressure [Le ft Arm] 104/63 Blood Pressure [Ri ght Arm] Pulse Oximetry 93 94 Oxygen Delivery Me thod Room Air Room Air 06/07/24 16:23 06/07/24 16:49 06/07/24 16:51 Temperature Pulse Rate 80 Pulse Rate [Pulse Oximeter] 86 Respiratory Rate 18 Blood Pressure [Le ft Arm] Blood Pressure [Ri ght Arm] Pulse Oximetry 94 Oxygen Delivery Me thod Room Air 06/07/24 16:52 06/07/24 16:56 06/07/24 19:00 Temperature 98.5 F 98.2 F Pulse Rate Pulse Rate [Pulse Oximeter] 86 86 82 Respiratory Rate 18 18 24 Blood Pressure [Le ft Arm] 116/82 Blood Pressure [Ri ght Arm] 125/77 Pulse Oximetry 94 96 Oxygen Delivery Me thod Room Air 06/07/24 23:00 06/07/24 23:00 06/08/24 01:25 Temperature 97.7 F Pulse Rate 81 Pulse Rate [Pulse Oximeter] 90 Respiratory Rate 18 20 Blood Pressure [Le ft Arm] Blood Pressure [Ri ght Arm] 144/80 H Pulse Oximetry 94 96 Oxygen Delivery Me thod Room Air Room Air 06/08/24 02:35 06/08/24 07:49 06/08/24 07:55 Temperature 97.9 F 97.9 F Pulse Rate Pulse Rate [Pulse Oximeter] 96 76 76 Respiratory Rate 20 18 Blood Pressure [Le ft Arm] 134/83 Blood Pressure [Ri ght Arm] 147/93 H Pulse Oximetry 98 94 Oxygen Delivery Me thod Room Air Room Air 06/08/24 08:00 06/08/24 08:03 Temperature Pulse Rate Pulse Rate [Pulse Oximeter] 76 Respiratory Rate 18 Blood Pressure [Le ft Arm] Blood Pressure [Ri ght Arm] Pulse Oximetry 94 Oxygen Delivery Me thod Room Air Documenting provider has reviewed patient's vital signs: yes Labs Labs: Laboratory Results - last 24 hr 06/08/24 05:43 WBC 9.91 RBC 3.08 L Hgb 9.9 L Hct 30.8 L MCV 100 MCH 32 MCHC 32 RDW Coeff of Raj 14.7 Plt Count 156 Neut % (Auto) 79.2 H Lymph % (Auto) 6.9 L [place] % (Auto) 10.7 Eos % (Auto) 0.8 Baso % (Auto) 0.2 Neut # (Auto) 7.80 H Lymph # (Auto) 0.70 L [place] # (Auto) 1.10 H Eos # (Auto) 0.08 Baso # (Auto) 0.02 Abs Immat Gran (auto) 0.22 Imm/Tot Granulo (auto) 2.2 Sodium 137 Potassium 4.0 Chloride 109 Carbon Dioxide 23 Anion Gap 5 L BUN 43 H Creatinine 1.1 Estimated Creat Clear 59.91 Estimated GFR 70 Glucose 93 Lactate 1.0 Calcium 8.1 L C-Reactive Protein 14.8 H
[2024-06-08] MEDS: lisinopriL 10 MG TABLET PO (10:09)
--- NOTE | 2024-06-08 14:42 | PC.NURSE ---
Pt alert to self. Pt up to chair multiple times during shift. Pt assist of 1-2 with walker and gait belt. Pt?s at bedside. Pt showered with OT. Pt up walking in hallways x 2 with staff.?Pt to discharge to [facility] on 06/09.
--- NOTE | 2024-06-08 19:11 | PC.NURSE ---
End of Shift: Patient is oriented to self. He reported pain on his right hip this shift, managed with PRN medication, see MAR. Tolerating regular diet. A2 with walker and gait belt.
[2024-06-08] MEDS: TAMSULOSIN HCL 0.4 MG CAPSULE 0.8 MG PO (20:47)
[2024-06-08] MEDS: SENNOSIDES/DOCUSATE TABLET 2 TAB PO (20:47)
[2024-06-08] MEDS: QUETIAPINE 25 MG TABLET PO (20:47)
[2024-06-09 02:01] VITALS: BP 130/84; PULSE 70; RESP 22; TEMP 36.8; O2SAT 96
[2024-06-09 06:55] LABS: Basophils Absolute Auto 0.02 K/uL (0.00-0.30); Basophils Percent Auto 0.2 % (0.0-3.0); Eosinophils Absolute Auto 0.16 K/uL (0.00-0.50); Hematocrit 32.3 % (37.0-53.0); Hemoglobin* 10.4 gm/dL (13.5-17.5); Immature Granulocytes Pct Auto 9.9 %; Lymphocytes Percent Auto 12.2 % (20-44); Mean Corpuscular HGB Conc 32 gm/dL (32-36); Mean Corpuscular Hemoglobin 32 pg (26-34); Mean Corpuscular Volume 101 fL (80-100); Monocytes Percent Auto 12.3 % (0.0-11.0); Neutrophils Absolute Auto 5.14 K/uL (1.7-7.0); Neutrophils Percent Auto 63.4 % (42.0-72.0); Platelet Count* 208 K/uL (140-440); RDW Coefficient of Variation % 14.8 % (11.5-15.5); Red Blood Count 3.21 m/uL (4.30-5.90); White Blood Count* 8.11 K/uL (4.50-11.00)
[2024-06-09 07:12] LABS: Albumin* 3.2 g/dL (3.3-5.0); Chloride* 112 mmol/L (96-114); Sodium* 141 mmol/L (135-149)
[2024-06-09 07:13] LABS: Potassium* 3.5 mmol/L (3.6-5.1)
[2024-06-09 07:15] LABS: Anion Gap 7 mEq/L (7-15); Carbon Dioxide* 22 mmol/L (20-32); Creatinine* 1.2 mg/dL (0.5-1.5); Est. Creatinine Clearance* 54.92; Estimated Glomerular Filt Rate 63 ml/min
[2024-06-09 07:16] LABS: Alanine Aminotransferase* 60 U/L (4-50); Alkaline Phosphatase* 76 U/L (40-150); Aspartate Amino Transferase* 88 U/L (12-35); Bilirubin Direct* 0.5 mg/dL (0.0-0.5); Bilirubin Total* 1.8 mg/dL (0.1-1.5); Blood Urea Nitrogen* 36 mg/dL (7-30); Calcium* 8.6 mg/dL (8.4-10.6); Glucose* 90 mg/dL (60-115)
--- NOTE | 2024-06-09 07:25 | PC.NURSE ---
Patient pleasant, alert and cooperative with cares.?Ambulated to bathroom and in hallway with rolling walker, gait belt and assist of 1-2. Dressing C,D&I. 1:1 and redirection given as needed. Reports some discomfort in right hip however but reports is tolerable. Slept well during night and was easily redirected. ?
[2024-06-09 07:55] VITALS: BP 148/97; PULSE 81; RESP 20; TEMP 36.6; O2SAT 99
[2024-06-09 08:03] LABS: Slide Review Acceptable Review (Acceptable); Slide Review Reflex Yes
[2024-06-09] MEDS: RIVAROXABAN 10 MG TABLET PO (08:23)
[2024-06-09] MEDS: SODIUM CHLORIDE 0.9 % (FLUSH) 10 ML SYRINGE 5 ML IVF ×2 (08:24→21:11)
[2024-06-09] MEDS: lisinopriL 10 MG TABLET PO (08:24)
[2024-06-09] MEDS: CIPROFLOXACIN 500 MG TABLET PO (08:24)
[2024-06-09] MEDS: ACETAMINOPHEN 325 MG TABLET 975 MG PO (08:24)
[2024-06-09 10:42] VITALS: PULSE 81
--- NOTE | 2024-06-09 10:45 | CRLHL7_ITS ---
For Patients: As a result of the Century Cures Act, medical imaging exams and procedure reports are released immediately into your electronic medical record. You may view this report before your referring provider. If you have questions, please contact your health care provider. INDICATION: Abnormal liver enzymes COMPARISON: CT abdomen pelvis 06/06/2024 TECHNIQUE: Johnson-scale and color Doppler ultrasound of the right upper quadrant. FINDINGS: Pancreas: Completely obscured by bowel gas. Liver: Normal hepatic echogenicity and normal echotexture. No mass. Patent portal vein with normal directional flow. Gallbladder and bile ducts: The gallbladder is completely filled with sludge and there are a few discrete nonshadowing calculi. The gallbladder wall is thin and uniform. No pericholecystic fluid. The fold seen at the gallbladder fundus on CT is not clearly appreciated, probably due to some rib shadowing. Sonographic Lozoya sign not reported. No intrahepatic or extrahepatic biliary ductal dilatation. The common bile duct measures 4 mm. RIGHT Kidney: Renal length: 10.8 cm Parenchyma: Diffuse thinning and normal echogenicity. Cyst: There is a 3.5 centimeter exophytic right renal cyst. Mass: None Calculi: None Urinary tract: Not dilated. Abdominal aorta and IVC: Significantly limited due to bowel gas. Ascites: None. IMPRESSION: 1. Sonographically normal liver parenchyma. 2. The gallbladder is completely filled with sludge and stones. No cholecystitis seen sonographically. 3. Mild diffuse right renal atrophy. There is a 3.5 centimeter right renal cyst. Other renal cysts seen on CT are not well appreciated on today`s ultrasound. Dictated by Shayy Liu MD @ 06/09/2024 11:42:14 AM (Electronically Signed)
--- NOTE | 2024-06-09 10:49 | PC.SOCIAL ---
Discharge planning: Called [facility] and spoke with RN, Paul [phone]. Paul requested additional updated information be sent and confirmed that at this time, prior to new information being reviewed, they are expecting pt to admit today before 2:00pm. Called [facility] and requested a change in time from 11:30 pickup driver to 1:30 pickup driver due to testing need prior to discharge. [facility] does not have that time available. Non-emergency ambulance transport will be used instead. formula room worker secure emailed requested information to [facility] and is awaiting final deciison on acceptance today. formula room worker to follow up as needed.
--- NOTE | 2024-06-09 11:49 | P.IMPN_ITS ---
Progress Note: A&P Assessment and plan (1) Sepsis: Problem details: Patient with hypotension, abnormal urinalysis and positive urine culture in the postoperative period. Likely urosepsis from Pseudomonas aeruginosa in the urine. On Zosyn.. Indeterminate findings on CT of the bowel. No evidence of obstructive shock or bleeding complications. Status: Acute (2) Closed fracture of right hip: Problem details: Day 2 s/p right intertrochanteric hip fracture fixation. DOS: 06/03/24; Dr. Israel. No operative complications. Making progress with physical therapy. Status: Acute (3) Delirium: Problem details: Patient appears to have hospital-acquired delirium in the context of hip fracture and surgery. Underlying susceptibility to delirium from dementia, possibly Lewy body dementia. Confusion has been fluctuating. Supportive cares. Status: Acute (4) Dementia: Problem details: Possibly Lewy body dementia. Seroquel at night. Supportive cares. Status: Acute (5) Indirect hyperbilirubinemia: Problem details: Continue to follow. Improving. Suspect hemolysis from hip fracture as the cause. Today developed elevated transaminases. Ultrasound shows stones and sludge in the gallbladder but no tenderness or other signs of cholecystitis Status: Acute (6) Fever: Problem details: Postop hip fracture. Culture urine and blood and monitor. Fever still thought possibly due to hip fracture with postoperative fever now concern about infectious process with hypotension. Postop fever could be from hip fracture or urine infection with sepsis or both. Resolved. Status: Acute (7) Urinary tract infection: Problem details: Gram-negative rods in urine. Pseudomonas sensitive to Zosyn and Cipro. Status: Acute (8) Immunosuppression: Problem details: On methotrexate for rheumatoid arthritis. Resume after liver enzymes normalize Status: Acute (9) Abnormal CT of the abdomen: Problem details: CT the abdomen shows dilated redundant colon filled with gas. Concern for or early volvulus. Clinically this not appear to be the case so will continue conservative management and monitoring. On June 09 had ultrasound showing gallbladder stones and sludge without obvious cholecystitis. Surgery consult Status: Acute (10) Urinary retention: Problem details: Has had moderate urinary retention. Required straight catheterization on 1 occasion after Doe was removed. Continue to monitor. Status: Acute (11) Elevated liver transaminase level: Problem details: Previously had elevated indirect bili thought secondary to hemolysis with normal transaminases. Now with elevated transaminases. Gallbladder has stones and sludge. No tenderness. Could also have drug-induced liver injury possibly from Cipro. Continue to follow. Surgery consult Status: Acute Plan Continue in hospital for ongoing management of hip fracture recovery, sepsis from UTI, abnormal liver enzymes, acute confusion. Total time spent today is 60 minutes evaluating transaminase elevation, discussing with patient and other providers this new finding, coordinating discharge plan and follow-up care. Subjective Date Seen: 06/09/24 Interval history: David Tapia is a 74 year old male who presented to the emergency room by EMS this afternoon after a mechanical fall while walking outside with his . No preceding dizziness or lightheadedness, did not hit head. Per is acting normally. 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 Has been on Seroquel 12.5 mg at bedtime which the thinks has been helpful for hallucinations. After surgery and recovery and on arrival to the floor he was having hyperactive delirium with a lot of agitation. Required 2 staff people to restrain his arm so that he did not hurt them or himself, pull lines or catheters or get out of bed to fall. This morning he is pleasant and cooperative, not delirious but still confused/forgetful about his current circumstances. He did poorly getting up to walk with therapy today. Today he had a fever. Also noted to have elevated bilirubin. He is not having abdominal pain. Suspect these are from hip fracture/hemolysis. Continue to monitor and evaluate. 06/05/2024: Still confused and forgetful today but improving. Fever appears of resolved. Therapy indicates he is modestly improved with mobility. Still having a lot of hip pain. 06/06/2024: Patient continues to have episodes of confusion . Urine culture came back showing Gram-positive dilia so ceftriaxone was started. Low-grade fever last night resolved. This morning he became hypotensive. Received fluid bolus with partial response. Repeat examination showed no obvious signs or symptoms of infection. CT chest abdomen pelvis showed no PE or pulmonary infiltrate. There was a question of an early sigmoid volvulus. Patient has been passing gas and having stools today and having no abdominal pain. Surgery was consulted about this. 06/07/2024: Overnight patient was quite delirious according to nurses. Very agitated at times. Still confused but better this morning. Doe catheter put in yesterday because of concern about sepsis and urinary retention and UTI. Seen in consultation by surgery. Patient is passing gas and having bowel movements and has been able to eat. Continue to monitor but acute sigmoid volvulus appears to be unlikely in this clinical presentation. No respiratory problems. Slow progress with therapy. 06/08/2024: Patient continues to have confusion and require re orientation. No significant agitation. Continue to have bowel movements. Eating well. Making progress with ambulation with therapy. No further fever. 06/09/2024: He continues to have some confusion and requires orientation. Intermittently getting up without assistance. No significant agitation. No abdominal pain. Making progress with physical therapy. Exam Narrative: Exam Narrative: He is pleasant and somewhat confused, disoriented. Otherwise cooperative. Respirations are clear to auscultation. Cardiovascular: S1, S2, regular rate and rhythm. Abdomen: Bowel sounds active. Abdomen is soft without tenderness or mass. Extremities without edema. Const: Vital Signs, click to edit/add: Vital Signs - 24 hr 06/08/24 12:00 06/08/24 15:34 06/08/24 15:37 Temperature 98.1 F Pulse Rate [Pulse Oximeter] 70 77 Respiratory Rate 18 18 Blood Pressure [Ri ght Arm] 127/84 Pulse Oximetry 97 97 Oxygen Delivery Me thod Room Air Room Air 06/08/24 15:38 06/08/24 18:45 06/08/24 19:00 Temperature 98.1 F Pulse Rate [Pulse Oximeter] 77 77 78 Respiratory Rate 18 20 Blood Pressure [Ri ght Arm] 105/83 Pulse Oximetry 95 Oxygen Delivery Me thod Room Air 06/08/24 23:00 06/09/24 02:01 06/09/24 07:55 Temperature 98.3 F Pulse Rate [Pulse Oximeter] 70 81 Respiratory Rate 22 22 20 Blood Pressure [Ri ght Arm] 130/84 Pulse Oximetry 96 96 Oxygen Delivery Me thod Room Air Room Air 06/09/24 07:55 06/09/24 07:55 06/09/24 10:42 Temperature 97.9 F Pulse Rate [Pulse Oximeter] 81 81 Respiratory Rate 20 20 Blood Pressure [Ri ght Arm] 148/97 H Pulse Oximetry 99 99 Oxygen Delivery Me thod Room Air Room Air Documenting provider has reviewed patient's vital signs: yes Labs Labs: Laboratory Results - last 24 hr 06/09/24 05:31 WBC 8.11 RBC 3.21 L Hgb 10.4 L Hct 32.3 L MCV 101 H MCH 32 MCHC 32 RDW Coeff of Raj 14.8 Plt Count 208 Neut % (Auto) 63.4 Lymph % (Auto) 12.2 L [place] % (Auto) 12.3 H Eos % (Auto) 2.0 Baso % (Auto) 0.2 Neut # (Auto) 5.14 Lymph # (Auto) 1.00 [place] # (Auto) 1.00 H Eos # (Auto) 0.16 Baso # (Auto) 0.02 Abs Immat Gran (auto) 0.80 H Imm/Tot Granulo (auto) 9.9 Diff Slide Review Acceptable Review Sodium 141 Potassium 3.5 L Chloride 112 Carbon Dioxide 22 Anion Gap 7 BUN 36 H Creatinine 1.2 Estimated Creat Clear 54.92 Estimated GFR 63 Glucose 90 Calcium 8.6 Total Bilirubin 1.8 H Direct Bilirubin 0.5 AST 88 H ALT 60 H Alkaline Phosphatase 76 C-Reactive Protein 8.0 H Total Protein 6.0 Albumin 3.2 L Imaging US - abdomen: Radiologist's impression: INDICATION: Abnormal liver enzymes COMPARISON: CT abdomen pelvis 06/06/2024 TECHNIQUE: Johnson-scale and color Doppler ultrasound of the right upper quadrant. FINDINGS: Pancreas: Completely obscured by bowel gas. Liver: Normal hepatic echogenicity and normal echotexture. No mass. Patent portal vein with normal directional flow. Gallbladder and bile ducts: The gallbladder is completely filled with sludge and there are a few discrete nonshadowing calculi. The gallbladder wall is thin and uniform. No pericholecystic fluid. The fold seen at the gallbladder fundus on CT is not clearly appreciated, probably due to some rib shadowing. Sonographic Lozoya sign not reported. No intrahepatic or extrahepatic biliary ductal dilatation. The common bile duct measures 4 mm. RIGHT Kidney: Renal length: 10.8 cm Parenchyma: Diffuse thinning and normal echogenicity. Cyst: There is a 3.5 centimeter exophytic right renal cyst. Mass: None Calculi: None Urinary tract: Not dilated. Abdominal aorta and IVC: Significantly limited due to bowel gas. Ascites: None. IMPRESSION: 1. Sonographically normal liver parenchyma. 2. The gallbladder is completely filled with sludge and stones. No cholecystitis seen sonographically. 3. Mild diffuse right renal atrophy. There is a 3.5 centimeter right renal cyst. Other renal cysts seen on CT are not well appreciated on today`s ultrasound.
--- NOTE | 2024-06-09 12:01 | PC.SOCIAL ---
Addendum entered and electronically signed by JOSEE Vogel 06/09/24 15:27: Sent referral by secure email to Matteo in admissions at [facility] for evaluation for admit. 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 Original Note: Discharge planning: Received call from [facility] RN, Paul, stating they can not accept pt based on review of the most recent medical information and his increased confusion and need for one to one. Called pt's , Munira [phone] and informed her of this decision. Munira requested placement as close to [place] as possible and asked socially responsible investment adviser to contact [place] and [place] before moving out to any further facilities. 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
--- NOTE | 2024-06-09 13:26 | PM.GSPN ---
Subjective Subjective Date Seen: 06/09/24 Interval history: Patient is very confused and disoriented, unable to provide any history. Exam Narrative: Exam Narrative: General: Nontoxic, confused Abdomen: Soft, nontender and nondistended. Const: Vital Signs, click to edit/add: Vital Signs - 24 hr 06/08/24 15:34 06/08/24 15:37 06/08/24 15:38 Temperature 98.1 F Pulse Rate [Pulse Oximeter] 77 77 Respiratory Rate 18 18 18 Blood Pressure [Ri ght Arm] 127/84 Pulse Oximetry 97 97 Oxygen Delivery Me thod Room Air Room Air 06/08/24 18:45 06/08/24 19:00 06/08/24 23:00 Temperature 98.1 F Pulse Rate [Pulse Oximeter] 77 78 Respiratory Rate 20 22 Blood Pressure [Ri ght Arm] 105/83 Pulse Oximetry 95 96 Oxygen Delivery Me thod Room Air Room Air 06/09/24 02:01 06/09/24 07:55 06/09/24 07:55 Temperature 98.3 F Pulse Rate [Pulse Oximeter] 70 81 Respiratory Rate 22 20 20 Blood Pressure [Ri ght Arm] 130/84 Pulse Oximetry 96 99 Oxygen Delivery Me thod Room Air Room Air 06/09/24 07:55 06/09/24 10:42 Temperature 97.9 F Pulse Rate [Pulse Oximeter] 81 81 Respiratory Rate 20 Blood Pressure [Ri ght Arm] 148/97 H Pulse Oximetry 99 Oxygen Delivery Me thod Room Air Labs/Imaging Labs Labs: Total bilirubin 1.8, direct 0.5. AST 88/ALT 60 CRP trending down at 8 Imaging Imaging: Abdominal ultrasound reviewed, gallbladder filled with sludge and distended, no pericholecystic fluid or gallbladder wall thickening. Progress Note:A&P Assessment and plan (1) Elevated liver transaminase level: Status: Acute Assessment and Plan: Patient with elevated total bilirubin, which has been trending down since admission. This has been largely indirect and secondary to hemolysis. He has a mild elevation in ALT/AST this morning, which prompted further evaluation with an abdominal ultrasound. His abdominal ultrasound does show a dilated gallbladder filled with sludge, but no pericholecystic fluid or thickening of the gallbladder wall. Patient is unable to provide a history or answer questions secondary to confusion, but his exam is benign with no complaints of pain during palpation. Patient has been tolerating a diet and having bowel movements. He does have down trending inflammatory markers and is actively being treated for a UTI. Clinically patient does not have symptoms consistent with cholecystitis. The mild elevation in his transaminases could be secondary to antibiotics. His direct bilirubin and alkaline phosphatase are within normal limits. Patient likely has cholestasis associated with his recent illness. No further treatment indicated at this time. Recommend patient continue his course of antibiotics per the hospitalist. If patient does develop signs of infection, abdominal pain and/or increasing LFTs could consider HIDA scan for further evaluation. Patient would be a poor surgical candidate so if intervention is needed would recommend pursuing a cholecystostomy tube.
[2024-06-09] MEDS: OXYCODONE 5 MG TABLET PO ×2 (13:45→21:11)
[2024-06-09 15:00] VITALS: RESP 20
--- NOTE | 2024-06-09 18:34 | PC.NURSE ---
End of shift summary: Pt has been alert & oriented to self only today. He is Ax1 with gait belt and 2ww. Right hip dressing is C/D/I. IV access lost today; okay with no replacement. Pt has been up to the BR multiple times throughout the day. He had x1 loose BM. He?s been continent all day. 1:1 BRAN PRN needed when is not present d/t restlessness. Pt needs frequent reorientation and does not use the call light. Tolerated regular diet with no nausea and no swallowing issues. Denies having pain. Active ice on/off & gave pt x1 dose of PRN oxycodone @ 1345.?
[2024-06-09] MEDS: CIPROFLOXACIN 250 MG TABLET PO (21:09)
[2024-06-09] MEDS: TAMSULOSIN HCL 0.4 MG CAPSULE 0.8 MG PO (21:10)
[2024-06-09] MEDS: QUETIAPINE 25 MG TABLET PO (21:10)
[2024-06-09] MEDS: lidocaine HCL 2 % JELLY (TOP) STERILE 6 ML UR (21:11)
[2024-06-09 23:00] VITALS: RESP 20
[2024-06-10] MEDS: QUETIAPINE 25 MG TABLET PO (00:22)
[2024-06-10] MEDS: OLANZapine 5 MG/ML inj 10 MG IM (04:36)
--- NOTE | 2024-06-10 04:37 | PC.NURSE ---
Pt becoming more agitated. sitting in chair with multiple staff surrounding him. Meds given as ordered.
--- NOTE | 2024-06-10 07:26 | PC.NURSE ---
Pt oriented to self. Pt appears to be anxious throughout shift, progressively getting more combative into the morning hours. At the beginning of shift, the pt was up to the bathroom many times with little output, staff bladder scanned, and it showed 850 mL in bladder. The bladder was distended, and it started pain upon palpation. Straight cath was placed with 1200 mL of output, pt stated relief. Prn oxy given for discomfort. Though the agitation continued. Pt 1:1 throughout shift. Staff attempted to reduce stimulus in the room and create a calm environment for pt, pt did not tolerate. Pt is impulsive and unable to use call light appropriately, bed and chair alarms in use.?Pt up in the thorne throughout shift with staff, 2a with walker, gait belt and wheelchair following, pt occasionally unstable and needs specific redirection while completing tasks. Pt threw walker across room multiple times despite redirection and de-escalation. PRN IM olanzapine given; some relief provided. Pt refused VS throughout shift. Pt pulled penis out and urinated on himself, staff tried to change his clothing though pt began to be combative and aggressive with staff despite multiple attempts.?Pt is in own clothes, clean clothes at bedside. No IV. Appears to be resting comfortably in chair.
[2024-06-10 08:46] VITALS: BP 117/76; PULSE 76; RESP 20; O2SAT 95
[2024-06-10 09:00] VITALS: RESP 20; O2SAT 95
[2024-06-10 09:02] LABS: Basophils Absolute Auto 0.02 K/uL (0.00-0.30); Basophils Percent Auto 0.2 % (0.0-3.0); Eosinophils Absolute Auto 0.17 K/uL (0.00-0.50); Eosinophils Percent Auto 2.1 % (0.0-7.0); Hematocrit 31.2 % (37.0-53.0); Hemoglobin* 9.9 gm/dL (13.5-17.5); Immature Granulocytes Abs Auto 1.33 K/uL (0.00-0.30); Immature Granulocytes Pct Auto 16.2 %; Lymphocytes Percent Auto 11.5 % (20-44); Mean Corpuscular HGB Conc 32 gm/dL (32-36); Mean Corpuscular Hemoglobin 32 pg (26-34); Mean Corpuscular Volume 101 fL (80-100); Monocytes Percent Auto 9.6 % (0.0-11.0); Neutrophils Absolute Auto 4.97 K/uL (1.7-7.0); Neutrophils Percent Auto 60.4 % (42.0-72.0); Platelet Count* 236 K/uL (140-440); RDW Coefficient of Variation % 14.8 % (11.5-15.5); Red Blood Count 3.09 m/uL (4.30-5.90); White Blood Count* 8.23 K/uL (4.50-11.00)
[2024-06-10 09:04] LABS: Slide Review Reflex No
[2024-06-10 09:18] LABS: Albumin* 3.1 g/dL (3.3-5.0); Chloride* 113 mmol/L (96-114); Potassium* 3.2 mmol/L (3.6-5.1); Sodium* 140 mmol/L (135-149)
[2024-06-10 09:20] LABS: Creatinine* 1.1 mg/dL (0.5-1.5); Est. Creatinine Clearance* 59.91; Estimated Glomerular Filt Rate 70 ml/min
[2024-06-10 09:21] LABS: Alanine Aminotransferase* 57 U/L (4-50); Alkaline Phosphatase* 69 U/L (40-150); Anion Gap 4 mEq/L (7-15); Aspartate Amino Transferase* 61 U/L (12-35); Bilirubin Direct* 0.3 mg/dL (0.0-0.5); Bilirubin Total* 1.5 mg/dL (0.1-1.5); Blood Urea Nitrogen* 36 mg/dL (7-30); Calcium* 8.6 mg/dL (8.4-10.6); Carbon Dioxide* 23 mmol/L (20-32); Glucose* 113 mg/dL (60-115); Total Protein* 5.6 g/dL (6.0-8.3)
[2024-06-10] MEDS: lisinopriL 10 MG TABLET PO (09:39)
[2024-06-10] MEDS: CIPROFLOXACIN 250 MG TABLET PO ×2 (09:40→21:50)
[2024-06-10] MEDS: RIVAROXABAN 10 MG TABLET PO (09:40)
[2024-06-10 10:00] VITALS: PULSE 76
[2024-06-10 15:00] VITALS: RESP 20
[2024-06-10] MEDS: ACETAMINOPHEN 325 MG TABLET 975 MG PO (15:08)
--- NOTE | 2024-06-10 15:31 | PM.IMPN1 ---
Progress Note: A&P Assessment and plan (1) Closed fracture of right hip: Problem details: Day 2 s/p right intertrochanteric hip fracture fixation. DOS: 06/03/24; Dr. Israel. No operative complications. Making progress with physical therapy. Status: Acute (2) Delirium: Problem details: Patient appears to have hospital-acquired delirium in the context of hip fracture and surgery. Underlying susceptibility to delirium from dementia, possibly Lewy body dementia. Confusion has been fluctuating. Supportive cares. Status: Acute (3) Urinary retention: Problem details: Has had severe urinary retention with 1200 mL of urine in his bladder. Appears to be come more agitated when he has urinary retention or when he has an indwelling Doe. Try to manage with intermittent catheterization Status: Acute (4) Urinary tract infection: Problem details: Gram-negative rods in urine. Pseudomonas sensitive to Zosyn and Cipro. Status: Acute (5) Elevated liver transaminase level: Problem details: Previously had elevated indirect bili thought secondary to hemolysis with normal transaminases. Now with elevated transaminases. Bilirubin continues to trend down. Gallbladder has stones and sludge. No tenderness. Could also have drug-induced liver injury possibly from Cipro. Continue to follow. Surgery consult recommends observation. If needing intervention on the gallbladder they are recommending placement of a percutaneous drainage tube Status: Acute (6) Dementia: Problem details: Possibly Lewy body dementia. Seroquel at night. Supportive cares. Status: Acute (7) Rheumatoid arthritis: Problem details: - On methotrexate (takes Mondays) and hydroxychloroquine Hold methotrexate until liver enzymes normalize Status: Chronic (8) Discharge planning issues: Problem details: Still having too much delirium to be discharged. Continue to address environmental modifications and urinary retention to minimize delirium Status: Acute Plan Continue in hospital for management of urinary tract infection, urinary retention, delirium, postop hip fracture rehabilitation. Delirium will need to improve prior to discharge. Total time spent today is 55 minutes in coordination of care and discussing with patient, , other staff, aids social worker ongoing management of these medical problems and disposition. Subjective Date Seen: 06/10/24 Interval history: David Tapia is a 74 year old male who presented to the emergency room by EMS this afternoon after a mechanical fall while walking outside with his . No preceding dizziness or lightheadedness, did not hit head. Per is acting normally. 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 Has been on Seroquel 12.5 mg at bedtime which the thinks has been helpful for hallucinations. After surgery and recovery and on arrival to the floor he was having hyperactive delirium with a lot of agitation. Required 2 staff people to restrain his arm so that he did not hurt them or himself, pull lines or catheters or get out of bed to fall. This morning he is pleasant and cooperative, not delirious but still confused/forgetful about his current circumstances. He did poorly getting up to walk with therapy today. Today he had a fever. Also noted to have elevated bilirubin. He is not having abdominal pain. Suspect these are from hip fracture/hemolysis. Continue to monitor and evaluate. 06/05/2024: Still confused and forgetful today but improving. Fever appears of resolved. Therapy indicates he is modestly improved with mobility. Still having a lot of hip pain. 06/06/2024: Patient continues to have episodes of confusion . Urine culture came back showing Gram-positive dilia so ceftriaxone was started. Low-grade fever last night resolved. This morning he became hypotensive. Received fluid bolus with partial response. Repeat examination showed no obvious signs or symptoms of infection. CT chest abdomen pelvis showed no PE or pulmonary infiltrate. There was a question of an early sigmoid volvulus. Patient has been passing gas and having stools today and having no abdominal pain. Surgery was consulted about this. 06/07/2024: Overnight patient was quite delirious according to nurses. Very agitated at times. Still confused but better this morning. Doe catheter put in yesterday because of concern about sepsis and urinary retention and UTI. Seen in consultation by surgery. Patient is passing gas and having bowel movements and has been able to eat. Continue to monitor but acute sigmoid volvulus appears to be unlikely in this clinical presentation. No respiratory problems. Slow progress with therapy. 06/08/2024: Patient continues to have confusion and require re orientation. No significant agitation. Continue to have bowel movements. Eating well. Making progress with ambulation with therapy. No further fever. 06/09/2024: He continues to have some confusion and requires orientation. Intermittently getting up without assistance. No significant agitation. No abdominal pain. Making progress with physical therapy. 06/10/2024: Patient had a difficult night with delirium. He was found to have severe urinary retention with 800 mL of urine on bladder scan and subsequently had straight cath for 1200 mL of urine. He has not had a fever. He has been able to eat. He remains confused this morning but not agitated. Exam Narrative: Exam Narrative: He is confused but otherwise in no distress. Respirations are clear to auscultation. Cardiovascular: S1, S2, regular rate and rhythm. No murmur gallop or rub. Abdomen: Bowel sounds active. Abdomen is soft without tenderness. Hip is without significant tenderness. He is observed to walk fairly well with a walker. Still need standby assistance and direction however. Const: Vital Signs, click to edit/add: Vital Signs - 24 hr 06/09/24 23:00 06/10/24 08:46 06/10/24 09:00 Pulse Rate [Pulse Oximeter] 76 Respiratory Rate 20 20 20 Blood Pressure [Ri ght Arm] 117/76 Pulse Oximetry 95 95 Oxygen Delivery Me thod Room Air Room Air 06/10/24 10:00 Pulse Rate [Pulse Oximeter] 76 Respiratory Rate Blood Pressure [Ri ght Arm] Pulse Oximetry Oxygen Delivery Me thod Documenting provider has reviewed patient's vital signs: yes Labs Labs: Laboratory Results - last 24 hr 06/10/24 08:52 WBC 8.23 RBC 3.09 L Hgb 9.9 L Hct 31.2 L MCV 101 H MCH 32 MCHC 32 RDW Coeff of Raj 14.8 Plt Count 236 Neut % (Auto) 60.4 Lymph % (Auto) 11.5 L [place] % (Auto) 9.6 Eos % (Auto) 2.1 Baso % (Auto) 0.2 Neut # (Auto) 4.97 Lymph # (Auto) 0.90 [place] # (Auto) 0.80 Eos # (Auto) 0.17 Baso # (Auto) 0.02 Abs Immat Gran (auto) 1.33 H Imm/Tot Granulo (auto) 16.2 Sodium 140 Potassium 3.2 L Chloride 113 Carbon Dioxide 23 Anion Gap 4 L BUN 36 H Creatinine 1.1 Estimated Creat Clear 59.91 Estimated GFR 70 Glucose 113 Calcium 8.6 Total Bilirubin 1.5 Direct Bilirubin 0.3 AST 61 H ALT 57 H Alkaline Phosphatase 69 Total Protein 5.6 L Albumin 3.1 L
--- NOTE | 2024-06-10 15:51 | PM.EN ---
Chart Event Note Date Seen: 06/10/24 Chart Event Note: Developing akathisia. Concerning for extrapyramidal side effect of a medicine. Reviewed medications. Has been receiving doses of quetiapine. Will stop the quetiapine now. Continue to monitor and support.
[2024-06-10 18:00] VITALS: BP 117/72; PULSE 84; RESP 18; O2SAT 94
--- NOTE | 2024-06-10 18:45 | PC.NURSE ---
Nursing Care Hours: [id number] Pt this shift calm and cooperative all shift. Declined shower but agreeable to VS, bladder scanning, and straight cath. Straight cath x1 d/t urine retention >300ml. Postponed per pt family request to allow for rest in the AM. Removed 350ml and bladder scan showed another 300ml retained at 1130. Pt walked thorne with staff and PT. 1500, bladder scan showed 180-300ml so cath postponed until after afternoon nap. Pt had increased extremity jerking/tremors before afternoon nap and Acetaminophen given for possible pain. Pt slept calm and content. Pt voided 100ml, went for a walk and voided another 150ml. Up in chair for dinner. Bladder scanned this evening and straight cath not needed at this time.
[2024-06-10] MEDS: SENNOSIDES/DOCUSATE TABLET 2 TAB PO (21:50)
[2024-06-10] MEDS: TAMSULOSIN HCL 0.4 MG CAPSULE 0.8 MG PO (21:50)
[2024-06-10] MEDS: HYDROXYCHLOROQUINE 200 MG TABLET 400 MG PO (21:50)
[2024-06-10 23:00] VITALS: BP 126/98; PULSE 89; RESP 18; TEMP 37.1; O2SAT 95
[2024-06-11 06:55] LABS: Basophils Absolute Auto 0.03 K/uL (0.00-0.30); Basophils Percent Auto 0.3 % (0.0-3.0); Eosinophils Absolute Auto 0.23 K/uL (0.00-0.50); Eosinophils Percent Auto 2.2 % (0.0-7.0); Hemoglobin* 10.6 gm/dL (13.5-17.5); Immature Granulocytes Abs Auto 1.98 K/uL (0.00-0.30); Immature Granulocytes Pct Auto 18.7 %; Lymphocytes Percent Auto 10.6 % (20-44); Mean Corpuscular HGB Conc 32 gm/dL (32-36); Mean Corpuscular Hemoglobin 33 pg (26-34); Mean Corpuscular Volume 102 fL (80-100); Monocytes Percent Auto 8.6 % (0.0-11.0); Neutrophils Absolute Auto 6.33 K/uL (1.7-7.0); Neutrophils Percent Auto 59.6 % (42.0-72.0); Platelet Count* 319 K/uL (140-440); RDW Coefficient of Variation % 15.3 % (11.5-15.5); Red Blood Count 3.25 m/uL (4.30-5.90)
[2024-06-11 06:59] LABS: Slide Review Reflex Yes
--- NOTE | 2024-06-11 06:59 | PC.NURSE ---
Pt pleasant, oriented to self and vitally stable. Pt up in chair throughout shift, tolerates well. Pt did not appear to rest during the shift, low stimulus environment provided. Pt urinated 350 throughout shift, bladder scan showed no more than 50 left as residual, no indication for straight cath needed. Dressings on surgical sites removed, incisions CDI, bruising noted throughout right hip. Pt does not use call light appropriately, chair alarm in use. Pt in chair, call light within reach.?
[2024-06-11 07:00] VITALS: BP 121/75; PULSE 84; PULSE 85; RESP 18; TEMP 36.9; O2SAT 95
[2024-06-11 07:12] LABS: Albumin* 3.2 g/dL (3.3-5.0); Chloride* 112 mmol/L (96-114); Sodium* 141 mmol/L (135-149)
[2024-06-11 07:13] LABS: Potassium* 3.3 mmol/L (3.6-5.1)
[2024-06-11 07:15] LABS: Alanine Aminotransferase* 59 U/L (4-50); Alkaline Phosphatase* 81 U/L (40-150); Anion Gap 9 mEq/L (7-15); Aspartate Amino Transferase* 55 U/L (12-35); Bilirubin Direct* 0.3 mg/dL (0.0-0.5); Bilirubin Total* 1.4 mg/dL (0.1-1.5); Blood Urea Nitrogen* 35 mg/dL (7-30); Carbon Dioxide* 20 mmol/L (20-32); Creatinine* 1.1 mg/dL (0.5-1.5); Est. Creatinine Clearance* 59.91; Estimated Glomerular Filt Rate 70 ml/min; Glucose* 104 mg/dL (60-115); Total Protein* 5.9 g/dL (6.0-8.3)
[2024-06-11 07:16] LABS: Calcium* 8.4 mg/dL (8.4-10.6)
[2024-06-11 07:42] LABS: Slide Review Acceptable Review (Acceptable)
[2024-06-11] MEDS: ACETAMINOPHEN 325 MG TABLET 975 MG PO ×2 (10:03→16:55)
[2024-06-11] MEDS: lisinopriL 10 MG TABLET PO (10:04)
[2024-06-11] MEDS: CIPROFLOXACIN 250 MG TABLET PO ×2 (10:04→22:10)
[2024-06-11] MEDS: RIVAROXABAN 10 MG TABLET PO (10:04)
--- NOTE | 2024-06-11 11:51 | PM.IMPN1 ---
Progress Note: A&P Assessment and plan (1) Closed fracture of right hip: Problem details: S/p right intertrochanteric hip fracture fixation. DOS: 06/03/24; Dr. Israel. No operative complications. Making progress with physical therapy. Status: Acute (2) Delirium: Problem details: Patient appears to have hospital-acquired delirium in the context of hip fracture and surgery. Underlying susceptibility to delirium from dementia, possibly Lewy body dementia. Confusion has been fluctuating. Current UTI may be contributing. Supportive cares. Seroquel (previously prescribed for hallucinations) was discontinued 06/10. Last Oxycodone 06/09. Currently on Cipro for UTI which can cause worsening confusion - continue to monitor for now given other medication changes Status: Acute (3) Urinary retention: Problem details: Has had severe urinary retention with 1200 mL of urine in his bladder. Appears to be come more agitated when he has urinary retention or when he has an indwelling Doe. Try to manage with tid catheterization Status: Acute (4) Urinary tract infection: Problem details: Gram-negative rods in urine. Pseudomonas sensitive to Zosyn and Cipro. Continue Cipro for now, consider if this may be contributing to increased confusion Status: Acute (5) Elevated liver transaminase level: Problem details: Previously had elevated indirect bili thought secondary to hemolysis with normal transaminases. Now with elevated transaminases. Bilirubin continues to trend down. Gallbladder has stones and sludge. No tenderness. Could also have drug-induced liver injury possibly from Cipro. Continue to follow. Surgery consult recommends observation. If needing intervention on the gallbladder they are recommending placement of a percutaneous drainage tube 06/11 - total bili normalized to 1.4, AST trending down, ALT stable Status: Acute (6) Dementia: Problem details: Possibly Lewy body dementia. Seroquel at night - discontinued 06/10 in setting of increased delirium. Supportive cares. Status: Acute (7) Rheumatoid arthritis: Problem details: - On methotrexate (takes Mondays) and hydroxychloroquine Hold methotrexate until liver enzymes normalize Status: Chronic (8) Discharge planning issues: Problem details: Still having too much delirium to be discharged. Continue to address environmental modifications and urinary retention to minimize delirium Status: Acute (9) Hypokalemia: Problem details: Potassium 3.3, will replace with oral supplement Status: Acute Plan Continue in hospital for management of urinary tract infection, urinary retention, delirium, postop hip fracture rehabilitation. Delirium will need to improve prior to discharge - Seroquel discontinued, UTI being treated although Cipro may be contributing, manage sleep/wake cycle and monitor. Time Spent With Patient Total time spent: Total time spent caring for the patient today was 45 minutes. This includes time spent for the visit reviewing the chart, time spent during the visit, time spent after the visit and documentation and planning in coordination of care. Subjective Date Seen: 06/11/24 Interval history: Patient is seen this morning sitting up in his chair. Denies headache or dizziness. Pain currently well managed. Tolerating orals without nausea or vomiting. Remains confused. Overnight report of not sleeping well. Room is currently dark with shade drawn though it is daylight out. Exam Narrative: Exam Narrative: PHYSICAL EXAM General: Pleasant, conversant, NAD Cardiovascular: RRR, S1S2. No pitting edema Pulmonary: CTA bilaterally without rhonchi, rales, expiratory wheezes. No dyspnea Neurological: Alert, confusion present, interacting appropriately, cranial nerves intact, no focal findings Extremities: No gross joint deformity or swelling. AROMI. Neurovascularly intact Skin: Warm, dry. Const: Vital Signs, click to edit/add: Vital Signs - 24 hr 06/10/24 15:00 06/10/24 18:00 06/10/24 18:00 Temperature Pulse Rate [Pulse Oximeter] 84 Respiratory Rate 20 18 18 Blood Pressure [Ri ght Arm] 117/72 Pulse Oximetry 94 94 Oxygen Delivery Me thod Room Air Room Air 06/10/24 23:00 06/10/24 23:00 06/10/24 23:00 Temperature 98.7 F Pulse Rate [Pulse Oximeter] 89 89 Respiratory Rate 18 18 Blood Pressure [Ri ght Arm] 126/98 H Pulse Oximetry 95 95 Oxygen Delivery Me thod Room Air Room Air 06/11/24 07:00 06/11/24 07:00 06/11/24 07:00 Temperature 98.5 F Pulse Rate [Pulse Oximeter] 84 85 Respiratory Rate 18 18 18 Blood Pressure [Ri ght Arm] 121/75 Pulse Oximetry 95 95 Oxygen Delivery Me thod Room Air Room Air Labs Labs: Laboratory Results - last 24 hr 06/11/24 05:56 WBC 10.60 RBC 3.25 L Hgb 10.6 L Hct 33.0 L MCV 102 H MCH 33 MCHC 32 RDW Coeff of Raj 15.3 Plt Count 319 Neut % (Auto) 59.6 Lymph % (Auto) 10.6 L [place] % (Auto) 8.6 Eos % (Auto) 2.2 Baso % (Auto) 0.3 Neut # (Auto) 6.33 Lymph # (Auto) 1.10 [place] # (Auto) 0.90 Eos # (Auto) 0.23 Baso # (Auto) 0.03 Abs Immat Gran (auto) 1.98 H Imm/Tot Granulo (auto) 18.7 Diff Slide Review Acceptable Review Sodium 141 Potassium 3.3 L Chloride 112 Carbon Dioxide 20 Anion Gap 9 BUN 35 H Creatinine 1.1 Estimated Creat Clear 59.91 Estimated GFR 70 Glucose 104 Calcium 8.4 Total Bilirubin 1.4 Direct Bilirubin 0.3 AST 55 H ALT 59 H Alkaline Phosphatase 81 Total Protein 5.9 L Albumin 3.2 L
[2024-06-11] MEDS: POTASSIUM CHLORIDE 10 MEQ CAPSULE ER 40 MEQ PO (13:41)
[2024-06-11 15:00] VITALS: BP 123/84; PULSE 72; RESP 18; O2SAT 96
--- NOTE | 2024-06-11 18:26 | PC.NURSE ---
Nursing Care Hours: [id number] pt this shift calm and cooperative, alert and oriented to self and staff. Recalling most recent events and information accurately and clearly. Using call light for assistance to bathroom. Admits to soreness to R leg post morning walk, treated with acetaminophen. Afternoon pt c/o pain in R knee more, also treated with acetaminophen. No narcotics used this shift. No narcotics used yesterday as well and movie writer noting improved cognition and clarity. Decrease in tremor and myoclonus movements as well. Pt voiding small amounts at a time but bladder scan has not indicated need for straight cath. [facility] this shift. VSS. Pt walked thorne with Ax1 using walker and gait belt. Operating Systems Programmer encouraging pt to stand tall during ambulation. Pt states my hamstrings are sore. Discussed possible stretches to do in bed with pt and . pt given sponge bath at sink. In bed by 1900.
[2024-06-11] MEDS: HYDROXYCHLOROQUINE 200 MG TABLET 400 MG PO (22:10)
[2024-06-11] MEDS: TAMSULOSIN HCL 0.4 MG CAPSULE 0.8 MG PO (22:11)
[2024-06-11] MEDS: MELATONIN 3 MG TABLET PO (22:11)
[2024-06-11] MEDS: SENNOSIDES/DOCUSATE TABLET 2 TAB PO (22:11)
--- NOTE | 2024-06-11 23:37 | PC.NURSE ---
[id number]: Pt pleasant, oriented to self and vitally stable. Pt in bed for about 2 hours (staff provided dark, low stimulus environment) then up walking with staff. Pt is forgetful, alarms in use. Pt up to the bathroom via 1a walker gait belt though 2a in thorne. Pt up in chair now, call light within reach and alarms on.
[2024-06-12] VITALS (7 sets, daily range): BP systolic 119; BP diastolic 63; PULSE 85; RESP 18–20; TEMP 36.8; O2SAT 93–97
[2024-06-12] MEDS: ACETAMINOPHEN 325 MG TABLET 975 MG PO ×2 (01:10→10:12)
--- NOTE | 2024-06-12 06:45 | PC.NURSE ---
End of shift [id number] ? Pt alert, oriented to self only. Pt pleasant but demonstrated recent and remote memory impairment.?Frequently up from bed and chair without assistance and repeatedly setting off alarms. Pt very unsteady on feet. RN provided call light education, comprehension not shown. Pt behavior indicated pain in operative hip with ambulation. Medication given per MAR with pt behavior indicating improvement. Pt not observed to sleep during shift. Up with walker/gait belt and standby assistance. Noted to take accompanied walks in thorne. Continent of bowel and bladder with brief episode of functional incontinence. Bladder scanned per MD order, no strait catheterization performed per order protocol and results of bladder scan. Tolerating RA and regular diet/fluids. Pt appears to be resting comfortably at end of shift with call light within reach.
[2024-06-12 07:24] LABS: Chloride* 114 mmol/L (96-114); Potassium* 3.8 mmol/L (3.6-5.1); Sodium* 141 mmol/L (135-149)
[2024-06-12 07:26] LABS: Alkaline Phosphatase* 75 U/L (40-150); Anion Gap 5 mEq/L (7-15); Aspartate Amino Transferase* 43 U/L (12-35); Bilirubin Direct* 0.4 mg/dL (0.0-0.5); Bilirubin Total* 1.5 mg/dL (0.1-1.5); Blood Urea Nitrogen* 33 mg/dL (7-30); Carbon Dioxide* 22 mmol/L (20-32); Creatinine* 1.1 mg/dL (0.5-1.5); Est. Creatinine Clearance* 59.91; Estimated Glomerular Filt Rate 70 ml/min; Glucose* 94 mg/dL (60-115); Total Protein* 5.6 g/dL (6.0-8.3)
[2024-06-12 07:27] LABS: Alanine Aminotransferase* 49 U/L (4-50); Calcium* 8.5 mg/dL (8.4-10.6)
--- NOTE | 2024-06-12 07:59 | PC.NURSE ---
Patient between 6:30am and 7:30am slept off and on for about 10 minutes at a time but then he would wake up.
[2024-06-12] MEDS: lisinopriL 10 MG TABLET PO (10:13)
[2024-06-12] MEDS: CIPROFLOXACIN 250 MG TABLET PO ×2 (10:13→20:59)
--- NOTE | 2024-06-12 10:23 | PM.IMPN1 ---
Progress Note: A&P Assessment and plan (1) Closed fracture of right hip: Problem details: S/p right intertrochanteric hip fracture fixation. DOS: 06/03/24; Dr. Israel. No operative complications Continue PT/OT Nonnarcotic pain management only to decrease risk for further delirium DVT prophylaxis per Orthopedic surgery - aspirin 81 mg b.i.d. x 35 days (Xarelto discontinued) Outpatient follow-up in orthopedic clinic 2 weeks postoperatively Status: Acute (2) Delirium: Problem details: Patient appears to have hospital-acquired delirium in the context of hip fracture and surgery. Underlying susceptibility to delirium from dementia, possibly Lewy body dementia. Confusion has been fluctuating. Current UTI may be contributing. Supportive cares. Seroquel (previously prescribed for hallucinations) was discontinued 06/10. Last Oxycodone 06/09. Currently on Cipro for UTI which can cause worsening confusion - continue to monitor for now given other medication changes Remains calm and cooperative throughout the day, easily redirectable, insomnia noted overnights. No agitation Status: Acute (3) Dementia: Problem details: Possibly Lewy body dementia. Seroquel at night - discontinued 06/10 in setting of increased delirium. Supportive cares Further outpatient workup and management following hospital discharge Status: Acute (4) Insomnia: Problem details: Nursing reporting little to no sleep past couple of nights Encourage appropriate sleep/wake cycle - shades open during day, limited napping, no caffeine after 2:00 p.m., restful night vitals, etc. According to UpToDate, trazodone 50 mg q.h.s. may improve total sl?e? time in patients with moderate to severe dementia. Ordered 06/12/2024 Status: Acute (5) Urinary retention: Problem details: Has had severe urinary retention with 1200 mL of urine in his bladder. Appears to be come more agitated when he has urinary retention or when he has an indwelling Doe. Manage with tid catheterization Status: Acute (6) Urinary tract infection: Problem details: Gram-negative rods in urine. Pseudomonas sensitive to Zosyn and Cipro Continue Cipro x 5 day course - consider if this may be contributing to increased confusion Status: Acute (7) Elevated liver transaminase level: Problem details: Previously had elevated indirect bili thought secondary to hemolysis with normal transaminases. Now with elevated transaminases. Bilirubin continues to trend down. Gallbladder has stones and sludge. No tenderness. Could also have drug-induced liver injury possibly from Cipro. Continue to follow. Surgery consult recommends observation. If needing intervention on the gallbladder they are recommending placement of a percutaneous drainage tube 06/11 - total bili normalized to 1.4, AST trending down 43, ALT stable Status: Acute (8) Rheumatoid arthritis: Problem details: Home meds include methotrexate (takes Mondays) and hydroxychloroquine -restarting methotrexate as liver enzymes have normalized Status: Chronic (9) Discharge planning issues: Problem details: Still having too much delirium to be discharged. Continue to address environmental modifications and urinary retention to minimize delirium Will be assessed by [facility] in [place] on 06/13 Status: Acute (10) Hypokalemia: Problem details: Potassium 3.3, will replace with oral supplement - improved to 3.8. Continue 20 mEq b.i.d. dosing Status: Acute Plan Continue in hospital for management of urinary tract infection, urinary retention, delirium, postop hip fracture rehabilitation. Delirium will need to improve prior to discharge - Seroquel discontinued, UTI being treated although Cipro may be contributing, manage sleep/wake cycle and monitor. Labs have been stable. Will order p.r.n. at this point Time Spent With Patient Total time spent: Total time spent caring for the patient today was 45 minutes. This includes time spent for the visit reviewing the chart, time spent during the visit, time spent after the visit and documentation and planning in coordination of care. Subjective Date Seen: 06/12/24 Interval history: Patient is seen with at bedside. Continues to be confused. Has been calm, cooperative, easily redirectable. Reported to not sleep well the past 2 nights, mostly awake. Has no complaints this morning. Awaiting assessment by [facility] tomorrow. Discussed plan of care with . Exam Narrative: Exam Narrative: PHYSICAL EXAM General: Pleasant, conversant, NAD Cardiovascular: RRR, S1S2. No pitting edema Pulmonary: CTA bilaterally without rhonchi, rales, expiratory wheezes. No dyspnea Neurological: Alert, confusion present, interacting appropriately, cranial nerves intact, no focal findings Extremities: No gross joint deformity or swelling. AROMI. Neurovascularly intact Skin: Warm, dry. Const: Vital Signs, click to edit/add: Vital Signs - 24 hr 06/11/24 15:00 06/11/24 15:00 06/11/24 15:00 Temperature Pulse Rate [Pulse Oximeter] 72 72 Respiratory Rate 18 18 18 Blood Pressure [Ri t Arm] 123/84 Pulse Oximetry 96 96 Oxygen Delivery Me thod Room Air Room Air 06/12/24 01:23 06/12/24 01:24 06/12/24 08:38 Temperature 98.2 F Pulse Rate [Pulse Oximeter] 85 Respiratory Rate 20 20 20 Blood Pressure [[facility]] 119/63 Pulse Oximetry 93 97 Oxygen Delivery Id thod Room Air Labs Labs: Laboratory Results - last 24 hr 06/12/24 05:36 Sodium 141 Potassium 3.8 Chloride 114 Carbon Dioxide 22 Anion Gap 5 L BUN 33 H Creatinine 1.1 Estimated Creat Clear 59.91 Estimated GFR 70 Glucose 94 Calcium 8.5 Total Bilirubin 1.5 Direct Bilirubin 0.4 AST 43 H ALT 49 Alkaline Phosphatase 75 Total Protein 5.6 L Albumin 3.0 L
[2024-06-12] MEDS: POTASSIUM CHLORIDE 10 MEQ CAPSULE ER 20 MEQ PO ×2 (11:12→20:59)
[2024-06-12] MEDS: ASPIRIN 81 MG TABLET EC PO ×2 (11:13→20:59)
--- NOTE | 2024-06-12 19:43 | PC.NURSE ---
Nursing Care Hours: [id number] Pt this shift calm and cooperative. Easily redirected. Did require short periods of 1:1 d/t pt wanting to get up from chair and not using call light. Reports of pain to upper R quad muscle and R ant clinton. R leg edamoutus and pitting. KVNG measured and applied. Pain treated per eMAR. Attempt to keep pt from falling asleep during day and remove caffine after lunch. Walked in the thorne multiple times. Pt voiding sufficient amounts and did not require straight cath.
[2024-06-12] MEDS: HYDROXYCHLOROQUINE 200 MG TABLET 400 MG PO (20:59)
[2024-06-12] MEDS: TRAZODONE HCL 50 MG TABLET PO (20:59)
[2024-06-12] MEDS: SENNOSIDES/DOCUSATE TABLET 2 TAB PO (20:59)
[2024-06-12] MEDS: TAMSULOSIN HCL 0.4 MG CAPSULE 0.8 MG PO (21:02)
[2024-06-13] MEDS: TRAZODONE HCL 50 MG TABLET PO (01:30)
--- NOTE | 2024-06-13 06:49 | PC.NURSE ---
End of shift ? Pt alert, oriented to self only. Pt demonstrated confusion and mild intermittent hallucinations including stating there were ?animals under the bed? and believing he was riding on train. Pt pleasant but demonstrated recent and remote memory impairment.?Frequently up from bed and chair without assistance and setting off bed and chair alarms. RN provided call light education, comprehension not shown.Pt required frequent redirection and reorientation. Observed to walk halls with staff. Pt refused pain medication for operative hip pain. RN re-approached multiple times and pt continues to refuse. Observed to sleep for roughly 1 hour during shift, observation verified by 1:1 BRAN sitter. Up with walker/gait belt and standby assistance. Continent of bowel and bladder, no catheterization needed during shift per order protocol and results of bladder scan. Tolerating RA and regular diet/fluids. Appears to be resting comfortably with 1:1 BRAN sitter. ?
[2024-06-13 07:42] VITALS: BP 120/79; PULSE 86; RESP 16; TEMP 36.6; O2SAT 96
[2024-06-13] MEDS: CIPROFLOXACIN 250 MG TABLET PO ×2 (08:03→21:18)
[2024-06-13] MEDS: lisinopriL 10 MG TABLET PO (08:03)
[2024-06-13] MEDS: ACETAMINOPHEN 325 MG TABLET 975 MG PO (08:04)
[2024-06-13] MEDS: POTASSIUM CHLORIDE 10 MEQ CAPSULE ER 20 MEQ PO ×2 (08:04→21:17)
[2024-06-13] MEDS: ASPIRIN 81 MG TABLET EC PO ×2 (08:04→21:17)
[2024-06-13 08:11] VITALS: O2SAT 96
--- NOTE | 2024-06-13 09:31 | NUTR.NU ---
RDN with nutrition screen related to length of stay. Patient admitted with hip fracture status post right intertrochanteric hip fracture fixation, DOS: 06/03/24. Of note, patient experienced hospital-acquired delirium after surgery. Hospitalist suspects dementia. Plan for patient to be placed in SNF at discharge. Current weight 178lb 3.2oz; height 5ft 10in; BMI 25.6 kg/m2. Weight has been stable per records. Current diet is Regular. Meal intakes have been variable, mainly 50%+. With stable weight and adequate intakes, no nutrition interventions at this time. RDN will continue to monitor and follow-up prn.
--- NOTE | 2024-06-13 10:06 | PC.SOCIAL ---
Discharge planning: Called and secure emailed updated information to [facility], [facility], requesting review for admission to this facility for hsort term rehab. mobile home lot utility worker to fiollow up as needed.
--- NOTE | 2024-06-13 12:22 | P.IMPN_ITS ---
Progress Note: A&P Assessment and plan (1) Closed fracture of right hip: Problem details: S/p right intertrochanteric hip fracture fixation. DOS: 06/03/24; Dr. Israel. No operative complications Continue PT/OT Nonnarcotic pain management only to decrease risk for further delirium DVT prophylaxis per Orthopedic surgery - aspirin 81 mg b.i.d. x 35 days (Xarelto discontinued) Outpatient follow-up in orthopedic clinic 2 weeks postoperatively Status: Acute (2) Delirium: Problem details: Patient appears to have hospital-acquired delirium in the context of hip fracture and surgery. Underlying susceptibility to delirium from dementia, possibly Lewy body dementia. Confusion has been fluctuating. Current UTI may be contributing. Supportive cares. Seroquel (previously prescribed for hallucinations) was discontinued 06/10. Last Oxycodone 06/09. Currently on Cipro for UTI which can cause worsening confusion - continue to monitor for now given other medication changes Remains calm and cooperative throughout the day, easily redirectable, insomnia noted overnights. No agitation Status: Acute (3) Dementia: Problem details: Possibly Lewy body dementia. Seroquel at night - discontinued 06/10 in setting of increased delirium. Supportive cares Further outpatient workup and management following hospital discharge Status: Acute (4) Insomnia: Problem details: Nursing reporting little to no sleep past couple of nights Encourage appropriate sleep/wake cycle - shades open during day, limited napping, no caffeine after 2:00 p.m., restful night vitals, etc. According to UpToDate, trazodone 50 mg q.h.s. may improve total sleep time in patients with moderate to severe dementia. Ordered 06/12/2024 - increase to 75 mg Add magnesium 400 mg nightly, continue melatonin 6 mg nightly Status: Acute (5) Urinary retention: Problem details: Has had severe urinary retention with 1200 mL of urine in his bladder. Appears to be come more agitated when he has urinary retention or when he has an indwelling Doe. Manage with tid catheterization Status: Acute (6) Urinary tract infection: Problem details: Gram-negative rods in urine. Pseudomonas sensitive to Zosyn and Cipro Continue Cipro x 5 day course - consider if this may be contributing to increased confusion Status: Acute (7) Elevated liver transaminase level: Problem details: Previously had elevated indirect bili thought secondary to hemolysis with normal transaminases. Now with elevated transaminases. Bilirubin continues to trend down. Gallbladder has stones and sludge. No tenderness. Could also have drug- induced liver injury possibly from Cipro. Continue to follow. Surgery consult recommends observation. If needing intervention on the gallbladder they are recommending placement of a percutaneous drainage tube 06/11 - total bili normalized to 1.4, AST trending down 43, ALT stable Status: Acute (8) Rheumatoid arthritis: Problem details: Home meds include methotrexate (takes Mondays) and hydroxychloroquine -restarting methotrexate as liver enzymes have normalized Status: Chronic (9) Discharge planning issues: Problem details: Still having too much delirium to be discharged. Continue to address environmental modifications and urinary retention to minimize delirium Considering rehab with [facility] abilities vice president of consulting services assisting Status: Acute (10) Hypokalemia: Problem details: Potassium 3.3, will replace with oral supplement - improved to 3.8. Continue 20 mEq b.i.d. dosing Status: Acute Plan Continuing therapies, awaiting rehab. Working on sleep wake cycle. Labs have been stable. Will order p.r.n. at this point Time Spent With Patient Total time spent: Total time spent caring for the patient today was 45 minutes. This includes time spent for the visit reviewing the chart, time spent during the visit, time spent after the visit and documentation and planning in coordination of care. Subjective Date Seen: 06/13/24 Interval history: Seen with at bedside. No significant changes. Remains calm and cooperative, easily redirectable. No agitation. Adjusting medications to improve sleep. Exam Narrative: Exam Narrative: PHYSICAL EXAM General: Pleasant, conversant, NAD Cardiovascular: RRR, S1S2. No pitting edema Pulmonary: CTA bilaterally without rhonchi, rales, expiratory wheezes. No dyspnea Neurological: Alert, confusion present, interacting appropriately, cranial nerves intact, no focal findings Extremities: No gross joint deformity or swelling. AROMI. Neurovascularly intact Skin: Warm, dry. Const: Vital Signs, click to edit/add: Vital Signs - 24 hr 06/12/24 15:00 06/12/24 23:18 06/12/24 23:35 Temperature Pulse Rate [Bilate ral Dorsalis Pedis ] Respiratory Rate 18 18 20 Blood Pressure [Le ft Arm] Pulse Oximetry Oxygen Delivery Me thod Room Air 06/13/24 07:42 06/13/24 08:11 Temperature 97.9 F Pulse Rate [Bilate ral Dorsalis Pedis ] 86 Respiratory Rate 16 Blood Pressure [Le ft Arm] 120/79 Pulse Oximetry 96 96 Oxygen Delivery Me thod Room Air Room Air
[2024-06-13 15:00] VITALS: BP 106/86; PULSE 73; RESP 18; TEMP 36.6; O2SAT 96
--- NOTE | 2024-06-13 15:00 | PC.SOCIAL ---
Addendum entered by JOSEE Vogel 06/13/24 15:57: Discharge planning: Met with after face to face visit by RN from [facility]. has accepted a room for pt at this assisted living facility and is aware it is a private pay facility. is requesting transport with the non-emergency EMS and agrees to pay the fee of approximately $100 for transport if not covered by insurance. Facility is requesting discharge at 10:00 tomorrow morning. lunchroom worker to follow up as needed. Original Note: Discharge Planning: Received call from [facility]te[facility] of [facility] stating they are yunable to accept pt due to the need for 1:1 nurisng for behaviors. Matteo stated that if pt improves and comes off of 1:1 nursing for 24 hours, then he can be reassessed for admission. Called [facility] and was informed they can not meet his needs based on the memory care need. Called [facility], [facility] and [facility], and all these facilities are unable to accept an admission at this time. Met with and provided her a list of SNF facilities in the area and shared with her the concern from the facilities about not being able to meet his memory care needs and the lack of available beds at facilities. requested social psychologist reach out to halfway facilities in [place], [place] for possible admission. Also discussed with , the option of looking for assisted living memory care facility where pt could receive PT/OT at the home care level and have 24 hour memory care services. states she is interested in this option if it meets pt's needs and requested social work contact [facility] and [facility] regarding availability. Both facilities have availability. Evaluation nurse from [facility] will come at 3:00 to evaluate pt for admit and nurse from [facility] will come at 4:00. is pleased with this plan. lunchroom worker to follow up as needed.
[2024-06-13 21:00] VITALS: BP 124/73; PULSE 83; RESP 20; TEMP 36.8; O2SAT 95
[2024-06-13] MEDS: HYDROXYCHLOROQUINE 200 MG TABLET 400 MG PO (21:15)
[2024-06-13] MEDS: TRAZODONE HCL 50 MG TABLET 75 MG PO (21:16)
[2024-06-13] MEDS: SENNOSIDES/DOCUSATE TABLET 2 TAB PO (21:16)
[2024-06-13] MEDS: TAMSULOSIN HCL 0.4 MG CAPSULE 0.8 MG PO (21:17)
[2024-06-13] MEDS: MAGNESIUM OXIDE 400 MG TABLET PO (21:17)
[2024-06-13] MEDS: MELATONIN 3 MG TABLET 6 MG PO (21:18)
[2024-06-13 23:00] VITALS: BP 125/77; PULSE 83; RESP 18; O2SAT 96; O2SAT 97
[2024-06-13 23:19] VITALS: RESP 18
--- NOTE | 2024-06-13 23:26 | PC.NURSE ---
Arrived on shift at 2300 to sit with patient 1:!. Patient is needing this due to not sleeping. Patient was pleasantly confuse upon my arrival wanting to get out of here. Placed patient in a wheelchair and went to end of hallway where there is less stimulation. Sat and talked with him for about 20 minutes and noted his eyes were looking tired. wheeled him back to his room and help patient to get into bed. Did fall asleep shortly after laying down. Noted that patient does talk in his sleep. Did vitals and his assessment and then placed multiple blankets on him. At this time appears to be sleeping soundly. Have room door closed to decrease stimulation and noise from nursing station.
--- NOTE | 2024-06-14 00:18 | PC.NURSE ---
patient continues to sleep
[2024-06-14] MEDS: ACETAMINOPHEN 325 MG TABLET 975 MG PO ×2 (00:51→06:21)
--- NOTE | 2024-06-14 00:55 | PC.NURSE ---
did wake for a short moment readjust him in bed and tylenol given for pain
--- NOTE | 2024-06-14 01:33 | PC.NURSE ---
up to bathroom voided and was inc also. Reoriented to time of day. Settled back into bed ice pack applied along with warm blankets.
--- NOTE | 2024-06-14 02:17 | PC.NURSE ---
has been sleeping again since he settled back into bed after going to the bathroom
--- NOTE | 2024-06-14 03:18 | PC.NURSE ---
continues to sleep has been repositioning himself.
--- NOTE | 2024-06-14 04:09 | PC.NURSE ---
patient up to bathroom voided and had a bm. Is easily directed to lay back down also have white noise playing and he is sleeping again
--- NOTE | 2024-06-14 05:23 | PC.NURSE ---
End Of Shift Note: Patient did sleep tonight after receiving his nighttime meds and then tylenol at around midnight. Was up to use the bathroom a couple of times with assist of 1. He appears to be following directions a little more as the night went on. Also used white noise to help him sleep along with the medications he received at [facility]. Will continue to monitor until next shift arrives.
[2024-06-14 06:56] VITALS: O2SAT 96
[2024-06-14 07:01] VITALS: BP 126/66; PULSE 73; RESP 20; TEMP 36.7; O2SAT 96
[2024-06-14 07:03] VITALS: PULSE 73; RESP 20
[2024-06-14] MEDS: lisinopriL 10 MG TABLET PO (08:08)
[2024-06-14] MEDS: POTASSIUM CHLORIDE 10 MEQ CAPSULE ER 20 MEQ PO (08:08)
[2024-06-14] MEDS: ASPIRIN 81 MG TABLET EC PO (08:08)
[2024-06-14] MEDS: MAGNESIUM OXIDE 400 MG TABLET PO (08:08)
[2024-06-14] MEDS: CIPROFLOXACIN 250 MG TABLET PO (08:09)
--- NOTE | 2024-06-14 09:44 | PC.SOCIAL ---
Addendum entered by JOSEE Vogel 06/14/24 11:23: Received call back from [facility], Sheyla, confirmed they can accept referral and start of care will be Thursday06/17/24. Original Note: Discharge planning: Per MD order for home care PT/OT at the memory care assisted living facility, met with who requested this be arranged with [facility]. Called [facility] intake and spoke with Sheyla who requested information be faxed for evaluation for admit to home care. Faxed (fax # [phone]) requested information, and MD order to [facility] and awaiting decision on admit to home care. hatchery worker to follow up as needed.
--- NOTE | 2024-06-14 09:49 | P.DS_ITS ---
DS: Providers Provider Date Seen: 06/14/24 Date of admission: 06/02/24 16:43 Primary care physician: Marcela Mckenna DO Admitting Clinician: Maxine Escobar MD Consults: 06/02/24 17:47 Consult to Physical Therapy [CONS] Routine Comment: Reason(s) for PT Consult:: Evaluate and Treat Any Restrictions?:: See Comment Comment: postop 06/03 Consult to [employer] Consultant [CONS] Routine Comment: Reason for Consult:: Discharge Planning Needs 06/02/24 17:49 Consult to Occupational Therapy [CONS] Routine Comment: Reason(s) for OT Consult:: Evaluate and Treat Any Restrictions?:: See Comment Comment: postop 06/03 Attending Physician on discharge: RENA Jason, KATIEC [facility] Date of Discharge: 06/14/24 DS: Diagnosis Discharge Diagnosis (1) Closed fracture of right hip: Status: Acute Problem details: S/p right intertrochanteric hip fracture fixation. DOS: 06/03/24; Dr. Israel. No operative complications Continue PT/OT Nonnarcotic pain management only to decrease risk for further delirium DVT prophylaxis per Orthopedic surgery - aspirin 81 mg b.i.d. x 35 days (Xarelto discontinued) Outpatient follow-up in orthopedic clinic 2 weeks postoperatively (2) Delirium: Status: Acute Problem details: Patient appears to have hospital-acquired delirium in the context of hip fracture and surgery. Underlying susceptibility to delirium from dementia, possibly Lewy body dementia. Confusion has been fluctuating. Current UTI may be contributing. Supportive cares. Seroquel (previously prescribed for hallucinations) was discontinued 06/10. Last Oxycodone 06/09. Currently on Cipro for UTI which can cause worsening confusion - continue to monitor for now given other medication changes Remains calm and cooperative throughout the day, easily redirectable, insomnia noted overnights. No agitation. Delirium resolved. Suspect new baseline dementia. Slept overnight prior to discharge. (3) Dementia: Status: Acute Problem details: Possibly Lewy body dementia. Seroquel at night - discontinued 06/10 in setting of increased delirium. Supportive cares Further outpatient workup and management following hospital discharge (4) Insomnia: Status: Acute Problem details: Nursing reporting little to no sleep past couple of nights Encourage appropriate sleep/wake cycle - shades open during day, limited napping, no caffeine after 2:00 p.m., restful night vitals, etc. According to Up[employer], trazodone 50 mg q.h.s. may improve total sleep time in patients with moderate to severe dementia. Ordered 06/12/2024 - increase to 75 mg Add magnesium 400 mg nightly, continue melatonin 6 mg nightly Continue trazodone 75 mg, magnesium 400 mg, melatonin 6 mg at bedtime (5) Urinary retention: Status: Acute Problem details: Has had severe urinary retention with 1200 mL of urine in his bladder. Appears to be come more agitated when he has urinary retention or when he has an indwelling Doe. Manage with tid catheterization- temporarily Patient has been urinating on his own without residual for the past 4 days, no further catheterization needed (6) Urinary tract infection: Status: Acute Problem details: Gram-negative rods in urine. Pseudomonas sensitive to Zosyn and Cipro Continue Cipro x 5 day course - consider if this may be contributing to increased confusion Completed 5 day course of antibiotic prior to discharge. No further antibiotics required. (7) Elevated liver transaminase level: Status: Acute Problem details: Previously had elevated indirect bili thought secondary to hemolysis with normal transaminases. Now with elevated transaminases. Bilirubin continues to trend down. Gallbladder has stones and sludge. No tenderness. Could also have drug-induced liver injury possibly from Cipro. Continue to follow. Surgery consult recommends observation. If needing intervention on the gallbladder they are recommending placement of a percutaneous drainage tube 06/11 - total bili normalized to 1.4, AST trending down 43, ALT stable. Outpatient follow-up as needed. (8) Rheumatoid arthritis: Status: Chronic Problem details: Home meds include methotrexate (takes Mondays) and hydroxychloroquine -restarting methotrexate as liver enzymes have normalized (9) Discharge planning issues: Status: Acute Problem details: Still having too much delirium to be discharged. Continue to address environmental modifications and urinary retention to minimize delirium Considering rehab with Memory Care abilities child protective services specialist assisting - patient placed in assisted living (10) Hypokalemia: Status: Acute Problem details: Potassium 3.3, will replace with oral supplement - improved to 3.8. Continue 20 mEq b.i.d. dosing Outpatient follow-up DS: Summary Hospital Course Hospital Course: Course of care and details as noted above. Remainder of chronic medical comorbidities were monitored and managed with home medications. Status at Discharge Functional status at discharge: independent ambulation Overall status at discharge: other (Suspect new cognitive baseline at discharge) Time Spent with Patient Time attestation: Total time spent providing and/or coordinating discharge services: Time spent: Greater than 30 minutes Exam Narrative: Exam Narrative: PHYSICAL EXAM General: Pleasant, conversant, NAD Cardiovascular: RRR Pulmonary: No dyspnea Neurological: Alert, answering questions appropriately Skin: Warm, dry. Const: Vital Signs, click to edit/add: Vital Signs - 24 hr 06/13/24 15:00 06/13/24 15:00 06/13/24 21:00 Temperature 97.9 F 98.3 F Pulse Rate [Bilate ral Dorsalis Pedis ] Pulse Rate [Pulse Oximeter] 73 83 Respiratory Rate 18 18 20 Blood Pressure [Ri ght Arm] 106/86 124/73 Pulse Oximetry 96 96 95 Oxygen Delivery Me thod Room Air Room Air Room Air 06/13/24 23:00 06/13/24 23:00 06/13/24 23:19 Temperature Pulse Rate [Bilate ral Dorsalis Pedis ] 83 Pulse Rate [Pulse Oximeter] Respiratory Rate 18 18 Blood Pressure [Ri ght Arm] 125/77 Pulse Oximetry 96 97 Oxygen Delivery Me thod Room Air Room Air 06/14/24 06:56 06/14/24 07:01 06/14/24 07:03 Temperature 98.1 F Pulse Rate [Bilate ral Dorsalis Pedis ] Pulse Rate [Pulse Oximeter] 73 73 Respiratory Rate 20 20 Blood Pressure [Ri ght Arm] 126/66 Pulse Oximetry 96 96 Oxygen Delivery Me thod Room Air Room Air Discharge Plan Discharge Disposition: er [facility] Date of Admission: 06/02/24 16:43 Attending Provider on Discharge: Lucretia Servin Primary Care Provider: Marcela Mckenna Anticipated Discharge Date/Time: 06/14/24 09:37 Discharge Medications: New acetaminophen 325 mg Tablet 975 mg PO Q6H PRNQty: 100 0RF lisinopril 10 mg tablet 10 mg PO DAILY Qty: 30 0RF magnesium oxide 400 mg (241.3 mg magnesium) Tablet 400 mg PO QHS Qty: 30 0RF Rx Instructions: Take at bedtime trazodone 50 mg Tablet 75 mg PO HS Qty: 60 0RF melatonin 3 mg Tablet 6 mg PO HS Qty: 30 0RF Continued tamsulosin 0.4 mg capsule 0.8 mg PO HS hydroxychloroquine 200 mg tablet 400 mg PO HS naproxen sodium [Aleve] 220 mg tablet 220 mg PO DAILY methotrexate sodium 2.5 mg tablet 15 mg PO Q7D Patient Comments: TAKES ON MONDAYS epinephrine [EpiPen] 0.3 mg/0.3 mL auto-injector 0.3 mg IM ONCE PRN Changed aspirin [Adult Aspirin Regimen] 81 mg tablet,delayed release (DR/EC) 81 mg PO BID Qty: 100 0RF Rx Instructions: Take 81 mg b.i.d. for 30 days then 1 tablet daily indefinitely Discontinued lisinopril 20 mg tablet 20 mg PO DAILY quetiapine 25 mg tablet 12.5 mg PO HS Discharge Orders: Discharge Order (Routine); Ordered 06/14/24 Ordered By: Lucretia Servin Additional Instructions: Encourage sleep/wake cycle. Curtains open during day. Little to no napping. No caffeine after 2:00pm. Activity Level: Activity as Tolerated, Weight Bearing as Tolerated and Use Walker Activity Detail: Per PT/OT Discharge Diet: Regular Follow Up Appointments: Marcela Mckenna DO [Primary Care Provider] - [facility] Inst[facility] Discharge Comments: Admit to [facility] Admit to: Assisted Living Discharge Potential: Good Length of Stay: <30 days Can use facility standing orders?: Yes Code Status: Full Code TEDs: Bilateral Knee Rehab Potential: Good Therapy: Physical Therapy and Occupational Therapy Therapy Orders: Evaluate and Treat Oxygen: No Urinary Catheter: No Orders are good >30 days: No Signature: RENA Jason, PA-C [place] [facility]ist
[2024-06-14 11:20] VITALS: BP 107/58; PULSE 65; RESP 16; TEMP 36.7; O2SAT 96
== END 2024-06-14 14:16 | DRG 480 ==
LOC: ED 15:47 → MEDSURG 16:44
PROVIDERS: Family Medicine; Orthopaedic Surgery; Admitting Provider Family Medicine; Emergency Provider Family Medicine; PCP Family Medicine; Visit Provider Family Medicine
PROC: 0QS606Z Reposition Right Upper Femur with Intramedullary Internal Fixation Device, Open Approach (ICD-10-PCS; CPT 27245; principal; 2024-06-03 13:30)
DX: S72.141A Displaced intertrochanteric fracture of right femur, initial encounter for closed fracture (principal); A41.52 Sepsis due to Pseudomonas; F02.811 Dementia in other diseases classified elsewhere, unspecified severity, with agitation; R44.3 Hallucinations, unspecified; F05 Delirium due to known physiological condition; N39.0 Urinary tract infection, site not specified; D84.821 Immunodeficiency due to drugs; G31.83 Neurocognitive disorder with Lewy bodies; M06.9 Rheumatoid arthritis, unspecified; Z79.631 Long term (current) use of antimetabolite agent; G89.18 Other acute postprocedural pain; G47.33 Obstructive sleep apnea (adult) (pediatric); I10 Essential (primary) hypertension; W00.0XXA Fall on same level due to ice and snow, initial encounter; R45.1 Restlessness and agitation; R50.82 Postprocedural fever; E80.6 Other disorders of bilirubin metabolism; Z79.899 Other long term (current) drug therapy; I95.81 Postprocedural hypotension; R33.9 Retention of urine, unspecified; G25.71 Drug induced akathisia; T43.595A Adverse effect of other antipsychotics and neuroleptics, initial encounter; E87.6 Hypokalemia; R74.01 Elevation of levels of liver transaminase levels; G47.00 Insomnia, unspecified; W18.30XA Fall on same level, unspecified, initial encounter; Y93.01 Activity, walking, marching and hiking; Y92.9 Unspecified place or not applicable; K80.20 Calculus of gallbladder without cholecystitis without obstruction; Z79.82 Long term (current) use of aspirin; Z87.891 Personal history of nicotine dependence; Z96.651 Presence of right artificial knee joint; I25.10 Atherosclerotic heart disease of native coronary artery without angina pectoris; E78.5 Hyperlipidemia, unspecified; F32.A Depression, unspecified; H90.3 Sensorineural hearing loss, bilateral; I44.7 Left bundle-branch block, unspecified; N40.0 Benign prostatic hyperplasia without lower urinary tract symptoms
CPT/HCPCS: 01210; 36415; 51701; 51702; 51798; 64450; 71045; 71275; 73502; 73521; 73551; 74177; 76705; 76942; 80048; 80053; 80076; 81001; 82247; 83605; 83735; 84484; 85025; 85027; 85610; 85730; 86140; 87040; 87086; 87186; 93005; 94761; 97110; 97116; 97162; 97165; 97530; 97535; 99100; 99140; 99284; 99285; A9270; C1713; J0690; J0696; J2250; J2270; J2371; J2543; J2704; J3010; J3372; J3490; J7030; J7050; J7120; Q9967

== ENCOUNTER 2024-06-14 13:56 | Outpatient (CLI) | payer MEDICARE, BC, SELFPAY | END 2024-06-14 13:57 | disposition home or self-care (01) | LOC: AMB 06-21 15:07 | PROVIDERS: PCP Family Medicine; Visit Provider Student in an Organized Health Care Education/Training Program | DX: F03.90 Unspecified dementia, unspecified severity, without behavioral disturbance, psychotic disturbance, mood disturbance, and anxiety (principal) | CPT/HCPCS: A0425; A0428 ==

== ENCOUNTER 2024-08-31 12:21 | Outpatient (RCR) | payer MEDICARE, BC, SELFPAY | END 2024-12-29 23:59 | disposition home or self-care (01) | PROVIDERS: PCP Family Medicine; Visit Provider Family Medicine | DX: R41.3 Other amnesia (principal); Z91.89 Other specified personal risk factors, not elsewhere classified; Z51.89 Encounter for other specified aftercare | CPT/HCPCS: 97165 ==

== ENCOUNTER 2024-11-09 07:30 | Outpatient (RCR) | payer MEDICARE, BC, SELFPAY ==
--- NOTE | 2024-07-28 14:58 | PT.OPEX ---
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 Israel) Treating Diagnosis Hip strengthening - right B LE strengthening gait training Referring MD Dr. Dumont Subjective Subjective Patient is a 74 year old male who presents to physical therapy s/p right hip ORIF fracture. He has been doing home PT. He states that he fell and landed on his right hip. He slipped on ice outside and he couldn't get up on June 02. He had surgery on the and was in the hospital for 12 days. He states that he had lots of hallucinations. Then he went into [place] for two weeks. He had PT and OT at that time. He has had home health PT since then at least once a week and OT once a week. 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 He has not transitioned to the cane yet. He states that he does not have much pain in his hip but does get sore at times. He states that he is sleeping pretty good. He is seeing a neurologist at [facility] in October. He hasn't been driving. He is having a driving evaluation next week. Significant past medical history includes R TKA. Patient would like to be stronger through physical therapy sessions. 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 Date: 07/28/2024 Prepared by: Fabby Gooden Exercises - Sitting Knee Extension with Resistance - 1 x daily - 7 x weekly - 3 sets - 10 reps - Supine Bridge - 1 x daily - 7 x weekly - 3 sets - 10 reps - Standing Hip Flexion with Resistance Loop - 1 x daily - 7 x weekly - 3 sets - 10 reps - Hip Abduction with Resistance Loop - 1 x daily - 7 x weekly - 3 sets - 10 reps - Hip Extension with Resistance Loop - 1 x daily - 7 x weekly - 3 sets - 10 reps - Marching with Resistance - 1 x daily - 7 x weekly - 3 sets - 10 reps - Standing Hamstring Curl with Resistance - 1 x daily - 7 x weekly - 3 sets - 10 reps - Heel Raises with Counter Support - 1 x daily - 7 x weekly - 3 sets - 10 reps Assessment Assessment/Impression Pt is a 74 year old male who presents to PT s/p right hip ORIF fracture. Patient also has notable objective findings including limited ROM, tenderness to palpation, and decreased strength which are also likely contributing to the problem. Patient is a good candidate for skilled therapy to target deficits described above. Skilled PT intervention is necessary for use of therapeutic exercise manual therapy, neuromuscular re- education, gait training, and therapeutic activity. Functional impairments include difficulty with: standing, exercising, walking and ADLs. See appropriate sections of PT eval for complete list of goals and POC. D/C plan and criteria is for pt to achieve the goals as listed below or until max rehab potential is met. Pt was agreeable with plan of care and goals established. Primary Functional Limitations standing exercising standing ADLs Plan of Care Rehabilitation Potential Good Physical Therapy Goals Within 10-12 weeks: 1.Pt will demonstrate independence in performance of home exercise program with the use of video and/or handouts in order to optimize functional mobility and reduce risk for re-injury. 2.Pt will demonstrate consistent HEP compliance to ensure progress in reaching established goals during course of care. 3.Patient will report pain levels <2/10 with all activities in order to improve functional mobility at home, work and during functional leisure activities. 4.Patient will be able to walk up to one mile without pain. 5.Pt will be able to ascend/ descend 1 flight of stairs in order to perform ADLs pain free. 6.Pt will be able to return to ambulation in his home without an assistive device. Coordination/Communication With Referral Source Treatment Plan/Direct Interventions Gait Training,Manual Therapy, Neuromuscular Re-ed, Therapeutic Activities, Therapeutic Exercises Patient Will Be Discharged From Therapy Independently Progressing Evaluation Billing Untimed Code Treatment Minutes 30 Complexity Low Certification Information Provider Signature Required Yes Provider Signature Shows Agreement With POC & Medical Necessity Physician NPI Number Write NPI# Here Physician Comment/Change : Physician Signature & Date Requested Please Sign/Date Here
--- NOTE | 2024-10-26 08:07 | PT.OPDNX ---
PT [place] Outpatient Daily Note PT [facility] Outpatient Daily Note Start: 06/30/24 16:18 Freq: Status: Active Protocol: Document 10/26/24 07:02 MLS (Rec: 10/26/24 08:07 MLS [email or web address]) E-signed By Fabby Gooden DPT PT OP Daily Progress Note Visit Information Note Type Daily Note Visit Number [id number] Insurance Information Recert Due Date 10/25/24 Insurance Name Medicare B,Blue Cross/Blue Shield Medical Diagnosis s/p ORIF fracture OA right hip Z98.890 other specified postprocedural states Z87.81 personal hx of healed traumatic fx M16.11 unilateral primary OA, right hip R intertrochanteric hip fracture fixation with cephalomedullary hip screw ( Dr. Israel) Treating Diagnosis Hip strengthening - right B LE strengthening gait training Referring MD Dr. Dumont Subjective Subjective Patient is a 74 year old male who presents to physical therapy s/p right hip ORIF fracture. He states that his granddaughter is coming to stay with him when his is gone in [place] in November. He states that his brother yesterday. He states that his hip is sore since the last fall. HE states that he tried golfing again. He states that he notices he does better with with the cane. He states that he had twice this week, where is would have fallen if he didn't have the cane. Pain Comments Today: 1/10 on a 0-10 pain scale with 10 = extreme pain Precautions Weight Bearing Status Full Weight Bearing Home Exercise Home Exercise Comments Access Code: [email or web address] URL: [email or web address] Date: 09/27/2024 Prepared by: Fabby Gooden Exercises - Sitting Knee Extension with Resistance - 1 x daily - 7 x weekly - 3 sets - 10 reps - Supine Bridge - 1 x daily - 7 x weekly - 3 sets - 10 reps - Standing Hip Flexion with Resistance Loop - 1 x daily - 7 x weekly - 3 sets - 10 reps - Hip Abduction with Resistance Loop - 1 x daily - 7 x weekly - 3 sets - 10 reps - Hip Extension with Resistance Loop - 1 x daily - 7 x weekly - 3 sets - 10 reps - Marching with Resistance - 1 x daily - 7 x weekly - 3 sets - 10 reps - Standing Hamstring Curl with Resistance - 1 x daily - 7 x weekly - 3 sets - 10 reps - Heel Raises with Counter Support - 1 x daily - 7 x weekly - 3 sets - 10 reps - Standing Single Leg Stance with Counter Support - 1 x daily - 5-7 x weekly - 1-5 reps - 10-60 seconds hold - strength/balance exercise type - Forward T with Counter Support - 1-2 x daily - 5-7 x weekly - 2 sets - 10 reps - 2 -3 seconds hold - strength/ balance exercise type - Standing on Foam Pad - 1-2 x daily - 5-7 x weekly - 2 sets - 10 reps - 2-3 seconds hold - strength/balance exercise type - Standing Tandem Balance with Counter Support - 1 x daily - 7 x weekly - 3 sets - 10 reps Objective Other/Pertinent Objective KNEE ROM Extension/Flexion: 0-120 B HIP ROM Left: Grossly tested WNL Flexion: R 90 Internal Rotation: R 25 External Rotation: R 30 Abduction: R 30 LLE MMT: Hip flexion: R 4/5 L 4+/5 Hip abduction: R 4/5 L 4+/5 Hip extension: R 4/5 L 4/5 Knee flexion: R 4+/5 L 4+/5 Knee extension: R 4+/5 L 4+/5 Patient Instructed in Risks/Benefits Yes Therapeutic Exercise Therapeutic Exercise Minutes (minutes) 45 Therapeutic Exercise: To Restore 2.5#: Functional Status Supine HEP Foam sit to stands low table step forward back step forwards/side steps step taps forward back steps tandem with rotation at waist single leg stance with counter support tandem stance - alternating feet with counter support Forward T - left leg only Access Code: [email or web address] URL: [email or web address] Date: 07/28/2024 Prepared by: Fabby Gooden Exercises - Sitting Knee Extension with Resistance - 1 x daily - 7 x weekly - 3 sets - 10 reps - Supine Bridge - 1 x daily - 7 x weekly - 3 sets - 10 reps - Standing Hip Flexion with Resistance Loop - 1 x daily - 7 x weekly - 3 sets - 10 reps - Hip Abduction with Resistance Loop - 1 x daily - 7 x weekly - 3 sets - 10 reps - Hip Extension with Resistance Loop - 1 x daily - 7 x weekly - 3 sets - 10 reps - Marching with Resistance - 1 x daily - 7 x weekly - 3 sets - 10 reps - Standing Hamstring Curl with Resistance - 1 x daily - 7 x weekly - 3 sets - 10 reps - Heel Raises with Counter Support - 1 x daily - 7 x weekly - 3 sets - 10 reps Manual Therapy Techniques Manual Therapy Techniques Manual techniques in prone to right more than left QL and piriformis Treatment Minutes Timed Code Treatment Minutes 45 Total Treatment Time 45 Billing Units Therapeutic Exercise Units 3 Assessment/Impression Assessment/Impression Pt is a 74 year old male who presents to PT s/p right hip ORIF fracture. He did get a referral to neuro at [facility] and filled out a questionnaire but has not heard back yet. Continued to work on balance and lower extremity strengthening today. Moderate difficulty with right lower extremity. Skilled PT intervention is necessary for use of therapeutic exercise manual therapy, neuromuscular re-education, gait training, and therapeutic activity. D/C plan and criteria is for pt to achieve the goals as listed below or until max rehab potential is met. Primary Functional Limitations standing exercising standing ADLs Plan of Care Physical Therapy Goals Within 10-12 weeks: 1.Pt will demonstrate independence in performance of home exercise program with the use of video and/or handouts in order to optimize functional mobility and reduce risk for re-injury. 2.Pt will demonstrate consistent HEP compliance to ensure progress in reaching established goals during course of care. 3.Patient will report pain levels <2/10 with all activities in order to improve functional mobility at home, work and during functional leisure activities. 4.Patient will be able to walk up to one mile without pain. 5.Pt will be able to ascend/ descend 1 flight of stairs in order to perform ADLs pain free. 6.Pt will be able to return to ambulation in his home without an assistive device. Daily Plan of Care Continue per POC Recertification Information Initial Certification Date 07/28/24 Recertification Start Date 10/26/24 Recertification Due Date 10/25/24 Reasons to Continue Skilled Therapy Jamal recently had two falls on separate occasions. He has several neurological symptoms and is waiting to get an appointment at October o to be evaluated by a neurologist. Referral has been sent, just waiting to hear back. Jamal has a couple more appointments scheduled to continue to work on his lower extremity strengthening, gait and balance. Rehabilitation Potential Good Continued Plan of Care and Interventions Exercise Ther activities Neuro re-ed Provider Signature Shows Agreement With POC & Medical Necessity Physician Comment/Change Comment or Changes Physician NPI Number #
== END 2024-12-14 12:18 | disposition home or self-care (01) ==
PROVIDERS: PCP Family Medicine; Visit Provider Orthopaedic Surgery Sports Medicine
DX: Z48.89 Encounter for other specified surgical aftercare (principal); M16.11 Unilateral primary osteoarthritis, right hip; Z87.81 Personal history of (healed) traumatic fracture; Z51.89 Encounter for other specified aftercare
CPT/HCPCS: 97110; 97140; 97161